=== PATIENT | female | born 1965 ===

== ENCOUNTER 2017-12-25 04:14 | Inpatient (IN) | payer MEDICARE, OTHER ==
--- NOTE | 2017-12-25 05:03 | ED PDOC ---
HPI: CCC, URI, Sore Throat Time Seen by Provider: 12/25/17 04:45 Chief Complaint (Nursing): ENT Problem Chief Complaint (Provider): Sore Throat History Per: Patient, Family History/Exam Limitations: no limitations Have you had recent travel within the past 21 days to any of the following countries: [place], [place], [place] or [place]?: No Onset/Duration Of Symptoms: Days (5), Persistent, Worse Since (yesterday) Location Of Pain: Other (Pharynx) Associated Symptoms: denies: Fever Past Medical History Reviewed: Historical Data, Nursing Documentation, Vital Signs Vital Signs: Last Vital Signs Temp 98.6 F 12/29/17 11:48 Pulse 67 12/29/17 11:48 Resp 18 12/29/17 11:48 BP 135/80 12/29/17 11:48 Pulse Ox 95 12/29/17 11:48 - Medical History PMH: Asthma, Depression, Diabetes, HTN, Schizophrenia - Surgical History Surgical History: Cholecystectomy - Family History Family History: States: Unknown Family Hx - Home Medications Home Medications: Ambulatory Orders Medication Instructions Recorded Atorvastatin [Lipitor] 10 mg PO HS 12/25/17 Benztropine [Cogentin] 1 mg PO Q12 12/25/17 Chlorthalidone [Hygroton] 25 mg PO DAILY 12/25/17 Escitalopram Oxalate [Lexapro] 5 mg PO DAILY 12/25/17 Fluconazole [Diflucan] 100 mg PO DAILY 12/25/17 Glimepiride [amaRYL] 4 mg PO BID 12/25/17 Insulin Aspart Prot/Insuln Asp 42 unit SC ACBD 12/25/17 [Novolog Mix 70-30 Vial] Insulin Glargine, Recombina 40 unit SC HS 12/25/17 [Lantus] Lisinopril [Zestril] 5 mg PO DAILY 12/25/17 Metoprolol Tartrate [Lopressor] 25 mg PO Q12 12/25/17 Mycophenolate Sodium [Myfortic] 360 mg PO Q12 12/25/17 Sodium Bicarbonate Tab 3 tab PO Q8 12/25/17 Tacrolimus [Prograf Cap] 3 mg PO Q12 12/25/17 risperiDONE [RisperDAL Tab] 2 mg PO Q12 12/25/17 Amoxicillin/Clavulanate [Augmentin 1 tab PO DAILY #5 tab 04/20/18 500 MG-125 MG] - Allergies Allergies/Adverse Reactions: Allergies Allergy/AdvReac Type Severity Reaction Status Date / Time iodine Allergy URTICARIA Verified 12/25/17 04:30 Review of Systems Constitutional: Negative for: Fever ENT: Positive for: Throat Pain Physical Exam - Reviewed Nursing Documentation Reviewed: Yes Vital Signs Reviewed: Yes - Physical Exam Appears: Positive for: Well, No Acute Distress Head Exam: Positive for: ATRAUMATIC, NORMAL INSPECTION, NORMOCEPHALIC Skin: Positive for: Normal Color ENT: Positive for: Pharynx Is (tonsils touch at apex; airway is open but small in caliber; no exudate or erythema), Tonsillar Swelling. Negative for: Pharyngeal Erythema, Tonsillar Exudate Neck: Positive for: Limited ROM. Negative for: Painless ROM, Supple Cardiovascular/Chest: Positive for: Regular Rate, Rhythm Respiratory: Positive for: Normal Breath Sounds. Negative for: Accessory Muscle Use, Crackles, Rales, Rhonchi, Stridor, Wheezing, Respiratory Distress - Laboratory Results Result Diagrams: 12/28/17 05:30 12/29/17 09:11 - ECG O2 Sat by Pulse Oximetry: 96 Medical Decision Making Medical Decision Making: Pt with sore throat; pharynx is indicating reduced caliber r/o [employer] >> pharyngitis Course CBC CMP 3g Unasyn Disposition - Clinical Impression Clinical Impression: Tonsillitis, Renal insufficiency, Anemia Counseled Patient/Family Regarding: Studies Performed, Diagnosis, Need For Followup, Rx Given - Disposition Disposition: Routine/Home Disposition Time: 06:07 Condition: FAIR
[2017-12-25] MEDS ORDERED: AMPICILLIN IVPB STA (05:20)
[2017-12-25] MEDS ORDERED: SULBACTAM IVPB STA (05:20)
[2017-12-25 05:31] LABS: SQUAMOUS EPITHIAL 13 /hpf (0-5); URINE BACTERIA OCC (<OCC); URINE BILIRUBIN NEGATIVE (NEGATIVE); URINE BLOOD SMALL (NEGATIVE); URINE CLARITY CLOUDY (Clear); URINE COLOR YELLOW (YELLOW); URINE GLUCOSE (UA) 50 mg/dL (Normal); URINE LEUKOCYTE ESTERASE NEG Leu/uL (Negative); URINE PROTEIN >=500 mg/dL (NEGATIVE); URINE UROBILINOGEN 0.2-1.0 mg/dL (0.2-1.0)
[2017-12-25 05:34] LABS: BASO % 0.2 % (0.0-2.0); EOS % 0.3 % (0.0-4.0); HEMOGLOBIN 8.1 g/dL (12.0-16.0); LYMPH # 0.5 K/uL (1.0-4.3); LYMPH % 3.3 % (20.0-40.0); MEAN CELL VOLUME 78.4 fl (81.0-99.0); MEAN CORPUSCULAR HEMOGLOBIN 25.8 pg (27.0-31.0); MEAN CORPUSCULAR HGB CONC 32.9 g/dL (33.0-37.0); MEAN PLATELET VOLUME 6.9 fl (7.2-11.7); MONO # 0.9 K/uL (0.0-0.8); MONO % 6.1 % (0.0-10.0); NEUT # 13.4 K/uL (1.8-7.0); NEUT % 90.1 % (50.0-75.0); PLATELET COUNT 253 K/uL (130-400); RBC 3.13 Mil/uL (3.80-5.20); RED CELL DISTRIBUTION WIDTH 13.8 % (11.5-14.5); WHITE BLOOD COUNT 14.9 K/uL (4.8-10.8)
[2017-12-25 05:39] LABS: ALB/GLOB RATIO 0.9 (1.0-2.1); ALBUMIN 3.1 g/dL (3.5-5.0); CALCIUM 8.1 mg/dL (8.4-10.2)
[2017-12-25] MEDS ORDERED: Dextrose 50% SYRINGE Inj (50 ml) IVP ONE (06:09)
[2017-12-25] MEDS ORDERED: Dextrose 50% SYRINGE Inj (50 ml) ONE (06:13)
--- NOTE | 2017-12-25 07:07 | ED PDOC ---
- Laboratory Results Result Diagrams: 18 05:16 18 05:16 - ECG O2 Sat by Pulse Oximetry: 96 (RA) Pulse Ox Interpretation: Normal Medical Decision Making Medical Decision Making: Patient signed out to me by Dr. Best @ 07:00, pending CT and re-evaluation. 07:52 Patient was heading to CT, but felt a little nauseous as per RN. 07:53 - Zofran ODT 4 mg PO STAT Time: 08:56 CT Neck without Contrast FINDINGS: There is no CT evidence of abscess, mass or definite significant reactive soft tissue change in the fatty planes of the supra high await or infrahyoid neck. Shotty lymph nodes are seen in the suprahyoid neck bilaterally at the jugular digastric regions but predominantly. There are no definite emphysematous changes throughout the neck soft tissues. Unenhanced density throughout the salivary glands is unremarkable bilaterally as well as the thyroid gland. Prominent right tonsillar changes are appreciated suggestive tonsillitis. Direct inspection is advised as an underlying lesion is not excluded here. Lack images contrast limits the evaluation. The hypopharynx, larynx and trachea appear unremarkable including the vocal cords, both true and false. Vascular anatomy is limited evaluation due lack of intravenous contrast. Small polyp or cyst is seen at the right maxillary sinus alveolar recess and limited imaging through the thoracic inlet is unremarkable. Minimal views through the bilateral pulmonary apices appear clear. IMPRESSION: Findings most likely secondary to right tonsillitis without definitive abscess appreciated in this unenhanced examination. Direct inspection of prominent right tonsillar pillar is advised. Underlying lesion not completely excluded here. Clinical follow-up is recommended following therapy. Shotty suprahyoid neck lymph nodes noted bilaterally. Scribe Attestation: Documented by Mo Gray, acting as a scribe for Álvaro Palafox MD Provider Scribe Attestation: All medical record entries made by the Scribe were at my direction and personally dictated by me. I have reviewed the chart and agree that the record accurately reflects my personal performance of the history, physical exam, medical decision making, and the department course for this patient. I have also personally directed, reviewed, and agree with the discharge instructions and disposition. Disposition - Clinical Impression Clinical Impression: Tonsillitis, Renal insufficiency, Anemia - POA Present On Arrival: None - Disposition Referrals: Sravan Ace MD [Primary Care Provider] - Disposition: Admitted as In-Patient Disposition Time: 11:03 Condition: FAIR Prescriptions: Amoxicillin/Clavulanate [Augmentin 875 MG-125 MG] 1 tab PO BID #20 tab Instructions: Sore Throat in Adults, Sore Throat, Adult (DC) Forms: [employer] (Polish)
[2017-12-25 07:21] LABS: LYMPHOCYTE 2 % (20-50); MONOCYTE 2 % (0-10); NEUTROPHIL 96 % (42-75); PLATELET ESTIMATE NORMAL (NORMAL); TOTAL CELLS COUNTED 100
[2017-12-25 07:22] LABS: ANISOCYTOSIS SLIGHT; HYPOCHROMIC SLIGHT; OVALOCYTES SLIGHT
--- NOTE | 2017-12-25 08:57 | CT ---
PROCEDURE: CT NECK WITHOUT CONTRAST HISTORY: r/o abscess COMPARISON: None available. TECHNIQUE: Helical CT of the neck is performed from the skullbase to the thoracic inlet without intravenous contrast as requested. Contrast Dose: None Radiation dose:Total exam DLP = 440.12 mGy-cm. This CT exam was performed using one or more of the following dose reduction techniques: Automated exposure control, adjustment of the mA and/or kV according to patient size, and/or use of iterative reconstruction technique. FINDINGS: There is no CT evidence of abscess, mass or definite significant reactive soft tissue change in the fatty planes of the supra high await or infrahyoid neck. Shotty lymph nodes are seen in the suprahyoid neck bilaterally at the jugular digastric regions but predominantly. There are no definite emphysematous changes throughout the neck soft tissues. Unenhanced density throughout the salivary glands is unremarkable bilaterally as well as the thyroid gland. Prominent right tonsillar changes are appreciated suggestive tonsillitis. Direct inspection is advised as an underlying lesion is not excluded here. Lack images contrast limits the evaluation. The hypopharynx, larynx and trachea appear unremarkable including the vocal cords, both true and false. Vascular anatomy is limited evaluation due lack of intravenous contrast. Small polyp or cyst is seen at the right maxillary sinus alveolar recess and limited imaging through the thoracic inlet is unremarkable. Minimal views through the bilateral pulmonary apices appear clear. IMPRESSION: Findings most likely secondary to right tonsillitis without definitive abscess appreciated in this unenhanced examination. Direct inspection of prominent right tonsillar pillar is advised. Underlying lesion not completely excluded here. Clinical follow-up is recommended following therapy. Shotty suprahyoid neck lymph nodes noted bilaterally.
[2017-12-25] MEDS ORDERED: Insulin Lispro Mix 75/25 100 units/ml (HumaLog) 10ml SC ONE (09:27)
--- NOTE | 2017-12-25 11:37 | CARD ---
APPROVED REPORT EKG Measurement Heart [id number] <Conclusion> Normal sinus rhythm Normal ECG
[2017-12-25 13:44] VITALS: BMI 34.5
--- NOTE | 2017-12-25 14:27 | CP.PCM.HP ---
History of Present Illness - History of Present Illness History of Present Illness: 51 y/o F, Multiple chronic medical conditions including Renal transplant in 209 , Pt came to ER [facility] to be evaluated for Sore throat, pain upon swallowing, onset 5 days [employer] with no relief of pain. Pt c/o of gradually increased throat pain, constant, severe intensity 9:10, associating to tonsilar swelling, also as per sister, Pt with difficulty breathing and wheezing in AM DO. Worsening symptoms: Difficulty eating. [facility] RE labs: WBC 14.9 Hgb 8.1 Sodium 129 BUN 40 Creatinine 3.9 BS 189. 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 Pt denied: Fever, chills, n/v/d, abdominal pain, urinary symptoms, CP, palpitations, dizziness, syncope, sick contact, recent travel out of [facility]. Soft Tissue CT showed: No evidence of abscess, mass or definitive reactive soft tissue in the fatty planes of the supra high await or infrahyoid neck. Finding most likely 2nd to R Tonsillitis w/o definitive abscess appreciated in this unenhanced examination. Present on Admission - Present on Admission Any Indicators Present on Admission: Yes History of Uncontrolled Diabetes: Yes Review of Systems - Constitutional Constitutional: Other (negative) - EENT Eyes: Requires Corrective Lenses, Other Ears: Other (negative) Nose/Mouth/Throat: Sore Throat, Throat Swelling - Cardiovascular Cardiovascular: Other (negative) - Respiratory Respiratory: Other (negative) - Gastrointestinal Gastrointestinal: Other (negative) - Genitourinary Genitourinary: Other (negative) - Musculoskeletal Musculoskeletal: Other (negative) - Integumentary Integumentary: Other (negative) - Neurological Neurological: Other (negative) - Psychiatric Psychiatric: Other (negative) - Endocrine Endocrine: Other (negative) - Hematologic/Lymphatic Hematologic: Other (negative) Past Patient History - Past Medical History & Family History Past Medical History?: Yes Pertinent Family History: Unknown - Past Social History Smoking Status: Never Smoked Alcohol: None Drugs: Denies Home Situation {Lives}: With Family - CARDIAC Hx Cardiac Disorders: Yes Hx Hypertension: Yes - PULMONARY Hx Respiratory Disorders: Yes Hx Asthma: Yes - NEUROLOGICAL Hx Neurological Disorder: No - HEENT Hx HEENT Problems: No - RENAL Hx Chronic Kidney Disease: Yes Hx Dialysis: Yes Hx Renal Failure: Yes Other/Comment: hx of kidney disease and dialysis but received transplant and is no longer on dialysis - ENDOCRINE/METABOLIC Hx Endocrine Disorders: Yes Hx Diabetes Mellitus Type 2: Yes - HEMATOLOGICAL/ONCOLOGICAL Hx Blood Disorders: Yes Hx Anemia: Yes - INTEGUMENTARY Hx Dermatological Problems: No - MUSCULOSKELETAL/RHEUMATOLOGICAL Hx Musculoskeletal Disorders: No Hx Falls: No - GASTROINTESTINAL Hx Gastrointestinal Disorders: No Hx Gall Bladder Disease: Yes (gallbladder stones) - GENITOURINARY/GYNECOLOGICAL Hx Genitourinary Disorders: Yes Other/Comment: kidney transplnt - PSYCHIATRIC Hx Psychophysiologic Disorder: Yes Hx Depression: Yes Hx Schizophrenia: Yes Hx Substance Use: No - SURGICAL HISTORY Hx Surgeries: Yes Hx Kidney Transplant: Yes - ANESTHESIA Hx Anesthesia: Yes Hx Anesthesia Reactions: No Hx Malignant Hyperthermia: No Has any member of the family had a problem w/ anesthesia?: No Meds Allergies/Adverse Reactions: Allergies Allergy/AdvReac Type Severity Reaction Status Date / Time iodine Allergy URTICARIA Verified 12/25/17 04:30 Physical Exam - Constitutional Appears: No Acute Distress - Head Exam Head Exam: NORMAL INSPECTION - Eye Exam Eye Exam: PERRL - ENT Exam Additional comments: difficult to evaluate due to tenderness , R Tonsilar swelling - Neck Exam Neck exam: Positive for: Normal Inspection - Respiratory Exam Respiratory Exam: NORMAL BREATHING PATTERN - Cardiovascular Exam Cardiovascular Exam: REGULAR RHYTHM - GI/Abdominal Exam GI & Abdominal Exam: Normal Bowel Sounds, Soft - Extremities Exam Additional comments: L arm previous non functioning AV fistula - Back Exam Back exam: NORMAL INSPECTION - Neurological Exam Neurological exam: Alert, Oriented x3 Additional comments: A O x3 , noo motor sensory deficit. - Psychiatric Exam Psychiatric exam: Anxious, Depressed - Skin Skin Exam: Normal Color, Warm Results - Vital Signs Recent Vital Signs: Last Vital Signs Temp 98.2 F 12/25/17 12:59 Pulse 74 12/25/17 12:59 Resp 18 12/25/17 12:59 BP 164/93 H 12/25/17 12:59 Pulse Ox 97 12/25/17 12:59 reviewed Michael - Labs Result Diagrams: 12/25/17 05:16 12/25/17 05:16 Labs: Laboratory Results - last 24 hr 12/25/17 12/25/17 12/25/17 05:16 05:16 05:16 WBC 14.9 H D RBC 3.13 L Hgb 8.1 L Hct 24.5 L MCV 78.4 L MCH 25.8 L MCHC 32.9 L RDW 13.8 Plt Count 253 MPV 6.9 L Neut % (Auto) 90.1 H Lymph % (Auto) 3.3 L [place] % (Auto) 6.1 Eos % (Auto) 0.3 Baso % (Auto) 0.2 Neut # (Auto) 13.4 H Lymph # (Auto) 0.5 L [place] # (Auto) 0.9 H Eos # (Auto) 0.0 Baso # (Auto) 0.0 Neutrophils % (Manual) 96 H Lymphocytes % (Manual) 2 L Monocytes % (Manual) 2 Platelet Estimate Normal Hypochromasia (manual) Slight Anisocytosis (manual) Slight Ovalocytes Slight Sodium 129 L Potassium 4.1 Chloride 98 Carbon Dioxide 14 L Anion Gap 21 H BUN 40 H Creatinine 3.9 H Est GFR ( Amer) 15 Est GFR (Non-Af Amer) 12 POC Glucose (mg/dL) Random Glucose 44 L Calcium 8.1 L Total Bilirubin 0.2 AST 28 ALT 31 Alkaline Phosphatase 97 Troponin I Total Protein 6.6 Albumin 3.1 L Globulin 3.5 Albumin/Globulin Ratio 0.9 L Urine Color Yellow Urine Clarity Cloudy Urine pH 6.0 Ur Specific [place] 1.012 Urine Protein >=500 Urine Glucose (UA) 50 Urine Ketones Negative Urine Blood Small Urine Nitrate Negative Urine Bilirubin Negative Urine Urobilinogen 0.2-1.0 Ur Leukocyte Esterase Neg Urine RBC (Auto) 3 Urine Microscopic WBC 5 Ur Squamous Epith Cells 13 H Urine Bacteria Occ H Influenza Typ A,B (EIA) Grp A Beta Strep Ag 12/25/17 12/25/17 12/25/17 06:29 06:29 06:58 WBC RBC Hgb Hct MCV MCH MCHC RDW Plt Count MPV Neut % (Auto) Lymph % (Auto) [place] % (Auto) Eos % (Auto) Baso % (Auto) Neut # (Auto) Lymph # (Auto) [place] # (Auto) Eos # (Auto) Baso # (Auto) Neutrophils % (Manual) Lymphocytes % (Manual) Monocytes % (Manual) Platelet Estimate Hypochromasia (manual) Anisocytosis (manual) Ovalocytes Sodium Potassium Chloride Carbon Dioxide Anion Gap BUN Creatinine Est GFR ( Amer) Est GFR (Non-Af Amer) POC Glucose (mg/dL) Random Glucose Calcium Total Bilirubin AST ALT Alkaline Phosphatase Troponin I < 0.0120 Total Protein Albumin Globulin Albumin/Globulin Ratio Urine Color Urine Clarity Urine pH Ur Specific [place] Urine Protein Urine Glucose (UA) Urine Ketones Urine Blood Urine Nitrate Urine Bilirubin Urine Urobilinogen Ur Leukocyte Esterase Urine RBC (Auto) Urine Microscopic WBC Ur Squamous Epith Cells Urine Bacteria Influenza Typ A,B (EIA) Negative for flu a/b Grp A Beta Strep Ag Negative 12/25/17 11:31 WBC RBC Hgb Hct MCV MCH MCHC RDW Plt Count MPV Neut % (Auto) Lymph % (Auto) [place] % (Auto) Eos % (Auto) Baso % (Auto) Neut # (Auto) Lymph # (Auto) [place] # (Auto) Eos # (Auto) Baso # (Auto) Neutrophils % (Manual) Lymphocytes % (Manual) Monocytes % (Manual) Platelet Estimate Hypochromasia (manual) Anisocytosis (manual) Ovalocytes Sodium Potassium Chloride Carbon Dioxide Anion Gap BUN Creatinine Est GFR ( Amer) Est GFR (Non-Af Amer) POC Glucose (mg/dL) 189 H Random Glucose Calcium Total Bilirubin AST ALT Alkaline Phosphatase Troponin I Total Protein Albumin Globulin Albumin/Globulin Ratio Urine Color Urine Clarity Urine pH Ur Specific [place] Urine Protein Urine Glucose (UA) Urine Ketones Urine Blood Urine Nitrate Urine Bilirubin Urine Urobilinogen Ur Leukocyte Esterase Urine RBC (Auto) Urine Microscopic WBC Ur Squamous Epith Cells Urine Bacteria Influenza Typ A,B (EIA) Grp A Beta Strep Ag reviewed J.P. - EKG Data EKG comments: reviewed J.P. - Impressions Impression: Soft Tissue Neck CT. Assessment & Plan (1) Tonsillitis Status: Acute Priority: High (2) Status post kidney transplant Status: Acute (3) JUVENCIO (acute kidney injury) Status: Acute (4) CKD (chronic kidney disease) Status: Acute (5) Hyperglycemia Status: Acute Priority: High (6) Diabetes mellitus Status: Chronic Priority: High (7) Anemia Status: Acute Priority: High (8) HTN (hypertension) Status: Chronic Priority: Medium (9) Depression Status: Acute Priority: Medium - Assessment and Plan (Free Text) Plan: F/U Throat C-S, Ampicillin, Insulin, Metoprolol, Zestril, Lipitor and rest of Tx. , IVF , Renal consult , ENT consult - Date & Time Date: 12/25/17 Time: 12:40
--- NOTE | 2017-12-25 14:54 | CP.PCM.PCO ---
Assessment & Plan - Assessment and Plan (Free Text) Assessment: Patient seen and examined, with sister at bedside. VS stable. Patient with renal insufficiency s/p renal transplant (~5 years ago as per sister) , spoke to patient's renal transplant center[facility]. Pt baseline creatinine 3.2 in November 2017 Patient has had a kidney biopsy on November 2017 , records will be faxed to unit. Cont treatment for tonsilitis, pharyngitis with iv abx. Monitor CBC, cmp, urine studies. Discussed with Dr Ace.
[2017-12-25] MEDS: GlipiZIDE 10 mg SR Tab PO SCH (16:50)
[2017-12-25] MEDS: Insulin Lispro Mix 75/25 100 units/ml (HumaLog) 10ml SC SCH (16:52)
[2017-12-26] MEDS: Insulin Detemir 100 Units/ml Inj SC SCH ×2 (00:15→22:53)
[2017-12-26 05:41] LABS: IRON 26 ug/dL (37-170)
[2017-12-26 05:50] LABS: % IRON SATURATION 12 % (20-55); TOTAL IRON BINDING CAPACITY 222 ug/dL (250-450)
[2017-12-26 05:53] LABS: HEMOGLOBIN 7.2 g/dL (12.0-16.0); MEAN CELL VOLUME 78.2 fl (81.0-99.0); MEAN CORPUSCULAR HEMOGLOBIN 25.7 pg (27.0-31.0); MEAN CORPUSCULAR HGB CONC 32.8 g/dL (33.0-37.0); RBC 2.8 Mil/uL (3.80-5.20); RED CELL DISTRIBUTION WIDTH 14.1 % (11.5-14.5); WHITE BLOOD COUNT 11.5 K/uL (4.8-10.8)
[2017-12-26 05:57] LABS: ALB/GLOB RATIO 0.8 (1.0-2.1); ALBUMIN 2.7 g/dL (3.5-5.0); CALCIUM 7.9 mg/dL (8.4-10.2)
[2017-12-26] MEDS ORDERED: Dextrose 50% SYRINGE Inj (50 ml) IVP ONE (06:28)
[2017-12-26] MEDS: GlipiZIDE 10 mg SR Tab PO SCH ×2 (09:37→20:31)
[2017-12-26] MEDS ORDERED: Insulin Lispro Mix 75/25 100 units/ml (HumaLog) 10ml SC ONE (09:49)
[2017-12-26] MEDS: Sodium Chloride 0.45% 1,000 ML IV SCH ×2 (11:11→21:44)
--- NOTE | 2017-12-26 11:11 | CP.PCM.CON ---
History of Present Illness - History of Present Illness History of Present Illness: This patient is 51 years of age female I was called to see for consultation for abnormal kidney function. This patient had kidney transplant about 6 years ago. There was done in [place]. And she was admitted from the emergency room because of difficulty swallowing and severe tonsillitis and noted BUN/creatinine and rising. My understanding he had a baseline serum creatinine in the range of 3.5 about 1 months ago. Medications reviewed Past medical history in addition to kidney transplant she is diabetic with history of depression hypertension issue and was on hemodialysis before she has kidney transplant Review of Systems - Constitutional Constitutional: absent: Chills, Headache - EENT Eyes: absent: Discharge, Exophthalmos Nose/Mouth/Throat: Dry Mouth, Dysphagia, Throat Swelling. absent: Epistaxis, Nose Pain - Cardiovascular Cardiovascular: absent: Chest Pain, Dyspnea, Leg Edema, Orthopnea, Pedal Edema - Respiratory Respiratory: absent: Cough, Hemoptysis - Gastrointestinal Gastrointestinal: absent: Abdominal Pain, Coffee Ground Emesis, Nausea - Genitourinary Genitourinary: Nocturia - Musculoskeletal Musculoskeletal: absent: Arthralgias, Back Pain, Numbness - Integumentary Integumentary: Dry Skin - Neurological Neurological: absent: Confusion, Dizziness, Numbness, Focal Weakness - Psychiatric Psychiatric: absent: Anxiety - Hematologic/Lymphatic Hematologic: absent: Easy Bleeding Past Patient History - Past Medical History & Family History Past Medical History?: Yes - Past Social History Smoking Status: Never Smoked Alcohol: None Drugs: Denies Home Situation {Lives}: With Family - CARDIAC Hx Cardiac Disorders: Yes Hx Hypertension: Yes - PULMONARY Hx Respiratory Disorders: Yes Hx Asthma: Yes - NEUROLOGICAL Hx Neurological Disorder: No - HEENT Hx HEENT Problems: No - RENAL Hx Chronic Kidney Disease: Yes Hx Dialysis: Yes Hx Renal Failure: Yes Other/Comment: hx of kidney disease and dialysis but received transplant and is no longer on dialysis - ENDOCRINE/METABOLIC Hx Endocrine Disorders: Yes Hx Diabetes Mellitus Type 2: Yes - HEMATOLOGICAL/ONCOLOGICAL Hx Blood Disorders: Yes Hx Anemia: Yes - INTEGUMENTARY Hx Dermatological Problems: No - MUSCULOSKELETAL/RHEUMATOLOGICAL Hx Musculoskeletal Disorders: No Hx Falls: No - GASTROINTESTINAL Hx Gastrointestinal Disorders: No Hx Gall Bladder Disease: Yes (gallbladder stones) - GENITOURINARY/GYNECOLOGICAL Hx Genitourinary Disorders: Yes Other/Comment: kidney transplnt - PSYCHIATRIC Hx Psychophysiologic Disorder: Yes Hx Depression: Yes Hx Schizophrenia: Yes Hx Substance Use: No - SURGICAL HISTORY Hx Surgeries: Yes Hx Kidney Transplant: Yes - ANESTHESIA Hx Anesthesia: Yes Hx Anesthesia Reactions: No Hx Malignant Hyperthermia: No Has any member of the family had a problem w/ anesthesia?: No Meds Allergies/Adverse Reactions: Allergies Allergy/AdvReac Type Severity Reaction Status Date / Time iodine Allergy URTICARIA Verified 12/25/17 04:30 - Medications Medications: Current Medications Atorvastatin Calcium (Lipitor) 10 mg PO HS [facility] Last Admin: 12/26/17 00:09 Dose: 10 mg Benztropine Mesylate (Cogentin) 1 mg PO Q12 [facility] Last Admin: 12/26/17 09:30 Dose: 1 mg Escitalopram Oxalate (Lexapro) 5 mg PO DAILY [facility] Last Admin: 12/26/17 09:30 Dose: 5 mg Glipizide (Glucotrol Xl) 10 mg PO BID [facility] Last Admin: 12/26/17 09:37 Dose: 10 mg Home Med (Mycophenolate Sodium [Myfortic]) 360 mg PO Q12 [facility] Last Admin: 12/26/17 09:31 Dose: 360 mg Sodium Chloride (Sodium Chloride 0.45%) 1,000 mls @ 60 mls/hr IV .[id number] [facility] Stop: 12/27/17 10:40 Insulin Detemir (Levemir) 40 units SC [facility] Last Admin: 12/26/17 00:15 Dose: 40 unit Insulin Lispro Protam/Lispro Human (Humalog Mix 75/25) 20 units SC ONCE ONE Stop: 12/26/17 09:50 Metoprolol Tartrate (Lopressor) 25 mg PO Q12 [facility] Last Admin: 12/26/17 09:31 Dose: 25 mg Risperidone (Risperdal Tab) 2 mg PO Q12 [facility] Last Admin: 12/26/17 09:34 Dose: 2 mg Sodium Bicarbonate (Sodium Bicarbonate Tab) 1,950 mg PO Q8 [facility] Last Admin: 12/26/17 09:35 Dose: 1,950 mg Tacrolimus (Prograf Cap) 3 mg PO Q12 [facility] Last Admin: 12/26/17 09:33 Dose: Not Given Physical Exam - Constitutional Appears: No Acute Distress - ENT Exam ENT Exam: Mucous Membranes Moist - Neck Exam Neck exam: Negative for: Lymphadenopathy - Respiratory Exam Respiratory Exam: NORMAL BREATHING PATTERN. absent: Chest Wall Tenderness, Stridor - Cardiovascular Exam Cardiovascular Exam: REGULAR RHYTHM. absent: Gallop, JVD, Rubs - GI/Abdominal Exam GI & Abdominal Exam: Normal Bowel Sounds. absent: Distended, Guarding - Extremities Exam Extremities exam: Negative for: calf tenderness - Back Exam Back exam: absent: CVA tenderness (L), CVA tenderness (R) - Neurological Exam Neurological exam: Alert - Psychiatric Exam Psychiatric exam: Normal Affect Results - Vital Signs Recent Vital Signs: Last Vital Signs Temp 97.5 F L 12/26/17 08:33 Pulse 84 12/26/17 09:35 Resp 18 12/26/17 08:33 BP 183/93 H 12/26/17 09:35 Pulse Ox 97 12/26/17 08:33 - Labs Result Diagrams: 12/26/17 04:25 12/26/17 04:25 Labs: Laboratory Results - last 24 hr 12/25/17 12/25/17 12/25/17 11:31 16:52 19:00 WBC RBC Hgb Hct MCV MCH MCHC RDW Plt Count Retic Count Sodium Potassium Chloride Carbon Dioxide Anion Gap BUN Creatinine Est GFR ( Amer) Est GFR (Non-Af Amer) POC Glucose (mg/dL) 189 H 330 H Random Glucose Calcium Iron TIBC % Saturation Ferritin Total Bilirubin AST ALT Alkaline Phosphatase Total Protein Albumin Globulin Albumin/Globulin Ratio Ur Random Creatinine 61.4 Blood Type Antibody Screen BBK History Checked 12/25/17 12/26/17 12/26/17 21:00 04:25 04:25 WBC 11.5 H RBC 2.80 L Hgb 7.2 L Hct 21.9 L MCV 78.2 L MCH 25.7 L MCHC 32.8 L RDW 14.1 Plt Count 247 Retic Count Sodium 130 L Potassium 4.5 Chloride 100 Carbon Dioxide 13 L Anion Gap 22 H BUN 60 H Creatinine 4.8 H Est GFR ( Amer) 12 Est GFR (Non-Af Amer) 10 POC Glucose (mg/dL) 139 H Random Glucose 64 L Calcium 7.9 L Iron TIBC % Saturation Ferritin 109.0 Total Bilirubin 0.2 AST 30 ALT 40 Alkaline Phosphatase 79 Total Protein 6.3 Albumin 2.7 L Globulin 3.5 Albumin/Globulin Ratio 0.8 L Ur Random Creatinine Blood Type Antibody Screen BBK History Checked 12/26/17 12/26/17 12/26/17 04:25 04:25 05:48 WBC RBC Hgb Hct MCV MCH MCHC RDW Plt Count Retic Count 1.8 H Sodium Potassium Chloride Carbon Dioxide Anion Gap BUN Creatinine Est GFR ( Amer) Est GFR (Non-Af Amer) POC Glucose (mg/dL) 41 L Random Glucose Calcium Iron 26 L TIBC 222 L % Saturation 12 L Ferritin Total Bilirubin AST ALT Alkaline Phosphatase Total Protein Albumin Globulin Albumin/Globulin Ratio Ur Random Creatinine Blood Type Antibody Screen BBK History Checked 12/26/17 12/26/17 07:13 07:49 WBC RBC Hgb Hct MCV MCH MCHC RDW Plt Count Retic Count Sodium Potassium Chloride Carbon Dioxide Anion Gap BUN Creatinine Est GFR ( Amer) Est GFR (Non-Af Amer) POC Glucose (mg/dL) 159 H Random Glucose Calcium Iron TIBC % Saturation Ferritin Total Bilirubin AST ALT Alkaline Phosphatase Total Protein Albumin Globulin Albumin/Globulin Ratio Ur Random Creatinine Blood Type O POSITIVE Antibody Screen Negative BBK History Checked Patient has bt Assessment & Plan (1) JUVENCIO (acute kidney injury) Assessment and Plan: Patient most likely has acute kidney injury superimposed on 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 Baseline serum creatinine I am told about 3.5 or so. Probably related to infection after for dehydration. My recommendation Stat tacrolimus level patient was not given tacrolimus yet. Number of tick is and does her antibiotics according to the kidney function probably less than 3 g every 12 hours. Discontinue lisinopril for now. IV fluid half normal saline alternate was normal saline at 60 mL per hour. Follow-up blood work tomorrow morning Status: Acute (2) Anemia Status: Acute Priority: High (3) CKD (chronic kidney disease) Status: Acute (4) Status post kidney transplant Status: Acute (5) Tonsillitis Status: Acute Priority: High (6) Diabetes mellitus Status: Chronic Priority: High (7) HTN (hypertension) Status: Chronic Priority: Medium
[2017-12-26] MEDS: Insulin Lispro Mix 75/25 100 units/ml (HumaLog) 10ml SC SCH (14:38)
--- NOTE | 2017-12-26 15:27 | PQF GENQUE ---
Dr. Ace, Please clarify the stage of the chronic kidney disease: Stage 1 Stage 2 (mild) Stage 3 (moderate) Stage 4 (severe) Stage 5 Other (please specify) Clinically unable to determine Unknown BUN:40->60 Creatinine:3.9->4.8 Est GFR( Amer/Non - Af Amer):15/12->12/10 H and P: diagnoses include: CKD Renal csm consultant: diagnoses. include :CKD This form is a permanent part of the medical record Clarification of your documentation is requested to better reflect the severity of illness and intensity of treatment of your patient. Indicators present [] Specify: [] [] Specify: [] [] Specify: [] [] Specify: [] Location in the medical record that reflects the above clinical findings: [] Treatment Provided: [] PHYSICIAN'S RESPONSE Based on your medical judgment of the clinical indicators outlined above please clarify the following: [] Practitioner response [] If unable to determine, please check the box, sign and date. Present On Admission (POA) Indicator: [] Present at the time of admission [] Not present at the time of admission [] Clinically Undetermined In responding to this query, please exercise your independent professional judgment. The fact that a question is asked does not imply that any particular answer is desired or expected. Thank you for your clarification on this documentation. If you have any questions please call. * Thank you, Carol Garcia RN ext. #[phone] MTDD
--- NOTE | 2017-12-26 16:44 | CP.PCM.PN ---
Subjective - Date & Time of Evaluation Date of Evaluation: 12/26/17 Time of Evaluation: 11:00 - Subjective Subjective: F/U Tonsillitis. Sore Throat Objective - Vital Signs/Intake and Output Vital Signs (last 24 hours): Temp Pulse Resp BP Pulse Ox 97.9 F 65 20 155/78 H 99 12/26/17 15:39 12/26/17 15:39 12/26/17 15:39 12/26/17 15:39 12/26/17 15:39 - Medications Medications: Current Medications Atorvastatin Calcium (Lipitor) 10 mg PO HS [facility] Last Admin: 12/26/17 00:09 Dose: 10 mg Benztropine Mesylate (Cogentin) 1 mg PO Q12 [facility] Last Admin: 12/26/17 09:30 Dose: 1 mg Escitalopram Oxalate (Lexapro) 5 mg PO DAILY [facility] Last Admin: 12/26/17 09:30 Dose: 5 mg Glipizide (Glucotrol Xl) 10 mg PO BID [facility] Last Admin: 12/26/17 09:37 Dose: 10 mg Home Med (Mycophenolate Sodium [Myfortic]) 360 mg PO Q12 [facility] Last Admin: 12/26/17 09:31 Dose: 360 mg Sodium Chloride (Sodium Chloride 0.45%) 1,000 mls @ 60 mls/hr IV .[id number] [facility] Stop: 12/27/17 10:40 Last Admin: 12/26/17 11:11 Dose: 60 mls/hr Ampicillin Sodium/Sulbactam (Sodium 3 gm/ Sodium Chloride) 100 mls @ 100 mls/ hr IVPB Q12 [facility] PRN Reason: Protocol Insulin Detemir (Levemir) 40 units SC [facility] Last Admin: 12/26/17 00:15 Dose: 40 unit Metoprolol Tartrate (Lopressor) 25 mg PO Q12 [facility] Last Admin: 12/26/17 09:31 Dose: 25 mg Risperidone (Risperdal Tab) 2 mg PO Q12 [facility] Last Admin: 12/26/17 09:34 Dose: 2 mg Sodium Bicarbonate (Sodium Bicarbonate Tab) 1,950 mg PO Q8 [facility] Last Admin: 12/26/17 09:35 Dose: 1,950 mg Tacrolimus (Prograf Cap) 3 mg PO Q12 [facility] Last Admin: 12/26/17 09:33 Dose: Not Given - Labs Labs: 12/26/17 04:25 12/26/17 04:25 - Constitutional Appears: No Acute Distress - Head Exam Head Exam: NORMAL INSPECTION - Eye Exam Eye Exam: PERRL - ENT Exam Additional comments: R Tonsilar swelling , tenderness - Neck Exam Neck Exam: Normal Inspection - Respiratory Exam Respiratory Exam: NORMAL BREATHING PATTERN - Cardiovascular Exam Cardiovascular Exam: REGULAR RHYTHM - GI/Abdominal Exam GI & Abdominal Exam: Soft, Normal Bowel Sounds - Extremities Exam Additional comments: L arm previous non functioning AV fistula. - Back Exam Back Exam: NORMAL INSPECTION - Neurological Exam Neurological Exam: Alert, Oriented x3. absent: Motor Sensory Deficit - Psychiatric Exam Psychiatric exam: Anxious, Depressed - Skin Skin Exam: Normal Color, Warm Assessment and Plan (1) Tonsillitis Status: Acute (2) Status post kidney transplant Status: Acute (3) JUVENCIO (acute kidney injury) Status: Acute (4) CKD (chronic kidney disease) Status: Acute (5) Hyperglycemia Status: Acute (6) Diabetes mellitus Status: Chronic (7) Anemia Status: Acute (8) HTN (hypertension) Status: Chronic (9) Depression Status: Acute - Assessment and Plan (Free Text) Plan: continue IVF, Unasyn , Bicarb , anti rejection med Prograft , BS control , Renal consult appreciated , f/u ENT consult
--- NOTE | 2017-12-26 18:18 | MRI ---
PROCEDURE: NECK MRI WITHOUT CONTRAST HISTORY: r/o abscess r tonsilitis , focus on neck COMPARISON: Neck CT without contrast 12/25/2017. TECHNIQUE: An MR examination of the neck was performed using multiplanar multisequential technique without intravenous gadolinium as requested. FINDINGS: Prominence of the right tonsillar pillar is appreciated with mild edema but no fluid collection to suggest a definite abscess at this time. Heterogeneous signal suggests phlegmon instead. The inferior nasopharyngeal airway remains patent though narrowed the somewhat less than 1 cm in shifted slightly off center toward the left. No significant left tonsillar findings. No gross lymphadenopathy identified in the suprahyoid or infrahyoid neck. The anterior oral cavity is not completely included in this examination with the mid oral cavity unremarkable including the tongue base. 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 The lingual glands are not included in this exam. The hypopharynx and larynx appear unremarkable. Limited signal changes seen in the right thyroid gland which are nonspecific. The visualized upper trachea is patent. Vascular anatomy is limited in evaluation. The thoracic inlet is unremarkable. Mucosal inflammatory changes are identified at the alveolar recesses of the bilateral maxillary sinuses. IMPRESSION: Pattern most compatible with right tonsillitis without definite abscess formation.
--- NOTE | 2017-12-26 18:48 | US ---
PROCEDURE: Ultrasound of the Kidneys HISTORY: sp renal transplant acute renal insufficiency COMPARISON: None available. TECHNIQUE: Sonogram of the kidneys. FINDINGS: RIGHT KIDNEY: Not visualized LEFT KIDNEY: Not visualized OTHER FINDINGS: The transplanted kidney in the right lower quadrant satisfactorily visualized. This measures 5.6 x 10.3 cm. Flow documented to there renal transplant. No evidence of mass, calculus disease, hydronephrosis. IMPRESSION: Unremarkable renal transplant. Color Doppler arterial flow is documented.
--- NOTE | 2017-12-26 20:29 | OP ---
PROCEDURE DATE: 12/26/2017 PREOPERATIVE DIAGNOSIS: Peritonsillar abscess, right. POSTOPERATIVE DIAGNOSIS: Peritonsillar abscess, right. PROCEDURE: Incision and drainage of peritonsillar abscess, right. DESCRIPTION OF PROCEDURE: The patient was brought to the room and placed in seated position. The right peritonsillar area was injected with lidocaine with epinephrine. An #11 blade was used to make an incision in the right peritonsillar area and clamped and dissection was done. Pus was noted to be coming out. Loculations were broken with a clamp. Bleeding was controlled with time. The patient tolerated the procedure well. Bello Weaver MD
[2017-12-27] MEDS: Sodium Chloride 0.45% 1,000 ML IV SCH (05:16)
[2017-12-27 06:04] LABS: ALB/GLOB RATIO 0.8 (1.0-2.1); ALBUMIN 2.5 g/dL (3.5-5.0); CALCIUM 7.6 mg/dL (8.4-10.2)
[2017-12-27 06:14] LABS: HEMOGLOBIN 8.2 g/dL (12.0-16.0); MEAN CORPUSCULAR HEMOGLOBIN 26.4 pg (27.0-31.0); MEAN CORPUSCULAR HGB CONC 32.2 g/dL (33.0-37.0); RBC 3.11 Mil/uL (3.80-5.20); RED CELL DISTRIBUTION WIDTH 15.1 % (11.5-14.5); WHITE BLOOD COUNT 12.8 K/uL (4.8-10.8)
[2017-12-27] MEDS ORDERED: Dextrose 50% SYRINGE Inj (50 ml) IV PRN (07:36)
[2017-12-27] MEDS ORDERED: Glucagon Recombinant 1 mg Inj IM PRN (07:36)
--- NOTE | 2017-12-27 11:56 | CP.PCM.PN ---
Subjective - Date & Time of Evaluation Date of Evaluation: 12/27/17 Time of Evaluation: 11:51 - Subjective Subjective: Patient sitting down in bed appears to be comfortable and not in any distress. No nausea no vomiting Patient stated that she is eating better Swallowing better. Objective - Vital Signs/Intake and Output Vital Signs (last 24 hours): Temp Pulse Resp BP Pulse Ox 98.1 F 80 18 169/90 H 98 12/27/17 07:47 12/27/17 07:47 12/27/17 07:47 12/27/17 07:47 12/27/17 07:47 - Medications Medications: Current Medications Atorvastatin Calcium (Lipitor) 10 mg PO HS [facility] Last Admin: 12/26/17 21:35 Dose: 10 mg Benztropine Mesylate (Cogentin) 1 mg PO Q12 [facility] Last Admin: 12/27/17 10:33 Dose: 1 mg Dextrose (Dextrose 50% Inj) 0 ml IV STAT PRN; Protocol PRN Reason: Hypoglycemia Protocol Dextrose (Glutose 15) 0 gm PO ONCE PRN; Protocol PRN Reason: Hypoglycemia Protocol Escitalopram Oxalate (Lexapro) 5 mg PO DAILY [facility] Last Admin: 12/27/17 10:33 Dose: 5 mg Glipizide (Glucotrol Xl) 10 mg PO BID [facility] Last Admin: 12/26/17 20:31 Dose: Not Given Glucagon (Glucagen Diagnostic Kit) 0 mg IM STAT PRN; Protocol PRN Reason: Hypoglycemia Protocol Home Med (Mycophenolate Sodium [Myfortic]) 360 mg PO Q12 [facility] Last Admin: 12/27/17 10:34 Dose: 360 mg Ampicillin Sodium/Sulbactam (Sodium 1.5 gm/ Sodium Chloride) 100 mls @ 100 mls/ hr IVPB Q12 [facility] PRN Reason: Protocol Insulin Detemir (Levemir) 40 units SC HS [facility] Last Admin: 12/26/17 22:53 Dose: 40 unit Metoprolol Tartrate (Lopressor) 25 mg PO Q12 [facility] Last Admin: 12/27/17 10:33 Dose: 25 mg Morphine Sulfate (Morphine) 1 mg IVP Q4 PRN PRN Reason: Pain, severe (8-10) Last Admin: 12/26/17 20:18 Dose: 1 mg Risperidone (Risperdal Tab) 2 mg PO Q12 [facility] Last Admin: 12/27/17 10:32 Dose: Not Given Sodium Bicarbonate (Sodium Bicarbonate Tab) 1,950 mg PO Q8 [facility] Last Admin: 12/27/17 10:36 Dose: 1,950 mg Tacrolimus (Prograf Cap) 3 mg PO Q12 [facility] Last Admin: 12/27/17 10:35 Dose: 3 mg - Labs Labs: 12/27/17 04:20 12/27/17 04:20 - Constitutional Appears: No Acute Distress - ENT Exam ENT Exam: Mucous Membranes Moist - Neck Exam Neck Exam: absent: Lymphadenopathy - Respiratory Exam Respiratory Exam: Chest Wall Tenderness - Cardiovascular Exam Cardiovascular Exam: REGULAR RHYTHM, RRR. absent: Gallop, JVD, Rubs - GI/Abdominal Exam GI & Abdominal Exam: Soft, Normal Bowel Sounds - Extremities Exam Extremities Exam: absent: Calf Tenderness - Back Exam Back Exam: absent: CVA tenderness (L), CVA tenderness (R) - Neurological Exam Neurological Exam: Alert - Psychiatric Exam Psychiatric exam: Normal Affect - Skin Skin Exam: absent: Cyanosis Assessment and Plan (1) JUVENCIO (acute kidney injury) Assessment & Plan: Serum creatinine has gone up to 5.2 worsening acute kidney injury most likely related to sepsis with infection in the throat and abscess. Clinically though doing much better White count coming down and responding to antibiotics Hyponatremia improving serum sodium came up to 133 Serum tacrolimus level pending Continue monitoring closely We are attempting to call transplant center. Adjust antibiotics as per renal dose. Discussed with the nurse practitioner, Status: Acute (2) Anemia Status: Acute (3) CKD (chronic kidney disease) Status: Acute (4) Status post kidney transplant Status: Acute (5) Tonsillitis Status: Acute (6) Diabetes mellitus Status: Chronic (7) HTN (hypertension) Status: Chronic
--- NOTE | 2017-12-27 11:59 | CP.PCM.PN ---
Subjective - Date & Time of Evaluation Date of Evaluation: 12/27/17 Time of Evaluation: 11:57 - Subjective Subjective: Dialysis note Hemodialysis started. Patient is receiving blood transfusion. Second unit of blood transfusion running. vital sign stable I discussed the dialysis order with the dialysis nurse at the bedside Objective - Vital Signs/Intake and Output Vital Signs (last 24 hours): Temp Pulse Resp BP Pulse Ox 98.1 F 80 18 169/90 H 98 12/27/17 07:47 12/27/17 07:47 12/27/17 07:47 12/27/17 07:47 12/27/17 07:47 - Medications Medications: Current Medications Atorvastatin Calcium (Lipitor) 10 mg PO HS [facility] Last Admin: 12/26/17 21:35 Dose: 10 mg Benztropine Mesylate (Cogentin) 1 mg PO Q12 [facility] Last Admin: 12/27/17 10:33 Dose: 1 mg Dextrose (Dextrose 50% Inj) 0 ml IV STAT PRN; Protocol PRN Reason: Hypoglycemia Protocol Dextrose (Glutose 15) 0 gm PO ONCE PRN; Protocol PRN Reason: Hypoglycemia Protocol Escitalopram Oxalate (Lexapro) 5 mg PO DAILY [facility] Last Admin: 12/27/17 10:33 Dose: 5 mg Glipizide (Glucotrol Xl) 10 mg PO BID [facility] Last Admin: 12/26/17 20:31 Dose: Not Given Glucagon (Glucagen Diagnostic Kit) 0 mg IM STAT PRN; Protocol PRN Reason: Hypoglycemia Protocol Home Med (Mycophenolate Sodium [Myfortic]) 360 mg PO Q12 [facility] Last Admin: 12/27/17 10:34 Dose: 360 mg Ampicillin Sodium/Sulbactam (Sodium 1.5 gm/ Sodium Chloride) 100 mls @ 100 mls/ hr IVPB Q12 [facility] PRN Reason: Protocol Insulin Detemir (Levemir) 40 units SC [facility] Last Admin: 12/26/17 22:53 Dose: 40 unit Metoprolol Tartrate (Lopressor) 25 mg PO Q12 [facility] Last Admin: 12/27/17 10:33 Dose: 25 mg Morphine Sulfate (Morphine) 1 mg IVP Q4 PRN PRN Reason: Pain, severe (8-10) Last Admin: 12/26/17 20:18 Dose: 1 mg Risperidone (Risperdal Tab) 2 mg PO Q12 [facility] Last Admin: 12/27/17 10:32 Dose: Not Given Sodium Bicarbonate (Sodium Bicarbonate Tab) 1,950 mg PO Q8 [facility] Last Admin: 12/27/17 10:36 Dose: 1,950 mg Tacrolimus (Prograf Cap) 3 mg PO Q12 [facility] Last Admin: 12/27/17 10:35 Dose: 3 mg - Labs Labs: 12/27/17 04:20 12/27/17 04:20 - Constitutional Appears: In Acute Distress - ENT Exam ENT Exam: Mucous Membranes Moist - Respiratory Exam Respiratory Exam: Rhonchi - Cardiovascular Exam Cardiovascular Exam: absent: JVD, Rubs - Extremities Exam Extremities Exam: absent: Calf Tenderness - Back Exam Back Exam: absent: CVA tenderness (L), CVA tenderness (R) - Neurological Exam Neurological Exam: Alert Assessment and Plan (1) JUVENCIO (acute kidney injury) Status: Acute (2) Anemia Status: Acute (3) CKD (chronic kidney disease) Assessment & Plan: End stage renal disease with severe anemia hemoglobin 5.3 patient receiving dialysis now Second unit of blood transfusion started. Dialysis order Sodium bath 138 Sodium bath 2 mEq Bicarbonate bath 34 Ultrafiltration 2000 mL as tolerated Again the patient is stable and she is going to receive fresh frozen plasma to follow. Patient admitted with active GI bleeding. No heparin Status: Acute (4) Status post kidney transplant Status: Acute (5) Tonsillitis Status: Acute (6) Diabetes mellitus Status: Chronic (7) HTN (hypertension) Status: Chronic
--- NOTE | 2017-12-27 14:02 | CP.PCM.PN ---
Subjective - Date & Time of Evaluation Date of Evaluation: 12/27/17 Time of Evaluation: 11:30 - Subjective Subjective: F/U S/P A&D for R Peritonsilar abscess. Pt awake, no c/o of pain in the R tonsil area now. She had I&D R tonsil yesterday. Objective - Vital Signs/Intake and Output Vital Signs (last 24 hours): Temp Pulse Resp BP Pulse Ox 97.4 F L 60 18 138/76 96 12/27/17 11:59 12/27/17 11:59 12/27/17 11:59 12/27/17 11:59 12/27/17 11:59 - Medications Medications: Current Medications Atorvastatin Calcium (Lipitor) 10 mg PO HS [facility] Last Admin: 12/26/17 21:35 Dose: 10 mg Benztropine Mesylate (Cogentin) 1 mg PO Q12 [facility] Last Admin: 12/27/17 10:33 Dose: 1 mg Dextrose (Dextrose 50% Inj) 0 ml IV STAT PRN; Protocol PRN Reason: Hypoglycemia Protocol Dextrose (Glutose 15) 0 gm PO ONCE PRN; Protocol PRN Reason: Hypoglycemia Protocol Escitalopram Oxalate (Lexapro) 5 mg PO DAILY [facility] Last Admin: 12/27/17 10:33 Dose: 5 mg Glipizide (Glucotrol Xl) 10 mg PO BID [facility] Last Admin: 12/26/17 20:31 Dose: Not Given Glucagon (Glucagen Diagnostic Kit) 0 mg IM STAT PRN; Protocol PRN Reason: Hypoglycemia Protocol Home Med (Mycophenolate Sodium [Myfortic]) 360 mg PO Q12 [facility] Last Admin: 12/27/17 10:34 Dose: 360 mg Ampicillin Sodium/Sulbactam (Sodium 1.5 gm/ Sodium Chloride) 100 mls @ 100 mls/ hr IVPB Q12 [facility] PRN Reason: Protocol Insulin Detemir (Levemir) 40 units SC HS [facility] Last Admin: 12/26/17 22:53 Dose: 40 unit Metoprolol Tartrate (Lopressor) 25 mg PO Q12 [facility] Last Admin: 12/27/17 10:33 Dose: 25 mg Morphine Sulfate (Morphine) 1 mg IVP Q4 PRN PRN Reason: Pain, severe (8-10) Last Admin: 12/26/17 20:18 Dose: 1 mg Risperidone (Risperdal Tab) 2 mg PO Q12 [facility] Last Admin: 12/27/17 10:32 Dose: Not Given Sodium Bicarbonate (Sodium Bicarbonate Tab) 1,950 mg PO Q8 [facility] Last Admin: 12/27/17 10:36 Dose: 1,950 mg Tacrolimus (Prograf Cap) 3 mg PO Q12 [facility] Last Admin: 12/27/17 10:35 Dose: 3 mg - Labs Labs: 12/27/17 04:20 12/27/17 04:20 - Constitutional Appears: No Acute Distress - Head Exam Head Exam: NORMAL INSPECTION - Eye Exam Eye Exam: PERRL - ENT Exam Additional comments: Exam differed at pt's request 2nd to throat discomfort - Neck Exam Neck Exam: Normal Inspection - Respiratory Exam Respiratory Exam: NORMAL BREATHING PATTERN - Cardiovascular Exam Cardiovascular Exam: REGULAR RHYTHM - GI/Abdominal Exam GI & Abdominal Exam: Soft, Normal Bowel Sounds - Extremities Exam Additional comments: L arm previous non functioning AV fistula - Back Exam Back Exam: NORMAL INSPECTION - Neurological Exam Neurological Exam: Alert, Oriented x3. absent: Motor Sensory Deficit - Psychiatric Exam Psychiatric exam: Anxious, Depressed - Skin Skin Exam: Normal Color, Warm Assessment and Plan (1) Tonsillitis Status: Acute (2) Status post kidney transplant Status: Acute (3) JUVENCIO (acute kidney injury) Status: Acute (4) CKD (chronic kidney disease) Status: Acute (5) Hyperglycemia Status: Acute (6) Diabetes mellitus Status: Chronic (7) Anemia Status: Acute (8) HTN (hypertension) Status: Chronic (9) Depression Assessment & Plan: on 12/26/17 Status: Acute (10) Hx of peritonsillar abscess drainage Status: Acute - Assessment and Plan (Free Text) Plan: After 24 hrs on liquids diet, after Pt can start fine shop diet. Continue current Tx.
[2017-12-28 06:04] LABS: HEMOGLOBIN 9.2 g/dL (12.0-16.0); MEAN CORPUSCULAR HEMOGLOBIN 26.7 pg (27.0-31.0); MEAN CORPUSCULAR HGB CONC 33.4 g/dL (33.0-37.0); RBC 3.46 Mil/uL (3.80-5.20); RED CELL DISTRIBUTION WIDTH 14.8 % (11.5-14.5); WHITE BLOOD COUNT 7.8 K/uL (4.8-10.8)
[2017-12-28 06:35] LABS: CALCIUM 8.2 mg/dL (8.4-10.2)
--- NOTE | 2017-12-28 09:45 | PQF GENQUE ---
Dr. Ace, 2 queries as follows: 1.Validation Scientist documented the following information with no mention of this diagnosis in your documentation. Please indicate in your next progress note and /or discharge summary your agreement with work and family life consultant or provide clarification that this diagnosis is not a current condition. Diagnosis: Sepsis Documented by Renal Location: progress note of 12/27/2017 2. If in agreement was the dx. of Sepsis: POA? etiology if known? Please clarify if this was an active condition(s) that resolved prior to discharge or this condition(s) was ruled out. Temp: 98.9->99.1->99.1; 12/26: Temp: 97.5->98.1->97.4 Pulse: 93->78->74 WBC: 14.9->11.5-.12.8 left shift throat culture: No Beta Strep Group A isolated H and P: HPI: denied fever chills H and P: Assessment :(1) Tonsillitis Status: Acute Priority: High (2) Status post kidney transplant Status: Acute (3) JUVENCIO (acute kidney injury) Status: Acute (4) CKD (chronic kidney disease) Status: Acute (5) Hyperglycemia Status: Acute Priority: High (6) Diabetes mellitus Status: Chronic Priority: High (7) Anemia Status: Acute Priority: High (8) HTN (hypertension) Status: Chronic Priority: Medium (9) Depression Status: Acute Priority: Medium 12/27; 2 Renal notes:1. Serum creatinine has gone up to 5.2 worsening acute kidney injury most likely related to sepsis with infection in the throat and abscess. White count coming down and responding to antibiotics 2. End stage renal disease with severe anemia hemoglobin 5.3 patient receiving dialysis now Second unit of This form is a permanent part of the medical record Clarification of your documentation is requested to better reflect the severity of illness and intensity of treatment of your patient. Indicators present [] Specify: [] [] Specify: [] [] Specify: [] [] Specify: [] Location in the medical record that reflects the above clinical findings: [] Treatment Provided: [] PHYSICIAN'S RESPONSE Based on your medical judgment of the clinical indicators outlined above please clarify the following: [] Practitioner response [] If unable to determine, please check the box, sign and date. Present On Admission (POA) Indicator: [] Present at the time of admission [] Not present at the time of admission [] Clinically Undetermined In responding to this query, please exercise your independent professional judgment. The fact that a question is asked does not imply that any particular answer is desired or expected. Thank you for your clarification on this documentation. If you have any questions please call. * Thank you, Carol Garcia RN ext. #[phone] MTDD
--- NOTE | 2017-12-28 11:02 | CP.PCM.PN ---
Subjective - Date & Time of Evaluation Date of Evaluation: 12/28/17 Time of Evaluation: 11:00 - Subjective Subjective: Patient feeling much better she is eating much better No nausea or vomiting No abdominal pain Objective - Vital Signs/Intake and Output Vital Signs (last 24 hours): Temp Pulse Resp BP Pulse Ox 98.2 F 65 18 172/98 H 99 12/28/17 07:42 12/28/17 08:08 12/28/17 07:42 12/28/17 08:08 12/28/17 07:42 - Medications Medications: Current Medications Atorvastatin Calcium (Lipitor) 10 mg PO HS [facility] Last Admin: 12/27/17 21:00 Dose: 10 mg Benztropine Mesylate (Cogentin) 1 mg PO Q12 [facility] Last Admin: 12/28/17 08:09 Dose: 1 mg Dextrose (Dextrose 50% Inj) 0 ml IV STAT PRN; Protocol PRN Reason: Hypoglycemia Protocol Dextrose (Glutose 15) 0 gm PO ONCE PRN; Protocol PRN Reason: Hypoglycemia Protocol Escitalopram Oxalate (Lexapro) 5 mg PO DAILY [facility] Last Admin: 12/28/17 08:09 Dose: 5 mg Glipizide (Glucotrol Xl) 10 mg PO BID [facility] Last Admin: 12/26/17 20:31 Dose: Not Given Glucagon (Glucagen Diagnostic Kit) 0 mg IM STAT PRN; Protocol PRN Reason: Hypoglycemia Protocol Home Med (Mycophenolate Sodium [Myfortic]) 360 mg PO Q12 [facility] Last Admin: 12/28/17 08:08 Dose: 360 mg Ampicillin Sodium/Sulbactam (Sodium 1.5 gm/ Sodium Chloride) 100 mls @ 100 mls/ hr IVPB Q12 [facility] PRN Reason: Protocol Last Admin: 12/28/17 08:10 Dose: 100 mls/hr Insulin Detemir (Levemir) 40 units SC [facility] Last Admin: 12/26/17 22:53 Dose: 40 unit Metoprolol Tartrate (Lopressor) 25 mg PO Q12 [facility] Last Admin: 12/28/17 08:08 Dose: 25 mg Morphine Sulfate (Morphine) 1 mg IVP Q4 PRN PRN Reason: Pain, severe (8-10) Last Admin: 12/26/17 20:18 Dose: 1 mg Risperidone (Risperdal Tab) 2 mg PO Q12 [facility] Last Admin: 12/28/17 08:07 Dose: 2 mg Sodium Bicarbonate (Sodium Bicarbonate Tab) 1,950 mg PO Q8 [facility] Last Admin: 12/28/17 08:07 Dose: 1,950 mg Tacrolimus (Prograf Cap) 3 mg PO Q12 [facility] Last Admin: 12/28/17 08:07 Dose: 3 mg - Labs Labs: 12/28/17 05:30 12/28/17 05:30 - Constitutional Appears: No Acute Distress - Eye Exam Eye Exam: Conjunctival injection - ENT Exam ENT Exam: Mucous Membranes Moist - Neck Exam Neck Exam: absent: Lymphadenopathy - Respiratory Exam Respiratory Exam: NORMAL BREATHING PATTERN. absent: Chest Wall Tenderness, Rhonchi - Cardiovascular Exam Cardiovascular Exam: REGULAR RHYTHM. absent: Gallop, Rubs - GI/Abdominal Exam GI & Abdominal Exam: Soft - Extremities Exam Extremities Exam: absent: Calf Tenderness - Back Exam Back Exam: absent: CVA tenderness (L), CVA tenderness (R) - Neurological Exam Neurological Exam: Alert - Psychiatric Exam Psychiatric exam: Normal Affect - Skin Skin Exam: absent: Cyanosis Assessment and Plan (1) JUVENCIO (acute kidney injury) Assessment & Plan: Acute kidney injury superimposed on chronic kidney disease on transplanted kidney 6 years ago with baseline serum creatinine in the range of 3.5. Serum creatinine today 5.1 has came down slightly from yesterday. Clinically patient doing much better appear to be responding to antibiotics. White count coming down to normal. Serum tacrolimus level 5.2 My recommendation Continue on antibiotics and medication as per renal dose. Continue IV fluid normal saline at 40 mL/h for the next 24 hours. Continue monitoring Status: Acute (2) Anemia Status: Acute (3) CKD (chronic kidney disease) Status: Acute (4) Status post kidney transplant Status: Acute (5) Tonsillitis Status: Acute (6) Diabetes mellitus Status: Chronic (7) HTN (hypertension) Status: Chronic
[2017-12-28] MEDS ORDERED: Sodium Chloride 0.9% 500 ML IV SCH (11:15)
[2017-12-28] MEDS ORDERED: Sodium Chloride 0.9% 1,000 ML IV SCH (11:45)
--- NOTE | 2017-12-28 13:28 | CP.PCM.PN ---
Subjective - Date & Time of Evaluation Date of Evaluation: 12/28/17 Time of Evaluation: 11:10 - Subjective Subjective: F/U S/P A&D R Peritonsilar abscess Pt c/o of mild sore throat, no other c/o. Objective - Vital Signs/Intake and Output Vital Signs (last 24 hours): Temp Pulse Resp BP Pulse Ox 98.4 F 59 L 18 158/78 H 96 12/28/17 11:55 12/28/17 11:55 12/28/17 11:55 12/28/17 11:55 12/28/17 11:55 - Medications Medications: Current Medications Atorvastatin Calcium (Lipitor) 10 mg PO HS [facility] Last Admin: 12/27/17 21:00 Dose: 10 mg Benztropine Mesylate (Cogentin) 1 mg PO Q12 [facility] Last Admin: 12/28/17 08:09 Dose: 1 mg Dextrose (Dextrose 50% Inj) 0 ml IV STAT PRN; Protocol PRN Reason: Hypoglycemia Protocol Dextrose (Glutose 15) 0 gm PO ONCE PRN; Protocol PRN Reason: Hypoglycemia Protocol Escitalopram Oxalate (Lexapro) 5 mg PO DAILY [facility] Last Admin: 12/28/17 08:09 Dose: 5 mg Glipizide (Glucotrol Xl) 10 mg PO BID [facility] Last Admin: 12/26/17 20:31 Dose: Not Given Glucagon (Glucagen Diagnostic Kit) 0 mg IM STAT PRN; Protocol PRN Reason: Hypoglycemia Protocol Home Med (Mycophenolate Sodium [Myfortic]) 360 mg PO Q12 [facility] Last Admin: 12/28/17 08:08 Dose: 360 mg Ampicillin Sodium/Sulbactam (Sodium 1.5 gm/ Sodium Chloride) 100 mls @ 100 mls/ hr IVPB Q12 [facility] PRN Reason: Protocol Last Admin: 12/28/17 08:10 Dose: 100 mls/hr Sodium Chloride (Sodium Chloride 0.9%) 1,000 mls @ 40 mls/hr IV .Q24H [facility] Stop: 12/29/17 11:32 Last Admin: 12/28/17 11:42 Dose: 40 mls/hr Insulin Detemir (Levemir) [address] [facility] Last Admin: 12/26/17 22:53 Dose: 40 unit Metoprolol Tartrate (Lopressor) 25 mg PO Q12 [facility] Last Admin: 12/28/17 08:08 Dose: 25 mg Morphine Sulfate (Morphine) 1 mg IVP Q4 PRN PRN Reason: Pain, severe (8-10) Last Admin: 12/26/17 20:18 Dose: 1 mg Risperidone (Risperdal Tab) 2 mg PO Q12 [facility] Last Admin: 12/28/17 08:07 Dose: 2 mg Sodium Bicarbonate (Sodium Bicarbonate Tab) 1,950 mg PO Q8 [facility] Last Admin: 12/28/17 08:07 Dose: 1,950 mg Tacrolimus (Prograf Cap) 3 mg PO Q12 [facility] Last Admin: 12/28/17 08:07 Dose: 3 mg - Labs Labs: 12/28/17 05:30 12/28/17 05:30 - Constitutional Appears: No Acute Distress - Head Exam Head Exam: NORMAL INSPECTION - Eye Exam Eye Exam: PERRL - ENT Exam ENT Exam: Mucous Membranes Moist - Neck Exam Neck Exam: Normal Inspection - Respiratory Exam Respiratory Exam: NORMAL BREATHING PATTERN - Cardiovascular Exam Cardiovascular Exam: REGULAR RHYTHM - GI/Abdominal Exam GI & Abdominal Exam: Soft, Normal Bowel Sounds - Extremities Exam Additional comments: L arm previous non functioning AV fistula - Back Exam Back Exam: NORMAL INSPECTION - Neurological Exam Neurological Exam: Alert, Oriented x3. absent: Motor Sensory Deficit - Psychiatric Exam Psychiatric exam: Anxious, Depressed - Skin Skin Exam: Normal Color, Warm Assessment and Plan (1) Tonsillitis Status: Acute (2) Status post kidney transplant Status: Acute (3) JUVENCIO (acute kidney injury) Status: Acute (4) CKD (chronic kidney disease) Status: Acute (5) Hyperglycemia Status: Acute (6) Diabetes mellitus Status: Chronic (7) Anemia Status: Acute (8) HTN (hypertension) Status: Chronic (9) Depression Status: Acute (10) Hx of peritonsillar abscess drainage Status: Acute - Assessment and Plan (Free Text) Plan: Continue IV abx, cleared by ENT. Pt improved and stable to be discharged, f/u in my office in a week.
[2017-12-29 00:49] VITALS: RESP 18
[2017-12-29 09:31] LABS: CALCIUM 8.6 mg/dL (8.4-10.2)
--- NOTE | 2017-12-29 10:06 | CP.PCM.PN ---
Subjective - Date & Time of Evaluation Date of Evaluation: 12/29/17 Time of Evaluation: 10:04 - Subjective Subjective: Patient is doing much better no chest pain no shortness of breath eating good. Swallowing okay Objective - Vital Signs/Intake and Output Vital Signs (last 24 hours): Temp Pulse Resp BP Pulse Ox 97.8 F 65 18 178/83 H 100 12/29/17 07:46 12/29/17 09:17 12/29/17 07:46 12/29/17 09:17 12/29/17 07:46 Intake and Output: 12/29/17 12/29/17 06:59 18:59 Intake Total 480 Balance 480 - Medications Medications: Current Medications Atorvastatin Calcium (Lipitor) 10 mg PO [facility] Last Admin: 12/28/17 21:19 Dose: 10 mg Benztropine Mesylate (Cogentin) 1 mg PO Q12 [facility] Last Admin: 12/29/17 09:18 Dose: 1 mg Dextrose (Dextrose 50% Inj) 0 ml IV STAT PRN; Protocol PRN Reason: Hypoglycemia Protocol Dextrose (Glutose 15) 0 gm PO ONCE PRN; Protocol PRN Reason: Hypoglycemia Protocol Escitalopram Oxalate (Lexapro) 5 mg PO DAILY [facility] Last Admin: 12/29/17 09:18 Dose: 5 mg Glipizide (Glucotrol Xl) 10 mg PO BID [facility] Last Admin: 12/26/17 20:31 Dose: Not Given Glucagon (Glucagen Diagnostic Kit) 0 mg IM STAT PRN; Protocol PRN Reason: Hypoglycemia Protocol Home Med (Mycophenolate Sodium [Myfortic]) 360 mg PO Q12 [facility] Last Admin: 12/29/17 09:16 Dose: 360 mg Ampicillin Sodium/Sulbactam (Sodium 1.5 gm/ Sodium Chloride) 100 mls @ 100 mls/ hr IVPB Q12 [facility] PRN Reason: Protocol Last Admin: 12/29/17 09:15 Dose: 100 mls/hr Sodium Chloride (Sodium Chloride 0.9%) 1,000 mls @ 40 mls/hr IV .Q24H [facility] Stop: 12/29/17 11:32 Last Admin: 12/28/17 11:42 Dose: 40 mls/hr Insulin Detemir (Levemir) 40 units SC [facility] Last Admin: 12/26/17 22:53 Dose: 40 unit Metoprolol Tartrate (Lopressor) 25 mg PO Q12 [facility] Last Admin: 12/29/17 09:17 Dose: 25 mg Morphine Sulfate (Morphine) 1 mg IVP Q4 PRN PRN Reason: Pain, severe (8-10) Last Admin: 12/29/17 02:15 Dose: 1 mg Risperidone (Risperdal Tab) 2 mg PO Q12 [facility] Last Admin: 12/29/17 09:17 Dose: 2 mg Sodium Bicarbonate (Sodium Bicarbonate Tab) 1,950 mg PO Q8 [facility] Last Admin: 12/29/17 09:16 Dose: 1,950 mg Tacrolimus (Prograf Cap) 3 mg PO Q12 [facility] Last Admin: 12/29/17 09:17 Dose: 3 mg - Labs Labs: 12/28/17 05:30 12/29/17 09:11 - Constitutional Appears: No Acute Distress - ENT Exam ENT Exam: Mucous Membranes Moist - Neck Exam Neck Exam: absent: Lymphadenopathy - Respiratory Exam Respiratory Exam: NORMAL BREATHING PATTERN. absent: Chest Wall Tenderness, Rales - Cardiovascular Exam Cardiovascular Exam: REGULAR RHYTHM. absent: Gallop, Rubs - GI/Abdominal Exam GI & Abdominal Exam: Soft, Normal Bowel Sounds - Extremities Exam Extremities Exam: absent: Calf Tenderness - Back Exam Back Exam: absent: CVA tenderness (L), CVA tenderness (R) - Neurological Exam Neurological Exam: Alert - Psychiatric Exam Psychiatric exam: Normal Affect - Skin Skin Exam: absent: Cyanosis Assessment and Plan (1) JUVENCIO (acute kidney injury) Assessment & Plan: Acute kidney injury superimposed on chronic kidney disease on transplanted kidney 6 years ago with baseline serum creatinine in the range of 3.5. Serum creatinine today pending Clinically patient doing much better appear to be responding to antibiotics. White count coming down to normal. Serum tacrolimus level 5.2 My recommendation Continue on antibiotics and medication as per renal dose. Patient may be going home perhaps on oral antibiotics if serum creatinine improving somewhat. Continue monitoring Status: Acute (2) Anemia Status: Acute (3) CKD (chronic kidney disease) Status: Acute (4) Status post kidney transplant Status: Acute (5) Tonsillitis Status: Acute (6) Diabetes mellitus Status: Chronic (7) HTN (hypertension) Status: Chronic
[2017-12-29 11:49] VITALS: BP 135/80; PULSE 67; TEMP 98.6
[2018-01-01 18:43] VITALS: O2SAT 96
== END 2017-12-29 14:16 | disposition home or self-care (01) | DRG 153 ==
LOC: H.ER 04:14 → H.ERHOLD 11:02 → H.TEL 12:37
PROVIDERS: ADMIT Internal Medicine Pulmonary Disease; ATTEND Internal Medicine Pulmonary Disease
PROC: 0C9P3ZZ Drainage of Tonsils, Percutaneous Approach (ICD-10-PCS; principal; 2017-12-26)
PROC: 30233N1 Transfusion of Nonautologous Red Blood Cells into Peripheral Vein, Percutaneous Approach (ICD-10-PCS; 2017-12-26)
PROC: 5A1D70Z Performance of Urinary Filtration, Intermittent, Less than 6 Hours Per Day (ICD-10-PCS; 2017-12-27)
DX: J36 Peritonsillar abscess (principal); N17.9 Acute kidney failure, unspecified; I12.0 Hypertensive chronic kidney disease with stage 5 chronic kidney disease or end stage renal disease; E87.1 Hypo-osmolality and hyponatremia; Z94.0 Kidney transplant status; N18.5 Chronic kidney disease, stage 5; E11.22 Type 2 diabetes mellitus with diabetic chronic kidney disease; E11.65 Type 2 diabetes mellitus with hyperglycemia; E86.0 Dehydration; D63.1 Anemia in chronic kidney disease; J45.909 Unspecified asthma, uncomplicated; F32.9 Major depressive disorder, single episode, unspecified; Z91.041 Radiographic dye allergy status

== ENCOUNTER 2018-01-19 08:58 | Inpatient (IN) | payer MEDICARE, OTHER ==
[2018-01-19 08:58] VITALS: BMI 34.5
[2018-01-19] MEDS ORDERED: Dextrose 50% SYRINGE Inj (50 ml) ONE (09:06)
[2018-01-19] MEDS ORDERED: Dextrose 50% SYRINGE Inj (50 ml) IVP ONE (09:16)
--- NOTE | 2018-01-19 09:57 | CT ---
PROCEDURE: CT HEAD WITHOUT CONTRAST. HISTORY: ams COMPARISON: None available. TECHNIQUE: Axial computed tomography images were obtained through the head/brain without intravenous contrast. Radiation dose: Total exam DLP = 857.24 mGy-cm. This CT exam was performed using one or more of the following dose reduction techniques: Automated exposure control, adjustment of the mA and/or kV according to patient size, and/or use of iterative reconstruction technique. FINDINGS: HEMORRHAGE: No intracranial hemorrhage. BRAIN: Normal moody-white matter differentiation and density are appreciated throughout the cerebrum and cerebellum with the brainstem appearing unremarkable as well. There is no mass effect. There is no suspicious extra-axial fluid collection and the midline brain anatomy appears diffusely unremarkable. VENTRICLES: Unremarkable. No hydrocephalus. CALVARIUM: Unremarkable. PARANASAL SINUSES: Mucosal inflammatory changes affect the bilateral ethmoid sinuses relatively diffusely. MASTOID AIR CELLS: Unremarkable as visualized. No inflammatory changes. OTHER FINDINGS: None. IMPRESSION: No acute intracranial findings with normal appearing brain parenchyma suggested above and below the tentorium including the brainstem. Incidental multifocal ethmoid sinus disease.
[2018-01-19 10:05] LABS: BASO % 0.2 % (0.0-2.0); EOS % 0.4 % (0.0-4.0); HEMOGLOBIN 8.3 g/dL (12.0-16.0); LYMPH # 0.5 K/uL (1.0-4.3); LYMPH % 5.7 % (20.0-40.0); MEAN CELL VOLUME 79.2 fl (81.0-99.0); MEAN CORPUSCULAR HEMOGLOBIN 26.1 pg (27.0-31.0); MEAN PLATELET VOLUME 7.2 fl (7.2-11.7); MONO # 0.4 K/uL (0.0-0.8); NEUT # 7.3 K/uL (1.8-7.0); NEUT % 88.7 % (50.0-75.0); PLATELET COUNT 222 K/uL (130-400); RBC 3.19 Mil/uL (3.80-5.20); RED CELL DISTRIBUTION WIDTH 14.5 % (11.5-14.5); WHITE BLOOD COUNT 8.2 K/uL (4.8-10.8)
[2018-01-19 10:11] LABS: PROTHROMBIN TIME 11.8 Seconds (9.8-13.1)
[2018-01-19 10:12] LABS: INR 1.1 (0.9-1.2); PARTIAL THROMBOPLASTIN TIME 32.9 Seconds (25.6-37.1)
[2018-01-19 10:14] LABS: BLOOD UREA NITROGEN 56 mg/dl (7-17); CALCIUM 7.8 mg/dL (8.4-10.2); GFR AFRICAN-AMERICAN 12; GFR NON-AFRICAN AMERICAN 10
[2018-01-19 10:30] LABS: BARBITURATES, UR NEGATIVE (NEGATIVE); BENZODIAZEPINES, UR NEGATIVE (NEGATIVE); OPIATES, UR NEGATIVE (NEGATIVE); PHENCYCLIDINE, UR NEGATIVE (NEGATIVE)
[2018-01-19 11:21] LABS: BANDS 1 % (0-2); BASOPHIL 1 % (0-2); EOSINOPHIL 1 % (0-7); LYMPHOCYTE 9 % (20-50); MONOCYTE 4 % (0-10); NEUTROPHIL 84 % (42-75); PLATELET ESTIMATE NORMAL (NORMAL); TOTAL CELLS COUNTED 100
[2018-01-19 11:22] LABS: ANISOCYTOSIS SLIGHT; HYPOCHROMIC SLIGHT; LARGE PLATELETS PRESENT; OVALOCYTES SLIGHT
--- NOTE | 2018-01-19 14:35 | ED PDOC ---
Hyperglycemia/Hypoglycemia Time Seen by Provider: 01/19/18 09:14 Chief Complaint (Nursing): Weakness/Neurological Deficit Chief Complaint (Provider): Weakness/Neurological Deficit History Per: Patient, EMS, Family History/Exam Limitations: no limitations Onset/Duration Of Symptoms: Hrs Current Symptoms Are (Timing): Better Current Diabetic Medications: Insulin : The patient does not have any of the infectious symptoms listed except for those marked. Treatment Prior To Provider Evaluation: D50W Given Additional Complaint(s): Jillian Zaldivar is a 52 year old female with a past medical history of diabetes and hypertension, who was brought to the ER by EMS for evaluation of slurred speech and associated confusion, onset this morning around 8 am s/p waking up. According to the family, patient was unable to get out of bed and presented with slurred speech, so 911 was called. Upon arrival, EMS checked her blood sugar, which was around 60. Patient was given sugar PO which resulted in minor improvement of symptoms. S/p arriving to ED, blood glucose level was measured again and it was 30. D50 was administered in the ED. After the medication intake , family states that patient has returned to baseline. Patient was able to provide history and has no complaints at this time. She states that earlier she was sweaty and felt dizzy and weak. Patient also reports mild diarrhea and 1 episode of vomiting a couple days ago. She also states that she ate dinner last night at 8 pm but did not eat any breakfast. Of note, Patient takes insulin for her diabetes. She denies any chest pain, fevers, or headaches. PMD: Dr. Ace NIHSS Stroke Scale - Date/Time Evaluation Performed Date Performed: 01/19/18 Time Performed: 09:20 When Was NIHSS Performed: Baseline - How Severe is the Stroke Level of Consciousness: 0=Alert LOC to Questions: 0=Both comments correct LOC to commands: 0=Obeys both correctly Best Gaze: 0=Normal Visual: 0=No visual loss Facial: 0=Normal Motor Arm - Left: 0=No drift Motor Arm - Right: 0=No drift Motor Leg - Left: 0=No drift Motor Leg - Right: 0=No drift Limb Ataxia: 0=Absent Sensory: 0=Normal Best Language: 0=No aphasia Dysarthia: 0=Normal articulation Extinction & Inattention (Neglect): 0=Normal, no object Score: 0 Severity Of Stroke: 0 = No Stroke rTPA Inclusion/Exclusion - Refusal of Treatment Patient Refused Treatment: No - Inclusion Criteria for Altepase Patient is 18 years or Older: Yes The Clinical Diagnosis of Ischemic Stroke That is Causing a Potentially Disabling Neurological Deficit: No Time of Onset is Well Established to be Less Than 270 Minute Before Treatment Would Begin: No Risk/Benefit Discussed With Patient/Family Member Present: No Past Medical History Reviewed: Historical Data, Nursing Documentation, Vital Signs Vital Signs: Last Vital Signs Temp 98.2 F 01/19/18 14:23 Pulse 71 01/19/18 14:23 Resp 12 01/19/18 14:23 BP 186/77 H 01/19/18 14:23 Pulse Ox 99 01/19/18 14:23 - Medical History PMH: Anemia, Asthma, Depression, Diabetes, Gall Bladder Disease (gallbladder stones), HTN, Chronic Kidney Disease, Schizophrenia - Surgical History Surgical History: Cholecystectomy - Family History Family History: States: Unknown Family Hx - Social History Current smoker - smoking cessation education provided: No Alcohol: None Drugs: Denies - Home Medications Home Medications: Ambulatory Orders Medication Instructions Recorded Atorvastatin [Lipitor] 10 mg PO HS 12/25/17 Benztropine [Cogentin] 1 mg PO Q12 12/25/17 Chlorthalidone [Hygroton] 25 mg PO DAILY 12/25/17 Escitalopram Oxalate [Lexapro] 5 mg PO DAILY 12/25/17 Fluconazole [Diflucan] 100 mg PO DAILY 12/25/17 Glimepiride [amaRYL] 4 mg PO BID 12/25/17 Insulin Aspart Prot/Insuln Asp 42 unit SC ACBD 12/25/17 [Novolog Mix 70-30 Vial] Insulin Glargine, Recombina 40 unit SC HS 12/25/17 [Lantus] Lisinopril [Zestril] 5 mg PO DAILY 12/25/17 Metoprolol Tartrate [Lopressor] 25 mg PO Q12 12/25/17 Mycophenolate Sodium [Myfortic] 360 mg PO Q12 12/25/17 Sodium Bicarbonate Tab 3 tab PO Q8 12/25/17 Tacrolimus [Prograf Cap] 3 mg PO Q12 12/25/17 risperiDONE [RisperDAL Tab] 2 mg PO Q12 12/25/17 - Allergies Allergies/Adverse Reactions: Allergies Allergy/AdvReac Type Severity Reaction Status Date / Time iodine Allergy URTICARIA Verified 12/25/17 04:30 Review of Systems ROS Statement: Except As Marked, All Systems Reviewed And Found Negative Constitutional: Positive for: Sweats, Weakness. Negative for: Fever Cardiovascular: Negative for: Chest Pain Gastrointestinal: Positive for: Vomiting, Diarrhea Neurological: Positive for: Confusion, Dizziness, Other (slurred speech). Negative for: Headache Physical Exam - Reviewed Nursing Documentation Reviewed: Yes Vital Signs Reviewed: Yes - Physical Exam Appears: Positive for: Well, Non-toxic, No Acute Distress Head Exam: Positive for: ATRAUMATIC, NORMAL INSPECTION, NORMOCEPHALIC Skin: Positive for: Normal Color, Warm, DRY Eye Exam: Positive for: EOMI, Normal appearance, PERRL ENT: Positive for: Normal ENT Inspection Neck: Positive for: Normal, Painless ROM, Supple Cardiovascular/Chest: Positive for: Regular Rate, Rhythm. Negative for: Murmur Respiratory: Positive for: Normal Breath Sounds. Negative for: Respiratory Distress Gastrointestinal/Abdominal: Positive for: Normal Exam, Soft. Negative for: Tenderness Back: Positive for: Normal Inspection. Negative for: L CVA Tenderness, R CVA Tenderness, Vertebral Tenderness Extremity: Positive for: Normal ROM. Negative for: Deformity, Swelling Neurologic/Psych: Positive for: Alert, Oriented (x3), Other (NIH stroke scale: 0 ). Negative for: Motor/Sensory Deficits - Laboratory Results Result Diagrams: 01/20/18 04:49 01/20/18 04:49 - ECG O2 Sat by Pulse Oximetry: 99 (RA) Pulse Ox Interpretation: Normal Medical Decision Making Medical Decision Making: Time: 9:16 Impression: Hypoglycemia, Slurred Speech Differentials: Hypoglycemic Syndrome, less likely CVA Plan: --CT Head --EKG --Alcohol Serum --BMP --Drug Screen --Troponin --ED Urine Dipstick --CBC --COAG --Glucose, POC --Dexterose [address] Head: FINDINGS: HEMORRHAGE: No intracranial hemorrhage. BRAIN: Normal moody-white matter differentiation and density are appreciated throughout the cerebrum and cerebellum with the brainstem appearing unremarkable as well. There is no mass effect. There is no suspicious extra-axial fluid collection and the midline brain anatomy appears diffusely unremarkable. VENTRICLES: Unremarkable. No hydrocephalus. CALVARIUM: Unremarkable. PARANASAL SINUSES: Mucosal inflammatory changes affect the bilateral ethmoid sinuses relatively diffusely. MASTOID AIR CELLS: Unremarkable as visualized. No inflammatory changes. OTHER FINDINGS: None. IMPRESSION: No acute intracranial findings with normal appearing brain parenchyma suggested above and below the tentorium including the brainstem. Incidental multifocal ethmoid sinus disease. 10:[address] Morgan who agrees that this is not a neurological event and not a stroke incident. 1100 Patient is improved but require further observation due to hish risk of hypoglycemia. Consult with Dr. Ace. Admit patient under Dr. Ace for observation for hypoglycemia. Scribe Attestation: Documented by Sharmaine Isaacs, acting as a scribe for Rickey Watt MD. Provider Scribe Attestation: All medical record entries made by the Scribe were at my direction and personally dictated by me. I have reviewed the chart and agree that the record accurately reflects my personal performance of the history, physical exam, medical decision making, and the department course for this patient. I have also personally directed, reviewed, and agree with the discharge instructions and disposition. Disposition - Clinical Impression Clinical Impression: CKD (chronic kidney disease), Hypoglycemia - Patient ED Disposition Is Patient to be Admitted: Yes Discussed With : Sravan Ace Doctor Will See Patient In The: Hospital - Disposition Disposition Time: 11:00 Condition: FAIR - Pt Status Changed To: Hospital Disposition Of: Observation - POA Present On Arrival: Poor Glycemic Control
--- NOTE | 2018-01-19 17:14 | CP.PCM.HP ---
History of Present Illness - History of Present Illness History of Present Illness: CC: Neuro deficit. 52 y/o F, Hx of IDDM, brought to ER [facility], [place], via EMS to be evaluated for decreased BS on DOA with no improvement. 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 On DOA Pt wake up unresponsive , associated to weakness L sided and slurred speech, in ER Pt had BS 60 and the 2nd time was in the 30. D50 was given inn the ER and after medication, Pt returned to her baseline. Worsening symptoms: Elevated BP 174/105 HR drooped to 54. Recent episodes of dizziness, sweaty, nausea and dyspepsia that subsided. Aggravated factor: Unable to cooperate with Hx at the arrival to ED. Pt denied: Fever, chills, v/d, abdominal pain, urinary symptoms, syncope, CP, palpitations, SOB, cough, sick contact, recent travel out of [place]. Head CT: No acute intracranial findings. EKG: Sinus bradycardia. Present on Admission - Present on Admission Any Indicators Present on Admission: No Review of Systems - Constitutional Constitutional: Weakness - EENT Eyes: Other (negative) Ears: Other (negative) Nose/Mouth/Throat: Other (negative) - Cardiovascular Cardiovascular: Slow Heart Rate - Respiratory Respiratory: Other (negative) - Gastrointestinal Gastrointestinal: Dyspepsia, Nausea - Genitourinary Genitourinary: Other (negative) - Musculoskeletal Musculoskeletal: Other (negative) - Integumentary Integumentary: Other (negative) - Neurological Neurological: Abnormal Speech, Confusion, Dizziness, Weakness - Psychiatric Psychiatric: Other (negative) - Endocrine Endocrine: Other (negative) - Hematologic/Lymphatic Hematologic: Other (negative) Past Patient History - Infectious Disease Hx of Infectious Diseases: None - Past Medical History & Family History Past Medical History?: Yes Pertinent Family History: Unknown - Past Social History Smoking Status: Never Smoked Alcohol: None Drugs: Denies Home Situation {Lives}: With Family - CARDIAC Hx Cardiac Disorders: Yes Hx Hypertension: Yes - PULMONARY Hx Respiratory Disorders: Yes Hx Asthma: Yes - NEUROLOGICAL Hx Neurological Disorder: No - HEENT Hx HEENT Problems: No - RENAL Hx Chronic Kidney Disease: Yes Other/Comment: Renal transplant - ENDOCRINE/METABOLIC Hx Endocrine Disorders: Yes Hx Diabetes Mellitus Type 2: Yes - HEMATOLOGICAL/ONCOLOGICAL Hx Blood Disorders: Yes Hx Anemia: Yes - INTEGUMENTARY Hx Dermatological Problems: No - MUSCULOSKELETAL/RHEUMATOLOGICAL Hx Musculoskeletal Disorders: No - GASTROINTESTINAL Hx Gastrointestinal Disorders: Yes Hx Gall Bladder Disease: Yes (gallbladder stones) - GENITOURINARY/GYNECOLOGICAL Hx Genitourinary Disorders: Yes - PSYCHIATRIC Hx Psychophysiologic Disorder: Yes Hx Anxiety: Yes Hx Depression: Yes Hx Schizophrenia: Yes - SURGICAL HISTORY Hx Cholecystectomy: Yes Hx Kidney Transplant: Yes - ANESTHESIA Hx Anesthesia: Yes Hx Anesthesia Reactions: No Hx Malignant Hyperthermia: No Meds Allergies/Adverse Reactions: Allergies Allergy/AdvReac Type Severity Reaction Status Date / Time iodine Allergy URTICARIA Verified 12/25/17 04:30 Physical Exam - Constitutional Appears: No Acute Distress - Head Exam Head Exam: NORMAL INSPECTION - Eye Exam Eye Exam: PERRL - ENT Exam ENT Exam: Normal Exam - Neck Exam Neck exam: Positive for: Normal Inspection - Respiratory Exam Respiratory Exam: NORMAL BREATHING PATTERN - Cardiovascular Exam Cardiovascular Exam: REGULAR RHYTHM - GI/Abdominal Exam GI & Abdominal Exam: Normal Bowel Sounds, Soft - Extremities Exam Extremities exam: Positive for: normal inspection - Back Exam Back exam: NORMAL INSPECTION - Neurological Exam Neurological exam: Altered, CN II-XII Intact, Oriented x3 Additional comments: no focal motorSensory deficit - Psychiatric Exam Psychiatric exam: Anxious, Depressed - Skin Skin Exam: Normal Color, Warm Results - Vital Signs Recent Vital Signs: Last Vital Signs Temp 97.6 F 01/19/18 16:21 Pulse 64 01/19/18 16:21 Resp 18 01/19/18 16:21 BP 172/68 H 01/19/18 16:21 Pulse Ox 97 01/19/18 16:21 reviewed Michael - Labs Result Diagrams: 01/23/18 04:50 01/23/18 04:50 Labs: Laboratory Results - last 24 hr 01/19/18 01/19/18 01/19/18 09:05 09:34 09:34 WBC 8.2 RBC 3.19 L Hgb 8.3 L Hct 25.2 L MCV 79.2 L MCH 26.1 L MCHC 33.0 RDW 14.5 Plt Count 222 MPV 7.2 Neut % (Auto) 88.7 H Lymph % (Auto) 5.7 L [place] % (Auto) 5.0 Eos % (Auto) 0.4 Baso % (Auto) 0.2 Neut # (Auto) 7.3 H Lymph # (Auto) 0.5 L [place] # (Auto) 0.4 Eos # (Auto) 0.0 Baso # (Auto) 0.0 Neutrophils % (Manual) 84 H Band Neutrophils % 1 Lymphocytes % (Manual) 9 L Monocytes % (Manual) 4 Eosinophils % (Manual) 1 Basophils % (Manual) 1 Platelet Estimate Normal Large Platelets Present Hypochromasia (manual) Slight Anisocytosis (manual) Slight Ovalocytes Slight PT INR APTT Sodium 131 L Potassium 3.8 Chloride 101 Carbon Dioxide 15 L Anion Gap 19 BUN 56 H Creatinine 4.6 H Est GFR ( Amer) 12 Est GFR (Non-Af Amer) 10 POC Glucose (mg/dL) 39 L Random Glucose 177 H Calcium 7.8 L Troponin I < 0.0120 Urine Opiates Screen Urine Methadone Screen Ur Barbiturates Screen Ur Phencyclidine Scrn Ur Amphetamines Screen U Benzodiazepines Scrn U Oth Cocaine Metabols U Cannabinoids Screen Alcohol, Quantitative < 10 01/19/18 01/19/18 01/19/18 09:34 09:34 12:47 WBC RBC Hgb Hct MCV MCH MCHC RDW Plt Count MPV Neut % (Auto) Lymph % (Auto) [place] % (Auto) Eos % (Auto) Baso % (Auto) Neut # (Auto) Lymph # (Auto) [place] # (Auto) Eos # (Auto) Baso # (Auto) Neutrophils % (Manual) Band Neutrophils % Lymphocytes % (Manual) Monocytes % (Manual) Eosinophils % (Manual) Basophils % (Manual) Platelet Estimate Large Platelets Hypochromasia (manual) Anisocytosis (manual) Ovalocytes PT 11.8 INR 1.1 APTT 32.9 Sodium Potassium Chloride Carbon Dioxide Anion Gap BUN Creatinine Est GFR ( Amer) Est GFR (Non-Af Amer) POC Glucose (mg/dL) 242 H Random Glucose Calcium Troponin I Urine Opiates Screen Negative Urine Methadone Screen Negative Ur Barbiturates Screen Negative Ur Phencyclidine Scrn Negative Ur Amphetamines Screen Negative U Benzodiazepines Scrn Negative U Oth Cocaine Metabols Negative U Cannabinoids Screen Negative Alcohol, Quantitative 01/19/18 15:47 WBC RBC Hgb Hct MCV MCH MCHC RDW Plt Count MPV Neut % (Auto) Lymph % (Auto) [place] % (Auto) Eos % (Auto) Baso % (Auto) Neut # (Auto) Lymph # (Auto) [place] # (Auto) Eos # (Auto) Baso # (Auto) Neutrophils % (Manual) Band Neutrophils % Lymphocytes % (Manual) Monocytes % (Manual) Eosinophils % (Manual) Basophils % (Manual) Platelet Estimate Large Platelets Hypochromasia (manual) Anisocytosis (manual) Ovalocytes PT INR APTT Sodium Potassium Chloride Carbon Dioxide Anion Gap BUN Creatinine Est GFR ( Amer) Est GFR (Non-Af Amer) POC Glucose (mg/dL) 207 H Random Glucose Calcium Troponin I Urine Opiates Screen Urine Methadone Screen Ur Barbiturates Screen Ur Phencyclidine Scrn Ur Amphetamines Screen U Benzodiazepines Scrn U Oth Cocaine Metabols U Cannabinoids Screen Alcohol, Quantitative reviewed J.P. - EKG Data EKG comments: reviewed J.P. - Imaging and Cardiology CT scan - head Status: Report reviewed by me (Michael) Assessment & Plan (1) Hypoglycemia Status: Acute Priority: High (2) Diabetes mellitus Status: Chronic Priority: High (3) HTN (hypertension) Status: Chronic Priority: High (4) Anemia Status: Acute Priority: High (5) JUVENCIO (acute kidney injury) Status: Chronic Priority: High (6) CKD (chronic kidney disease) Status: Chronic Priority: High (7) Status post kidney transplant Status: Acute (8) Depression Status: Chronic Priority: Medium - Assessment and Plan (Free Text) Plan: Monitor BS, DC previous Inuslin regimen with 70/30 BID and Lantus , Patient is not eating well as previously , Patient 's mother is trying to follow strict Renal Diet and patient does not like it , at times having very light meals, Patient is scheduled test week for Renal Bx , BUN Creatinine increasing , also appt with Central Office Inspector regarding current Diabetic and Renal diet , continue Humalog sliding scale , Lopressor, Zestril, Lipitor and rest of Tx, Endocrinology consult. - Date & Time Date: 01/19/18 Time: 13:30
--- NOTE | 2018-01-19 17:53 | CARD ---
APPROVED REPORT EKG Measurement Heart [id number] <Conclusion> Sinus bradycardia Otherwise normal ECG
--- NOTE | 2018-01-20 03:07 | CON ---
DATE: ENDOCRINOLOGY CONSULTATION NOTE LOCATION: Room number 418. HISTORY OF PRESENT ILLNESS: This is a 52-year-old female with known history of type 2 insulin-requiring diabetes presenting here with sudden onset of confusion and slurred speech and supervening hypoglycemic episodes and is being referred now for diabetic evaluation and management. She was initially seen by the paramedics at home with the glucose level of about 60 with a repeat value of 30 mg/dL in the Emergency Room and was given D50 bolus injections with reversal of her mental confusion and slurred speech, and marked diaphoresis thereof. She admits to recent bouts of nausea, dyspepsia and suboptimal meal portions with omission of her breakfast that morning with continued insulin use at that time. PAST MEDICAL HISTORY: As mentioned above, history of type 2 insulin-requiring diabetes on a combination of a premixed insulin regimen using NovoLog mixed 70/30 given as 42 units b.i.d. with Lantus given as 40 units at bedtime and Amaryl at 4 mg b.i.d. as given. History of hypertensive, cardiovascular disease and dyslipidemia, history of diabetic retinopathy, polyneuropathy and nephropathy, with chronic kidney disease and progressively worsening renal insufficiency and marked azotemia as noted. History of coronary artery disease with underlying peripheral arterial disease and vasculopathy. History of generalized anxiety and depression, on psychotropic medications currently on Risperdal and Cogentin, and Lexapro medications as noted. History of chronic schizo-affective disorder with also longstanding schizophrenia as noted. She had a prior cholecystectomy for underlying cholelithiasis. History of chronic anemia related to underlying chronic kidney disease. FAMILY HISTORY: Positive for hypertension and diabetes. SOCIAL HISTORY: The patient has supportive family. No known substance use. REVIEW OF SYSTEMS: As mentioned above. Admits to sudden onset of dizziness and lightheadedness on the morning of admission with progressively worsening confusion, disorientation and supervening profuse sweating with slurred speech and generalized body weakness as noted. Also admits to recent bouts of episodic headaches and visual blurring. Moreover, also admits to occasional precordial chest pain, but no palpitations or PND's or any pleuritic pain at this time. Her oral intake has been variable with nausea and dyspepsia and even anorexia with suboptimal meal portions and recently has had erratic meal patterns with continued use of the insulin injections as noted. PHYSICAL EXAMINATION: GENERAL: This is an average built female in no apparent distress. VITAL SIGNS: With a blood pressure initially of 170/90, pulse of 100 beats per minute and regular, temperature of 98, and respirations of 20. Height is 5 feet 4 inches and weight is 199 pounds. HEENT: Head normocephalic. Anicteric with pink conjunctivae. Funduscopy is not possible at this time. Ears, nose and throat otherwise normal. NECK: Supple. Thyroid gland is normal in size. No carotid bruits or any cervical adenopathy. CARDIOPULMONARY: Some adynamic precordium. S1 is rapid and regular. Lungs are clear to auscultation. GASTROINTESTINAL: Abdomen is flat and soft with positive bowel sounds. Extremities: No peripheral edema. Pulses are +2 bilaterally. LABORATORY DATA: Her chemistry showed a BUN of 56, sodium of 131, potassium of 3.8, chloride of 101, CO2 of 15, glucose of 177 and creatinine of 4.6. Her initial glucose in the Emergency Room was 39 mg/dL. Calcium is 7.8 and it is fallen less than 0.01. Hemoglobin is 8.3 and hematocrit of 25.2. ASSESSMENT This is a 52-year-old female with uncontrolled and decompensated type 2 insulin-requiring diabetes presenting here with symptomatic hypoglycemia and associated neuroglycopenic and hyperadrenergic manifestations related to marked hypoglycemia most likely related to multifactorial etiology as noted. She now has progressive renal insufficiency with chronic kidney disease and has been using the same high dose insulin regimen as given with progressively worsening anorexia, nausea and dyspepsia and episodic vomiting episodes with the same dosage of the insulin of the upper mentioned insulin regimen as given with expected and supervening symptomatic hypoglycemic episodes as noted today prior to admission. Moreover with progressive azotemia and advanced renal failure, there is also reduced clearance of her oral hypoglycemic therapy and also markedly reduced insulin requirements thereof. No apparent insulin dose adjustments have been undertaken with the above-mentioned deterioration of her renal function as noted. She has diabetic microvascular complications of retinopathy, polyneuropathy and nephropathy with end-stage renal disease as noted. Moreover she has also macrovascular complications of coronary artery disease and peripheral arterial disease and vasculopathy. PLAN OF MANAGEMENT: We will modify the coverage scale to obviate hypoglycemia and detailed orders have been given. We will observe her glycemic fluctuations overnight and determine the need to restart her back on a much lower dose of her basal and premixed insulin regimen as indicated. For now, we will hold off the resumption of any kind of long acting insulin to obviate further hypoglycemia. We will also discontinue her oral hypoglycemic therapy which is also at this point in time has clearance with a much lower GFR as noted with advanced nephropathy. We will obtain a hemoglobin A1c to confirm her prior glycosemia control and baseline thyroid function studies will be ordered. We will follow and advise accordingly. Chastity Mcgrath MD
[2018-01-20 05:28] LABS: BASO % 0.5 % (0.0-2.0); EOS # 0.1 K/uL (0.0-0.7); HEMOGLOBIN 8.8 g/dL (12.0-16.0); LYMPH # 1.2 K/uL (1.0-4.3); LYMPH % 17.6 % (20.0-40.0); MEAN CELL VOLUME 78.8 fl (81.0-99.0); MEAN CORPUSCULAR HEMOGLOBIN 26.7 pg (27.0-31.0); MEAN CORPUSCULAR HGB CONC 33.9 g/dL (33.0-37.0); MEAN PLATELET VOLUME 7.4 fl (7.2-11.7); MONO # 0.6 K/uL (0.0-0.8); MONO % 9.1 % (0.0-10.0); NEUT # 4.8 K/uL (1.8-7.0); NEUT % 70.8 % (50.0-75.0); RBC 3.28 Mil/uL (3.80-5.20); RED CELL DISTRIBUTION WIDTH 14.5 % (11.5-14.5); WHITE BLOOD COUNT 6.8 K/uL (4.8-10.8)
[2018-01-20 06:34] LABS: ALB/GLOB RATIO 0.8 (1.0-2.1); ALBUMIN 2.7 g/dL (3.5-5.0); CALCIUM 8.3 mg/dL (8.4-10.2)
[2018-01-20] MEDS: Insulin Lispro (humaLOG) 100 Units/ml Inj SC SCH ×3 (08:38→17:24)
--- NOTE | 2018-01-20 12:19 | PN ---
DATE: 01/20/2018 ENDO FOLLOWUP NOTE LOCATION: Room 418. SUBJECTIVE: This is a 52-year-old female with progressive renal insufficiency and advanced azotemia, now with supervening symptomatic hypoglycemic episodes with the same high dose insulin regimen as given on the outpatient and is being followed now for metabolic management. She has been taken off all the premixed insulin given at a high dose twice daily and even the basal insulin with Lantus also given at bedtime as noted. She received D50 bolus injections with improved mental status and also metabolic profile as noted overnight. Her glucose values today have ranged from 146 mg/dL to 164 mg/dL. Her latest chemistry today showed BUN of 59, sodium of 135, potassium of 4.6, chloride of 105, CO2 of 17, glucose of 158, and creatinine of 5.1. Her triglyceride levels are 352 with the cholesterol of 147, HDL of 26, and LDL of 59. Her TSH level is 2.74. ASSESSMENT: This is a 52-year-old female with uncontrolled and decompensated type 2 insulin-requiring diabetes presenting here with marked hypoglycemia and associated neuroglycopenic and hyperadrenergic manifestations related to the same and most likely caused by the very high dose insulin regimen given on the outpatient with supervening marked renal insufficiency and progressive azotemia with clearly reduced insulin requirements this time. 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 She also has diabetic macrovascular complications of coronary artery disease and peripheral arterial disease and vasculopathy. PLAN OF MANAGEMENT: I discussed with the patient lengthily at bedside the imperative need to hold off the resumption of her high dose premixed insulin regimen and also the basal insulin given at bedtime has to be undertaken and we will observe her glycemic fluctuations accordingly. If hyperglycemic levels supervene then we will start her back on a much much lower dose of basal and bolus insulin regimen and/or oral hypoglycemic therapy as indicated. We will consult nephrology especially with the progressive renal insufficiency as noted. We will obtain serial chemistries and supplement accordingly as needed. We will follow. Chastity Mcgrath MD [facility] # [id number]
--- NOTE | 2018-01-20 14:46 | CP.PCM.PN ---
Subjective - Date & Time of Evaluation Date of Evaluation: 01/20/18 Time of Evaluation: 15:20 - Subjective Subjective: F/U Hypoglycemia. No AD , N/C ,ambulating Objective - Vital Signs/Intake and Output Vital Signs (last 24 hours): Temp Pulse Resp BP Pulse Ox 98.1 F 66 20 156/88 H 97 01/20/18 12:25 01/20/18 12:25 01/20/18 12:25 01/20/18 12:25 01/20/18 12:25 - Medications Medications: Current Medications Atorvastatin Calcium (Lipitor) 10 mg PO HS [facility] Last Admin: 01/19/18 21:52 Dose: 10 mg Benztropine Mesylate (Cogentin) 1 mg PO Q12 [facility] Last Admin: 01/20/18 08:38 Dose: 1 mg Chlorthalidone (Hygroton) 25 mg PO DAILY [facility] Last Admin: 01/20/18 08:38 Dose: 25 mg Clonidine HCl (Catapres) 0.1 mg PO DAILY [facility] Escitalopram Oxalate (Lexapro) 5 mg PO DAILY [facility] Last Admin: 01/20/18 08:37 Dose: 5 mg Home Med (Mycophenolate Sodium [Myfortic]) 360 mg PO Q12 [facility] Last Admin: 01/20/18 08:36 Dose: 360 mg Insulin Human Lispro (Humalog) 0 units SC [facility] Last Admin: 01/20/18 11:30 Dose: Not Given Lisinopril (Zestril) 5 mg PO DAILY [facility] Last Admin: 01/20/18 08:37 Dose: 5 mg Metoprolol Tartrate (Lopressor) 25 mg PO Q12 [facility] Last Admin: 01/20/18 08:37 Dose: 25 mg Risperidone (Risperdal Tab) 2 mg PO Q12 [facility] Last Admin: 01/20/18 08:37 Dose: 2 mg Sodium Bicarbonate (Sodium Bicarbonate Tab) 1,950 mg PO Q8 [facility] Last Admin: 01/20/18 08:36 Dose: 1,950 mg Tacrolimus (Prograf Cap) 3 mg PO Q12 [facility] Last Admin: 01/20/18 08:36 Dose: 3 mg - Labs Labs: 01/20/18 04:49 01/20/18 04:49 PT 11.8 Seconds (9.8-13.1) 01/19/18 09:34 INR 1.1 (0.9-1.2) 01/19/18 09:34 APTT 32.9 Seconds (25.6-37.1) 01/19/18 09:34 - Constitutional Appears: No Acute Distress - Head Exam Head Exam: NORMOCEPHALIC - Eye Exam Eye Exam: PERRL - ENT Exam ENT Exam: Normal Exam - Neck Exam Neck Exam: Normal Inspection - Respiratory Exam Respiratory Exam: Clear to Ausculation Bilateral - Cardiovascular Exam Cardiovascular Exam: REGULAR RHYTHM - GI/Abdominal Exam GI & Abdominal Exam: Soft, Normal Bowel Sounds - Extremities Exam Extremities Exam: Normal Inspection - Back Exam Back Exam: NORMAL INSPECTION - Neurological Exam Neurological Exam: Alert, Oriented x3 Additional comments: no focal/motor sensory deficit - Psychiatric Exam Psychiatric exam: Normal Affect - Skin Skin Exam: Warm Assessment and Plan (1) Hypoglycemia Status: Acute (2) Diabetes mellitus Status: Chronic (3) Anemia Status: Acute (4) HTN (hypertension) Status: Chronic (5) JUVENCIO (acute kidney injury) Status: Chronic (6) CKD (chronic kidney disease) Status: Chronic (7) Depression Status: Chronic - Assessment and Plan (Free Text) Plan: BP elevated in the morning , had Clonidine 0.1 with good response , will add Clonidine 0.1 mg daily , monitor BS sliding scale , Encodrine consult appreciated.
[2018-01-21] MEDS: Insulin Lispro (humaLOG) 100 Units/ml Inj SC SCH ×5 (01:27→21:42)
--- NOTE | 2018-01-21 13:23 | PN ---
DATE: 01/21/2018 ENDO FOLLOWUP NOTE LOCATION: Room 418. SUBJECTIVE: This is a 52-year-old female with recent symptomatic bouts of hypoglycemia and associated neuroglycopenic and hyperadrenergic manifestations referred by D50 bolus injections on admission. At this time, her glycemic fluctuations are much improved without any extra insulin coverage as noted and given. Her glucose levels today have ranged from 131-140 and 193 mg/dL. Her hemoglobin A1c is 6.6%, which is really near optimal as noted. Her latest chemistry showed BUN of 59, sodium of 135, potassium of , chloride of 105, CO2 of 17, glucose 158, and creatinine of 5.1. ASSESSMENT: This is a 52-year-old female with uncontrolled and decompensated type 2 diabetes presenting here with symptomatic hypoglycemia and associated neuroglycopenic and hyperadrenergic manifestations related to over insulinization from high dose administration of insulin regimen on the outpatient with progressive renal insufficiency and reduced insulin requirement thereof. She also has diabetic microvascular complications of retinopathy, polyneuropathy, and nephropathy with advanced azotemia and progressive renal insufficiency, most likely related to graft rejection with a prior history of renal transplantation as noted. She also has diabetic complications of coronary artery disease and peripheral arterial disease and vasculopathy. PLAN OF MANAGEMENT: We will continue the very low-dose oral hypoglycemic therapy as given with Prandin started at 2 mg p.o. 3 times a day with meals today as ordered. We will continue the fingerstick glucose testing with no extra insulin coverage scale as ordered. We will obtain serial chemistries and supplement accordingly as needed. We will follow and advise accordingly. Chastity Mcgrath MD
--- NOTE | 2018-01-21 16:32 | CP.PCM.PN ---
Subjective - Date & Time of Evaluation Date of Evaluation: 01/21/18 Time of Evaluation: 14:20 - Subjective Subjective: F/U Hypoglycemia. No AD , N/C Objective - Vital Signs/Intake and Output Vital Signs (last 24 hours): Temp Pulse Resp BP Pulse Ox 97.9 F 55 L 18 125/83 99 01/21/18 13:02 01/21/18 13:02 01/21/18 13:02 01/21/18 13:02 01/21/18 13:02 - Medications Medications: Current Medications Atorvastatin Calcium (Lipitor) 10 mg PO HS [facility] Last Admin: 01/20/18 21:16 Dose: 10 mg Benztropine Mesylate (Cogentin) 1 mg PO Q12 [facility] Last Admin: 01/21/18 09:08 Dose: 1 mg Chlorthalidone (Hygroton) 25 mg PO DAILY [facility] Last Admin: 01/21/18 09:08 Dose: 25 mg Clonidine HCl (Catapres) 0.1 mg PO DAILY [facility] Last Admin: 01/21/18 09:13 Dose: 0.1 mg Escitalopram Oxalate (Lexapro) 5 mg PO DAILY [facility] Last Admin: 01/21/18 09:09 Dose: 5 mg Home Med (Mycophenolate Sodium [Myfortic]) 360 mg PO Q12 [facility] Last Admin: 01/21/18 09:06 Dose: 360 mg Insulin Human Lispro (Humalog) 0 units SC ACHS [facility] Last Admin: 01/21/18 14:12 Dose: Not Given Lisinopril (Zestril) 5 mg PO DAILY [facility] Last Admin: 01/21/18 09:10 Dose: 5 mg Metoprolol Tartrate (Lopressor) 25 mg PO Q12 [facility] Last Admin: 01/21/18 09:10 Dose: 25 mg Repaglinide (Prandin) 2 mg PO TIDWM [facility] Last Admin: 01/21/18 14:12 Dose: Not Given Risperidone (Risperdal Tab) 2 mg PO Q12 [facility] Last Admin: 01/21/18 09:07 Dose: 2 mg Sodium Bicarbonate (Sodium Bicarbonate Tab) 1,950 mg PO Q8 [facility] Last Admin: 01/21/18 09:07 Dose: 1,950 mg Tacrolimus (Prograf Cap) 3 mg PO Q12 [facility] Last Admin: 01/21/18 09:07 Dose: 3 mg - Labs Labs: 05/12/18 04:49 01/20/18 04:49 PT 11.8 Seconds (9.8-13.1) 01/19/18 09:34 INR 1.1 (0.9-1.2) 01/19/18 09:34 APTT 32.9 Seconds (25.6-37.1) 01/19/18 09:34 - Constitutional Appears: No Acute Distress - Head Exam Head Exam: NORMAL INSPECTION - Eye Exam Eye Exam: PERRL - ENT Exam ENT Exam: Normal Exam - Neck Exam Neck Exam: Normal Inspection - Respiratory Exam Respiratory Exam: NORMAL BREATHING PATTERN - Cardiovascular Exam Cardiovascular Exam: REGULAR RHYTHM - GI/Abdominal Exam GI & Abdominal Exam: Soft, Normal Bowel Sounds - Extremities Exam Extremities Exam: Normal Inspection - Neurological Exam Neurological Exam: Alert, CN II-XII Intact, Oriented x3. absent: Motor Sensory Deficit - Psychiatric Exam Psychiatric exam: Normal Affect - Skin Skin Exam: Warm Assessment and Plan (1) Hypoglycemia Status: Acute (2) Diabetes mellitus Status: Chronic (3) Anemia Status: Acute (4) HTN (hypertension) Status: Chronic (5) JUVENCIO (acute kidney injury) Status: Chronic (6) CKD (chronic kidney disease) Status: Chronic (7) Depression Status: Chronic - Assessment and Plan (Free Text) Plan: BP elevated , Creat up, Bs better controlled ,adjust BP meds, f/u BUN/Creat
[2018-01-22 06:40] LABS: BASO % 0.5 % (0.0-2.0); EOS # 0.1 K/uL (0.0-0.7); EOS % 1.6 % (0.0-4.0); HEMOGLOBIN 8.2 g/dL (12.0-16.0); LYMPH # 1.3 K/uL (1.0-4.3); LYMPH % 16.3 % (20.0-40.0); MEAN CELL VOLUME 78.2 fl (81.0-99.0); MEAN CORPUSCULAR HEMOGLOBIN 26.3 pg (27.0-31.0); MEAN CORPUSCULAR HGB CONC 33.7 g/dL (33.0-37.0); MEAN PLATELET VOLUME 7.4 fl (7.2-11.7); MONO # 0.7 K/uL (0.0-0.8); MONO % 8.5 % (0.0-10.0); NEUT % 73.1 % (50.0-75.0); RBC 3.13 Mil/uL (3.80-5.20); RED CELL DISTRIBUTION WIDTH 14.4 % (11.5-14.5); WHITE BLOOD COUNT 8.1 K/uL (4.8-10.8)
[2018-01-22 06:59] LABS: ALB/GLOB RATIO 0.9 (1.0-2.1); ALBUMIN 2.7 g/dL (3.5-5.0); CALCIUM 8.5 mg/dL (8.4-10.2)
[2018-01-22] MEDS: Insulin Lispro (humaLOG) 100 Units/ml Inj SC SCH ×4 (07:04→21:30)
[2018-01-22] MEDS ORDERED: Sod Polystyrene Sulf 15 gm/60 ml Susp PO ONE (07:10)
--- NOTE | 2018-01-22 10:06 | CP.PCM.CON ---
History of Present Illness - History of Present Illness History of Present Illness: Consult for ARF HPI: 52 yo F w/ pmh of ESRD s/p kidney transplant ~ 6 years ago. She presented to ER a couple days ago w/ altered mental status and hypoglycemia. She was also found to have acute on chronic kidney injury and hyperkalemia. She was receiving lisinopril and chlorthalidone for bp. 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 She currently denies any n/v. She denies any fever or chills. She denies any dysuria. She denies any recent changes in her medications. She states that she sees a Dr. Maciel? at [facility]. ROS: a full detailed ROS is negative except as in my HPI. pmh: kidney transplant hypertension hyperlipidemia dm schizoaffective famhx: + HTN sochx: denies active smoking etoh or ivdu all: iodine meds as below pe: vs as below gen: nad sclera anicteric op: clear neck supple no thyromegaly appreciated cv : +S1+s2 no ru lungs: cta b/l abd: soft ext: no edema neuro: follows commands no deficit psych: flat skin no rash labs and imaging reviewed imp: ARF/ CKD III/IV/ Hx of Kidney transplant/ Hypertensive kidney disease/ Hypoglycemia / Anemia /hyponatremia/ acidosis plan: JUVENCIO - etiology not clear yet. Was on lisinopril which was just discontinued today. Will check renal txp ultrasound, ua, urine culture. Will check prograf level to make sure not elevated as well - which is ordered. Re: hyperkalemia would tx w/ kayexlate for today continue sodium bicarb will start norvasc for hypertension sugars per endocrine if fena low will give 0.9% ns. I called the kidney txp clinic at [facility] and am waiting return call back. She had some sort of procedure there in November of 2017 - not sure if ? biopsy. Attempted to call sister no answer at phone. THank you for this interesting consult Past Patient History - Infectious Disease Hx of Infectious Diseases: None - Past Medical History & Family History Past Medical History?: Yes - Past Social History Alcohol: None Drugs: Denies - CARDIAC Hx Hypertension: Yes - PULMONARY Hx Asthma: Yes - NEUROLOGICAL Hx Neurological Disorder: No - HEENT Hx HEENT Problems: No - RENAL Hx Chronic Kidney Disease: Yes - ENDOCRINE/METABOLIC Hx Endocrine Disorders: Yes Hx Diabetes Mellitus Type 2: Yes - HEMATOLOGICAL/ONCOLOGICAL Hx Anemia: Yes - INTEGUMENTARY Hx Dermatological Problems: No - MUSCULOSKELETAL/RHEUMATOLOGICAL Hx Musculoskeletal Disorders: No - GASTROINTESTINAL Hx Gall Bladder Disease: Yes (gallbladder stones) - GENITOURINARY/GYNECOLOGICAL Hx Genitourinary Disorders: Yes - PSYCHIATRIC Hx Depression: Yes Hx Schizophrenia: Yes - SURGICAL HISTORY Hx Cholecystectomy: Yes - ANESTHESIA Hx Anesthesia: Yes Hx Anesthesia Reactions: No Hx Malignant Hyperthermia: No Meds Allergies/Adverse Reactions: Allergies Allergy/AdvReac Type Severity Reaction Status Date / Time iodine Allergy URTICARIA Verified 12/25/17 04:30 - Medications Medications: Current Medications Atorvastatin Calcium (Lipitor) 10 mg PO HS [facility] Last Admin: 01/21/18 21:33 Dose: 10 mg Benztropine Mesylate (Cogentin) 1 mg PO Q12 [facility] Last Admin: 01/22/18 08:46 Dose: 1 mg Chlorthalidone (Hygroton) 25 mg PO DAILY [facility] Last Admin: 01/21/18 09:08 Dose: 25 mg Clonidine HCl (Catapres) 0.2 mg PO BID [facility] Escitalopram Oxalate (Lexapro) 5 mg PO DAILY [facility] Last Admin: 01/22/18 08:47 Dose: 5 mg Home Med (Mycophenolate Sodium [Myfortic]) 360 mg PO Q12 [facility] Last Admin: 01/22/18 08:43 Dose: 360 mg Insulin Human Lispro (Humalog) 0 units SC ACHS [facility] Last Admin: 01/22/18 07:04 Dose: Not Given Lisinopril (Zestril) 5 mg PO DAILY [facility] Last Admin: 01/21/18 09:10 Dose: 5 mg Metoprolol Tartrate (Lopressor) 25 mg PO Q12 [facility] Last Admin: 01/22/18 08:44 Dose: Not Given Repaglinide (Prandin) 2 mg PO TIDWM [facility] Last Admin: 01/22/18 08:44 Dose: 2 mg Risperidone (Risperdal Tab) 2 mg PO Q12 [facility] Last Admin: 01/22/18 08:44 Dose: 2 mg Sodium Bicarbonate (Sodium Bicarbonate Tab) 1,950 mg PO Q8 [facility] Last Admin: 01/22/18 08:45 Dose: 1,950 mg Tacrolimus (Prograf Cap) 3 mg PO Q12 [facility] Last Admin: 01/22/18 08:45 Dose: 3 mg Results - Vital Signs Recent Vital Signs: Last Vital Signs Temp 97.6 F 01/22/18 08:27 Pulse 57 L 01/22/18 08:54 Resp 20 01/22/18 08:27 BP 183/92 H 01/22/18 08:54 Pulse Ox 97 01/22/18 08:27 - Labs Result Diagrams: 01/22/18 06:24 01/22/18 06:24 Labs: Laboratory Results - last 24 hr 01/21/18 01/21/18 01/21/18 11:14 17:13 21:20 WBC RBC Hgb Hct MCV MCH MCHC RDW Plt Count MPV Neut % (Auto) Lymph % (Auto) Davidson % (Auto) Eos % (Auto) Baso % (Auto) Neut # (Auto) Lymph # (Auto) Davidson # (Auto) Eos # (Auto) Baso # (Auto) Sodium Potassium Chloride Carbon Dioxide Anion Gap BUN Creatinine Est GFR ( Amer) Est GFR (Non-Af Amer) POC Glucose (mg/dL) 192 H 136 H 197 H Random Glucose Calcium Total Bilirubin AST ALT Alkaline Phosphatase Total Protein Albumin Globulin Albumin/Globulin Ratio 01/22/18 01/22/18 01/22/18 05:36 06:24 06:24 WBC 8.1 RBC 3.13 L Hgb 8.2 L Hct 24.5 L MCV 78.2 L MCH 26.3 L MCHC 33.7 RDW 14.4 Plt Count 242 MPV 7.4 Neut % (Auto) 73.1 Lymph % (Auto) 16.3 L Davidson % (Auto) 8.5 Eos % (Auto) 1.6 Baso % (Auto) 0.5 Neut # (Auto) 6.0 Lymph # (Auto) 1.3 Davidson # (Auto) 0.7 Eos # (Auto) 0.1 Baso # (Auto) 0.0 Sodium 131 L Potassium 6.1 H Chloride 100 Carbon Dioxide 18 L Anion Gap 19 BUN 70 H Creatinine 5.3 H Est GFR ( Amer) 10 Est GFR (Non-Af Amer) 9 POC Glucose (mg/dL) 140 H Random Glucose 140 H Calcium 8.5 Total Bilirubin 0.2 AST 19 ALT 27 Alkaline Phosphatase 94 Total Protein 5.7 L Albumin 2.7 L Globulin 3.0 Albumin/Globulin Ratio 0.9 L
[2018-01-22 11:35] LABS: IRON 46 ug/dL (37-170)
[2018-01-22 11:45] LABS: % IRON SATURATION 17 % (20-55); TOTAL IRON BINDING CAPACITY 267 ug/dL (250-450)
--- NOTE | 2018-01-22 14:15 | CP.PCM.PN ---
Subjective - Date & Time of Evaluation Date of Evaluation: 01/22/18 Time of Evaluation: 09:10 - Subjective Subjective: F/U hypoglycemia. No A/D, no c/o, BP still elevated. Objective - Vital Signs/Intake and Output Vital Signs (last 24 hours): Temp Pulse Resp BP Pulse Ox 97.7 F 57 L 20 187/85 H 98 01/22/18 12:34 01/22/18 13:11 01/22/18 12:34 01/22/18 13:11 01/22/18 12:34 - Medications Medications: Current Medications Amlodipine Besylate (Norvasc) 5 mg PO DAILY [facility] Last Admin: 01/22/18 13:11 Dose: 5 mg Atorvastatin Calcium (Lipitor) 10 mg PO HS [facility] Last Admin: 01/21/18 21:33 Dose: 10 mg Benztropine Mesylate (Cogentin) 1 mg PO Q12 [facility] Last Admin: 01/22/18 08:46 Dose: 1 mg Chlorthalidone (Hygroton) 25 mg PO DAILY [facility] Last Admin: 01/21/18 09:08 Dose: 25 mg Clonidine HCl (Catapres) 0.2 mg PO BID [facility] Escitalopram Oxalate (Lexapro) 5 mg PO DAILY [facility] Last Admin: 01/22/18 08:47 Dose: 5 mg Home Med (Mycophenolate Sodium [Myfortic]) 360 mg PO Q12 [facility] Last Admin: 01/22/18 08:43 Dose: 360 mg Hydralazine HCl (Apresoline) 50 mg PO Q12 [facility] Last Admin: 01/22/18 13:05 Dose: 50 mg Insulin Human Lispro (Humalog) 0 units SC ACHS [facility] Last Admin: 01/22/18 13:06 Dose: Not Given Lisinopril (Zestril) 5 mg PO DAILY [facility] Last Admin: 01/21/18 09:10 Dose: 5 mg Metoprolol Tartrate (Lopressor) 25 mg PO Q12 [facility] Last Admin: 01/22/18 08:44 Dose: Not Given Repaglinide (Prandin) 2 mg PO TIDWM [facility] Last Admin: 01/22/18 13:09 Dose: 2 mg Risperidone (Risperdal Tab) 2 mg PO Q12 [facility] Last Admin: 01/22/18 08:44 Dose: 2 mg Sodium Bicarbonate (Sodium Bicarbonate Tab) 1,950 mg PO Q8 [facility] Last Admin: 01/22/18 08:45 Dose: 1,950 mg Tacrolimus (Prograf Cap) 3 mg PO Q12 [facility] Last Admin: 01/22/18 08:45 Dose: 3 mg - Labs Labs: 01/22/18 06:24 01/22/18 06:24 PT 11.8 Seconds (9.8-13.1) 01/19/18 09:34 INR 1.1 (0.9-1.2) 01/19/18 09:34 APTT 32.9 Seconds (25.6-37.1) 01/19/18 09:34 - Constitutional Appears: No Acute Distress - Head Exam Head Exam: NORMAL INSPECTION - Eye Exam Eye Exam: PERRL - ENT Exam ENT Exam: Normal Exam - Neck Exam Neck Exam: Normal Inspection - Respiratory Exam Respiratory Exam: NORMAL BREATHING PATTERN - Cardiovascular Exam Cardiovascular Exam: REGULAR RHYTHM - GI/Abdominal Exam GI & Abdominal Exam: Soft, Normal Bowel Sounds - Extremities Exam Extremities Exam: Normal Inspection - Back Exam Back Exam: NORMAL INSPECTION - Neurological Exam Neurological Exam: Alert, CN II-XII Intact, Oriented x3. absent: Motor Sensory Deficit - Psychiatric Exam Psychiatric exam: Normal Affect, Normal Mood - Skin Skin Exam: Warm Assessment and Plan (1) Hypoglycemia Status: Acute (2) Diabetes mellitus Status: Chronic (3) Accelerated hypertension Status: Acute (4) JUVENCIO (acute kidney injury) Status: Chronic (5) Anemia Status: Acute (6) CKD (chronic kidney disease) Status: Chronic (7) Depression Status: Chronic - Assessment and Plan (Free Text) Plan: Clonidine, Apresoline and rest of Tx.
[2018-01-22 15:53] LABS: SQUAMOUS EPITHIAL 2 /hpf (0-5); URINE BILIRUBIN NEGATIVE (NEGATIVE); URINE BLOOD NEGATIVE (NEGATIVE); URINE CLARITY CLEAR (Clear); URINE COLOR STRAW (YELLOW); URINE GLUCOSE (UA) 150 mg/dL (Normal); URINE LEUKOCYTE ESTERASE NEG Leu/uL (Negative); URINE PROTEIN >=500 mg/dL (NEGATIVE); URINE UROBILINOGEN 0.2-1.0 mg/dL (0.2-1.0)
[2018-01-22 16:07] LABS: CREATININE, RANDOM URINE 40.7 mg/dL
--- NOTE | 2018-01-22 16:50 | US ---
PROCEDURE: Ultrasound of the Kidneys HISTORY: arf COMPARISON: None available. TECHNIQUE: Sonogram of the kidneys. FINDINGS: Transplant Kidney Measures: 11.2 x 7.3 x 4.8 cm. No hydronephrosis identified or perinephric fluid collection. No solid parenchymal mass is appreciated. 1.1 x 1.3 cm simple cysts identified at the upper pole with a 1.5 x 1.1 cm simple cyst at the midpole and as 0.8 x 0.7 cm simple cyst at the lower pole. Cortico medullary differentiation appears adequate. No urolithiasis is identified. RIGHT KIDNEY: Measures: 6.3 x 3.4 x 2.9 cm. The right kidney is atrophic with echogenic renal parenchyma indicative of intrinsic medical renal disease. No stone, solid mass lesion or hydronephrosis visualized. LEFT KIDNEY: Measures: 8.2 x 4.1 x 2.8 cm The right kidney appears lower limits normal size, likely somewhat atrophic with echogenic renal parenchyma indicative of intrinsic medical renal disease. No stone, solid mass lesion or hydronephrosis visualized. OTHER FINDINGS: None. IMPRESSION: 1. The transplant kidney is identified at the right hemipelvis with 3 small simple cyst in the parenchyma but no additional pertinent findings. No transplant obstructive uropathy appreciable. 2. Echogenic renal parenchyma is appreciate in the [place] bilateral kidneys without obstructive uropathy. Right renal atrophy appears moderate and borderline at the left.
--- NOTE | 2018-01-22 21:22 | PN ---
ENDOCRINOLOGY FOLLOWUP NOTE DATE: 01/22/2018 LOCATION: In room 418. SUBJECTIVE: This is a 52-year-old female with recent uncontrolled type 2 insulin-requiring diabetes presenting here with symptomatic hypoglycemia and associated neuroglycopenic and hyperadrenergic manifestations reversed by D50 bolus injections as given. At this time, her glycemic profile has improved remarkably with no insulin requirements as noted. Her glucose levels today are fluctuating from 140 to 192 and 218 mg/dL. Her latest chemistry showed a BUN of 70, sodium 131, potassium 6.1, chloride 100, CO2 is 18, and glucose is 140 with a creatinine of 5.3. She was seen by nephrology with the possibility of postrenal transplant rejection and undergoing full metabolic workup at this time. In the meantime, we will continue the Prandin given as 2 mg p.o. t.i.d. with meals as ordered. We will also add Humalog given as 4 units subcutaneously t.i.d. before meals to start tomorrow morning as ordered. We will add Lantus given as 10 units subcutaneously at bedtime daily to start tonight as ordered. We will titrate incremental as indicated to optimize metabolic control. We will modify her coverage scale to obviate hypoglycemia and detailed orders have been given for NovoLog insulin coverage as ordered. We will follow and advise accordingly. Chastity Mcgrath MD
[2018-01-22] MEDS ORDERED: Insulin Detemir 100 Units/ml Inj SC SCH (22:00)
[2018-01-23 05:13] VITALS: RESP 18
[2018-01-23 05:51] LABS: HEMOGLOBIN 8.2 g/dL (12.0-16.0); MEAN CELL VOLUME 78.4 fl (81.0-99.0); MEAN CORPUSCULAR HEMOGLOBIN 26.4 pg (27.0-31.0); MEAN CORPUSCULAR HGB CONC 33.7 g/dL (33.0-37.0); RBC 3.09 Mil/uL (3.80-5.20); RED CELL DISTRIBUTION WIDTH 14.6 % (11.5-14.5); WHITE BLOOD COUNT 7.5 K/uL (4.8-10.8)
[2018-01-23 06:17] LABS: ALB/GLOB RATIO 0.9 (1.0-2.1); ALBUMIN 2.8 g/dL (3.5-5.0); CALCIUM 8.1 mg/dL (8.4-10.2)
[2018-01-23] MEDS: Insulin Lispro (humaLOG) 100 Units/ml Inj SC SCH ×6 (07:07→16:31)
--- NOTE | 2018-01-23 13:16 | CP.PCM.PN ---
Objective - Vital Signs/Intake and Output Vital Signs (last 24 hours): Temp Pulse Resp BP Pulse Ox 97.3 F L 55 L 18 181/80 H 96 01/23/18 11:58 01/23/18 13:05 01/23/18 11:58 01/23/18 13:05 01/23/18 11:58 - Medications Medications: Current Medications Amlodipine Besylate (Norvasc) 5 mg PO DAILY [facility] Last Admin: 01/23/18 12:37 Dose: 5 mg Atorvastatin Calcium (Lipitor) 10 mg PO HS [facility] Last Admin: 01/22/18 21:17 Dose: 10 mg Benztropine Mesylate (Cogentin) 1 mg PO Q12 [facility] Last Admin: 01/23/18 08:30 Dose: 1 mg Chlorthalidone (Hygroton) 25 mg PO DAILY [facility] Last Admin: 01/21/18 09:08 Dose: 25 mg Clonidine HCl (Catapres) 0.2 mg PO TID [facility] Last Admin: 01/23/18 13:05 Dose: 0.2 mg Escitalopram Oxalate (Lexapro) 5 mg PO DAILY [facility] Last Admin: 01/23/18 08:30 Dose: 5 mg Home Med (Mycophenolate Sodium [Myfortic]) 360 mg PO Q12 [facility] Last Admin: 01/23/18 08:29 Dose: 360 mg Hydralazine HCl (Apresoline) 50 mg PO Q12 [facility] Last Admin: 01/23/18 08:30 Dose: 50 mg Insulin Detemir (Levemir) 10 units SC HS [facility] Last Admin: 01/22/18 21:31 Dose: 10 u Insulin Human Lispro (Humalog) 0 units SC ACHS [facility] Last Admin: 01/23/18 12:35 Dose: Not Given Insulin Human Lispro (Humalog) 4 units SC AC [facility] Last Admin: 01/23/18 12:36 Dose: 4 units Metoprolol Tartrate (Lopressor) 25 mg PO Q12 [facility] Last Admin: 01/23/18 08:29 Dose: Not Given Repaglinide (Prandin) 2 mg PO TIDWM [facility] Last Admin: 01/23/18 12:38 Dose: 2 mg Risperidone (Risperdal Tab) 2 mg PO Q12 [facility] Last Admin: 01/23/18 08:28 Dose: 2 mg Sodium Bicarbonate (Sodium Bicarbonate Tab) 1,950 mg PO Q8 [facility] Last Admin: 01/23/18 08:28 Dose: 1,950 mg Tacrolimus (Prograf Cap) 2 mg PO Q12 [facility] Last Admin: 01/23/18 08:28 Dose: 2 mg - Labs Labs: 01/23/18 04:50 01/23/18 04:50 PT 11.8 Seconds (9.8-13.1) 01/19/18 09:34 INR 1.1 (0.9-1.2) 01/19/18 09:34 APTT 32.9 Seconds (25.6-37.1) 01/19/18 09:34 Assessment and Plan (1) Hypoglycemia Status: Acute (2) Diabetes mellitus Status: Chronic (3) Anemia Status: Acute (4) HTN (hypertension) Status: Chronic (5) JUVENCIO (acute kidney injury) Status: Chronic (6) CKD (chronic kidney disease) Status: Chronic (7) Depression Status: Chronic
--- NOTE | 2018-01-23 14:04 | CP.PCM.PN ---
Subjective - Date & Time of Evaluation Date of Evaluation: 01/23/18 Time of Evaluation: 14:04 - Subjective Subjective: renal follow up note no events overnight bs improved pe: vs as below gen: nad sclera anicteric op: clear neck supple no thyromegaly appreciated cv : +S1+s2 no ru lungs: cta b/l abd: soft ext: no edema neuro: follows commands no deficit psych: flat skin no rash imp: ARF/ CKD III/IV/ Hx of Kidney transplant/ Hypertensive kidney disease/ Hypoglycemia / Anemia /hyponatremia/ acidosis plan: JUVENCIO - etiology not clear yet. continue to hold lisinopril on dc usg reviewed unremarkable no obstructive etiology hyperkalemi improved continue sodium bicarb continue bp needs sugars per endocrine Objective - Vital Signs/Intake and Output Vital Signs (last 24 hours): Temp Pulse Resp BP Pulse Ox 97.3 F L 55 L 18 181/80 H 96 01/23/18 11:58 01/23/18 13:05 01/23/18 11:58 01/23/18 13:05 01/23/18 11:58 - Medications Medications: Current Medications Amlodipine Besylate (Norvasc) 5 mg PO DAILY [facility] Last Admin: 01/23/18 12:37 Dose: 5 mg Atorvastatin Calcium (Lipitor) 10 mg PO HS [facility] Last Admin: 01/22/18 21:17 Dose: 10 mg Benztropine Mesylate (Cogentin) 1 mg PO Q12 [facility] Last Admin: 01/23/18 08:30 Dose: 1 mg Chlorthalidone (Hygroton) 25 mg PO DAILY [facility] Last Admin: 01/21/18 09:08 Dose: 25 mg Clonidine HCl (Catapres) 0.2 mg PO TID [facility] Last Admin: 01/23/18 13:05 Dose: 0.2 mg Escitalopram Oxalate (Lexapro) 5 mg PO DAILY [facility] Last Admin: 01/23/18 08:30 Dose: 5 mg Home Med (Mycophenolate Sodium [Myfortic]) 360 mg PO Q12 [facility] Last Admin: 01/23/18 08:29 Dose: 360 mg Hydralazine HCl (Apresoline) 50 mg PO Q12 [facility] Last Admin: 01/23/18 08:30 Dose: 50 mg Insulin Detemir (Levemir) 10 units SC [facility] Last Admin: 01/22/18 21:31 Dose: 10 u Insulin Human Lispro (Humalog) 0 units SC ACHS [facility] Last Admin: 01/23/18 12:35 Dose: Not Given Insulin Human Lispro (Humalog) 4 units SC AC [facility] Last Admin: 01/23/18 12:36 Dose: 4 units Metoprolol Tartrate (Lopressor) 25 mg PO Q12 [facility] Last Admin: 01/23/18 08:29 Dose: Not Given Repaglinide (Prandin) 2 mg PO TIDWM [facility] Last Admin: 01/23/18 12:38 Dose: 2 mg Risperidone (Risperdal Tab) 2 mg PO Q12 [facility] Last Admin: 01/23/18 08:28 Dose: 2 mg Sodium Bicarbonate (Sodium Bicarbonate Tab) 1,950 mg PO Q8 [facility] Last Admin: 01/23/18 08:28 Dose: 1,950 mg Tacrolimus (Prograf Cap) 2 mg PO Q12 [facility] Last Admin: 01/23/18 08:28 Dose: 2 mg - Labs Labs: 01/23/18 04:50 01/23/18 04:50 PT 11.8 Seconds (9.8-13.1) 01/19/18 09:34 INR 1.1 (0.9-1.2) 01/19/18 09:34 APTT 32.9 Seconds (25.6-37.1) 01/19/18 09:34
[2018-01-23 14:49] VITALS: O2SAT 98
[2018-01-23 15:20] VITALS: PULSE 63; TEMP 98.1
[2018-01-23 17:49] VITALS: BP 106/65
--- NOTE | 2018-01-23 19:25 | CP.PCM.DIS ---
Provider - Provider Date of Admission: 01/21/18 12:23 Attending physician: Sravan Ace MD Diagnosis - Discharge Diagnosis (1) Hypoglycemia Status: Acute Priority: High (2) Diabetes mellitus Status: Chronic Priority: High (3) Anemia Status: Acute Priority: High (4) HTN (hypertension) Status: Chronic Priority: High (5) JUVENCIO (acute kidney injury) Status: Chronic Priority: High (6) CKD (chronic kidney disease) Status: Chronic Priority: High (7) Depression Status: Chronic Priority: Medium Hospital Course - Lab Results Lab Results: Micro Results 01/22/18 15:20 Urine Urine Culture - Final No Growth (<1,000 CFU/ML) Most Recent Lab Values WBC 7.5 K/uL (4.8-10.8) 01/23/18 04:50 RBC 3.09 Mil/uL (3.80-5.20) L 01/23/18 04:50 Hgb 8.2 g/dL (12.0-16.0) L 01/23/18 04:50 Hct 24.2 % (34.0-47.0) L 01/23/18 04:50 MCV 78.4 fl (81.0-99.0) L 01/23/18 04:50 MCH 26.4 pg (27.0-31.0) L 01/23/18 04:50 MCHC 33.7 g/dL (33.0-37.0) 01/23/18 04:50 RDW 14.6 % (11.5-14.5) H 01/23/18 04:50 Plt Count 253 K/uL (130-400) 01/23/18 04:50 MPV 7.4 fl (7.2-11.7) 01/22/18 06:24 Neut % (Auto) 73.1 % (50.0-75.0) 01/22/18 06:24 Lymph % (Auto) 16.3 % (20.0-40.0) L 01/22/18 06:24 [place] % (Auto) 8.5 % (0.0-10.0) 01/22/18 06:24 Eos % (Auto) 1.6 % (0.0-4.0) 01/22/18 06:24 Baso % (Auto) 0.5 % (0.0-2.0) 01/22/18 06:24 Neut # (Auto) 6.0 K/uL (1.8-7.0) 01/22/18 06:24 Lymph # (Auto) 1.3 K/uL (1.0-4.3) 01/22/18 06:24 [place] # (Auto) 0.7 K/uL (0.0-0.8) 01/22/18 06:24 Eos # (Auto) 0.1 K/uL (0.0-0.7) 01/22/18 06:24 Baso # (Auto) 0.0 K/uL (0.0-0.2) 01/22/18 06:24 Neutrophils % (Manual) 84 % (42-75) H 01/19/18 09:34 Band Neutrophils % 1 % (0-2) 01/19/18 09:34 Lymphocytes % (Manual) 9 % (20-50) L 01/19/18 09:34 Monocytes % (Manual) 4 % (0-10) 01/19/18 09:34 Eosinophils % (Manual) 1 % (0-7) 01/19/18 09:34 Basophils % (Manual) 1 % (0-2) 01/19/18 09:34 Platelet Estimate Normal (NORMAL) 01/19/18 09:34 Large Platelets Present 01/19/18 09:34 Hypochromasia (manual) Slight 01/19/18 09:34 Anisocytosis (manual) Slight 01/19/18 09:34 Ovalocytes Slight 01/19/18 09:34 PT 11.8 Seconds (9.8-13.1) 01/19/18 09:34 INR 1.1 (0.9-1.2) 01/19/18 09:34 APTT 32.9 Seconds (25.6-37.1) 01/19/18 09:34 Sodium 133 mmol/l (132-148) 01/23/18 04:50 Potassium 3.9 MMOL/L (3.6-5.0) 01/23/18 04:50 Chloride 98 mmol/L (98-107) 01/23/18 04:50 Carbon Dioxide 20 mmol/L (22-30) L 01/23/18 04:50 Anion Gap 19 (10-20) 01/23/18 04:50 BUN 72 mg/dl (7-17) H 01/23/18 04:50 Creatinine 5.3 mg/dl (0.7-1.2) H 01/23/18 04:50 Est GFR ( Amer) 10 01/23/18 04:50 Est GFR (Non-Af Amer) 9 01/23/18 04:50 POC Glucose (mg/dL) 160 mg/dL (65-110) H 01/23/18 15:56 Random Glucose 127 mg/dL (65-105) H 01/23/18 04:50 Hemoglobin A1c 6.6 % (4.2-6.5) H 01/20/18 04:49 Calcium 8.1 mg/dL (8.4-10.2) L 01/23/18 04:50 Iron 46 ug/dL (37-170) 01/22/18 11:05 TIBC 267 ug/dL (250-450) 01/22/18 11:05 % Saturation 17 % (20-55) L 01/22/18 11:05 Ferritin 114.0 ng/Ml (11.1-264.0) 01/22/18 10:55 Total Bilirubin 0.1 mg/dl (0.2-1.3) L 01/23/18 04:50 AST 16 U/L (14-36) 01/23/18 04:50 ALT 21 U/L (9-52) 01/23/18 04:50 Alkaline Phosphatase 104 U/L (38-126) 01/23/18 04:50 Troponin I < 0.0120 ng/mL (0.00-0.120) 01/19/18 09:34 Total Protein 5.9 G/DL (6.3-8.2) L 01/23/18 04:50 Albumin 2.8 g/dL (3.5-5.0) L 01/23/18 04:50 Globulin 3.1 gm/dL (2.2-3.9) 01/23/18 04:50 Albumin/Globulin Ratio 0.9 (1.0-2.1) L 01/23/18 04:50 Triglycerides 352 mg/DL (0-149) H 01/20/18 04:49 Cholesterol 147 mg/dL (0-199) 01/20/18 04:49 LDL Cholesterol Direct 59 mg/dL (0-129) 01/20/18 04:49 HDL Cholesterol 26 MG/DL (30-70) L 01/20/18 04:49 TSH 3rd Generation 2.74 mIU/ML (0.46-4.68) 01/20/18 04:49 PTH Intact Whole Molec 439 pg/mL (14-64) H 01/20/18 04:49 Urine Color Straw (YELLOW) 01/22/18 15:20 Urine Clarity Clear (Clear) 01/22/18 15:20 Urine pH 7.0 (5.0-8.0) 01/22/18 15:20 Ur Specific [place] 1.008 (1.003-1.030) 01/22/18 15:20 Urine Protein >=500 mg/dL (NEGATIVE) 01/22/18 15:20 Urine Glucose (UA) 150 mg/dL (Normal) 01/22/18 15:20 Urine Ketones Negative mg/dL (NEGATIVE) 01/22/18 15:20 Urine Blood Negative (NEGATIVE) 01/22/18 15:20 Urine Nitrate Negative (NEGATIVE) 01/22/18 15:20 Urine Bilirubin Negative (NEGATIVE) 01/22/18 15:20 Urine Urobilinogen 0.2-1.0 mg/dL (0.2-1.0) 01/22/18 15:20 Ur Leukocyte Esterase Neg [place]/uL (Negative) 01/22/18 15:20 Urine Microscopic WBC 1 /hpf (0-5) 01/22/18 15:20 Ur Squamous Epith Cells 2 /hpf (0-5) 01/22/18 15:20 Ur Random Creatinine 40.7 mg/dL 01/22/18 12:13 Ur Random Sodium 51 mmol/L 01/22/18 12:13 Urine Opiates Screen Negative (NEGATIVE) 01/19/18 09:34 Urine Methadone Screen Negative (NEGATIVE) 01/19/18 09:34 Ur Barbiturates Screen Negative (NEGATIVE) 01/19/18 09:34 Ur Phencyclidine Scrn Negative (NEGATIVE) 01/19/18 09:34 Ur Amphetamines Screen Negative (NEGATIVE) 01/19/18 09:34 U Benzodiazepines Scrn Negative (NEGATIVE) 01/19/18 09:34 U Oth Cocaine Metabols Negative (NEGATIVE) 01/19/18 09:34 Tacrolimus (LC/MS/MS) 7.5 mcg/L (5.0-20.0) 01/22/18 08:12 U Cannabinoids Screen Negative (NEGATIVE) 01/19/18 09:34 Alcohol, Quantitative < 10 mg/dl (0-10) 01/19/18 09:34 Discharge Exam - Head Exam Head Exam: NORMAL INSPECTION Discharge Plan - Discharge Medications Prescriptions: hydrALAZINE [Apresoline] 50 mg PO Q12 #60 tab cloNIDine [Catapres] 0.2 mg PO TID #90 tab amLODIPine [Norvasc] 5 mg PO DAILY #30 tab Repaglinide [Prandin] 2 mg PO TIDWM #60 tab - Follow Up Plan Condition: FAIR Disposition: HOME/ ROUTINE Instructions: High Blood Pressure (DC), Low Blood Sugar in People With Diabetes , Chronic Kidney Disease (DC) Additional Instructions: follow up appt with pmd in 1 week Referrals: Chastity Mcgrath MD [Medical Doctor] - Dawood Hyatt MD [Staff Provider] - Sravan Ace MD [Staff Provider] -
--- NOTE | 2018-01-24 08:34 | PN ---
ENDOCRINOLOGY FOLLOWUP NOTE DATE: 01/23/2018 LOCATION: In room 418. SUBJECTIVE: This is a 52-year-old female with recent uncontrolled type 2 insulin-requiring diabetes presenting here with symptomatic hypoglycemia and progressive renal insufficiency from possible renal transplant graft rejection and is being followed closely for metabolic management. Her oral intake has improved as noted and the latest glucose levels today have ranged from 162 to 218 mg/dL. Her latest chemistry showed a BUN of 72, sodium 133, potassium 3.9, chloride 98, CO2 of 20, glucose 127, and creatinine 5.3. So, at this time, we will modify once again her current basal and bolus insulin regimen and increase the Levemir to 10 units subcutaneously at bedtime daily as given. We will continue the Humalog given as 4 units subcutaneously t.i.d. before meals as ordered. We will titrate incrementally as indicated to optimize metabolic control. We will also continue her Humalog given at a very low-dose coverage scale for glucose levels only above 300 as ordered. She is undergoing renal workup and is being followed closely by nephrology at this time. We will follow. ASSESSMENT AND PLAN: This is a 52-year-old female with recent symptomatic hypoglycemia and associated neuroglycopenic and hyperadrenergic manifestations related to the aforementioned. She also has diabetic microvascular complications of retinopathy, polyneuropathy, and nephropathy with prior renal transplant and possible rejection of the graft as noted. She also has diabetic macrovascular complications of coronary artery disease and peripheral arterial disease and vasculopathy. For the plan of management just to refer to what I just mentioned earlier. Chastity Mcgrath MD
== END 2018-01-23 18:25 | disposition home or self-care (01) | DRG 638 ==
LOC: H.ER 08:58 → H.ERHOLD 12:23 → H.TEL 14:36 → OBSVTOIN 01-21 12:23
PROVIDERS: ADMIT Internal Medicine Pulmonary Disease; ATTEND Internal Medicine Pulmonary Disease
DX: E11.649 Type 2 diabetes mellitus with hypoglycemia without coma (principal); T86.11 Kidney transplant rejection; E87.1 Hypo-osmolality and hyponatremia; E87.2 Acidosis; N17.9 Acute kidney failure, unspecified; I13.10 Hypertensive heart and chronic kidney disease without heart failure, with stage 1 through stage 4 chronic kidney disease, or unspecified chronic kidney disease; N18.4 Chronic kidney disease, stage 4 (severe); E87.5 Hyperkalemia; E11.65 Type 2 diabetes mellitus with hyperglycemia; E11.21 Type 2 diabetes mellitus with diabetic nephropathy; E11.22 Type 2 diabetes mellitus with diabetic chronic kidney disease; E11.42 Type 2 diabetes mellitus with diabetic polyneuropathy; E11.51 Type 2 diabetes mellitus with diabetic peripheral angiopathy without gangrene; E11.319 Type 2 diabetes mellitus with unspecified diabetic retinopathy without macular edema; D63.1 Anemia in chronic kidney disease; I25.10 Atherosclerotic heart disease of native coronary artery without angina pectoris; E78.5 Hyperlipidemia, unspecified; F25.8 Other schizoaffective disorders; F32.9 Major depressive disorder, single episode, unspecified; F41.1 Generalized anxiety disorder; J45.909 Unspecified asthma, uncomplicated; Y83.0 Surgical operation with transplant of whole organ as the cause of abnormal reaction of the patient, or of later complication, without mention of misadventure at the time of the procedure; Z79.4 Long term (current) use of insulin; Z79.84 Long term (current) use of oral hypoglycemic drugs; Z91.041 Radiographic dye allergy status

== ENCOUNTER 2018-04-06 15:12 | Inpatient (IN) | payer MEDICARE, OTHER ==
[2018-04-06 15:12] VITALS: BMI 34.5
--- NOTE | 2018-04-06 15:34 | ED PDOC ---
HPI: General Adult Time Seen by Provider: 04/06/18 15:33 Chief Complaint (Nursing): Dizziness/Lightheaded Chief Complaint (Provider): near syncope History Per: Patient Additional Complaint(s): 52-year-old female with end-stage renal disease presents to emergency department after having syncopal episode at home. Patient got dizzy and fell forward but did not strike her head against the ground. Patient's fall was witnessed by mother who called ambulance for patient to come here. Patient's sister at bedside states the patient has been having upper respiratory symptoms for the past few days including cough and congestion. No known fever as per family. On arrival patient feels weak but denies any chest pain, shortness of breath or dyspnea on exertion. Patient last had dialysis yesterday. PMD: Dr. Ace Past Medical History Reviewed: Historical Data, Nursing Documentation, Vital Signs Vital Signs: Last Vital Signs Temp 97.4 F L 04/06/18 15:13 Pulse 93 H 04/06/18 19:01 Resp 14 04/06/18 19:01 BP 137/72 04/06/18 15:13 Pulse Ox 99 04/06/18 15:59 - Medical History PMH: Anemia, Anxiety, Asthma, Depression, Diabetes, HTN, Chronic Kidney Disease , Schizophrenia - Surgical History Surgical History: Cholecystectomy Other surgeries: right arm fistula, kidney transplant, Port-A-Cath insertion - Family History Family History: States: No Known Family Hx - Living Arrangements Living Arrangements: With Family - Social History Current smoker - smoking cessation education provided: No Ex-Smoker (has not smoked in the last 12 months): No Alcohol: None Drugs: Denies - Home Medications Home Medications: Ambulatory Orders Medication Instructions Recorded Atorvastatin [Lipitor] 10 mg PO HS 12/25/17 Benztropine [Cogentin] 1 mg PO Q12 12/25/17 Escitalopram Oxalate [Lexapro] 5 mg PO DAILY 12/25/17 Glimepiride [amaRYL] 4 mg PO BID 12/25/17 Insulin Aspart Prot/Insuln Asp 10 unit SC ACBD 12/25/17 [Novolog Mix 70-30 Vial] Insulin Glargine, Recombina 18 unit SC HS 12/25/17 [Lantus] Sodium Bicarbonate Tab 3 tab PO Q8 12/25/17 risperiDONE [RisperDAL Tab] 2 mg PO Q12 12/25/17 Azithromycin [Zithromax] 500 mg PO DAILY 04/06/18 Carvedilol [Coreg] 12.5 mg PO Q12 04/06/18 Chlorthalidone [Hygroton] 50 mg PO DAILY 04/06/18 Promethazine DM [Phenergan DM 10 ml PO Q4 PRN 04/06/18 Syrup] Tiotropium [place] [Spiriva 2 puff IH DAILY 04/06/18 Respimat] amLODIPine [Norvasc] 10 mg PO DAILY 04/06/18 - Allergies Allergies/Adverse Reactions: Allergies Allergy/AdvReac Type Severity Reaction Status Date / Time iodine Allergy URTICARIA Verified 12/25/17 04:30 Review of Systems ROS Statement: Except As Marked, All Systems Reviewed And Found Negative Constitutional: Positive for: Weakness. Negative for: Fever, Chills Cardiovascular: Negative for: Chest Pain, Palpitations Respiratory: Positive for: Cough Gastrointestinal: Positive for: Nausea. Negative for: Vomiting, Abdominal Pain Physical Exam - Reviewed Nursing Documentation Reviewed: Yes Vital Signs Reviewed: Yes - Physical Exam Appears: Positive for: Well, Non-toxic, No Acute Distress Skin: Positive for: Pallor Eye Exam: Positive for: Normal appearance Cardiovascular/Chest: Positive for: Regular Rate, Rhythm Respiratory: Positive for: Wheezing (Bilateral inspiratory next 3 wheezing). Negative for: Respiratory Distress Gastrointestinal/Abdominal: Positive for: Other (Obese nontender abdomen) Extremity: Positive for: Normal ROM Neurologic/Psych: Positive for: Alert, Oriented - Laboratory Results Result Diagrams: 04/06/18 16:15 04/06/18 16:15 Urine dip results: Positive for: Protein. Negative for: Leukocyte Esterase, Blood, Nitrate, Ketones, Glucose, Bilirubin - ECG Interpretation Of ECG: Normal sinus rhythm 63 beats per minute, no acute changes, reviewed by PA and ED attending. O2 Sat by Pulse Oximetry: 99 Pulse Ox Interpretation: Normal - Other Rad CT head X-Ray: Read By Radiologist X-Ray Interpretation: no acute finding CXR X-Ray: Interpreted by Me, Viewed By Me X-Ray Interpretation: no acute finding Medical Decision Making Medical Decision Makin52 year old female with syncopal episode. Plan: EKG CXR CBC CMP Troponin IV insertion CT head UA and culture Hemoglobin noted to be 7.2. Patient has history of anemia and has had transfusion in the past. Patient consented for transfusion of 2 units of packed red blood cells. PMD is Dr. Ace. Case was discussed in detail with Dr. Ace was states to admit patient to telemetry. Patient agrees with admission. Patient's sister at bedside states that her associate professor of geology when she is in this hospital is Dr. Malone. Case was d/w Dr. Sotelo, Dr. Malone's partner who was made aware that patient is being admitted and is due for dialysis tomorrow. Disposition - Clinical Impression Clinical Impression: Syncope, Anemia, ESRD (end stage renal disease) - Patient ED Disposition Is Patient to be Admitted: Yes - Disposition Disposition Time: 20:00 Condition: FAIR Results - Lab Results Lab Results: 04/06/18 04/06/18 04/06/18 16:15 16:15 15:38 WBC 8.3 RBC 2.63 L Hgb 7.2 L Hct 21.6 L MCV 82.4 D MCH 27.3 MCHC 33.1 RDW 16.6 H Plt Count 216 MPV 6.7 L Neut % (Auto) 82.4 H Lymph % (Auto) 11.6 L [place] % (Auto) 4.7 Eos % (Auto) 1.1 Baso % (Auto) 0.2 Neut # (Auto) 6.8 Lymph # (Auto) 1.0 [place] # (Auto) 0.4 Eos # (Auto) 0.1 Baso # (Auto) 0.0 Sodium 129 L Potassium 3.4 L Chloride 90 L Carbon Dioxide 31 H Anion Gap 11 BUN 27 H Creatinine 3.7 H Est GFR ( Amer) 16 Est GFR (Non-Af Amer) 13 POC Glucose (mg/dL) 89 Random Glucose 83 Calcium 8.3 L Total Bilirubin 0.3 AST 34 ALT 21 Alkaline Phosphatase 90 Troponin I < 0.0120 Total Protein 6.2 L Albumin 2.9 L Globulin 3.3 Albumin/Globulin Ratio 0.9 L
[2018-04-06 16:20] LABS: BASO % 0.2 % (0.0-2.0); EOS # 0.1 K/uL (0.0-0.7); EOS % 1.1 % (0.0-4.0); HEMOGLOBIN 7.2 g/dL (12.0-16.0); LYMPH % 11.6 % (20.0-40.0); MEAN CELL VOLUME 82.4 fl (81.0-99.0); MEAN CORPUSCULAR HEMOGLOBIN 27.3 pg (27.0-31.0); MEAN CORPUSCULAR HGB CONC 33.1 g/dL (33.0-37.0); MEAN PLATELET VOLUME 6.7 fl (7.2-11.7); MONO # 0.4 K/uL (0.0-0.8); MONO % 4.7 % (0.0-10.0); NEUT # 6.8 K/uL (1.8-7.0); NEUT % 82.4 % (50.0-75.0); RBC 2.63 Mil/uL (3.80-5.20); RED CELL DISTRIBUTION WIDTH 16.6 % (11.5-14.5); WHITE BLOOD COUNT 8.3 K/uL (4.8-10.8)
[2018-04-06 16:42] LABS: ALB/GLOB RATIO 0.9 (1.0-2.1); ALBUMIN 2.9 g/dL (3.5-5.0); ALT/SGPT 21 U/L (9-52); AST/SGOT 34 U/L (14-36); BLOOD UREA NITROGEN 27 mg/dl (7-17); CALCIUM 8.3 mg/dL (8.4-10.2); GFR AFRICAN-AMERICAN 16; GFR NON-AFRICAN AMERICAN 13
--- NOTE | 2018-04-06 16:52 | RAD ---
Date of service: 04/06/2018 HISTORY: Cough. COMPARISON: 02/03/2011 FINDINGS: LUNGS: No active pulmonary disease. PLEURA: No significant pleural effusion identified, no pneumothorax apparent. CARDIOVASCULAR: No radiographic findings to suggest acute or significant cardiovascular disease. Venous access catheter in satisfactory position. No significant interval change compared to the prior examination(s). OSSEOUS STRUCTURES: No significant abnormalities. VISUALIZED UPPER ABDOMEN: Normal. OTHER FINDINGS: None. IMPRESSION: No active disease. No significant interval change compared to the prior examination(s).
--- NOTE | 2018-04-06 16:54 | CT ---
Date of service: 04/06/2018 PROCEDURE: CT HEAD WITHOUT CONTRAST. HISTORY: syncope COMPARISON: 01/19/2018. TECHNIQUE: Axial computed tomography images were obtained through the head/brain without intravenous contrast. Coronal and sagittal reconstructed images. Radiation dose: Total exam DLP = 806.91 mGy-cm. This CT exam was performed using one or more of the following dose reduction techniques: Automated exposure control, adjustment of the mA and/or kV according to patient size, and/or use of iterative reconstruction technique. FINDINGS: HEMORRHAGE: No intracranial hemorrhage. BRAIN: No mass effect or edema. No atrophy or chronic microvascular ischemic changes. VENTRICLES: Unremarkable. No hydrocephalus. CALVARIUM: Unremarkable. PARANASAL SINUSES: Mild chronic sinusitis unchanged compared to prior studies. MASTOID AIR CELLS: Unremarkable as visualized. No inflammatory changes. OTHER FINDINGS: None. IMPRESSION: No acute intracranial abnormalities. No significant findings to account for the clinical presentation. No significant interval change compared to the prior examination(s).
[2018-04-06 19:08] LABS: SQUAMOUS EPITHIAL 4 /hpf (0-5); URINE BILIRUBIN NEGATIVE (NEGATIVE); URINE BLOOD NEGATIVE (NEGATIVE); URINE CLARITY SLIGHTY-CLOUDY (Clear); URINE COLOR YELLOW (YELLOW); URINE GLUCOSE (UA) 50 mg/dL (Normal); URINE HYALINE CAST 0-2 /hpf (0-2); URINE LEUKOCYTE ESTERASE NEG Leu/uL (Negative); URINE PROTEIN >=500 mg/dL (NEGATIVE); URINE UROBILINOGEN 0.2-1.0 mg/dL (0.2-1.0)
[2018-04-07] MEDS: Promethazine DM 12.5 mg-30 mg/10 ml Syrup PO PRN (01:42)
[2018-04-07 08:22] LABS: BASO # 0.1 K/uL (0.0-0.2); EOS # 0.2 K/uL (0.0-0.7); EOS % 2.3 % (0.0-4.0); HEMOGLOBIN 9.3 g/dL (12.0-16.0); LYMPH # 1.8 K/uL (1.0-4.3); LYMPH % 20.5 % (20.0-40.0); MEAN CELL VOLUME 83.5 fl (81.0-99.0); MEAN CORPUSCULAR HEMOGLOBIN 27.7 pg (27.0-31.0); MEAN CORPUSCULAR HGB CONC 33.1 g/dL (33.0-37.0); MEAN PLATELET VOLUME 6.4 fl (7.2-11.7); MONO # 0.9 K/uL (0.0-0.8); MONO % 9.6 % (0.0-10.0); NEUT % 66.6 % (50.0-75.0); RBC 3.36 Mil/uL (3.80-5.20); RED CELL DISTRIBUTION WIDTH 16.4 % (11.5-14.5)
[2018-04-07 08:45] LABS: IRON 169 ug/dL (37-170)
[2018-04-07 08:55] LABS: ALB/GLOB RATIO 0.8 (1.0-2.1); ALBUMIN 2.8 g/dL (3.5-5.0); CALCIUM 8.2 mg/dL (8.4-10.2)
[2018-04-07 08:58] LABS: % IRON SATURATION 77 % (20-55); TOTAL IRON BINDING CAPACITY 221 ug/dL (250-450)
[2018-04-07] MEDS ORDERED: EPOETIN ALFA 10,000 UNIT/ML ML IV SCH (09:00)
[2018-04-07] MEDS ORDERED: Pneumococcal 23-Valent Vaccine IM ONE (09:20)
[2018-04-07] MEDS: Multivitamin Vitamin B Complex (Nephro-Vite) Tab PO SCH (11:51)
[2018-04-07 17:00] LABS: HEMOGLOBIN 8.6 g/dL (12.0-16.0); MEAN CELL VOLUME 83.1 fl (81.0-99.0); MEAN CORPUSCULAR HEMOGLOBIN 27.4 pg (27.0-31.0); RBC 3.13 Mil/uL (3.80-5.20); RED CELL DISTRIBUTION WIDTH 16.6 % (11.5-14.5); WHITE BLOOD COUNT 7.4 K/uL (4.8-10.8)
--- NOTE | 2018-04-07 17:48 | CP.PCM.HP ---
History of Present Illness - History of Present Illness History of Present Illness: CC: Syncope. 52 y/o F, with several chronic medical conditions including ESRD on HD TTS, kidney transplant, Asthma, Schizophrenia, brought to [facility] on 04/06/18 via EMS to be evaluated for sudden episode of fall while at home witnessed by her mother, associate to dizziness, weaknesses on DOA, as per mother she did not stoked her head against the grown, but after did not feels well. Patient was started recently in dialysis, patient had kidney transplant for aprox past 10yrs with recent failure Worsening symptom: Found with Hgb in 7.2, also c/o of chest congestion, occasional cough, Patient denies hematemesism, melena, rectal bleeding Aggravated factor: Movements/exercise. No c/o of LOC, fever, chills, n/v/d, abdominal pain, CP, palpitations, sick contact, recent travel out of [facility]. Present on Admission - Present on Admission Any Indicators Present on Admission: No Review of Systems - Constitutional Constitutional: Weakness - EENT Eyes: Other (negative) Ears: Other (negative) Nose/Mouth/Throat: Other (negative) - Cardiovascular Cardiovascular: Other (negative) - Respiratory Respiratory: Cough, Chest Congestion - Gastrointestinal Gastrointestinal: Other (negative) - Genitourinary Genitourinary: Other (negative) - Musculoskeletal Musculoskeletal: Other (negative) - Integumentary Integumentary: Other (negative) - Neurological Neurological: Dizziness, Weakness - Psychiatric Psychiatric: Anxiety - Endocrine Endocrine: Other (negative) - Hematologic/Lymphatic Hematologic: Other (anemia) Past Patient History - Infectious Disease Hx of Infectious Diseases: None - Past Medical History & Family History Past Medical History?: Yes Pertinent Family History: Unknown - Past Social History Smoking Status: Never Smoked Alcohol: None Drugs: Denies Home Situation {Lives}: With Family - CARDIAC Hx Cardiac Disorders: Yes Hx Hypertension: Yes - PULMONARY Hx Respiratory Disorders: Yes Hx Asthma: Yes - NEUROLOGICAL Hx Neurological Disorder: No - HEENT Hx HEENT Problems: No - RENAL Hx Chronic Kidney Disease: Yes Hx Dialysis: Yes Type of Dialysis Access: Perma Cath, recent R arm functioning AV fistula Hx Renal Failure: Yes Other/Comment: Hx of recent Kidney transplant failure - ENDOCRINE/METABOLIC Hx Endocrine Disorders: Yes Hx Diabetes Mellitus Type 2: Yes - HEMATOLOGICAL/ONCOLOGICAL Hx Blood Disorders: Yes Hx AIDS: No Hx Anemia: Yes Hx Human Immunodeficiency Virus (HIV): No Other/Comment: Kidney transplant 2009 - INTEGUMENTARY Hx Dermatological Problems: No - MUSCULOSKELETAL/RHEUMATOLOGICAL Hx Falls: No - GASTROINTESTINAL Hx Gastrointestinal Disorders: Yes Hx Gall Bladder Disease: Yes (gallbladder stones) - PSYCHIATRIC Hx Psychophysiologic Disorder: Yes Hx Depression: Yes Hx Schizophrenia: Yes Hx Substance Use: No - SURGICAL HISTORY Hx Surgeries: Yes Hx Cholecystectomy: Yes Other/Comment: kidney transplant, old non functioning AV fistula L Arm, Perma Cath, new recent AV fistula R arm - ANESTHESIA Hx Anesthesia: Yes Hx Anesthesia Reactions: No Hx Malignant Hyperthermia: No Meds Allergies/Adverse Reactions: Allergies Allergy/AdvReac Type Severity Reaction Status Date / Time iodine Allergy URTICARIA Verified 12/25/17 04:30 Physical Exam - Constitutional Appears: No Acute Distress, Chronically Ill - Head Exam Head Exam: NORMAL INSPECTION - Eye Exam Additional comments: Right Periorbital edema - ENT Exam ENT Exam: Normal Exam - Neck Exam Neck exam: Positive for: Normal Inspection - Respiratory Exam Respiratory Exam: Decreased Breath Sounds (at bases) Additional comments: Perma Cath - Cardiovascular Exam Cardiovascular Exam: REGULAR RHYTHM - GI/Abdominal Exam GI & Abdominal Exam: Normal Bowel Sounds, Soft - Extremities Exam Additional comments: R arm AV fistula with bruit and thrill, non functioning old AV fistula L forearm - Back Exam Back exam: NORMAL INSPECTION - Neurological Exam Neurological exam: Alert, Oriented x3 Additional comments: No motor/sensory deficit. - Psychiatric Exam Psychiatric exam: Anxious - Skin Skin Exam: Warm Results - Vital Signs Recent Vital Signs: Last Vital Signs Temp 98.5 F 04/07/18 16:34 Pulse 76 04/07/18 17:00 Resp 16 04/07/18 17:00 BP 164/76 H 04/07/18 17:00 Pulse Ox 100 04/07/18 17:00 reviewed Michael - Labs Result Diagrams: 04/10/18 04:30 04/11/18 05:35 Labs: Laboratory Results - last 24 hr 04/06/18 04/06/18 04/07/18 18:50 18:52 07:20 WBC RBC Hgb Hct MCV MCH MCHC RDW Plt Count MPV Neut % (Auto) Lymph % (Auto) [place] % (Auto) Eos % (Auto) Baso % (Auto) Neut # (Auto) Lymph # (Auto) [place] # (Auto) Eos # (Auto) Baso # (Auto) Retic Count Sodium Potassium Chloride Carbon Dioxide Anion Gap BUN Creatinine Est GFR ( Amer) Est GFR (Non-Af Amer) POC Glucose (mg/dL) 57 L Random Glucose Calcium Iron TIBC % Saturation Ferritin Total Bilirubin AST ALT Alkaline Phosphatase Total Protein Albumin Globulin Albumin/Globulin Ratio Vitamin B12 Urine Color Yellow Urine Clarity Slighty-cloudy Urine pH 9.0 Ur Specific [place] 1.011 Urine Protein >=500 Urine Glucose (UA) 50 Urine Ketones Negative Urine Blood Negative Urine Nitrate Negative Urine Bilirubin Negative Urine Urobilinogen 0.2-1.0 Ur Leukocyte Esterase Neg Urine RBC (Auto) 2 Urine Microscopic WBC 5 Ur Squamous Epith Cells 4 Hyaline Casts 0-2 Blood Type O POSITIVE Antibody Screen Negative Crossmatch See Detail BBK History Checked Patient has bt 04/07/18 04/07/18 04/07/18 07:58 08:10 08:10 WBC 9.0 RBC 3.36 L Hgb 9.3 L D Hct 28.0 L MCV 83.5 MCH 27.7 MCHC 33.1 RDW 16.4 H Plt Count 243 MPV 6.4 L Neut % (Auto) 66.6 Lymph % (Auto) 20.5 [place] % (Auto) 9.6 Eos % (Auto) 2.3 Baso % (Auto) 1.0 Neut # (Auto) 6.0 Lymph # (Auto) 1.8 [place] # (Auto) 0.9 H Eos # (Auto) 0.2 Baso # (Auto) 0.1 Retic Count 2.3 H D Sodium 132 Potassium 3.5 L Chloride 93 L Carbon Dioxide 29 Anion Gap 14 BUN 34 H Creatinine 4.8 H Est GFR ( Amer) 12 Est GFR (Non-Af Amer) 10 POC Glucose (mg/dL) 91 Random Glucose 89 Calcium 8.2 L Iron TIBC % Saturation Ferritin 332.0 H Total Bilirubin 0.7 AST 25 ALT 23 Alkaline Phosphatase 89 Total Protein 6.1 L Albumin 2.8 L Globulin 3.3 Albumin/Globulin Ratio 0.8 L Vitamin B12 676 Urine Color Urine Clarity Urine pH Ur Specific [place] Urine Protein Urine Glucose (UA) Urine Ketones Urine Blood Urine Nitrate Urine Bilirubin Urine Urobilinogen Ur Leukocyte Esterase Urine RBC (Auto) Urine Microscopic WBC Ur Squamous Epith Cells Hyaline Casts Blood Type Antibody Screen Crossmatch BBK History Checked 04/07/18 04/07/18 04/07/18 08:10 11:54 16:30 WBC RBC Hgb Hct MCV MCH MCHC RDW Plt Count MPV Neut % (Auto) Lymph % (Auto) [place] % (Auto) Eos % (Auto) Baso % (Auto) Neut # (Auto) Lymph # (Auto) [place] # (Auto) Eos # (Auto) Baso # (Auto) Retic Count Sodium Potassium Chloride Carbon Dioxide Anion Gap BUN Creatinine Est GFR ( Amer) Est GFR (Non-Af Amer) POC Glucose (mg/dL) 79 137 H Random Glucose Calcium Iron 169 TIBC 221 L % Saturation 77 H Ferritin Total Bilirubin AST ALT Alkaline Phosphatase Total Protein Albumin Globulin Albumin/Globulin Ratio Vitamin B12 Urine Color Urine Clarity Urine pH Ur Specific [place] Urine Protein Urine Glucose (UA) Urine Ketones Urine Blood Urine Nitrate Urine Bilirubin Urine Urobilinogen Ur Leukocyte Esterase Urine RBC (Auto) Urine Microscopic WBC Ur Squamous Epith Cells Hyaline Casts Blood Type Antibody Screen Crossmatch BBK History Checked 04/07/18 16:58 WBC 7.4 RBC 3.13 L Hgb 8.6 L Hct 26.0 L MCV 83.1 MCH 27.4 MCHC 33.0 RDW 16.6 H Plt Count 238 MPV Neut % (Auto) Lymph % (Auto) [place] % (Auto) Eos % (Auto) Baso % (Auto) Neut # (Auto) Lymph # (Auto) [place] # (Auto) Eos # (Auto) Baso # (Auto) Retic Count Sodium Potassium Chloride Carbon Dioxide Anion Gap BUN Creatinine Est GFR ( Amer) Est GFR (Non-Af Amer) POC Glucose (mg/dL) Random Glucose Calcium Iron TIBC % Saturation Ferritin Total Bilirubin AST ALT Alkaline Phosphatase Total Protein Albumin Globulin Albumin/Globulin Ratio Vitamin B12 Urine Color Urine Clarity Urine pH Ur Specific [place] Urine Protein Urine Glucose (UA) Urine Ketones Urine Blood Urine Nitrate Urine Bilirubin Urine Urobilinogen Ur Leukocyte Esterase Urine RBC (Auto) Urine Microscopic WBC Ur Squamous Epith Cells Hyaline Casts Blood Type Antibody Screen Crossmatch BBK History Checked reviewed J.P. - Imaging and Cardiology Chest x-ray Status: Report reviewed by me CT scan - head Status: Report reviewed by me (J.P.) Assessment & Plan (1) Syncope Status: Acute Priority: High (2) Anemia Status: Acute Priority: High (3) ESRD (end stage renal disease) Status: Chronic Priority: High (4) Diabetes mellitus Status: Chronic Priority: Medium (5) HTN (hypertension) Status: Chronic Priority: Medium (6) Asthma Status: Chronic Priority: Medium (7) Schizophrenia Status: Chronic - Assessment and Plan (Free Text) Plan: transfuse PRBC, anemia work up, Continue O2 NC, Procrit, dialysis, Cozaar, Norvasc, Humulin, Risperdal, and rest of Tx. Nephrology and GI consult. - Date & Time Date: 04/07/18 Time: 15:50
--- NOTE | 2018-04-07 21:37 | CP.PCM.CON ---
History of Present Illness - History of Present Illness History of Present Illness: Nephrology Consultation Note covering for Dr Malone: Assessment: Stable syncope Diabetic chronic Kidney Disease (E11.22) Hypertensive Chronic Kidney Disease (I12.0) End stage renal disease (N18.6) dependence on hemodialysis (Z99.2) (TTS) via PC Anemia (D64.9), Hyperphosphatemia (E83.39), Secondary Hyperparathyroidism (E21.1 ), HTN (I12.0) Plan: Will plan for HD today as ordered. Continue with Nephrovite 1 tab/day. PRBC as needed for anemia. on ANNY with dialysis as last Hb 9.3 Continue with phos binders, check phos level BP control with meds as ordered. Patient not on RAAS vinh hence added losartan Glycemic control, Dialysis consistent diet Further work up/management as per primary team Dose meds/antibiotics (if needed) for ESRD status. Avoid fleets enema/magnesium based laxatives. Thanks for allowing me to participate in care of your patient. Will follow patient with you. Please call if any Qs Dr Jj De La Cruz Office: [phone] Chief Complaint; syncope reason for consult: ESRD HPI: Pt is a with hx of ESRD on hemodialysis (TTS) via Permacath , last dialysis thur, chronic anemia, hyperphosphatemia, secondary hyperparathyroidism , Diabetes Mellitus, hypertension presented with complaints of syncope Renal consult requested for ESRD management. pt not much very communciative. feels better at present. ROS: limited from pt Cardiovascular: No chest pain. Pulmonary: No shortness of breath Gastrointestinal: denies abdominal pain No nausea. No vomiting. Genitourinary: No pain while urinating. Denies blood in urine. All other negative except as mentioned in HPI Physical Examination: General Appearance: Comfortable, in no acute respiratory distress, co-operative . Vitals reviewed and noted as below Head; Atraumatic, normocephalic ENT: no ulcers no thrush. Tongue is midline. Oropharynx: no rash or ulcers. EYES: Pupils are equal, round and reactive to light accommodation. Eye muscles and extraocular movement intact. Sclera is anicteric. Neck; supple no lymphadenopathy, no thyromegaly or bruit Lungs: Normal respiratory rate/effort. Breath sounds bilateral equal and clear Heart: Normal rate. s1s2 normal. No rub or gallop. Extremities: no edema. No varicose veins Neurological: Patient is alert, awake and oriented to person, place and time. No focal deficit. Strength bilateral appropriate and equal Skin: Warm and dry. Normal turgor. No rash. Palpitation: Normal elasticity for age Abdomen: Abdomen is soft. Bowel sounds +. There is no abdominal tenderness, no guarding/rigidity or organomegaly Psych: limited insight and normal affect/mood MSK: no joint tenderness or swelling. Digits and nails normal, no deformity : kidney or bladder not palpable Access: PC Labs/imaging reviewed. Past medical history, past surgical history, family history, social history, allergy reviewed and noted as below Family Hx: no hx of CKD. Non contributory Past Patient History - Infectious Disease Hx of Infectious Diseases: None - Past Medical History & Family History Past Medical History?: Yes - Past Social History Smoking Status: Never Smoked Alcohol: None Drugs: Denies Home Situation {Lives}: With Family - CARDIAC Hx Cardiac Disorders: Yes Hx Hypertension: Yes - PULMONARY Hx Respiratory Disorders: Yes Hx Asthma: Yes - NEUROLOGICAL Hx Neurological Disorder: No - HEENT Hx HEENT Problems: No - RENAL Hx Chronic Kidney Disease: Yes Hx Dialysis: Yes Hx Renal Failure: Yes - ENDOCRINE/METABOLIC Hx Endocrine Disorders: Yes Hx Diabetes Mellitus Type 2: Yes - HEMATOLOGICAL/ONCOLOGICAL Hx Blood Disorders: Yes Hx AIDS: No Hx Anemia: Yes Hx Human Immunodeficiency Virus (HIV): No Other/Comment: Kidney transplant 2008 - INTEGUMENTARY Hx Dermatological Problems: No - MUSCULOSKELETAL/RHEUMATOLOGICAL Hx Falls: No - GASTROINTESTINAL Hx Gastrointestinal Disorders: Yes Hx Gall Bladder Disease: Yes (gallbladder stones) - GENITOURINARY/GYNECOLOGICAL Hx Genitourinary Disorders: Yes - PSYCHIATRIC Hx Psychophysiologic Disorder: Yes Hx Depression: Yes Hx Schizophrenia: Yes Hx Substance Use: No - SURGICAL HISTORY Hx Surgeries: Yes Hx Cholecystectomy: Yes - ANESTHESIA Hx Anesthesia: Yes Hx Anesthesia Reactions: No Hx Malignant Hyperthermia: No Meds Allergies/Adverse Reactions: Allergies Allergy/AdvReac Type Severity Reaction Status Date / Time iodine Allergy URTICARIA Verified 12/25/17 04:30 - Medications Medications: Current Medications Amlodipine Besylate (Norvasc) 10 mg PO DAILY [facility] Last Admin: 04/07/18 11:51 Dose: 10 mg Epoetin Maynor (Procrit) 10,000 unit IV TTS [facility] Insulin Human Regular (Humulin R) 10 units SC ACB [facility] Losartan Potassium (Cozaar) 50 mg PO QPM [facility] Last Admin: 04/07/18 17:16 Dose: Not Given Promethazine HCl/Dextromethorphan (Phenergan Dm Syrup) 10 ml PO Q4 PRN PRN Reason: Cough Last Admin: 04/07/18 01:42 Dose: 10 ml Risperidone (Risperdal Tab) 2 mg PO DAILY [facility] Last Admin: 04/07/18 11:51 Dose: 2 mg Vitamin B Complex/Vit C/Folic Acid (Nephro-Nelson) 1 tab PO DAILY [facility] Last Admin: 04/07/18 11:51 Dose: 1 tab Results - Vital Signs Recent Vital Signs: Last Vital Signs Temp 98.8 F 04/07/18 20:53 Pulse 84 04/07/18 20:53 Resp 20 04/07/18 20:53 BP 159/77 H 04/07/18 20:53 Pulse Ox 94 L 04/07/18 20:53 - Labs Result Diagrams: 04/07/18 16:58 04/07/18 08:10 Labs: Laboratory Results - last 24 hr 04/06/18 04/07/18 04/07/18 18:50 07:20 07:58 WBC RBC Hgb Hct MCV MCH MCHC RDW Plt Count MPV Neut % (Auto) Lymph % (Auto) [place] % (Auto) Eos % (Auto) Baso % (Auto) Neut # (Auto) Lymph # (Auto) [place] # (Auto) Eos # (Auto) Baso # (Auto) Retic Count Sodium Potassium Chloride Carbon Dioxide Anion Gap BUN Creatinine Est GFR ( Amer) Est GFR (Non-Af Amer) POC Glucose (mg/dL) 57 L 91 Random Glucose Calcium Iron TIBC % Saturation Ferritin Total Bilirubin AST ALT Alkaline Phosphatase Total Protein Albumin Globulin Albumin/Globulin Ratio Vitamin B12 Blood Type O POSITIVE Antibody Screen Negative Crossmatch See Detail BBK History Checked Patient has bt 04/07/18 04/07/18 04/07/18 08:10 08:10 08:10 WBC 9.0 RBC 3.36 L Hgb 9.3 L D Hct 28.0 L MCV 83.5 MCH 27.7 MCHC 33.1 RDW 16.4 H Plt Count 243 MPV 6.4 L Neut % (Auto) 66.6 Lymph % (Auto) 20.5 [place] % (Auto) 9.6 Eos % (Auto) 2.3 Baso % (Auto) 1.0 Neut # (Auto) 6.0 Lymph # (Auto) 1.8 [place] # (Auto) 0.9 H Eos # (Auto) 0.2 Baso # (Auto) 0.1 Retic Count 2.3 H D Sodium 132 Potassium 3.5 L Chloride 93 L Carbon Dioxide 29 Anion Gap 14 BUN 34 H Creatinine 4.8 H Est GFR ( Amer) 12 Est GFR (Non-Af Amer) 10 POC Glucose (mg/dL) Random Glucose 89 Calcium 8.2 L Iron 169 TIBC 221 L % Saturation 77 H Ferritin 332.0 H Total Bilirubin 0.7 AST 25 ALT 23 Alkaline Phosphatase 89 Total Protein 6.1 L Albumin 2.8 L Globulin 3.3 Albumin/Globulin Ratio 0.8 L Vitamin B12 676 Blood Type Antibody Screen Crossmatch BBK History Checked 04/07/18 04/07/18 04/07/18 11:54 16:30 16:58 WBC 7.4 RBC 3.13 L Hgb 8.6 L Hct 26.0 L MCV 83.1 MCH 27.4 MCHC 33.0 RDW 16.6 H Plt Count 238 MPV Neut % (Auto) Lymph % (Auto) [place] % (Auto) Eos % (Auto) Baso % (Auto) Neut # (Auto) Lymph # (Auto) [place] # (Auto) Eos # (Auto) Baso # (Auto) Retic Count Sodium Potassium Chloride Carbon Dioxide Anion Gap BUN Creatinine Est GFR ( Amer) Est GFR (Non-Af Amer) POC Glucose (mg/dL) 79 137 H Random Glucose Calcium Iron TIBC % Saturation Ferritin Total Bilirubin AST ALT Alkaline Phosphatase Total Protein Albumin Globulin Albumin/Globulin Ratio Vitamin B12 Blood Type Antibody Screen Crossmatch BBK History Checked
[2018-04-07] MEDS ORDERED: Insulin Detemir 100 Units/ml Inj SC SCH (22:00)
[2018-04-08 08:24] LABS: HEPATITIS B SURFACE AG Negative (NEGATIVE)
[2018-04-08 08:31] LABS: HEPATITIS A IGM NEGATIVE (NEGATIVE); HEPATITIS B CORE AB NEGATIVE (NEGATIVE)
[2018-04-08 08:41] LABS: HEPATITIS C ANTIBODY NEGATIVE (NEGATIVE)
[2018-04-08] MEDS: Multivitamin Vitamin B Complex (Nephro-Vite) Tab PO SCH (09:05)
[2018-04-08] MEDS: Insulin Regular 100 units/ml SC SCH (09:54)
--- NOTE | 2018-04-08 11:28 | CP.PCM.PN ---
Subjective - Date & Time of Evaluation Date of Evaluation: 04/08/18 Time of Evaluation: 11:27 - Subjective Subjective: Nephrology Consultation Note covering for Dr Malone: Assessment: Stable syncope Diabetic chronic Kidney Disease (E11.22) Hypertensive Chronic Kidney Disease (I12.0) End stage renal disease (N18.6) dependence on hemodialysis (Z99.2) (TTS) via PC Anemia (D64.9), Hyperphosphatemia (E83.39), Secondary Hyperparathyroidism (E21.1 ), HTN (I12.0) Plan: Will plan for HD tueday as ordered. Continue with Nephrovite 1 tab/day. PRBC as needed for anemia. on ANNY with dialysis as last Hb 8.6. Continue with phos binders, check phos level BP control with meds as ordered. Patient not on RAAS vinh hence added losartan: increased to 100. added hydralazine prn Glycemic control, Dialysis consistent diet Further work up/management as per primary team Dose meds/antibiotics (if needed) for ESRD status. Avoid fleets enema/magnesium based laxatives. Thanks for allowing me to participate in care of your patient. Will follow patient with you. Please call if any Qs Dr Jj De La Cruz Office: [phone] Chief Complaint; syncope reason for consult: ESRD HPI: Pt is a with hx of ESRD on hemodialysis (TTS) via Permacath , last dialysis thur, chronic anemia, hyperphosphatemia, secondary hyperparathyroidism , Diabetes Mellitus, hypertension presented with complaints of syncope Renal consult requested for ESRD management. pt not much very communicative. feels better at present. ROS: limited from pt Cardiovascular: No chest pain. Pulmonary: No shortness of breath Gastrointestinal: denies abdominal pain No nausea. No vomiting. Genitourinary: No pain while urinating. Denies blood in urine. All other negative except as mentioned in HPI Physical Examination: General Appearance: Comfortable, in no acute respiratory distress, co-operative . Vitals reviewed and noted as below Head; Atraumatic, normocephalic ENT: no ulcers no thrush. Tongue is midline. Oropharynx: no rash or ulcers. EYES: Pupils are equal, round and reactive to light accommodation. Eye muscles and extraocular movement intact. Sclera is anicteric. Neck; supple no lymphadenopathy, no thyromegaly or bruit Lungs: Normal respiratory rate/effort. Breath sounds bilateral equal and clear Heart: Normal rate. s1s2 normal. No rub or gallop. Extremities: no edema. No varicose veins Neurological: Patient is alert, awake and oriented to person, place and time. No focal deficit. Strength bilateral appropriate and equal Skin: Warm and dry. Normal turgor. No rash. Palpitation: Normal elasticity for age Abdomen: Abdomen is soft. Bowel sounds +. There is no abdominal tenderness, no guarding/rigidity or organomegaly Psych: limited insight and normal affect/mood MSK: no joint tenderness or swelling. Digits and nails normal, no deformity : kidney or bladder not palpable Access: PC. rt AVF maturing Labs/imaging reviewed. Past medical history, past surgical history, family history, social history, allergy reviewed and noted as below Family Hx: no hx of CKD. Non contributory Objective - Vital Signs/Intake and Output Vital Signs (last 24 hours): Temp Pulse Resp BP Pulse Ox 98.6 F 95 H 16 183/73 H 94 L 04/08/18 08:11 04/08/18 09:06 04/08/18 08:11 04/08/18 09:06 04/08/18 08:11 Intake and Output: 04/08/18 04/08/18 06:59 18:59 Intake Total 60 Output Total 1000 Balance -940 - Medications Medications: Current Medications Amlodipine Besylate (Norvasc) 10 mg PO DAILY [facility] Last Admin: 04/08/18 09:06 Dose: 10 mg Benztropine Mesylate (Cogentin) 1 mg PO Q12 [facility] Last Admin: 04/08/18 09:03 Dose: 1 mg Epoetin Maynor (Procrit) 10,000 unit IV TTS [facility] Hydralazine HCl (Apresoline) 25 mg PO Q4 PRN PRN Reason: Other Insulin Human Regular (Humulin R) 10 units SC ACB [facility] Last Admin: 04/08/18 09:54 Dose: 10 units Losartan Potassium (Cozaar) 100 mg PO QPM [facility] Promethazine HCl/Dextromethorphan (Phenergan Dm Syrup) 10 ml PO Q4 PRN PRN Reason: Cough Last Admin: 04/07/18 01:42 Dose: 10 ml Risperidone (Risperdal Tab) 2 mg PO DAILY [facility] Last Admin: 04/08/18 09:06 Dose: 2 mg Vitamin B Complex/Vit C/Folic Acid (Nephro-Nelson) 1 tab PO DAILY [facility] Last Admin: 04/08/18 09:05 Dose: 1 tab - Labs Labs: 04/07/18 16:58 04/07/18 08:10
--- NOTE | 2018-04-08 13:15 | CP.PCM.PN ---
Subjective - Date & Time of Evaluation Date of Evaluation: 04/08/18 Time of Evaluation: 12:10 - Subjective Subjective: F/U Syncope. alert,smiling , N/C Objective - Vital Signs/Intake and Output Vital Signs (last 24 hours): Temp Pulse Resp BP Pulse Ox 98.3 F 80 18 158/73 H 98 04/08/18 12:13 04/08/18 12:13 04/08/18 12:13 04/08/18 12:13 04/08/18 12:13 Intake and Output: 04/08/18 04/08/18 06:59 18:59 Intake Total 60 Output Total 1050 Balance -990 - Medications Medications: Current Medications Amlodipine Besylate (Norvasc) 10 mg PO DAILY [facility] Last Admin: 04/08/18 09:06 Dose: 10 mg Benztropine Mesylate (Cogentin) 1 mg PO Q12 [facility] Last Admin: 04/08/18 09:03 Dose: 1 mg Epoetin Maynor (Procrit) 10,000 unit IV TTS [facility] Hydralazine HCl (Apresoline) 25 mg PO Q4 PRN PRN Reason: Other Insulin Human Regular (Humulin R) 10 units SC ACB [facility] Last Admin: 04/08/18 09:54 Dose: 10 units Losartan Potassium (Cozaar) 100 mg PO QPM [facility] Promethazine HCl/Dextromethorphan (Phenergan Dm Syrup) 10 ml PO Q4 PRN PRN Reason: Cough Last Admin: 04/07/18 01:42 Dose: 10 ml Risperidone (Risperdal Tab) 2 mg PO DAILY [facility] Last Admin: 04/08/18 09:06 Dose: 2 mg Vitamin B Complex/Vit C/Folic Acid (Nephro-Nelson) 1 tab PO DAILY [facility] Last Admin: 04/08/18 09:05 Dose: 1 tab - Labs Labs: 04/07/18 16:58 04/07/18 08:10 - Constitutional Appears: No Acute Distress, Chronically Ill - Head Exam Head Exam: NORMAL INSPECTION - Eye Exam Additional comments: R periorbital edema - ENT Exam ENT Exam: Normal Exam - Neck Exam Neck Exam: Normal Inspection - Respiratory Exam Respiratory Exam: Decreased Breath Sounds (at bases) - Cardiovascular Exam Cardiovascular Exam: REGULAR RHYTHM Additional comments: Chest Perma Cath - GI/Abdominal Exam GI & Abdominal Exam: Soft, Normal Bowel Sounds - Extremities Exam Additional comments: old non functioning AV fistula L arm, functioning AV fistula R arm with bruit and thrill - Back Exam Back Exam: NORMAL INSPECTION - Neurological Exam Neurological Exam: Alert, Oriented x3. absent: Motor Sensory Deficit - Psychiatric Exam Psychiatric exam: Anxious - Skin Skin Exam: Normal Color, Warm Assessment and Plan (1) Syncope Status: Acute (2) Anemia Status: Acute (3) ESRD (end stage renal disease) Status: Chronic (4) Diabetes mellitus Status: Chronic (5) HTN (hypertension) Status: Chronic (6) Asthma Status: Chronic - Assessment and Plan (Free Text) Plan: s/p PRBC transfusion, had dialysis yesterday, continue dialysis, Epogen , Risperdal, Hydralazine , Norvasc and rest of treatment, Hgb 8.6, f/u GI consult
--- NOTE | 2018-04-09 06:41 | CON ---
DATE: 04/08/2018 REFERRING PHYSICIAN: HISTORY OF PRESENT ILLNESS: [facility] 52[facility] has a known history of renal failure who is referred for evaluation because of anemia and heme-positive stools. At the time of my evaluation today, the patient is lying comfortably in her bed in the ICU. She denies any nausea, vomiting, odynophagia, dysphagia. She has no abdominal pain or discomfort. She has not seen any bright blood per rectum or any melena per se. She did receive her dialysis yesterday. She says she has never had any type of GI workup. She does have a known history of anemia and her hemoglobin yesterday was 9.3, and it dropped to 8.6. There were no labs done today. ALLERGIES: SHE APPARENTLY IS ALLERGIC TO IODINE. MEDICATIONS: Here in the hospital, she is on hydralazine, Cogentin, losartan. She has been on insulin, vitamin B, Norvasc, p.r.n. promethazine, and she gets erythropoietin injections. She is also on Risperdal. PAST MEDICAL HISTORY: As mentioned, she has a history of renal disease. She had a failed renal transplant done five years ago, history of hypertension. SURGICAL HISTORY: She has AV graft, she had a renal transplant. FAMILY HISTORY: Noncontributory. SOCIAL HISTORY: Denies alcohol, tobacco, or drug use. PHYSICAL EXAMINATION: GENERAL: She is a well-developed, well-nourished woman; awake, alert, and oriented x3, in no acute distress. VITAL SIGNS: Her vital signs are presently stable. She is afebrile. ABDOMEN: Soft with good bowel sounds, nontender, nondistended. No hepatosplenomegaly is appreciated. LABORATORY DATA: As mentioned, the hemoglobin. Hepatitis A, B, C is negative. Her LFTs are unremarkable. IMPRESSION AND PLAN: A 52-year-old woman with heme-positive stools, anemia who has never had a GI workup. I have discussed with her the risks and benefits and the preparation that would be required for performing an upper and lower endoscopy. She is agreeable to both examinations, and therefore, we will try to get those scheduled over the next 24 to 48 hours to rule out any underlying pathology. I have explained her anemia thought that is most likely due to her kidney disease. It probably would be appropriate given the heme-positive stool to pursue the upper and the lower endoscopy. We will discuss this with to be done while she is here in the hospital, and we will follow along with you. Hayden Sanchez MD
[2018-04-09] MEDS: Insulin Regular 100 units/ml SC SCH ×2 (08:48→16:12)
--- NOTE | 2018-04-09 10:41 | CP.PCM.PN ---
Subjective - Date & Time of Evaluation Date of Evaluation: 04/09/18 Time of Evaluation: 10:39 - Subjective Subjective: Patient bed No nausea no vomiting Vital sign noted to be stable Objective - Vital Signs/Intake and Output Vital Signs (last 24 hours): Temp Pulse Resp BP Pulse Ox 97.9 F 78 21 164/86 H 98 04/09/18 07:44 04/09/18 08:51 04/09/18 07:44 04/09/18 08:51 04/09/18 07:44 Intake and Output: 04/09/18 04/09/18 06:59 18:59 Output Total 1200 Balance -1200 - Medications Medications: Current Medications Amlodipine Besylate (Norvasc) 10 mg PO DAILY [facility] Last Admin: 04/09/18 08:51 Dose: 10 mg Benztropine Mesylate (Cogentin) 1 mg PO Q12 [facility] Last Admin: 04/08/18 21:26 Dose: 1 mg Epoetin Maynor (Procrit) 10,000 unit IV TTS [facility] Hydralazine HCl (Apresoline) 25 mg PO Q4 PRN PRN Reason: Other Last Admin: 04/08/18 20:59 Dose: 25 mg Insulin Human Regular (Humulin R) 10 units SC ACB [facility] Last Admin: 04/09/18 08:48 Dose: Not Given Losartan Potassium (Cozaar) 100 mg PO QPM [facility] Last Admin: 04/08/18 18:11 Dose: 100 mg Promethazine HCl/Dextromethorphan (Phenergan Dm Syrup) 10 ml PO Q4 PRN PRN Reason: Cough Last Admin: 04/07/18 01:42 Dose: 10 ml Risperidone (Risperdal Tab) 2 mg PO DAILY [facility] Last Admin: 04/08/18 09:06 Dose: 2 mg Vitamin B Complex/Vit C/Folic Acid (Nephro-Nelson) 1 tab PO DAILY [facility] Last Admin: 04/08/18 09:05 Dose: 1 tab - Labs Labs: 04/07/18 16:58 04/07/18 08:10 - Constitutional Appears: No Acute Distress - Eye Exam Eye Exam: Conjunctival injection - ENT Exam ENT Exam: absent: Mucous Membranes Moist - Neck Exam Neck Exam: absent: Lymphadenopathy - Respiratory Exam Respiratory Exam: NORMAL BREATHING PATTERN. absent: Chest Wall Tenderness, Rales - Extremities Exam Extremities Exam: absent: Calf Tenderness - Back Exam Back Exam: absent: CVA tenderness (L), CVA tenderness (R) - Neurological Exam Neurological Exam: Alert - Psychiatric Exam Psychiatric exam: Normal Affect - Skin Skin Exam: absent: Cyanosis Assessment and Plan (1) ESRD (end stage renal disease) Assessment & Plan: syncope Diabetic chronic Kidney Disease (E11.22) Hypertensive Chronic Kidney Disease (I12.0) End stage renal disease (N18.6) dependence on hemodialysis (Z99.2) (TTS) via PC Anemia (D64.9), Hyperphosphatemia (E83.39), Secondary Hyperparathyroidism (E21.1 ), HTN (I12.0) Plan: Will plan for HD as ordered TTS. Continue with Nephrovite 1 tab/day. PRBC as needed for anemia. on ANNY with dialysis as last Hb 8.6. Continue with phos binders, check phos level BP control with meds as ordered. Patient not on RAAS vinh hence added losartan: increased to 100. added hydralazine prn Glycemic control, Dialysis consistent diet Further work up/management as per primary team Dose meds/antibiotics (if needed) for ESRD status. Avoid fleets enema/magnesium based laxatives. Status: Chronic (2) HTN (hypertension) Status: Chronic (3) Anemia Status: Acute
[2018-04-09] MEDS ORDERED: Sodium Chloride 0.9% 250 ML IV ONE (11:49)
[2018-04-09] MEDS ORDERED: Propofol 10 mg/ml Inj (20 ML) ONE (12:26)
[2018-04-09] MEDS: Multivitamin Vitamin B Complex (Nephro-Vite) Tab PO SCH (13:49)
[2018-04-09] MEDS: Promethazine DM 12.5 mg-30 mg/10 ml Syrup PO PRN (16:53)
--- NOTE | 2018-04-09 18:44 | CP.PCM.PN ---
Subjective - Date & Time of Evaluation Date of Evaluation: 04/09/18 Objective - Vital Signs/Intake and Output Vital Signs (last 24 hours): Temp Pulse Resp BP Pulse Ox 99.1 F 90 20 165/85 H 96 04/09/18 16:26 04/09/18 17:07 04/09/18 16:26 04/09/18 17:07 04/09/18 16:26 Intake and Output: 04/09/18 04/09/18 06:59 18:59 Intake Total 190 Output Total 1200 250 Balance -1200 -60 - Medications Medications: Current Medications Amlodipine Besylate (Norvasc) 10 mg PO DAILY [facility] Last Admin: 04/09/18 08:51 Dose: 10 mg Benztropine Mesylate (Cogentin) 1 mg PO Q12 [facility] Last Admin: 04/09/18 13:49 Dose: 1 mg Epoetin Maynor (Procrit) 10,000 unit IV TTS [facility] Hydralazine HCl (Apresoline) 25 mg PO Q4 PRN PRN Reason: Other Last Admin: 04/08/18 20:59 Dose: 25 mg Insulin Human Regular (Humulin R) 10 units SC ACB [facility] Last Admin: 04/09/18 16:12 Dose: 10 units Losartan Potassium (Cozaar) 100 mg PO QPM [facility] Last Admin: 04/09/18 17:07 Dose: 100 mg Promethazine HCl/Dextromethorphan (Phenergan Dm Syrup) 10 ml PO Q4 PRN PRN Reason: Cough Last Admin: 04/09/18 16:53 Dose: 10 ml Risperidone (Risperdal Tab) 2 mg PO DAILY [facility] Last Admin: 04/09/18 15:36 Dose: 2 mg Vitamin B Complex/Vit C/Folic Acid (Nephro-Nelson) 1 tab PO DAILY [facility] Last Admin: 04/09/18 13:49 Dose: 1 tab - Labs Labs: 04/07/18 16:58 04/07/18 08:10 Assessment and Plan (1) Syncope Status: Acute (2) Anemia Status: Acute (3) ESRD (end stage renal disease) Status: Chronic (4) Diabetes mellitus Status: Chronic (5) HTN (hypertension) Status: Chronic (6) Asthma Status: Chronic
[2018-04-10 06:01] LABS: BASO # 0.1 K/uL (0.0-0.2); BASO % 0.6 % (0.0-2.0); EOS # 0.2 K/uL (0.0-0.7); EOS % 2.4 % (0.0-4.0); HEMOGLOBIN 8.9 g/dL (12.0-16.0); LYMPH # 2.3 K/uL (1.0-4.3); LYMPH % 24.9 % (20.0-40.0); MEAN CELL VOLUME 85.6 fl (81.0-99.0); MEAN CORPUSCULAR HEMOGLOBIN 28.5 pg (27.0-31.0); MEAN CORPUSCULAR HGB CONC 33.3 g/dL (33.0-37.0); MEAN PLATELET VOLUME 6.4 fl (7.2-11.7); MONO # 0.8 K/uL (0.0-0.8); MONO % 8.6 % (0.0-10.0); NEUT # 5.7 K/uL (1.8-7.0); NEUT % 63.5 % (50.0-75.0); RBC 3.1 Mil/uL (3.80-5.20); RED CELL DISTRIBUTION WIDTH 16.6 % (11.5-14.5)
[2018-04-10 06:31] LABS: ALB/GLOB RATIO 0.8 (1.0-2.1); ALBUMIN 2.6 g/dL (3.5-5.0); CALCIUM 8.4 mg/dL (8.4-10.2)
[2018-04-10] MEDS: Insulin Regular 100 units/ml SC SCH (08:39)
[2018-04-10] MEDS: Multivitamin Vitamin B Complex (Nephro-Vite) Tab PO SCH (08:40)
--- NOTE | 2018-04-10 11:13 | CP.PCM.PN ---
Subjective - Date & Time of Evaluation Date of Evaluation: 04/10/18 Time of Evaluation: 11:10 - Subjective Subjective: dialysis note she was seen on hemodialysis. Patient in bed. Patient awake and conscious. [place] is tolerating hemodialysis well. Objective - Vital Signs/Intake and Output Vital Signs (last 24 hours): Temp Pulse Resp BP Pulse Ox 98.3 F 98 H 15 181/89 H 99 04/10/18 08:00 04/10/18 08:00 04/10/18 08:00 04/10/18 08:00 04/10/18 08:00 - Medications Medications: Current Medications Amlodipine Besylate (Norvasc) 10 mg PO DAILY [facility] Last Admin: 04/09/18 08:51 Dose: 10 mg Benztropine Mesylate (Cogentin) 1 mg PO Q12 [facility] Last Admin: 04/10/18 08:39 Dose: 1 mg Epoetin Maynor (Procrit) 10,000 unit IV TTS [facility] Last Admin: 04/10/18 08:44 Dose: 10,000 unit Hydralazine HCl (Apresoline) 25 mg PO Q4 PRN PRN Reason: Other Last Admin: 04/08/18 20:59 Dose: 25 mg Insulin Human Regular (Humulin R) 10 units SC ACB [facility] Last Admin: 04/10/18 08:39 Dose: 10 units Losartan Potassium (Cozaar) 100 mg PO QPM [facility] Last Admin: 04/09/18 17:07 Dose: 100 mg Promethazine HCl/Dextromethorphan (Phenergan Dm Syrup) 10 ml PO Q4 PRN PRN Reason: Cough Last Admin: 04/09/18 16:53 Dose: 10 ml Risperidone (Risperdal Tab) 2 mg PO DAILY [facility] Last Admin: 04/10/18 08:40 Dose: 2 mg Vitamin B Complex/Vit C/Folic Acid (Nephro-Nelson) 1 tab PO DAILY [facility] Last Admin: 04/10/18 08:40 Dose: 1 tab - Labs Labs: 04/10/18 04:30 04/10/18 04:30 - Constitutional Appears: No Acute Distress - ENT Exam ENT Exam: Mucous Membranes Moist - Neck Exam Neck Exam: absent: Lymphadenopathy - Respiratory Exam Respiratory Exam: NORMAL BREATHING PATTERN. absent: Chest Wall Tenderness - Cardiovascular Exam Cardiovascular Exam: absent: Gallop, JVD, Rubs - GI/Abdominal Exam GI & Abdominal Exam: Soft, Normal Bowel Sounds - Extremities Exam Extremities Exam: absent: Calf Tenderness - Back Exam Back Exam: absent: CVA tenderness (L), CVA tenderness (R) - Neurological Exam Neurological Exam: Alert - Psychiatric Exam Psychiatric exam: Normal Affect - Skin Skin Exam: absent: Cyanosis Assessment and Plan (1) ESRD (end stage renal disease) Assessment & Plan: end stage renal disease [place] receiving hemodialysis now. I discussed the dialysis order with the nurse at the bedside. Sodium bath 138 Bicarbonate bath 34 Potassium bath 2 mEq Status post endoscopy. Anemia. On EPO Hyperphosphatemia receiving binder Secondary hyperparathyroidism PTH pending Status: Chronic (2) HTN (hypertension) Status: Chronic (3) Anemia Status: Acute
--- NOTE | 2018-04-10 15:24 | CP.PCM.PN ---
Subjective - Date & Time of Evaluation Date of Evaluation: 04/10/18 Time of Evaluation: 12:20 - Subjective Subjective: F/U Syncope./ ESRD smiling, no AD, N/C Objective - Vital Signs/Intake and Output Vital Signs (last 24 hours): Temp Pulse Resp BP Pulse Ox 98.5 F 109 H 20 175/94 H 95 04/10/18 12:00 04/10/18 13:12 04/10/18 12:00 04/10/18 13:12 04/10/18 12:00 - Medications Medications: Current Medications Amlodipine Besylate (Norvasc) 10 mg PO DAILY [facility] Last Admin: 04/10/18 13:12 Dose: 10 mg Benztropine Mesylate (Cogentin) 1 mg PO Q12 [facility] Last Admin: 04/10/18 08:39 Dose: 1 mg Epoetin Maynor (Procrit) 10,000 unit IV TTS [facility] Last Admin: 04/10/18 08:44 Dose: 10,000 unit Hydralazine HCl (Apresoline) 25 mg PO Q4 PRN PRN Reason: Other Last Admin: 04/08/18 20:59 Dose: 25 mg Insulin Human Regular (Humulin R) 10 units SC ACB [facility] Last Admin: 04/10/18 08:39 Dose: 10 units Losartan Potassium (Cozaar) 100 mg PO QPM [facility] Last Admin: 04/09/18 17:07 Dose: 100 mg Promethazine HCl/Dextromethorphan (Phenergan Dm Syrup) 10 ml PO Q4 PRN PRN Reason: Cough Last Admin: 04/09/18 16:53 Dose: 10 ml Risperidone (Risperdal Tab) 2 mg PO DAILY [facility] Last Admin: 04/10/18 08:40 Dose: 2 mg Vitamin B Complex/Vit C/Folic Acid (Nephro-Nelson) 1 tab PO DAILY [facility] Last Admin: 04/10/18 08:40 Dose: 1 tab - Labs Labs: 04/10/18 04:30 04/10/18 04:30 - Constitutional Appears: No Acute Distress, Chronically Ill - Head Exam Head Exam: NORMAL INSPECTION - Eye Exam Eye Exam: PERRL - ENT Exam ENT Exam: Normal Exam - Neck Exam Neck Exam: Normal Inspection - Respiratory Exam Respiratory Exam: Clear to Ausculation Bilateral - Cardiovascular Exam Cardiovascular Exam: REGULAR RHYTHM Additional comments: Perma Cath - GI/Abdominal Exam GI & Abdominal Exam: Soft, Normal Bowel Sounds - Extremities Exam Additional comments: recent AV fistula R arm with bruit and thrill, surgical incision healing well , edema RUE, old non functioning AV fistula L arm - Back Exam Back Exam: NORMAL INSPECTION - Neurological Exam Neurological Exam: Alert, Oriented x3. absent: Motor Sensory Deficit - Psychiatric Exam Psychiatric exam: Anxious - Skin Skin Exam: Normal Color, Warm Assessment and Plan (1) Syncope Status: Acute (2) Anemia Status: Acute (3) ESRD (end stage renal disease) Status: Chronic (4) Diabetes mellitus Status: Chronic (5) HTN (hypertension) Status: Chronic (6) Asthma Status: Chronic - Assessment and Plan (Free Text) Plan: Had EGD yesterday , Hgb 8.9 today , transfer to Med Surg, continue current meds , HD, BS and BP control
[2018-04-10] MEDS ORDERED: Pantoprazole 40 mg EC Tab PO STA (22:06)
[2018-04-10] MEDS ORDERED: DiphenhydrAMINE 50 mg/ml Inj IVP STA (22:18)
[2018-04-10] MEDS ORDERED: DiphenhydrAMINE 50 mg/ml Inj ONE (22:35)
[2018-04-11] MEDS: Promethazine DM 12.5 mg-30 mg/10 ml Syrup PO PRN (06:46)
[2018-04-11 06:59] LABS: CALCIUM 8.7 mg/dL (8.4-10.2)
[2018-04-11 07:48] VITALS: O2SAT 97
[2018-04-11] MEDS: Insulin Regular 100 units/ml SC SCH (08:20)
[2018-04-11] MEDS: Multivitamin Vitamin B Complex (Nephro-Vite) Tab PO SCH (09:04)
--- NOTE | 2018-04-11 14:02 | PQF ---
PROVIDER RESPONSE TEXT: Severe Anemia is cause of Syncope REVIEWER QUERY TEXT: Symptom Underlying Cause Please document the underlying diagnosis causing the Syncope: if known after the work up is complete d OR: unable to be further specified. H and P: with several chronic medical conditions including ESRD on HD TTS, kidney transplant, Asthma, Schizophrenia, brought to ER [facility] on 04/06/18 via EMS to be evaluated for sudden episode of fall while at home witnessed by her mother, associated to dizziness, weaknesses on DOA, as per mother she did not strikeher head against the grown, but after did not feel well. Worsening symptom: Found with Hgb in 7.2, also c/o of chest congestion, occasional cough. Assessment Plan : (1) Syncope Status: Acute Priority: High (2) Anemia Status: Acute Priority: High (3) ESRD (end stage renal disease) Status: Chronic Priority: High (4) Diabetes mellitus Status: Chronic Priority: Medium (5) HTN (hypertension) Status: Chronic Priority: Medium (6) Asthma Status: Chronic Priority: Medium -Plan: transfuse PRBC, anemia work up, Continue O2 NC, Procrit, dialysis, Cozaar, Norvasc, Humulin, Risperdal, and rest of Tx. Nephrology and GI consult. The patient's Clinical Indicators include: xxxx Query created by: Carol Garcia on 04/09/2018 11:49 AM Electronically signed by: Sravan Ace MD 04/11/2018 1:59 PM
--- NOTE | 2018-04-11 14:19 | CP.PCM.PN ---
Subjective - Date & Time of Evaluation Date of Evaluation: 04/11/18 Time of Evaluation: 14:17 - Subjective Subjective: patient awake and conscious she is feeling good Objective - Vital Signs/Intake and Output Vital Signs (last 24 hours): Temp Pulse Resp BP Pulse Ox 97.8 F 71 19 160/71 H 97 04/11/18 07:48 04/11/18 09:04 04/11/18 07:48 04/11/18 09:04 04/11/18 07:48 - Medications Medications: Current Medications Amlodipine Besylate (Norvasc) 10 mg PO DAILY [facility] Last Admin: 04/11/18 09:04 Dose: 10 mg Benztropine Mesylate (Cogentin) 1 mg PO Q12 [facility] Last Admin: 04/11/18 09:01 Dose: 1 mg Epoetin Maynor (Procrit) 10,000 unit IV TTS [facility] Last Admin: 04/10/18 08:44 Dose: 10,000 unit Hydralazine HCl (Apresoline) 25 mg PO Q4 PRN PRN Reason: Other Last Admin: 04/08/18 20:59 Dose: 25 mg Insulin Human Regular (Humulin R) 10 units SC ACB [facility] Last Admin: 04/11/18 08:20 Dose: 10 units Losartan Potassium (Cozaar) 100 mg PO QPM [facility] Last Admin: 04/10/18 17:44 Dose: 100 mg Promethazine HCl/Dextromethorphan (Phenergan Dm Syrup) 10 ml PO Q4 PRN PRN Reason: Cough Last Admin: 04/11/18 06:46 Dose: 10 ml Risperidone (Risperdal Tab) 2 mg PO DAILY [facility] Last Admin: 04/11/18 09:05 Dose: 2 mg Vitamin B Complex/Vit C/Folic Acid (Nephro-Nelson) 1 tab PO DAILY [facility] Last Admin: 04/11/18 09:04 Dose: 1 tab - Labs Labs: 04/10/18 04:30 04/11/18 05:35 - Constitutional Appears: No Acute Distress - Eye Exam Eye Exam: Conjunctival injection - ENT Exam ENT Exam: Mucous Membranes Moist - Neck Exam Neck Exam: absent: Lymphadenopathy - Respiratory Exam Respiratory Exam: NORMAL BREATHING PATTERN - Cardiovascular Exam Cardiovascular Exam: absent: Gallop, JVD, Rubs - GI/Abdominal Exam GI & Abdominal Exam: Soft, Normal Bowel Sounds - Extremities Exam Extremities Exam: Calf Tenderness - Back Exam Back Exam: CVA tenderness (L), CVA tenderness (R) - Neurological Exam Neurological Exam: Alert - Psychiatric Exam Psychiatric exam: Normal Affect - Skin Skin Exam: absent: Cyanosis Assessment and Plan (1) ESRD (end stage renal disease) Assessment & Plan: end stage renal disease patient receiving dialysis TTS Hyponatremia serum sodium in the range of 130 probably dilutional patient to stop drinking fluid she is scheduled for hemodialysis tomorrow as outpatient Status post gastritis with a blood transfusion Patient stable and doing well Status: Chronic (2) HTN (hypertension) Status: Chronic (3) Anemia Status: Acute
--- NOTE | 2018-04-11 15:14 | CP.PCM.DIS ---
Provider - Provider Date of Admission: 04/06/18 17:36 Attending physician: Sravan Pina MD Diagnosis - Discharge Diagnosis (1) Syncope Status: Acute Priority: High (2) Anemia Status: Acute Priority: High (3) ESRD (end stage renal disease) Status: Chronic Priority: High (4) Diabetes mellitus Status: Chronic Priority: Medium (5) HTN (hypertension) Status: Chronic Priority: Medium (6) Asthma Status: Chronic Priority: Medium Hospital Course - Lab Results Lab Results: Micro Results 04/06/18 18:52 Urine,Random Urine Culture - Final 50-100,000 CFU/ML. MULTIPLE SPECIES. SUGGEST REPEAT SPECIMEN. 04/07/18 15:40 Naris MRSA Culture (Admit) - Final MRSA NOT DETECTED Most Recent Lab Values WBC 9.0 K/uL (4.8-10.8) 04/10/18 04:30 RBC 3.10 Mil/uL (3.80-5.20) L 04/10/18 04:30 Hgb 8.9 g/dL (12.0-16.0) L 04/10/18 04:30 Hct 26.6 % (34.0-47.0) L 04/10/18 04:30 MCV 85.6 fl (81.0-99.0) D 04/10/18 04:30 MCH 28.5 pg (27.0-31.0) 04/10/18 04:30 MCHC 33.3 g/dL (33.0-37.0) 04/10/18 04:30 RDW 16.6 % (11.5-14.5) H 04/10/18 04:30 Plt Count 261 K/uL (130-400) 04/10/18 04:30 MPV 6.4 fl (7.2-11.7) L 04/10/18 04:30 Neut % (Auto) 63.5 % (50.0-75.0) 04/10/18 04:30 Lymph % (Auto) 24.9 % (20.0-40.0) 04/10/18 04:30 Jerome % (Auto) 8.6 % (0.0-10.0) 04/10/18 04:30 Eos % (Auto) 2.4 % (0.0-4.0) 04/10/18 04:30 Baso % (Auto) 0.6 % (0.0-2.0) 04/10/18 04:30 Neut # (Auto) 5.7 K/uL (1.8-7.0) 04/10/18 04:30 Lymph # (Auto) 2.3 K/uL (1.0-4.3) 04/10/18 04:30 Jerome # (Auto) 0.8 K/uL (0.0-0.8) 04/10/18 04:30 Eos # (Auto) 0.2 K/uL (0.0-0.7) 04/10/18 04:30 Baso # (Auto) 0.1 K/uL (0.0-0.2) 04/10/18 04:30 Retic Count 2.3 % (0.5-1.5) H D 04/07/18 08:10 Sodium 131 mmol/l (132-148) L 04/11/18 05:35 Potassium 4.7 MMOL/L (3.6-5.0) 04/11/18 05:35 Chloride 97 mmol/L (98-107) L 04/11/18 05:35 Carbon Dioxide 24 mmol/L (22-30) 04/11/18 05:35 Anion Gap 15 (10-20) 04/11/18 05:35 BUN 30 mg/dl (7-17) H 04/11/18 05:35 Creatinine 5.4 mg/dl (0.7-1.2) H 04/11/18 05:35 Est GFR ( Amer) 10 04/11/18 05:35 Est GFR (Non-Af Amer) 8 04/11/18 05:35 POC Glucose (mg/dL) 199 mg/dL (65-110) H 04/11/18 10:49 Random Glucose 201 mg/dL (65-105) H 04/11/18 05:35 Calcium 8.7 mg/dL (8.4-10.2) 04/11/18 05:35 Iron 169 ug/dL (37-170) 04/07/18 08:10 TIBC 221 ug/dL (250-450) L 04/07/18 08:10 % Saturation 77 % (20-55) H 04/07/18 08:10 Ferritin 332.0 ng/Ml (11.1-264.0) H 04/07/18 08:10 Total Bilirubin 0.3 mg/dl (0.2-1.3) 04/10/18 04:30 AST 31 U/L (14-36) 04/10/18 04:30 ALT 18 U/L (9-52) 04/10/18 04:30 Alkaline Phosphatase 95 U/L (38-126) 04/10/18 04:30 Troponin I < 0.0120 ng/mL (0.00-0.120) 04/06/18 16:15 Total Protein 6.0 G/DL (6.3-8.2) L 04/10/18 04:30 Albumin 2.6 g/dL (3.5-5.0) L 04/10/18 04:30 Globulin 3.3 gm/dL (2.2-3.9) 04/10/18 04:30 Albumin/Globulin Ratio 0.8 (1.0-2.1) L 04/10/18 04:30 Vitamin B12 676 pg/mL (239-931) 04/07/18 08:10 Urine Color Yellow (YELLOW) 04/06/18 18:52 Urine Clarity Slighty-cloudy (Clear) 04/06/18 18:52 Urine pH 9.0 (5.0-8.0) 04/06/18 18:52 Ur Specific [place] 1.011 (1.003-1.030) 04/06/18 18:52 Urine Protein >=500 mg/dL (NEGATIVE) 04/06/18 18:52 Urine Glucose (UA) 50 mg/dL (Normal) 04/06/18 18:52 Urine Ketones Negative mg/dL (NEGATIVE) 04/06/18 18:52 Urine Blood Negative (NEGATIVE) 04/06/18 18:52 Urine Nitrate Negative (NEGATIVE) 04/06/18 18:52 Urine Bilirubin Negative (NEGATIVE) 04/06/18 18:52 Urine Urobilinogen 0.2-1.0 mg/dL (0.2-1.0) 04/06/18 18:52 Ur Leukocyte Esterase Neg Zoë/uL (Negative) 04/06/18 18:52 Urine RBC (Auto) 2 /hpf (0-3) 04/06/18 18:52 Urine Microscopic WBC 5 /hpf (0-5) 04/06/18 18:52 Ur Squamous Epith Cells 4 /hpf (0-5) 04/06/18 18:52 Hyaline Casts 0-2 /hpf (0-2) 04/06/18 18:52 Urine HCG, Qual Negative (NEGATIVE) 04/09/18 09:50 Hepatitis A IgM Ab Negative (NEGATIVE) 04/07/18 16:58 Hep Bs Antigen Negative (NEGATIVE) 04/07/18 16:58 Hep Bs Antibody Positive (NEGATIVE) 04/10/18 09:55 Hep B Core IgM Ab Negative (NEGATIVE) 04/07/18 16:58 Hepatitis C Antibody Negative (NEGATIVE) 04/07/18 16:58 Blood Type O POSITIVE 04/06/18 18:50 Antibody Screen Negative 04/06/18 18:50 Crossmatch See Detail 04/06/18 18:50 BBK History Checked Patient has bt 04/06/18 18:50 Discharge Exam - Head Exam Head Exam: NORMAL INSPECTION Discharge Plan - Follow Up Plan Condition: FAIR Disposition: HOME/ ROUTINE Instructions: Hemodialysis (DC), Gastritis (DC), Ulcer and Gastritis Diet Additional Instructions: hacer leonardo con dr pina y dr guzmán dentro de 1 semana Referrals: Garo Malone MD [Staff Provider] - Juan J Londono MD, PhD [Staff Provider] - Sravan Pina MD [Family Provider] -
[2018-04-11 16:12] VITALS: BP 158/82; PULSE 86; RESP 18; TEMP 98.4
[2018-04-11] MEDS ORDERED: Hydrocortisone- 100 MG in Sodium Chloride 0.9% 100 ML IV ONE (22:30)
--- NOTE | 2018-04-12 16:34 | CP.PCM.PN ---
Subjective - Date & Time of Evaluation Date of Evaluation: 04/10/18 Time of Evaluation: 18:30 - Subjective Subjective: no overnight events Objective - Vital Signs/Intake and Output Vital Signs (last 24 hours): Temp Pulse Resp BP Pulse Ox 98.4 F 86 18 158/82 H 97 04/11/18 16:11 04/11/18 17:11 04/11/18 16:11 04/11/18 17:11 04/11/18 16:11 - Labs Labs: 04/10/18 04:30 04/11/18 05:35 - Head Exam Head Exam: NORMOCEPHALIC - Eye Exam Pupil Exam: NORMAL ACCOMODATION - Respiratory Exam Respiratory Exam: Clear to Ausculation Bilateral, NORMAL BREATHING PATTERN Assessment and Plan - Assessment and Plan (Free Text) Assessment: 52 yo female with anemia no bleeding outpatient f/u for bx results
== END 2018-04-11 18:45 | disposition home or self-care (01) | DRG 811 ==
LOC: H.ER 15:12 → H.ERHOLD 17:36 → H.ICU/CCU 04-07 08:25 → H.MEDSURG1 04-10 23:40
PROVIDERS: ADMIT Internal Medicine Pulmonary Disease; ATTEND Internal Medicine Pulmonary Disease
PROC: 30233N1 Transfusion of Nonautologous Red Blood Cells into Peripheral Vein, Percutaneous Approach (ICD-10-PCS; 2018-04-06)
PROC: 30233N1 Transfusion of Nonautologous Red Blood Cells into Peripheral Vein, Percutaneous Approach (ICD-10-PCS; 2018-04-07)
PROC: 5A1D70Z Performance of Urinary Filtration, Intermittent, Less than 6 Hours Per Day (ICD-10-PCS; 2018-04-07)
PROC: 3E0234Z Introduction of Serum, Toxoid and Vaccine into Muscle, Percutaneous Approach (ICD-10-PCS; 2018-04-07)
PROC: 0DB68ZX Excision of Stomach, Via Natural or Artificial Opening Endoscopic, Diagnostic (ICD-10-PCS; 2018-04-09)
PROC: 0DB48ZX Excision of Esophagogastric Junction, Via Natural or Artificial Opening Endoscopic, Diagnostic (ICD-10-PCS; principal; 2018-04-09 14:30)
PROC: 5A1D70Z Performance of Urinary Filtration, Intermittent, Less than 6 Hours Per Day (ICD-10-PCS; 2018-04-10)
DX: D64.89 Other specified anemias (principal); N18.6 End stage renal disease; I12.0 Hypertensive chronic kidney disease with stage 5 chronic kidney disease or end stage renal disease; N25.81 Secondary hyperparathyroidism of renal origin; Z94.0 Kidney transplant status; E87.1 Hypo-osmolality and hyponatremia; K20.8 Other esophagitis; K29.70 Gastritis, unspecified, without bleeding; D63.1 Anemia in chronic kidney disease; E11.22 Type 2 diabetes mellitus with diabetic chronic kidney disease; E83.39 Other disorders of phosphorus metabolism; J45.909 Unspecified asthma, uncomplicated; F20.9 Schizophrenia, unspecified; Z99.2 Dependence on renal dialysis; Z23 Encounter for immunization; Z91.041 Radiographic dye allergy status; Z79.84 Long term (current) use of oral hypoglycemic drugs; Z79.899 Other long term (current) drug therapy; Z90.49 Acquired absence of other specified parts of digestive tract

== ENCOUNTER 2018-05-14 16:30 | Inpatient (IN) | payer MEDICARE, OTHER ==
[2018-05-14 16:31] VITALS: BMI 34.5
[2018-05-14 17:44] LABS: BASO % 0.4 % (0.0-2.0); EOS # 0.5 K/uL (0.0-0.7); EOS % 4.8 % (0.0-4.0); HEMOGLOBIN 7.4 g/dL (12.0-16.0); LYMPH # 2.2 K/uL (1.0-4.3); LYMPH % 22.3 % (20.0-40.0); MEAN CELL VOLUME 84.1 fl (81.0-99.0); MEAN CORPUSCULAR HEMOGLOBIN 28.7 pg (27.0-31.0); MEAN CORPUSCULAR HGB CONC 34.1 g/dL (33.0-37.0); MEAN PLATELET VOLUME 6.6 fl (7.2-11.7); MONO # 0.9 K/uL (0.0-0.8); MONO % 9.2 % (0.0-10.0); NEUT # 6.2 K/uL (1.8-7.0); NEUT % 63.3 % (50.0-75.0); NRBC % 0.1 % (0.0-0.0); RBC 2.58 Mil/uL (3.80-5.20); RED CELL DISTRIBUTION WIDTH 15.5 % (11.5-14.5); WHITE BLOOD COUNT 9.7 K/uL (4.8-10.8)
--- NOTE | 2018-05-14 17:48 | ED PDOC ---
HPI: Chest Pain Time Seen by Provider: 05/14/18 16:56 Chief Complaint (Nursing): Chest Pain Chief Complaint (Provider): chest pain History Per: Patient History/Exam Limitations: no limitations Onset/Duration Of Symptoms: Days (1), Persistent Quality: Pressure, "Pain" Associated Symptoms: Dyspnea, Other (headache). denies: Nausea, Syncope Past Medical History Reviewed: Historical Data, Nursing Documentation, Vital Signs Vital Signs: Last Vital Signs Temp 97.8 F 05/15/18 19:58 Pulse 92 H 05/15/18 19:58 Resp 20 05/15/18 19:58 BP 165/73 H 05/15/18 19:58 Pulse Ox 97 05/15/18 19:58 - Medical History PMH: Anemia, Anxiety, Asthma, Depression, Diabetes, Gall Bladder Disease ( gallbladder stones), HTN, Chronic Kidney Disease, Schizophrenia Denies: HIV - Surgical History Surgical History: Cholecystectomy - Family History Family History: States: Unknown Family Hx - Social History Current smoker - smoking cessation education provided: No - Home Medications Home Medications: Ambulatory Orders Medication Instructions Recorded Atorvastatin [Lipitor] 10 mg PO HS 12/25/17 Benztropine [Cogentin] 1 mg PO Q12 12/25/17 Escitalopram Oxalate [Lexapro] 5 mg PO DAILY 12/25/17 Glimepiride [amaRYL] 4 mg PO BID 12/25/17 Insulin Aspart Prot/Insuln Asp 10 unit SC BID 12/25/17 [Novolog Mix 70-30 Vial] Insulin Glargine, Recombina 10 unit SC HS 12/25/17 [Lantus] Sodium Bicarbonate Tab 3 tab PO Q8 12/25/17 risperiDONE [RisperDAL Tab] 2 mg PO Q12 12/25/17 Carvedilol [Coreg] 12.5 mg PO Q12 04/06/18 Chlorthalidone [Hygroton] 50 mg PO DAILY 04/06/18 Tiotropium Herreid [Spiriva 2 puff IH DAILY 04/06/18 Respimat] amLODIPine [Norvasc] 10 mg PO DAILY 04/06/18 Epoetin Maynor [Procrit] 10,000 unit IV TTS ml 04/11/18 Lisinopril [Zestril] 5 mg PO DAILY 05/14/18 - Allergies Allergies/Adverse Reactions: Allergies Allergy/AdvReac Type Severity Reaction Status Date / Time iodine Allergy URTICARIA Verified 12/25/17 04:30 Review of Systems ROS Statement: Except As Marked, All Systems Reviewed And Found Negative Constitutional: Positive for: Weakness, Malaise Cardiovascular: Positive for: Chest Pain, Light Headedness Respiratory: Positive for: Shortness of Breath. Negative for: SOB with Exertion Gastrointestinal: Negative for: Nausea, Vomiting, Abdominal Pain Neurological: Positive for: Headache, Dizziness. Negative for: Weakness, Numbness Physical Exam - Reviewed Nursing Documentation Reviewed: Yes Vital Signs Reviewed: Yes - Physical Exam Appears: Positive for: Non-toxic, In Acute Distress Head Exam: Positive for: ATRAUMATIC, NORMOCEPHALIC Skin: Positive for: Warm, Dry, Pallor Eye Exam: Positive for: EOMI, PERRL ENT: Negative for: Pharyngeal Erythema, Tonsillar Exudate Neck: Positive for: Painless ROM, Supple Cardiovascular/Chest: Positive for: Regular Rate, Rhythm. Negative for: Murmur Respiratory: Positive for: Normal Breath Sounds. Negative for: Wheezing Gastrointestinal/Abdominal: Positive for: Soft. Negative for: Tenderness, Mass , Distended, Guarding Back: Positive for: Normal Inspection. Negative for: Decreased ROM Extremity: Positive for: Normal ROM. Negative for: Deformity Lymphatic: Negative for: Adenopathy Neurologic/Psych: Positive for: Alert, neurosurgery spine physician II-XII (intact), Oriented. Negative for: Motor/Sensory Deficits - Laboratory Results Result Diagrams: 05/14/18 17:40 05/14/18 17:40 Interpretation Of Abn Labs: Labs demonstrate anemia and elevated BUN/Cr. Mild hyperkalemia. 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 Advised stat dialysis for elevation in BNP and BUN/Cr and need for transfusion. Orders placed as per discussion. Disposition - Clinical Impression Clinical Impression: Anemia, ESRD (end stage renal disease) - Disposition Disposition Time: 18:00 Condition: FAIR
[2018-05-14 17:55] LABS: INR 1.1; PROTHROMBIN TIME 12.2 Seconds (9.8-13.1)
[2018-05-14 17:58] LABS: PARTIAL THROMBOPLASTIN TIME 31.4 Seconds (25.6-37.1)
[2018-05-14 18:00] LABS: ALB/GLOB RATIO 0.9 (1.0-2.1); ALBUMIN 3.1 g/dL (3.5-5.0); ALT/SGPT 25 U/L (9-52); AST/SGOT 32 U/L (14-36); BLOOD UREA NITROGEN 43 mg/dl (7-17); CALCIUM 8.4 mg/dL (8.4-10.2); GFR NON-AFRICAN AMERICAN 7
[2018-05-14 18:12] LABS: B-TYPE NATRIURETIC PEPTIDE 9460 pg/ml (0-900)
[2018-05-15] MEDS: Insulin Regular 100 units/ml SC SCH ×4 (06:40→22:00)
[2018-05-15] MEDS ORDERED: INSULN ASP SC SCH (07:30)
[2018-05-15] MEDS ORDERED: INSULIN ASPART PROT SC SCH (07:30)
[2018-05-15] MEDS: GlipiZIDE 10 mg SR Tab PO SCH ×2 (08:43→18:16)
[2018-05-15] MEDS: Insulin Lispro Mix 75/25 100 units/ml (HumaLog) 10ml SC SCH ×2 (08:46→18:16)
--- NOTE | 2018-05-15 09:00 | CARD ---
APPROVED REPORT Date of service: 05/14/2018 <Conclusion> Normal sinus rhythm Normal ECG
--- NOTE | 2018-05-15 09:56 | CT ---
Date of service: 05/14/2018 PROCEDURE: CT HEAD WITHOUT CONTRAST. HISTORY: DIZZINESS HEADACHE COMPARISON: . Comparison made with prior CT scan brain 04/06/2018. TECHNIQUE: Axial computed tomography images were obtained through the head/brain without intravenous contrast. Radiation dose: Total exam DLP = 1126.77 mGy-cm. This CT exam was performed using one or more of the following dose reduction techniques: Automated exposure control, adjustment of the mA and/or kV according to patient size, and/or use of iterative reconstruction technique. FINDINGS: HEMORRHAGE: No intracranial hemorrhage. No acute parenchymal, subarachnoid or extra-axial hemorrhage. BRAIN: Suspect minimal chronic periventricular white matter ischemic changes. Mild volume loss. VENTRICLES: No obstructive hydrocephalus. CALVARIUM: Unremarkable. PARANASAL SINUSES: Unremarkable as visualized. No significant inflammatory changes. MASTOID AIR CELLS: Unremarkable as visualized. No inflammatory changes. OTHER FINDINGS: None. IMPRESSION: No acute intracranial hemorrhage. Suspect minimal chronic periventricular white matter ischemic changes. Mild volume loss.
--- NOTE | 2018-05-15 13:17 | RAD ---
HISTORY: chest pain COMPARISON: Chest x-ray performed 04/06/18 TECHNIQUE: Chest, one view. FINDINGS: Examination limited by habitus. Right sided dialysis catheter. LUNGS: Mild pulmonary venous congestion. No focal consolidation. Please note that chest x-ray has limited sensitivity for the detection of pulmonary masses. PLEURA: No significant pleural effusion identified. No definite pneumothorax . CARDIOVASCULAR: Heart size appears top normal. OSSEOUS STRUCTURES: Degenerative changes of the spine. VISUALIZED UPPER ABDOMEN: Unremarkable. OTHER FINDINGS: None. IMPRESSION: Right-sided dialysis catheter. Mild pulmonary venous congestion.
--- NOTE | 2018-05-15 15:06 | CP.PCM.CON ---
History of Present Illness - History of Present Illness History of Present Illness: REASONS FOR CONSULT : ESRD ON HD T T S ANEMIA REQIURING TRANSFUSION ALL EMR REVIEWED .. LABS REVIEWED .. CASE D/W ER ATTENDING AT [facility] PT WAS ADMITTED FOR C/P PT IS WELL KNOWN TO ME WITH MMP .. HAD RENAL TRANSPLANT FOR MANY YEARS AND WAS OFF HD PT IS BACK ON HD RECENTLY .. HAS CATH ON R NECK AND R UPPER ARM AVF MATURING 52 Y O H F WITH ESRD ON HD TTS .. HTN .. PSYZOPHRENIA .. ANEMIA OF CKD Past Patient History - Infectious Disease Hx of Infectious Diseases: None - Past Medical History & Family History Past Medical History?: Yes - Past Social History Smoking Status: Never Smoked - CARDIAC Hx Hypertension: Yes - PULMONARY Hx Asthma: Yes - NEUROLOGICAL Hx Neurological Disorder: No - HEENT Hx HEENT Problems: No - RENAL Hx Chronic Kidney Disease: Yes Hx Dialysis: Yes (TTS) Date of Last Dialysis Treatment: 05/12/18 Hx Renal Failure: Yes - ENDOCRINE/METABOLIC Hx Endocrine Disorders: Yes Hx Diabetes Mellitus Type 2: Yes - HEMATOLOGICAL/ONCOLOGICAL Hx AIDS: No Hx Anemia: Yes Hx Human Immunodeficiency Virus (HIV): No - INTEGUMENTARY Hx Dermatological Problems: No - MUSCULOSKELETAL/RHEUMATOLOGICAL Hx Falls: No - GASTROINTESTINAL Hx Gall Bladder Disease: Yes (gallbladder stones) - GENITOURINARY/GYNECOLOGICAL Hx Genitourinary Disorders: Yes - PSYCHIATRIC Hx Anxiety: Yes Hx Depression: Yes Hx Schizophrenia: Yes Hx Substance Use: No - SURGICAL HISTORY Hx Cholecystectomy: Yes - ANESTHESIA Hx Anesthesia: Yes Hx Anesthesia Reactions: No Hx Malignant Hyperthermia: No Meds Allergies/Adverse Reactions: Allergies Allergy/AdvReac Type Severity Reaction Status Date / Time iodine Allergy URTICARIA Verified 12/25/17 04:30 - Medications Medications: Current Medications Amlodipine Besylate (Norvasc) 10 mg PO DAILY [facility] Last Admin: 05/15/18 08:45 Dose: 10 mg Atorvastatin Calcium (Lipitor) 10 mg PO HS [facility] Benztropine Mesylate (Cogentin) 1 mg PO Q12 [facility] Last Admin: 05/15/18 08:42 Dose: 1 mg Carvedilol (Coreg) 12.5 mg PO Q12 [facility] Last Admin: 05/15/18 08:42 Dose: 12.5 mg Chlorthalidone (Hygroton) 50 mg PO DAILY [facility] Escitalopram Oxalate (Lexapro) 5 mg PO DAILY [facility] Last Admin: 05/15/18 08:43 Dose: 5 mg Glipizide (Glucotrol Xl) 10 mg PO BIDWM [facility] Last Admin: 05/15/18 08:43 Dose: 10 mg Insulin Detemir (Levemir) 10 units SC HS [facility] Insulin Human Regular (Humulin R) 0 units SC ACHS [facility] PRN Reason: Protocol Last Admin: 05/15/18 06:40 Dose: Not Given Insulin Lispro Protam/Lispro Human (Humalog Mix 75/25) 10 units SC BID [facility] Last Admin: 05/15/18 08:46 Dose: 10 units Lisinopril (Zestril) 5 mg PO DAILY [facility] Last Admin: 05/15/18 08:45 Dose: 5 mg Risperidone (Risperdal Tab) 2 mg PO Q12 [facility] Last Admin: 05/15/18 08:43 Dose: 2 mg Sodium Bicarbonate (Sodium Bicarbonate Tab) 1,950 mg PO Q8 [facility] Last Admin: 05/15/18 08:45 Dose: 1,950 mg Tiotropium [place] (Spiriva) 18 mcg IH DAILY [facility] Results - Vital Signs Recent Vital Signs: Last Vital Signs Temp 97.4 F L 05/15/18 12:55 Pulse 74 05/15/18 12:55 Resp 20 05/15/18 12:55 BP 132/70 05/15/18 12:55 Pulse Ox 95 05/15/18 12:55 - Labs Result Diagrams: 05/14/18 17:40 05/14/18 17:40 Labs: Laboratory Results - last 24 hr 05/14/18 05/14/18 05/14/18 17:40 17:40 17:40 WBC 9.7 RBC 2.58 L Hgb 7.4 L Hct 21.7 L MCV 84.1 MCH 28.7 MCHC 34.1 RDW 15.5 H Plt Count 178 MPV 6.6 L Neut % (Auto) 63.3 Lymph % (Auto) 22.3 [place] % (Auto) 9.2 Eos % (Auto) 4.8 H Baso % (Auto) 0.4 Neut # (Auto) 6.2 Lymph # (Auto) 2.2 [place] # (Auto) 0.9 H Eos # (Auto) 0.5 Baso # (Auto) 0.0 PT 12.2 INR 1.1 APTT 31.4 Sodium 126 L Potassium 5.2 H Chloride 90 L Carbon Dioxide 26 Anion Gap 15 BUN 43 H Creatinine 6.7 H Est GFR ( Amer) 8 Est GFR (Non-Af Amer) 7 POC Glucose (mg/dL) Random Glucose 89 Calcium 8.4 Phosphorus 5.8 H Magnesium 1.6 Total Bilirubin 0.4 AST 32 ALT 25 Alkaline Phosphatase 97 Troponin I < 0.0120 NT-Pro-B Natriuret Pep 9460 H Total Protein 6.5 Albumin 3.1 L Globulin 3.4 Albumin/Globulin Ratio 0.9 L Blood Type Antibody Screen Crossmatch BBK History Checked 05/14/18 05/14/18 05/15/18 18:40 19:26 01:06 WBC RBC Hgb Hct MCV MCH MCHC RDW Plt Count MPV Neut % (Auto) Lymph % (Auto) [place] % (Auto) Eos % (Auto) Baso % (Auto) Neut # (Auto) Lymph # (Auto) [place] # (Auto) Eos # (Auto) Baso # (Auto) PT INR APTT Sodium Potassium Chloride Carbon Dioxide Anion Gap BUN Creatinine Est GFR ( Amer) Est GFR (Non-Af Amer) POC Glucose (mg/dL) 111 H Random Glucose Calcium Phosphorus Magnesium Total Bilirubin AST ALT Alkaline Phosphatase Troponin I < 0.0120 NT-Pro-B Natriuret Pep Total Protein Albumin Globulin Albumin/Globulin Ratio Blood Type O POSITIVE Antibody Screen Negative Crossmatch See Detail BBK History Checked Patient has bt 05/15/18 05/15/18 05/15/18 05:28 10:28 11:20 WBC RBC Hgb Hct MCV MCH MCHC RDW Plt Count MPV Neut % (Auto) Lymph % (Auto) [place] % (Auto) Eos % (Auto) Baso % (Auto) Neut # (Auto) Lymph # (Auto) [place] # (Auto) Eos # (Auto) Baso # (Auto) PT INR APTT Sodium Potassium Chloride Carbon Dioxide Anion Gap BUN Creatinine Est GFR ( Amer) Est GFR (Non-Af Amer) POC Glucose (mg/dL) 119 H 139 H Random Glucose Calcium Phosphorus Magnesium Total Bilirubin AST ALT Alkaline Phosphatase Troponin I < 0.0120 NT-Pro-B Natriuret Pep Total Protein Albumin Globulin Albumin/Globulin Ratio Blood Type Antibody Screen Crossmatch BBK History Checked Assessment & Plan - Assessment and Plan (Free Text) Assessment: ESRD .. ON HD .. SEEN ON HD .. CONSENT OBTAINED ANEMIA .. RECIEVING 1 U PRBC ON HD HTN PSYCH PROBLEMS P : HD RIGHT NOW TRANSFUSE 1 U PRBC ON HD RENAL DIET C/O CURRENT MEDS WILL F/U - Date & Time Date: 05/15/18 Time: 15:06
[2018-05-15] MEDS ORDERED: Ergocalciferol 50,000 Intl Units Cap PO SCH (15:15)
--- NOTE | 2018-05-15 15:52 | CP.PCM.HP ---
History of Present Illness - History of Present Illness History of Present Illness: CC: CP. 52 y/o F, multiple chronic medical conditions including ESRD on HD TTS, Kidney transplant, Asthma, Schizophrenia, came in to ER [facility], [place] to be evaluated for Chest pain, midsternal, described as dull, pressure type, moderate intensity 6:10 associated to headache, weakness, dizziness, non radiated, that began in Am DOA, Pt using Zestril, Coreg, Norvasc at home with no relief. Worsening symptoms: Found with anemia requiring transfusion (Hgb 7.4), Sodium 126. Aggravated factor: Movements. Pt denied: Fever, chills, n/v/d, abdominal pain, urinary symptoms, sick contact , recent travel out of [facility]. EKG: Normal sinus rhythm. Head CT: No acute intracranial hemorrhage. CXR shows: Mild pulmonary venous congestion. Present on Admission - Present on Admission Any Indicators Present on Admission: No Review of Systems - Constitutional Constitutional: Headache, Weakness - EENT Eyes: Other (negative) Ears: Other (negative) Nose/Mouth/Throat: Other (negative) - Cardiovascular Cardiovascular: Chest Pain, Lightheadedness. absent: Radiating Pain - Respiratory Respiratory: Other (negative) - Gastrointestinal Gastrointestinal: Other (negative) - Genitourinary Genitourinary: Other (negative) - Musculoskeletal Musculoskeletal: Other (negative) - Integumentary Integumentary: Other (negative) - Neurological Neurological: Dizziness, Headaches, Weakness - Psychiatric Psychiatric: Anxiety, Depression - Endocrine Endocrine: Other (negative) - Hematologic/Lymphatic Hematologic: Other (anemia) Past Patient History - Infectious Disease Hx of Infectious Diseases: None - Past Medical History & Family History Past Medical History?: Yes Pertinent Family History: Unknown - Past Social History Smoking Status: Never Smoked Alcohol: None Drugs: Denies Home Situation {Lives}: With Family - CARDIAC Hx Cardiac Disorders: Yes Hx Hypertension: Yes - PULMONARY Hx Respiratory Disorders: Yes Hx Asthma: Yes - NEUROLOGICAL Hx Neurological Disorder: No - HEENT Hx HEENT Problems: No - RENAL Hx Chronic Kidney Disease: Yes Hx Dialysis: Yes (TTS) Date of Last Dialysis Treatment: 05/12/18 Hx Renal Failure: Yes - ENDOCRINE/METABOLIC Hx Endocrine Disorders: Yes Hx Diabetes Mellitus Type 2: Yes - HEMATOLOGICAL/ONCOLOGICAL Hx AIDS: No Hx Anemia: Yes Hx Human Immunodeficiency Virus (HIV): No - INTEGUMENTARY Hx Dermatological Problems: No - MUSCULOSKELETAL/RHEUMATOLOGICAL Hx Falls: No - GASTROINTESTINAL Hx Gastrointestinal Disorders: Yes Hx Gall Bladder Disease: Yes (gallbladder stones) - GENITOURINARY/GYNECOLOGICAL Hx Genitourinary Disorders: No - PSYCHIATRIC Hx Psychophysiologic Disorder: Yes Hx Anxiety: Yes Hx Depression: Yes Hx Schizophrenia: Yes Hx Substance Use: No - SURGICAL HISTORY Hx Surgeries: Yes Hx Cholecystectomy: Yes Other/Comment: Kidney trasplant 2009. Old non funtioningAV fistula L arm, Perma cath, new AV fistula R arm. - ANESTHESIA Hx Anesthesia: Yes Hx Anesthesia Reactions: No Hx Malignant Hyperthermia: No Meds Allergies/Adverse Reactions: Allergies Allergy/AdvReac Type Severity Reaction Status Date / Time iodine Allergy URTICARIA Verified 12/25/17 04:30 Physical Exam - Constitutional Appears: No Acute Distress, Chronically Ill - Head Exam Head Exam: NORMAL INSPECTION - Eye Exam Eye Exam: PERRL - ENT Exam ENT Exam: Normal Oropharynx - Neck Exam Neck exam: Positive for: Normal Inspection - Respiratory Exam Respiratory Exam: Decreased Breath Sounds (mild) Additional comments: R chest Perma-Cath - Cardiovascular Exam Cardiovascular Exam: REGULAR RHYTHM - GI/Abdominal Exam GI & Abdominal Exam: Normal Bowel Sounds, Soft - Extremities Exam Additional comments: R arm AV fistula with bruit and thrill, non funtioning old AV fistula L arm - Back Exam Back exam: NORMAL INSPECTION - Neurological Exam Neurological exam: Alert, Oriented x3 Additional comments: No motor/sensory deficit. - Psychiatric Exam Psychiatric exam: Anxious, Depressed - Skin Skin Exam: Warm Results - Vital Signs Recent Vital Signs: Last Vital Signs Temp 97.9 F 05/15/18 15:27 Pulse 68 05/15/18 15:27 Resp 20 05/15/18 15:27 BP 130/75 05/15/18 15:27 Pulse Ox 96 05/15/18 15:27 reviewed Michael - Labs Result Diagrams: 05/14/18 17:40 05/14/18 17:40 Labs: Laboratory Results - last 24 hr 05/14/18 05/14/18 05/14/18 17:40 17:40 17:40 WBC 9.7 RBC 2.58 L Hgb 7.4 L Hct 21.7 L MCV 84.1 MCH 28.7 MCHC 34.1 RDW 15.5 H Plt Count 178 MPV 6.6 L Neut % (Auto) 63.3 Lymph % (Auto) 22.3 [place] % (Auto) 9.2 Eos % (Auto) 4.8 H Baso % (Auto) 0.4 Neut # (Auto) 6.2 Lymph # (Auto) 2.2 [place] # (Auto) 0.9 H Eos # (Auto) 0.5 Baso # (Auto) 0.0 PT 12.2 INR 1.1 APTT 31.4 Sodium 126 L Potassium 5.2 H Chloride 90 L Carbon Dioxide 26 Anion Gap 15 BUN 43 H Creatinine 6.7 H Est GFR ( Amer) 8 Est GFR (Non-Af Amer) 7 POC Glucose (mg/dL) Random Glucose 89 Calcium 8.4 Phosphorus 5.8 H Magnesium 1.6 Total Bilirubin 0.4 AST 32 ALT 25 Alkaline Phosphatase 97 Troponin I < 0.0120 NT-Pro-B Natriuret Pep 9460 H Total Protein 6.5 Albumin 3.1 L Globulin 3.4 Albumin/Globulin Ratio 0.9 L Blood Type Antibody Screen Crossmatch BBK History Checked 05/14/18 05/14/18 05/15/18 18:40 19:26 01:06 WBC RBC Hgb Hct MCV MCH MCHC RDW Plt Count MPV Neut % (Auto) Lymph % (Auto) [place] % (Auto) Eos % (Auto) Baso % (Auto) Neut # (Auto) Lymph # (Auto) [place] # (Auto) Eos # (Auto) Baso # (Auto) PT INR APTT Sodium Potassium Chloride Carbon Dioxide Anion Gap BUN Creatinine Est GFR ( Amer) Est GFR (Non-Af Amer) POC Glucose (mg/dL) 111 H Random Glucose Calcium Phosphorus Magnesium Total Bilirubin AST ALT Alkaline Phosphatase Troponin I < 0.0120 NT-Pro-B Natriuret Pep Total Protein Albumin Globulin Albumin/Globulin Ratio Blood Type O POSITIVE Antibody Screen Negative Crossmatch See Detail BBK History Checked Patient has bt 05/15/18 05/15/18 05/15/18 05:28 10:28 11:20 WBC RBC Hgb Hct MCV MCH MCHC RDW Plt Count MPV Neut % (Auto) Lymph % (Auto) [place] % (Auto) Eos % (Auto) Baso % (Auto) Neut # (Auto) Lymph # (Auto) [place] # (Auto) Eos # (Auto) Baso # (Auto) PT INR APTT Sodium Potassium Chloride Carbon Dioxide Anion Gap BUN Creatinine Est GFR ( Amer) Est GFR (Non-Af Amer) POC Glucose (mg/dL) 119 H 139 H Random Glucose Calcium Phosphorus Magnesium Total Bilirubin AST ALT Alkaline Phosphatase Troponin I < 0.0120 NT-Pro-B Natriuret Pep Total Protein Albumin Globulin Albumin/Globulin Ratio Blood Type Antibody Screen Crossmatch BBK History Checked reviewed J.P. - EKG Data EKG comments: reviewed J.P. - Imaging and Cardiology Chest x-ray Status: Report reviewed by me (JValeryP.) Assessment & Plan (1) Chest pain Status: Acute Priority: High (2) Anemia in CKD (chronic kidney disease) Status: Acute Priority: High (3) ESRD (end stage renal disease) Status: Chronic Priority: High (4) HTN (hypertension) Status: Chronic Priority: High (5) Asthma Status: Chronic Priority: Medium (6) Anxiety and depression Status: Chronic Priority: Medium - Assessment and Plan (Free Text) Plan: Transfuse 1 U PRBC with dialysis, f/u CBC post transfusion, Anemia work up continue Congentin, Humalog Mix, Levemir, Coreg, Zestril, Norvasc, Renvela and rest of Tx, Nephrology consult appreciated. - Date & Time Date: 05/15/18 Time: 11:30
[2018-05-15 16:24] LABS: HEPATITIS B SURFACE AG Negative (NEGATIVE)
[2018-05-15 16:29] LABS: HEPATITIS B CORE AB NEGATIVE (NEGATIVE)
[2018-05-15] MEDS: Tiotropium 18 mcg Cap For Inhalation IH SCH (18:20)
[2018-05-15] MEDS ORDERED: Insulin Detemir 100 Units/ml Inj SC SCH (22:00)
[2018-05-16 05:23] LABS: HEMOGLOBIN 8.5 g/dL (12.0-16.0); MEAN CORPUSCULAR HGB CONC 34.5 g/dL (33.0-37.0); RBC 2.94 Mil/uL (3.80-5.20); RED CELL DISTRIBUTION WIDTH 15.4 % (11.5-14.5); WHITE BLOOD COUNT 7.1 K/uL (4.8-10.8)
[2018-05-16 05:38] LABS: CALCIUM 7.9 mg/dL (8.4-10.2)
[2018-05-16] MEDS: GlipiZIDE 10 mg SR Tab PO SCH (08:49)
[2018-05-16] MEDS: Insulin Regular 100 units/ml SC SCH ×2 (08:49→12:34)
[2018-05-16] MEDS: Insulin Lispro Mix 75/25 100 units/ml (HumaLog) 10ml SC SCH (08:55)
[2018-05-16] MEDS ORDERED: Multivitamin Vitamin B Complex (Nephro-Vite) Tab PO SCH (09:00)
[2018-05-16] MEDS: Tiotropium 18 mcg Cap For Inhalation IH SCH (09:46)
[2018-05-16] MEDS ORDERED: Famotidine 20mg/50ml Premix IVPB STA (10:53)
[2018-05-16 11:52] LABS: IRON 41 ug/dL (37-170)
[2018-05-16 12:16] LABS: % IRON SATURATION 16 % (20-55); TOTAL IRON BINDING CAPACITY 252 ug/dL (250-450)
[2018-05-16 12:37] VITALS: O2SAT 95
[2018-05-16 13:05] LABS: FOLATE 9.6 ng/mL
--- NOTE | 2018-05-16 15:05 | CP.PCM.PN ---
Subjective - Date & Time of Evaluation Date of Evaluation: 05/16/18 Time of Evaluation: 11:00 - Subjective Subjective: F/U Chest pain. Objective - Vital Signs/Intake and Output Vital Signs (last 24 hours): Temp Pulse Resp BP Pulse Ox 97.6 F 75 18 145/75 95 05/16/18 12:36 05/16/18 12:36 05/16/18 12:36 05/16/18 12:36 05/16/18 12:36 - Medications Medications: Current Medications Acetaminophen (Tylenol 325mg Tab) 650 mg PO Q6 PRN PRN Reason: Headache Last Admin: 05/16/18 09:46 Dose: 650 mg Amlodipine Besylate (Norvasc) 10 mg PO DAILY [facility] Last Admin: 05/16/18 08:51 Dose: 10 mg Atorvastatin Calcium (Lipitor) 10 mg PO [facility] Benztropine Mesylate (Cogentin) 1 mg PO Q12 [facility] Last Admin: 05/16/18 08:49 Dose: 1 mg Carvedilol (Coreg) 12.5 mg PO Q12 [facility] Last Admin: 05/16/18 08:50 Dose: 12.5 mg Ergocalciferol (Drisdol 50,000 Intl Units Cap) 1 cap PO Q7D [facility] Last Admin: 05/15/18 18:16 Dose: 1 cap Escitalopram Oxalate (Lexapro) 5 mg PO DAILY [facility] Last Admin: 05/16/18 08:49 Dose: 5 mg Glipizide (Glucotrol Xl) 10 mg PO BIDWM [facility] Last Admin: 05/16/18 08:49 Dose: 10 mg Insulin Detemir (Levemir) 10 units SC [facility] Last Admin: 05/15/18 21:10 Dose: 10 units Insulin Human Regular (Humulin R) 0 units SC [facility] PRN Reason: Protocol Last Admin: 05/16/18 12:34 Dose: Not Given Insulin Lispro Protam/Lispro Human (Humalog Mix 75/25) 10 units SC BID [facility] Last Admin: 05/16/18 08:55 Dose: 10 units Lisinopril (Zestril) 5 mg PO DAILY [facility] Last Admin: 05/16/18 08:51 Dose: 5 mg Risperidone (Risperdal Tab) 2 mg PO Q12 [facility] Last Admin: 09/05/18 08:50 Dose: 2 mg Sevelamer Carbonate (Renvela) 800 mg PO TID [facility] Last Admin: 05/16/18 14:33 Dose: 800 mg Tiotropium [place] (Spiriva) 18 mcg IH DAILY [facility] Last Admin: 05/16/18 09:46 Dose: 18 mcg Vitamin B Complex/Vit C/Folic Acid (Nephro-Nelson) 1 tab PO DAILY [facility] Last Admin: 05/16/18 08:50 Dose: 1 tab - Labs Labs: 05/16/18 04:45 05/16/18 04:45 PT 12.2 Seconds (9.8-13.1) 05/14/18 17:40 INR 1.1 05/14/18 17:40 APTT 31.4 Seconds (25.6-37.1) 05/14/18 17:40 - Constitutional Appears: No Acute Distress, Chronically Ill - Head Exam Head Exam: NORMAL INSPECTION - Eye Exam Eye Exam: PERRL - ENT Exam ENT Exam: Normal Oropharynx - Neck Exam Neck Exam: Normal Inspection - Respiratory Exam Respiratory Exam: Decreased Breath Sounds (at bases) Additional comments: R chest Perma Cath - Cardiovascular Exam Cardiovascular Exam: REGULAR RHYTHM - GI/Abdominal Exam GI & Abdominal Exam: Soft, Normal Bowel Sounds - Extremities Exam Additional comments: R arm AV fistula with bruit and thrill, non functioning old AV fistula L arm. - Back Exam Back Exam: NORMAL INSPECTION - Neurological Exam Neurological Exam: Alert, Oriented x3. absent: Motor Sensory Deficit - Psychiatric Exam Psychiatric exam: Anxious, Depressed - Skin Skin Exam: Warm Assessment and Plan (1) Chest pain Status: Acute (2) Anemia in CKD (chronic kidney disease) Status: Acute (3) ESRD (end stage renal disease) Status: Chronic (4) HTN (hypertension) Status: Chronic (5) Asthma Status: Chronic (6) Anxiety and depression Status: Chronic
[2018-05-16 15:42] VITALS: BP 136/73; PULSE 70; RESP 20; TEMP 97.8
--- NOTE | 2018-05-17 16:51 | CP.PCM.DIS ---
Provider - Provider Date of Admission: 05/14/18 18:13 Attending physician: Sravan Ace MD Consults: Nephrology-Dr. Malone Time Spent in preparation of Discharge (in minutes): 35 Diagnosis - Discharge Diagnosis (1) Chest pain Status: Acute Priority: High (2) Anemia in CKD (chronic kidney disease) Status: Acute Priority: High (3) ESRD (end stage renal disease) Status: Chronic Priority: High (4) HTN (hypertension) Status: Chronic Priority: High (5) Asthma Status: Chronic Priority: Medium (6) Anxiety and depression Status: Chronic Priority: Medium Hospital Course - Lab Results Lab Results: Most Recent Lab Values WBC 7.1 K/uL (4.8-10.8) 05/16/18 04:45 RBC 2.94 Mil/uL (3.80-5.20) L 05/16/18 04:45 Hgb 8.5 g/dL (12.0-16.0) L 05/16/18 04:45 Hct 24.7 % (34.0-47.0) L 05/16/18 04:45 MCV 84.0 fl (81.0-99.0) 05/16/18 04:45 MCH 29.0 pg (27.0-31.0) 05/16/18 04:45 MCHC 34.5 g/dL (33.0-37.0) 05/16/18 04:45 RDW 15.4 % (11.5-14.5) H 05/16/18 04:45 Plt Count 164 K/uL (130-400) 05/16/18 04:45 MPV 6.6 fl (7.2-11.7) L 05/14/18 17:40 Neut % (Auto) 63.3 % (50.0-75.0) 05/14/18 17:40 Lymph % (Auto) 22.3 % (20.0-40.0) 05/14/18 17:40 [place] % (Auto) 9.2 % (0.0-10.0) 05/14/18 17:40 Eos % (Auto) 4.8 % (0.0-4.0) H 05/14/18 17:40 Baso % (Auto) 0.4 % (0.0-2.0) 05/14/18 17:40 Neut # (Auto) 6.2 K/uL (1.8-7.0) 05/14/18 17:40 Lymph # (Auto) 2.2 K/uL (1.0-4.3) 05/14/18 17:40 [place] # (Auto) 0.9 K/uL (0.0-0.8) H 05/14/18 17:40 Eos # (Auto) 0.5 K/uL (0.0-0.7) 05/14/18 17:40 Baso # (Auto) 0.0 K/uL (0.0-0.2) 05/14/18 17:40 Retic Count 2.2 % (0.5-1.5) H 05/16/18 09:21 PT 12.2 Seconds (9.8-13.1) 05/14/18 17:40 INR 1.1 05/14/18 17:40 APTT 31.4 Seconds (25.6-37.1) 05/14/18 17:40 Sodium 131 mmol/l (132-148) L 05/16/18 04:45 Potassium 4.4 MMOL/L (3.6-5.0) 05/16/18 04:45 Chloride 97 mmol/L (98-107) L 05/16/18 04:45 Carbon Dioxide 28 mmol/L (22-30) 05/16/18 04:45 Anion Gap 10 (10-20) 05/16/18 04:45 BUN 26 mg/dl (7-17) H 05/16/18 04:45 Creatinine 5.1 mg/dl (0.7-1.2) H 05/16/18 04:45 Est GFR ( Amer) 11 05/16/18 04:45 Est GFR (Non-Af Amer) 9 05/16/18 04:45 POC Glucose (mg/dL) 77 mg/dL (65-110) 05/16/18 11:46 Random Glucose 98 mg/dL (65-105) 05/16/18 04:45 Calcium 7.9 mg/dL (8.4-10.2) L 05/16/18 04:45 Phosphorus 5.8 mg/dl (2.5-4.5) H 05/14/18 17:40 Magnesium 1.6 MG/DL (1.6-2.3) 05/14/18 17:40 Iron 41 ug/dL (37-170) 05/16/18 09:21 TIBC 252 ug/dL (250-450) 05/16/18 09:21 % Saturation 16 % (20-55) L 05/16/18 09:21 Ferritin 694.0 ng/Ml (11.1-264.0) H 05/16/18 09:21 Total Bilirubin 0.4 mg/dl (0.2-1.3) 05/14/18 17:40 AST 32 U/L (14-36) 05/14/18 17:40 ALT 25 U/L (9-52) 05/14/18 17:40 Alkaline Phosphatase 97 U/L (38-126) 05/14/18 17:40 Troponin I < 0.0120 ng/mL (0.00-0.120) 05/15/18 10:28 NT-Pro-B Natriuret Pep 9460 pg/ml (0-900) H 05/14/18 17:40 Total Protein 6.5 G/DL (6.3-8.2) 05/14/18 17:40 Albumin 3.1 g/dL (3.5-5.0) L 05/14/18 17:40 Globulin 3.4 gm/dL (2.2-3.9) 05/14/18 17:40 Albumin/Globulin Ratio 0.9 (1.0-2.1) L 05/14/18 17:40 Vitamin B12 614 pg/mL (239-931) 05/16/18 09:21 Folate 9.6 ng/mL 05/16/18 09:21 Stool Occult Blood Negative (NEGATIVE) 05/15/18 08:14 Hep Bs Antigen Negative (NEGATIVE) 05/15/18 13:51 Hep Bs Antibody Positive (NEGATIVE) 05/15/18 15:41 Hep B Core IgM Ab Negative (NEGATIVE) 05/15/18 13:51 Blood Type O POSITIVE 05/14/18 18:40 Antibody Screen Negative 05/14/18 18:40 Crossmatch See Detail 05/14/18 18:40 BBK History Checked Patient has bt 05/14/18 18:40 - Date & Time of H&P Date of H&P: 05/15/18 Discharge Exam - Head Exam Head Exam: NORMAL INSPECTION Discharge Plan - Discharge Medications Prescriptions: Vitamin B Complex/Vit C/Folic [Nephro-Nelson] 1 tab PO DAILY #30 tab Sevelamer Carbonate [Renvela] 800 mg PO TID #90 tab - Follow Up Plan Condition: FAIR Disposition: HOME/ ROUTINE Instructions: Anemia of Chronic Disease (DC) Additional Instructions: follow up with in 1 week continue [id number] follow up with in 1 week Referrals: Sravan Ace MD [Family Provider] -
--- NOTE | 2018-05-18 13:59 | PQF ---
PROVIDER RESPONSE TEXT: Provider was unable to determine a response for this query. REVIEWER QUERY TEXT: Asthma Specificity and Type Asthma is documented in the Medical Record. Please specify the type and severity of asthma and indic ate if this is associated with exacerbation or status asthmaticus. Such as: -- Mild intermittent -- Mild persistent -- Moderate persistent -- Severe persistent -- Exercise induced bronchospasm -- Cough variant asthma -- Other, please specify The patient's Clinical Indicators include: Admitted with chest pain and SOB. Noted to be anemic. Documentation of a history of Asthma status: Chronic. Medication: Spiriva Query created by: Collette Hays on 05/16/2018 9:37 AM Electronically signed by: Sravan Ace MD 05/18/2018 1:56 PM
--- NOTE | 2018-05-18 13:59 | PQF ---
PROVIDER RESPONSE TEXT: Chest pain non cardiac in origin REVIEWER QUERY TEXT: Symptom Underlying Cause Please clarify the etiology of the Chest Pain if known. Please document the underlying diagnosis causing the patient?s documented symptom(s) or whether those are insignificant or unable to be further specified. The patient's Clinical Indicators include: Query created by: Collette Hays on 05/16/2018 9:32 AM Electronically signed by: Sravan Ace MD 05/18/2018 1:56 PM
--- NOTE | 2018-05-18 13:59 | PQF ---
PROVIDER RESPONSE TEXT: Hyponatremia REVIEWER QUERY TEXT: Clarification of Clinical Diagnostic Findings Na level 126. Would you please clarify if there is an associated diagnosis or not to go along with th e Na level. Please clarify documentation or clinical relevance for the clinical / diagnostic findings or whether those are insignificant or unable to be further specified. The patient's Clinical Indicators include: Query created by: Collette Hays on 05/16/2018 9:34 AM Electronically signed by: Sravan Ace MD 05/18/2018 1:56 PM
== END 2018-05-16 16:00 | disposition home or self-care (01) | DRG 682 ==
LOC: H.ER 16:30 → H.ERHOLD 18:13 → H.TEL 22:22
PROVIDERS: ADMIT Internal Medicine Pulmonary Disease; ATTEND Internal Medicine Pulmonary Disease
PROC: 5A1D70Z Performance of Urinary Filtration, Intermittent, Less than 6 Hours Per Day (ICD-10-PCS; principal; 2018-05-15)
PROC: 30233N1 Transfusion of Nonautologous Red Blood Cells into Peripheral Vein, Percutaneous Approach (ICD-10-PCS; 2018-05-15)
DX: I12.0 Hypertensive chronic kidney disease with stage 5 chronic kidney disease or end stage renal disease (principal); N18.6 End stage renal disease; E87.1 Hypo-osmolality and hyponatremia; Z94.0 Kidney transplant status; D63.1 Anemia in chronic kidney disease; R07.89 Other chest pain; E11.22 Type 2 diabetes mellitus with diabetic chronic kidney disease; J45.909 Unspecified asthma, uncomplicated; F32.9 Major depressive disorder, single episode, unspecified; F20.9 Schizophrenia, unspecified; F41.9 Anxiety disorder, unspecified; Z99.2 Dependence on renal dialysis; Z90.49 Acquired absence of other specified parts of digestive tract; Z79.84 Long term (current) use of oral hypoglycemic drugs; Z79.899 Other long term (current) drug therapy; Z91.041 Radiographic dye allergy status

== ENCOUNTER 2018-06-10 21:28 | Inpatient (IN) | payer MEDICARE, OTHER ==
[2018-06-10] MEDS ORDERED: Promethazine DM 12.5 mg-30 mg/10 ml Syrup PO STA (22:30)
--- NOTE | 2018-06-10 22:57 | ED PDOC ---
HPI: SOB/CHF/COPD Time Seen by Provider: 06/10/18 22:04 Chief Complaint (Nursing): Shortness Of Breath Chief Complaint (Provider): Shortness Of Breath History Per: Patient History/Exam Limitations: no limitations Onset/Duration Of Symptoms: Days Current Symptoms Are (Timing): Still Present Associated Symptoms: Ankle/Leg Swelling Additional History Per: Family (Sister) Additional Complaint(s): 52 y/o female with prior history of end stage renal disease (on dialysis T--S for 3.5 hrs), diabetes, and schizophrenia, brought in by sister for progressively worsening SOB over the last week. Sister states legs have become increasingly more swollen, associated with worsened SOB, increased lethargy, and increased difficulty breathing. Patient states she has a dry cough and congestion as well. Otherwise she denies fevers, chest pain, recent illness, or recent missed dialysis. Reports compliance with all medications. PMD: Sravan Ace Nephbc: Dr. Phillip Malone Past Medical History Reviewed: Historical Data, Nursing Documentation, Vital Signs Vital Signs: Last Vital Signs Temp 99.5 F 06/10/18 21:49 Pulse 94 H 06/10/18 21:49 Resp 14 06/10/18 21:49 BP 193/73 H 06/10/18 21:49 Pulse Ox 98 06/10/18 21:49 - Medical History PMH: Anemia, Anxiety, Asthma, Depression, Diabetes, Gall Bladder Disease (gallbladder stones), HTN, End Stage Renal Disease (on dialysis T--S), Schizophrenia Denies: HIV - Surgical History Surgical History: Cholecystectomy - Family History Family History: States: Unknown Family Hx - Home Medications Home Medications: Ambulatory Orders Medication Instructions Recorded RX: Atorvastatin [Lipitor] 10 mg PO DAILY 12/25/17 RX: Benztropine [Cogentin] 1 mg PO Q12 12/25/17 RX: Escitalopram Oxalate [Lexapro] 5 mg PO DAILY 12/25/17 RX: Glimepiride [amaRYL] 4 mg PO BID 12/25/17 RX: Insulin Aspart Prot/Insuln Asp 10 unit SC BID 12/25/17 [Novolog Mix 70-30 Vial] RX: Insulin Glargine, Recombina 10 unit SC HS 12/25/17 [Lantus] RX: Sodium Bicarbonate Tab 3 tab PO TID 12/25/17 RX: risperiDONE [RisperDAL Tab] 2 mg PO Q12 12/25/17 RX: Carvedilol [Coreg] 12.5 mg PO Q12 04/06/18 RX: amLODIPine [Norvasc] 10 mg PO DAILY 04/06/18 RX: Sevelamer Carbonate [Renvela] 800 mg PO TID #90 tab 05/16/18 RX: Vitamin B Complex/Vit C/Folic 1 tab PO DAILY #30 tab 05/16/18 [Nephro-Nelson] Sucroferric Oxyhydroxide [Velphoro] 1 tab PO [facility] 06/11/18 - Allergies Allergies/Adverse Reactions: Allergies Allergy/AdvReac Type Severity Reaction Status Date / Time iodine Allergy URTICARIA Verified 06/11/18 04:32 Review of Systems ROS Statement: Except As Marked, All Systems Reviewed And Found Negative Constitutional: Negative for: Fever, Chills ENT: Positive for: Nose Congestion Cardiovascular: Negative for: Chest Pain Respiratory: Positive for: Cough, Shortness of Breath. Negative for: Sputum Gastrointestinal: Negative for: Vomiting, Diarrhea Musculoskeletal: Positive for: Other (Worsened leg swelling) Neurological: Positive for: Other (Lethargy). Negative for: Headache Physical Exam - Reviewed Nursing Documentation Reviewed: Yes Vital Signs Reviewed: Yes - Physical Exam Appears: Positive for: Non-toxic (but patient appears chronically ill and pale) Head Exam: Positive for: ATRAUMATIC, NORMOCEPHALIC Skin: Positive for: Dry, Pallor Eye Exam: Positive for: Normal appearance, EOMI, PERRL Neck: Positive for: Normal, Painless ROM Cardiovascular/Chest: Positive for: Regular Rate, Rhythm. Negative for: Murmur Respiratory: Positive for: Crackles (to mid-lung bilaterally). Negative for: Rhonchi, Wheezing Gastrointestinal/Abdominal: Positive for: Soft. Negative for: Tenderness, Distended Extremity: Positive for: Normal ROM, Swelling (3+ pitting edema to legs bilaterally). Negative for: Calf Tenderness Neurologic/Psych: Positive for: Alert, Oriented - Laboratory Results Result Diagrams: 06/10/18 23:09 06/10/18 23:09 - ECG O2 Sat by Pulse Oximetry: 98 (RA) Pulse Ox Interpretation: Normal - Critical Care Total Time (In Min): 60 Documented Critical Care: Time excludes all time spent performint seperately billable procedures Medical Decision Making Medical Decision Making: A/P: 52 y/o female with prior history of end stage renal disease (on dialysis T-Th-S for 3.5 hrs), diabetes, and schizophrenia, presenting with worsening SOB Patient is uncomfortable appearing, however no respiratory distress at this time concern for fluid overload given exam findings and history. Initial Plan: * EKG * VBG * CMP * Pro-BNP * Troponin I * CBC * PTT/PT * Chest x-ray * Urinalysis * Flu swab * Promethazine DM 10ml PO * Reassess and dispo 0000 Patient very anxious, screaming at staff. Ativan PO ordered. 0100 Patient calm, vitals normal 0200 Patient took oxygen off despite repeated attempts to keep mask on her, patient then desaturated. BIPAP ordered, nitro drip, lasix. Will place in ICU. Scribe Attestation: Documented by Lidya Baird, acting as a scribe for Dr. Jorge Luis Shelby MD. Provider Scribe Attestation: All medical record entries made by the Scribe were at my direction and personally dictated by me. I have reviewed the chart and agree that the record accurately reflects my personal performance of the history, physical exam, medical decision making, and the department course for this patient. I have also personally directed, reviewed, and agree with the discharge instructions and disposition. Disposition - Clinical Impression Clinical Impression: Acute pulmonary edema, ESRD (end stage renal disease) - Patient ED Disposition Is Patient to be Admitted: Yes - Disposition Disposition Time: 02:00 Condition: SERIOUS
[2018-06-10 23:13] LABS: BASO % 0.5 % (0.0-2.0); EOS # 0.4 K/uL (0.0-0.7); EOS % 3.9 % (0.0-4.0); HEMOGLOBIN 8.1 g/dL (12.0-16.0); LYMPH # 1.4 K/uL (1.0-4.3); LYMPH % 15.7 % (20.0-40.0); MEAN CELL VOLUME 88.5 fl (81.0-99.0); MEAN CORPUSCULAR HEMOGLOBIN 29.9 pg (27.0-31.0); MEAN CORPUSCULAR HGB CONC 33.8 g/dL (33.0-37.0); MEAN PLATELET VOLUME 6.4 fl (7.2-11.7); MONO # 0.7 K/uL (0.0-0.8); MONO % 7.9 % (0.0-10.0); NEUT # 6.6 K/uL (1.8-7.0); NRBC % 0.1 % (0.0-0.0); RBC 2.7 Mil/uL (3.80-5.20); RED CELL DISTRIBUTION WIDTH 16.7 % (11.5-14.5); WHITE BLOOD COUNT 9.2 K/uL (4.8-10.8)
[2018-06-10 23:17] LABS: INR 1.2
[2018-06-10 23:19] LABS: PARTIAL THROMBOPLASTIN TIME 46.4 Seconds (25.6-37.1)
[2018-06-10 23:34] LABS: TROPONIN I 0.015 ng/mL (0.00-0.120)
[2018-06-10 23:59] LABS: SQUAMOUS EPITHIAL 2 /hpf (0-5); URINE BILIRUBIN NEGATIVE (NEGATIVE); URINE BLOOD NEGATIVE (NEGATIVE); URINE CLARITY SLIGHTY-CLOUDY (Clear); URINE COLOR YELLOW (YELLOW); URINE GLUCOSE (UA) 150 mg/dL (Normal); URINE LEUKOCYTE ESTERASE NEG Leu/uL (Negative); URINE PROTEIN >=500 mg/dL (NEGATIVE); URINE UROBILINOGEN 0.2-1.0 mg/dL (0.2-1.0)
[2018-06-11 00:11] LABS: ALB/GLOB RATIO 0.9 (1.0-2.1); ALBUMIN 3.2 g/dL (3.5-5.0); CALCIUM 8.7 mg/dL (8.4-10.2)
[2018-06-11] MEDS ORDERED: Nitroglycerin 50mg in D5W 50 MG/250 ML BOTTLE IV ONE ×3 (02:13→02:25)
[2018-06-11 02:38] LABS: ABG ALLEN TEST YES; ARTERIAL BLOOD GAS HCO3 26.5 mmol/L (21-28); ARTERIAL BLOOD GAS O2 SAT 100.7 % (95-98); ARTERIAL BLOOD GAS PCO2 47 mm/Hg (35-45); ARTERIAL BLOOD GAS PH 7.38 (7.35-7.45); ARTERIAL BLOOD GAS PO2 171 mm/Hg (80-100); ARTERIAL BLOOD GAS TCO2 29.2 mmol/L (22-28)
[2018-06-11] MEDS ORDERED: Glucagon Recombinant 1 mg Inj IM PRN (03:14)
[2018-06-11] MEDS ORDERED: Dextrose 50% SYRINGE Inj (50 ml) IV PRN (03:14)
--- NOTE | 2018-06-11 03:22 | CP.PCM.HP ---
History of Present Illness - History of Present Illness History of Present Illness: PMD: Dr Ace Neurologist: Dr petty Chief complaint: Shortness of Breath The patient was seen and examined in the ED HPI: The hx was obtained from the ED physician and after review of the medical records as the patient is in severe respiratory distress. This is a 52 years old female with hx of asthma, Anemia, DM II, Renal Transplant and End Stage Renal Disease on Hemodialysis Monday, and Monday. She comes with worsening SOB over the past week with lethargy and swelling of the lower extremities. No fever, chest pains, vomits nor missing of Hemodialysis. PMH: Anemia, Asthma; Anxiety and Depression; DM II; Cholelithiasis; , HTN, ESRD (on dialysis ), Schizophrenia; PSH: Renal transplant 6years ago; AVF at right upper arm; Dialysis catheter at Right Subclavian; Cholecystectomy SH: Never Smoked; No Alcohol use; No illegal drug use; Live with family FH: States: Unknown Family Hx allergies: Iodine Medication: Reviewed Present on Admission - Present on Admission Any Indicators Present on Admission: Yes History of DVT/PE: No History of Uncontrolled Diabetes: Yes Urinary Catheter: No Decubitus Ulcer Present: No Review of Systems - Review of Systems Systems not reviewed;Unavailable: Respiratory Distress Review of Systems: Review of systems limited because of Severe Respiratory distress. Past Patient History - Infectious Disease Hx of Infectious Diseases: None - Past Medical History & Family History Past Medical History?: Yes - Past Social History Smoking Status: Never Smoked Chewing Tobacco Use: No Cigar Use: No Alcohol: None Drugs: Denies Home Situation {Lives}: With Family - CARDIAC Hx Hypertension: Yes - PULMONARY Hx Asthma: Yes - NEUROLOGICAL Hx Neurological Disorder: No - HEENT Hx HEENT Problems: No - RENAL Hx Dialysis: Yes (TTS) Date of Last Dialysis Treatment: 05/12/18 Hx Renal Failure: Yes - ENDOCRINE/METABOLIC Hx Endocrine Disorders: Yes Hx Diabetes Mellitus Type 2: Yes - HEMATOLOGICAL/ONCOLOGICAL Hx Anemia: Yes Hx Human Immunodeficiency Virus (HIV): No - INTEGUMENTARY Hx Dermatological Problems: No - MUSCULOSKELETAL/RHEUMATOLOGICAL Hx Falls: No - GASTROINTESTINAL Hx Gall Bladder Disease: Yes (gallbladder stones) - GENITOURINARY/GYNECOLOGICAL Hx Genitourinary Disorders: No - PSYCHIATRIC Hx Anxiety: Yes Hx Depression: Yes Hx Schizophrenia: Yes - SURGICAL HISTORY Hx Arteriovenous Shunt: Yes (Right upper arm) Hx Cholecystectomy: Yes Hx Kidney Transplant: Yes - ANESTHESIA Hx Anesthesia: Yes Hx Anesthesia Reactions: No Hx Malignant Hyperthermia: No Meds Allergies/Adverse Reactions: Allergies Allergy/AdvReac Type Severity Reaction Status Date / Time iodine Allergy URTICARIA Verified 06/10/18 21:51 Physical Exam - Constitutional Appears: In Acute Distress - Head Exam Head Exam: ATRAUMATIC, NORMAL INSPECTION, NORMOCEPHALIC - Eye Exam Eye Exam: EOMI, Normal appearance Pupil Exam: NORMAL ACCOMODATION, PERRL - ENT Exam ENT Exam: Mucous Membranes Moist, Normal External Ear Exam - Neck Exam Neck exam: Positive for: Full Rom, Normal Inspection. Negative for: Lymphad enopathy, Tenderness - Respiratory Exam Additional comments: Rales at both lung bird 1/2 up, Ronchi present but no wheezes. - Cardiovascular Exam Cardiovascular Exam: REGULAR RHYTHM, RRR, +S1, +S2 - GI/Abdominal Exam GI & Abdominal Exam: Normal Bowel Sounds, Soft. absent: Mass, Organomegaly, Tenderness - Rectal Exam Rectal Exam: Deferred - Extremities Exam Additional comments: 1+ edema at both lower extremities. - Back Exam Back exam: NORMAL INSPECTION. absent: CVA tenderness (L), CVA tenderness (R) - Neurological Exam Additional comments: Lethargic, no facial froop, moving the upper and lower extremities, DTR conserved. - Psychiatric Exam Psychiatric exam: Flat Affect - Skin Skin Exam: Cyanosis, Dry, Normal Color, Warm Results - Vital Signs Recent Vital Signs: Last Vital Signs Temp 99.5 F 06/10/18 21:49 Pulse 99 H 06/11/18 03:08 Resp 30 H 06/11/18 03:08 BP 186/100 H 06/11/18 03:08 Pulse Ox 99 06/11/18 03:08 - Labs Result Diagrams: 06/10/18 23:09 06/10/18 23:09 Labs: Laboratory Results - last 24 hr 06/10/18 06/10/18 06/10/18 23:09 23:09 23:09 WBC 9.2 RBC 2.70 L Hgb 8.1 L Hct 23.9 L MCV 88.5 D MCH 29.9 MCHC 33.8 RDW 16.7 H Plt Count 189 MPV 6.4 L Neut % (Auto) 72.0 Lymph % (Auto) 15.7 L [place] % (Auto) 7.9 Eos % (Auto) 3.9 Baso % (Auto) 0.5 Neut # (Auto) 6.6 Lymph # (Auto) 1.4 [place] # (Auto) 0.7 Eos # (Auto) 0.4 Baso # (Auto) 0.0 PT INR APTT pCO2 pO2 HCO3 ABG pH ABG Total CO2 ABG O2 Saturation ABG Base Excess Pravin Test ABG Potassium A-a O2 Difference Glucose Lactate Vent Mode Mechanical Rate FiO2 Inspiratory BiPAP Expiratory BiPAP Sodium 131 L Potassium 5.0 Chloride 93 L Carbon Dioxide 29 Anion Gap 14 BUN 41 H Creatinine 6.5 H Est GFR ( Amer) 8 Est GFR (Non-Af Amer) 7 Random Glucose 85 Calcium 8.7 Total Bilirubin 0.5 AST 47 H D ALT 30 Alkaline Phosphatase 81 Troponin I 0.0150 NT-Pro-B Natriuret Pep 34716 H Total Protein 6.9 Albumin 3.2 L Globulin 3.6 Albumin/Globulin Ratio 0.9 L Arterial Blood Potassium Urine Color Urine Clarity Urine pH Ur Specific [place] Urine Protein Urine Glucose (UA) Urine Ketones Urine Blood Urine Nitrate Urine Bilirubin Urine Urobilinogen Ur Leukocyte Esterase Urine RBC (Auto) Urine Microscopic WBC Ur Squamous Epith Cells Influenza Typ A,B (EIA) Negative for flu a/b 06/10/18 06/10/18 06/11/18 23:09 23:49 02:28 WBC RBC Hgb Hct MCV MCH MCHC RDW Plt Count MPV Neut % (Auto) Lymph % (Auto) [place] % (Auto) Eos % (Auto) Baso % (Auto) Neut # (Auto) Lymph # (Auto) [place] # (Auto) Eos # (Auto) Baso # (Auto) PT 13.0 INR 1.2 APTT 46.4 H pCO2 47 H pO2 171 H HCO3 26.5 ABG pH 7.38 ABG Total CO2 29.2 H ABG O2 Saturation 100.7 H ABG Base Excess 2.0 Pravin Test Yes ABG Potassium 4.7 A-a O2 Difference 483.0 Glucose 165 H Lactate 1.0 Vent Mode Bipap Mechanical Rate 18 FiO2 100.0 Inspiratory BiPAP 14 Expiratory BiPAP 7 Sodium 128.0 L Potassium Chloride 92.0 L Carbon Dioxide Anion Gap BUN Creatinine Est GFR ( Amer) Est GFR (Non-Af Amer) Random Glucose Calcium Total Bilirubin AST ALT Alkaline Phosphatase Troponin I NT-Pro-B Natriuret Pep Total Protein Albumin Globulin Albumin/Globulin Ratio Arterial Blood Potassium 4.7 Urine Color Yellow Urine Clarity Slighty-cloudy Urine pH 8.0 Ur Specific [place] 1.011 Urine Protein >=500 Urine Glucose (UA) 150 Urine Ketones Negative Urine Blood Negative Urine Nitrate Negative Urine Bilirubin Negative Urine Urobilinogen 0.2-1.0 Ur Leukocyte Esterase Neg Urine RBC (Auto) 11 H Urine Microscopic WBC 6 H Ur Squamous Epith Cells 2 Influenza Typ A,B (EIA) - Impressions Impression: NSR with sinus arrhythmia 97/min - Imaging and Cardiology Chest x-ray Status: Image reviewed by me Additional comment: Bilateral interstitial infiltrate with Pleural effusion at the right lung base. Assessment & Plan - Assessment and Plan (Free Text) Assessment: #. Pulmonary Edema #. ESRD on HD #. Chronic Anemia #. Elevated BNP #. HTN #. DM II #. Anxiety and Depression Plan: 52 years old female with hx of asthma, Anemia, DM II, End Stage Renal Disease on Hemodialysis Monday, and Monday. She comes with worsening SOB over the past week with lethargy and swelling of the lower extremities. No fever, chest pains, vomits nor missing of Hemodialysis. #. Pulmonary Edema - Lasix - Nitroglycerine IV Drip - Emergent Dialysis Consult [employer] Dr Petty #. ESRD on HD - Emergent Hemodialysis #. Chronic Anemia - Follow HB -Transfuse when the HB is less than 7g/dl #. Elevated BNP probably secondary to combined renal failure and the pulmonary Edema - Treat pulmonary Edema and renal failure #. HTN - Carvedilol/ Norvasc - follow blood pressures #. DM II - Lantus/ - Aspart sliding scale according Accucheck - Hold Glimepiride - #. Anxiety and Depression - lexapro - Risperdal #. DVT prophylaxis with SCD nd heparin #. Code Status: Full - Date & Time Date: 06/11/18 Time: 03:22
[2018-06-11] MEDS ORDERED: Insulin Lispro (humaLOG) 100 Units/ml Inj SC SCH (04:00)
[2018-06-11 04:33] VITALS: BMI 36.3
[2018-06-11] MEDS: Albuterol-Ipratrop 3 mg / 0.5 (3 ml) UD INH SCH ×6 (04:58→23:52)
[2018-06-11] MEDS ORDERED: SUCROFERRIC OXYHYDROXIDE PO SCH (07:30)
--- NOTE | 2018-06-11 09:06 | CARD ---
APPROVED REPORT Date of service: 06/10/2018 EKG Measurement Heart [id number] <Conclusion> Normal sinus rhythm with sinus arrhythmia Normal ECG
[2018-06-11] MEDS: Multivitamin Vitamin B Complex (Nephro-Vite) Tab PO SCH (10:40)
--- NOTE | 2018-06-11 11:43 | RAD ---
Date of service: 06/10/2018 PROCEDURE: CHEST RADIOGRAPH, 1 VIEW HISTORY: SOB COMPARISON: Frontal chest radiograph 05/14/2018. FINDINGS: LUNGS: Tunneled right central venous dialysis catheter unchanged in position. Pulmonary vascular congestion is identified on a moderate basis reflecting worsening of cardiovascular equilibrium. Underlying airspace disease not excluded the medial right base with the left base also affected medially. Trace right pleural effusion is not excluded with none identified the left. No pneumothorax bilaterally. Cardiac size appears stable. PLEURA: As above. CARDIOVASCULAR: As above. OSSEOUS STRUCTURES: No significant abnormalities. VISUALIZED UPPER ABDOMEN: Normal. OTHER FINDINGS: None. IMPRESSION: Moderate pulmonary vascular congestion now evident reflecting interval decompensation. Medial basilar atelectasis or infiltrate is seen greater the right than left side with trace right pleural effusion questioned.
[2018-06-11] MEDS: Insulin Lispro (humaLOG) 100 Units/ml Inj SC SCH ×3 (12:17→21:23)
--- NOTE | 2018-06-11 14:03 | CP.PCM.CON ---
History of Present Illness - History of Present Illness History of Present Illness: REASONS FOR CONSULT : ESRD ON HD T PULMONARY EDEMA .. FLIUD OVERLOAD ANEMIA OF CKD .. R/O OTHER ETIOLOGIES PT WAS SEEN AND EXAMINED .. LABS REVIEWED PT WAS SEEN RIGHT NOW ON HD Chief complaint: Shortness of Breath The patient was seen and examined in the ED HPI: The hx was obtained from the ED physician and after review of the medical records as the patient is in severe respiratory distress. This is a 52 years old female with hx of asthma, Anemia, DM II, Renal Transplant and End Stage Renal Disease on Hemodialysis Monday, and Monday. She comes with worsening SOB over the past week with lethargy and swelling of the lower extremities. No fever, chest pains, vomits nor missing of Hemodialysis. PMH: Anemia, Asthma; Anxiety and Depression; DM II; Cholelithiasis; , HTN, ESRD (on dialysis -), Schizophrenia; PSH: Renal transplant 6years ago; AVF at right upper arm; Dialysis catheter at Right Subclavian; Cholecystectomy SH: Never Smoked; No Alcohol use; No illegal drug use; Live with family FH: States: Unknown Family Hx allergies: Iodine Medication: Reviewed Present on Admission - Present on Admission Any Indicators Present on Admission: Yes History of DVT/PE: No History of Uncontrolled Diabetes: Yes Urinary Catheter: No Decubitus Ulcer Present: No Review of Systems - Review of Systems Systems not reviewed;Unavailable: Respiratory Distress Review of Systems: Review of systems limited because of Severe Respiratory distress. Past Patient History - Infectious Disease Hx of Infectious Diseases: None - Past Medical History & Family History Past Medical History?: Yes - Past Social History Smoking Status: Never Smoked Chewing Tobacco Use: No Cigar Use: No Alcohol: None Drugs: Denies Home Situation {Lives}: With Family - CARDIAC Hx Hypertension: Yes - PULMONARY Hx Asthma: Yes - NEUROLOGICAL Hx Neurological Disorder: No - HEENT Hx HEENT Problems: No - RENAL Hx Dialysis: Yes (TTS) Date of Last Dialysis Treatment: 05/12/18 Hx Renal Failure: Yes - ENDOCRINE/METABOLIC Hx Endocrine Disorders: Yes Hx Diabetes Mellitus Type 2: Yes - HEMATOLOGICAL/ONCOLOGICAL Hx Anemia: Yes Hx Human Immunodeficiency Virus (HIV): No - INTEGUMENTARY Hx Dermatological Problems: No - MUSCULOSKELETAL/RHEUMATOLOGICAL Hx Falls: No - GASTROINTESTINAL Hx Gall Bladder Disease: Yes (gallbladder stones) - GENITOURINARY/GYNECOLOGICAL Hx Genitourinary Disorders: No - PSYCHIATRIC Hx Anxiety: Yes Hx Depression: Yes Hx Schizophrenia: Yes - SURGICAL HISTORY Hx Arteriovenous Shunt: Yes (Right upper arm) Hx Cholecystectomy: Yes Hx Kidney Transplant: Yes Past Patient History - Infectious Disease Hx of Infectious Diseases: None - Past Medical History & Family History Past Medical History?: Yes - Past Social History Smoking Status: Unknown If Ever Smoked - CARDIAC Hx Hypertension: Yes - PULMONARY Hx Asthma: Yes - NEUROLOGICAL Hx Neurological Disorder: No - HEENT Hx HEENT Problems: No - RENAL Hx Dialysis: Yes (TTS) Date of Last Dialysis Treatment: 06/09/18 Hx Renal Failure: Yes - ENDOCRINE/METABOLIC Hx Endocrine Disorders: Yes Hx Diabetes Mellitus Type 2: Yes - HEMATOLOGICAL/ONCOLOGICAL Hx Anemia: Yes Hx Human Immunodeficiency Virus (HIV): No - INTEGUMENTARY Hx Dermatological Problems: No - MUSCULOSKELETAL/RHEUMATOLOGICAL Hx Musculoskeletal Disorders: No Hx Falls: (unknown) - GASTROINTESTINAL Hx Gall Bladder Disease: Yes (gallbladder stones) - GENITOURINARY/GYNECOLOGICAL Hx Genitourinary Disorders: No - PSYCHIATRIC Hx Anxiety: Yes Hx Depression: Yes Hx Schizophrenia: Yes - SURGICAL HISTORY Hx Cholecystectomy: Yes - ANESTHESIA Hx Anesthesia: Yes Hx Anesthesia Reactions: No Hx Malignant Hyperthermia: No Meds Allergies/Adverse Reactions: Allergies Allergy/AdvReac Type Severity Reaction Status Date / Time iodine Allergy URTICARIA Verified 06/11/18 04:32 - Medications Medications: Current Medications Albuterol/Ipratropium (Duoneb 3 Mg/0.5 Mg (3 Ml) Ud) 3 ml INH RQ4 ON [facility] Last Admin: 06/11/18 11:38 Dose: 3 ml Amlodipine Besylate (Norvasc) 10 mg PO DAILY ON [facility] Last Admin: 06/11/18 10:53 Dose: 10 mg Atorvastatin Calcium (Lipitor) 10 mg PO DAILY ON [facility] Last Admin: 06/11/18 10:55 Dose: 10 mg Benztropine Mesylate (Cogentin) 1 mg PO Q12 ON [facility] Last Admin: 06/11/18 10:40 Dose: 1 mg Budesonide (Pulmicort Respules) 0.25 mg INH RBID ON LICENSE OF [facility] Carvedilol (Coreg) 12.5 mg PO Q12 ON [facility] Last Admin: 06/11/18 10:48 Dose: 12.5 mg Dextrose (Dextrose 50% Inj) 0 ml IV STAT PRN; Protocol PRN Reason: Hypoglycemia Protocol Escitalopram Oxalate (Lexapro) 5 mg PO DAILY ON [facility] Last Admin: 06/11/18 10:47 Dose: 5 mg Glucagon (Glucagen Diagnostic Kit) 0 mg IM STAT PRN; Protocol PRN Reason: Hypoglycemia Protocol Heparin Sodium (Porcine) (Heparin) 5,000 units SC Q8 ON [facility]; Protocol Last Admin: 06/11/18 10:43 Dose: 5,000 units Home Med (Sucroferric Oxyhydroxide [Velphoro]) 1 tab PO [facility] ON LICENSE OF [facility] Nitroglycerin/Dextrose (Nitroglycerin 50 Mg/250 Ml D5w) 50 mg in 250 mls @ 1.5 mls/hr IV .Q24H ONE; Protocol Stop: 06/12/18 02:15 Last Titration: 06/11/18 05:30 Dose: 15 mcg/min, 4.5 mls/hr Insulin Detemir (Levemir) 10 units SC HS ON [facility] Insulin Human Lispro (Humalog) 0 units SC ACHS ON [facility]; Protocol Last Admin: 06/11/18 12:17 Dose: Not Given Risperidone (Risperdal Tab) 2 mg PO Q12 ON [facility] Last Admin: 06/11/18 10:47 Dose: 2 mg Sevelamer Carbonate (Renvela) 800 mg PO TID ON [facility] Last Admin: 06/11/18 10:46 Dose: 800 mg Sodium Bicarbonate (Sodium Bicarbonate Tab) 1,950 mg PO TID ON [facility] Last Admin: 06/11/18 10:45 Dose: 1,950 mg Vitamin B Complex/Vit C/Folic Acid (Nephro-Nelson) 1 tab PO DAILY ON [facility] Last Admin: 06/11/18 10:40 Dose: 1 tab Results - Vital Signs Recent Vital Signs: Last Vital Signs Temp 97.6 F 06/11/18 12:00 Pulse 92 H 06/11/18 12:00 Resp 24 06/11/18 12:00 BP 168/99 H 06/11/18 12:00 Pulse Ox 100 06/11/18 12:00 - Labs Result Diagrams: 06/10/18 23:09 06/10/18 23:09 Labs: Laboratory Results - last 24 hr 06/10/18 06/10/18 06/10/18 23:09 23:09 23:09 WBC 9.2 RBC 2.70 L Hgb 8.1 L Hct 23.9 L MCV 88.5 D MCH 29.9 MCHC 33.8 RDW 16.7 H Plt Count 189 MPV 6.4 L Neut % (Auto) 72.0 Lymph % (Auto) 15.7 L Towns % (Auto) 7.9 Eos % (Auto) 3.9 Baso % (Auto) 0.5 Neut # (Auto) 6.6 Lymph # (Auto) 1.4 Towns # (Auto) 0.7 Eos # (Auto) 0.4 Baso # (Auto) 0.0 PT INR APTT pCO2 pO2 HCO3 ABG pH ABG Total CO2 ABG O2 Saturation ABG Base Excess Pravin Test ABG Potassium A-a O2 Difference Glucose Lactate Vent Mode Mechanical Rate FiO2 Inspiratory BiPAP Expiratory BiPAP Sodium 131 L Potassium 5.0 Chloride 93 L Carbon Dioxide 29 Anion Gap 14 BUN 41 H Creatinine 6.5 H Est GFR ( Amer) 8 Est GFR (Non-Af Amer) 7 POC Glucose (mg/dL) Random Glucose 85 Calcium 8.7 Total Bilirubin 0.5 AST 47 H D ALT 30 Alkaline Phosphatase 81 Troponin I 0.0150 NT-Pro-B Natriuret Pep 07833 H Total Protein 6.9 Albumin 3.2 L Globulin 3.6 Albumin/Globulin Ratio 0.9 L Arterial Blood Potassium Urine Color Urine Clarity Urine pH Ur Specific [place] Urine Protein Urine Glucose (UA) Urine Ketones Urine Blood Urine Nitrate Urine Bilirubin Urine Urobilinogen Ur Leukocyte Esterase Urine RBC (Auto) Urine Microscopic WBC Ur Squamous Epith Cells Influenza Typ A,B (EIA) Negative for flu a/b 06/10/18 06/10/18 06/11/18 23:09 23:49 02:28 WBC RBC Hgb Hct MCV MCH MCHC RDW Plt Count MPV Neut % (Auto) Lymph % (Auto) Towns % (Auto) Eos % (Auto) Baso % (Auto) Neut # (Auto) Lymph # (Auto) [place]s # (Auto) Eos # (Auto) Baso # (Auto) PT 13.0 INR 1.2 APTT 46.4 H pCO2 47 H pO2 171 H HCO3 26.5 ABG pH 7.38 ABG Total CO2 29.2 H ABG O2 Saturation 100.7 H ABG Base Excess 2.0 Pravin Test Yes ABG Potassium 4.7 A-a O2 Difference 483.0 Glucose 165 H Lactate 1.0 Vent Mode Bipap Mechanical Rate 18 FiO2 100.0 Inspiratory BiPAP 14 Expiratory BiPAP 7 Sodium 128.0 L Potassium Chloride 92.0 L Carbon Dioxide Anion Gap BUN Creatinine Est GFR ( Amer) Est GFR (Non-Af Amer) POC Glucose (mg/dL) Random Glucose Calcium Total Bilirubin AST ALT Alkaline Phosphatase Troponin I NT-Pro-B Natriuret Pep Total Protein Albumin Globulin Albumin/Globulin Ratio Arterial Blood Potassium 4.7 Urine Color Yellow Urine Clarity Slighty-cloudy Urine pH 8.0 Ur Specific [place] 1.011 Urine Protein >=500 Urine Glucose (UA) 150 Urine Ketones Negative Urine Blood Negative Urine Nitrate Negative Urine Bilirubin Negative Urine Urobilinogen 0.2-1.0 Ur Leukocyte Esterase Neg Urine RBC (Auto) 11 H Urine Microscopic WBC 6 H Ur Squamous Epith Cells 2 Influenza Typ A,B (EIA) 06/11/18 03:27 WBC RBC Hgb Hct MCV MCH MCHC RDW Plt Count MPV Neut % (Auto) Lymph % (Auto) Towns % (Auto) Eos % (Auto) Baso % (Auto) Neut # (Auto) Lymph # (Auto) Towns # (Auto) Eos # (Auto) Baso # (Auto) PT INR APTT pCO2 pO2 HCO3 ABG pH ABG Total CO2 ABG O2 Saturation ABG Base Excess Pravin Test ABG Potassium A-a O2 Difference Glucose Lactate Vent Mode Mechanical Rate FiO2 Inspiratory BiPAP Expiratory BiPAP Sodium Potassium Chloride Carbon Dioxide Anion Gap BUN Creatinine Est GFR ( Amer) Est GFR (Non-Af Amer) POC Glucose (mg/dL) 133 H Random Glucose Calcium Total Bilirubin AST ALT Alkaline Phosphatase Troponin I NT-Pro-B Natriuret Pep Total Protein Albumin Globulin Albumin/Globulin Ratio Arterial Blood Potassium Urine Color Urine Clarity Urine pH Ur Specific [place] Urine Protein Urine Glucose (UA) Urine Ketones Urine Blood Urine Nitrate Urine Bilirubin Urine Urobilinogen Ur Leukocyte Esterase Urine RBC (Auto) Urine Microscopic WBC Ur Squamous Epith Cells Influenza Typ A,B (EIA) Assessment & Plan - Assessment and Plan (Free Text) Assessment: ESRD ON HD T T S .. GETTING HD NOW ANEMIA OF CKD .. START EPO .. CHECK ANEMIA W/U P. EDEMA .. GWTTING HD ACUNA NOW MMP P : HD ACUNA NOW .. UF 4 L CORONA PT WAS INSTRUCTED ABOUT SALT AND FLIUD RESTRICTION HD ORDERS WRITTEN CONSENT FOR HD OBTAINED WILL D/C HD CATH .. WE R USING THE AVF C/O CURRENT MEDS - Date & Time Date: 06/11/18 Time: 14:04
--- NOTE | 2018-06-11 16:52 | PN ---
DATE: 06/11/2018 CRITICAL CARE PROGRESS NOTE LOCATION: The patient is in ICU, bed 423. TIME SPENT: 35 minutes. The patient is seen and evaluated at the bedside. PAST MEDICAL, SURGICAL, FAMILY, AND SOCIAL HISTORY: Reviewed. Case was discussed in multidisciplinary ICU rounds this morning. HISTORY OF PRESENT ILLNESS: A 52-year-old female nonsmoker and non-EtOH user. No recreational drug abuse with past medical history significant for asthma, anemia secondary to end-stage renal disease, status post failed renal transplant six years ago, now on hemodialysis Monday, , and Monday. Last dialysis was last Monday admitted through emergency room today when she presented complaining of shortness of breath associated with high blood pressure. In ER, the patient was noted to have vital signs, temperature 97.7, respiratory rate 25, blood pressure 174/98 with main arterial pressure of 123, as she was noted to be in our respiratory distress placed on BiPAP rate 20, IPAP of 14, EPAP 7, FiO2 100% with oxygen saturation more than 94% admitted to ICU, waiting for emergent dialysis was treated. ER with furosemide 60 mg x1, 40 mg x1, Ativan 1 mg p.o. and nitroglycerin drip and Phenergan DM syrup. This morning, the patient remains alert, awake, but become flat and affect, [id number] shortness of breath. Denies chest pain or palpitation. No abdominal discomfort, denies some diarrhea as usual make some urine and no dysuria. PHYSICAL EXAMINATION: VITAL SIGNS: Temperature 97.7, heart rate 87, blood pressure 165/86, main arterial pressure 112, respiratory rate 20, and saturation 100%. Intake to be reported with 186 pounds. HEENT: Pupils are reactive. Conjunctiva pale. Sclera white. Neck is supple. Trachea is central. CHEST: Bilateral breath sounds. Bilateral audible wheezing. HEART: Rhythm regular. S1 and S2 normal intensity. No S3, S4 or gallop. No audible murmur. ABDOMEN: Bowel sounds are present, soft. Liver and spleen are not palpable. Bladder not distended. EXTREMITIES: Without edema. NEUROLOGIC: Nonfocal. CURRENT MEDICATIONS: Include vitamin B complex with vitamin C and folic acid and Nephro-Nelson one tablet daily, sodium bicarbonate 1950 mg 3 times daily, Renvela 800 mg 3 times daily, Risperdal 2 mg p.o. every 12, nitroglycerin drip 50 mg in 250 mL at 1.5 mL per hour, Accu-Chek with regular insulin coverage, Levemir at 10 units subcu at bedtime, heparin 5000 units subcu every 8 hours, Glucagon _1 mg IM. prn Start Lexapro 5 mg p.o. daily, Coreg 12.5 mg p.o. every 12, Cogentin 1 mg p.o. every 12, Lipitor 10 mg p.o. daily, Norvasc 10 mg p.o. daily. LABORATORY DATA: CBC: WBC 9.2, hemoglobin 8.1, hematocrit 23.9, MCV 8.5, platelet count 189. PT 13, INR 1.2, PTT 46.4. ABG; pH 7.38, pCO2 of 47, pO2 of 171. Oxygen saturation of 100.1 on FiO2 100% rate 18, IPAP 14, EPAP 7. SMA-7; sodium 131, potassium 5, chloride 93, CO2 of 29, blood urea nitrogen 41, creatinine 6.5, random glucose 85, calcium 8.7, total bilirubin 0.5, AST 47, ALT 30, alkaline phosphatase 81, total troponin 0.0150, pro-BNP 23,100, total protein is 6, and albumin 3.2. Repeat potassium 4.7. Urinalysis: Rbc 11, wbc 6. Serology influenza A and B negative. Microbiology not reported. Chest x-ray: Right subclavian Shiley catheter in place, perihilar congestion, bibasilar atelectasis, official reading pending. Electrocardiogram: Heart rate 97, MS 122, QT involved 352, QTc 447, normal sinus rhythm with sinus arrhythmia. IMPRESSION: 1. Neurologic: Alert and awake. History of anxiety/depression. Schizophrenia. Continue on Lexapro 5 mg p.o. daily, benztropine 1 mg p.o. every 12. 2. Cardiac: History of hypertension, on amlodipine 10 mg p.o. daily. Coreg 12.5 mg p.o. every 12. No history of coronary artery disease or congestive heart failure. 3. Pulmonary: Hypoxic respiratory failure, pulmonary edema, history of asthma, nonsmoker on DuoNeb 3 mL via nebulizer every 6 hours. 4. Renal. End-stage renal disease, status post failed renal transplant 6 years ago on hemodialysis three times a week. Emergent hemodialysis scheduled this morning. Awaiting order from mid level practitioner, Dr. Malone. 5. End-stage renal disease, continue sodium bicarbonate 650 mg three tablets three times daily, oxyhydroxide one tablet p.o. Renvela 10 mg three times daily, Nephro-Nelson one tablet daily. 6. Hematology: History of anemia secondary to chronic kidney disease, last transfusion a month ago. Current hemoglobin stable. No evidence of melena. 7. Endocrine: History of diabetes mellitus on insulin glargine, Lantus 10 units at bedtime. History of bipolar disorder/anxiety on Cogentin 1 mg every 12, Risperdal 2 mg p.o. every 12. Ananth Grace MD MTDD
[2018-06-11] MEDS: Budesonide 0.25 mg/2 ml Inhal Susp UD INH SCH (19:45)
[2018-06-11] MEDS: Insulin Detemir 100 Units/ml Inj SC SCH (21:24)
[2018-06-12] MEDS: Albuterol-Ipratrop 3 mg / 0.5 (3 ml) UD INH SCH ×6 (05:03→23:25)
[2018-06-12 05:54] LABS: BASO # 0.1 K/uL (0.0-0.2); BASO % 0.7 % (0.0-2.0); EOS # 0.3 K/uL (0.0-0.7); EOS % 4.5 % (0.0-4.0); HEMOGLOBIN 7.9 g/dL (12.0-16.0); LYMPH # 1.6 K/uL (1.0-4.3); LYMPH % 20.9 % (20.0-40.0); MEAN CELL VOLUME 89.6 fl (81.0-99.0); MEAN CORPUSCULAR HEMOGLOBIN 29.9 pg (27.0-31.0); MEAN CORPUSCULAR HGB CONC 33.4 g/dL (33.0-37.0); MONO # 0.8 K/uL (0.0-0.8); MONO % 10.6 % (0.0-10.0); NEUT # 4.8 K/uL (1.8-7.0); NEUT % 63.3 % (50.0-75.0); NRBC % 0.1 % (0.0-0.0); RBC 2.65 Mil/uL (3.80-5.20); RED CELL DISTRIBUTION WIDTH 16.6 % (11.5-14.5); WHITE BLOOD COUNT 7.6 K/uL (4.8-10.8)
[2018-06-12 06:53] LABS: ALB/GLOB RATIO 0.8 (1.0-2.1); CALCIUM 8.2 mg/dL (8.4-10.2)
[2018-06-12] MEDS: Insulin Lispro (humaLOG) 100 Units/ml Inj SC SCH ×4 (07:10→21:58)
[2018-06-12] MEDS: Budesonide 0.25 mg/2 ml Inhal Susp UD INH SCH ×2 (07:19→19:05)
[2018-06-12] MEDS: Multivitamin Vitamin B Complex (Nephro-Vite) Tab PO SCH (08:41)
--- NOTE | 2018-06-12 09:49 | CP.PCM.CON ---
History of Present Illness - History of Present Illness History of Present Illness: Consultation for evaluation of CHF HPI : 52-year-old female with past medical history significant for hypertension diabetes mellitus end-stage renal disease on hemodialysis Monday and Saturdays schizophrenia renal transplant about 6 years ago presented with complains of ongoing worsening shortness of breath for a week prior to presentation acutely decompensated at time of presentation was noted to be in acute flash pulmonary edema patient underwent hemodialysis with removal of 5 L of fluid and mild improvement in her symptoms does have mild bilateral lower extremity swelling with pulmonary rales on physical examination. PMH: Anemia, Asthma; Anxiety and Depression; DM II; Cholelithiasis; , HTN, ESRD (on dialysis ), Schizophrenia; PSH: Renal transplant 6years ago; AVF at right upper arm; Dialysis catheter at Right Subclavian; Cholecystectomy SH: Never Smoked; No Alcohol use; No illegal drug use; Live with family FH: States: Unknown Family Hx allergies: Iodine Medication: Reviewed Review of Systems - Review of Systems Systems not reviewed;Unavailable: Acuity of Condition - Constitutional Constitutional: As Per HPI - EENT Eyes: As Per HPI Ears: As Per HPI Nose/Mouth/Throat: As Per HPI - Breasts Breasts: As Per HPI - Cardiovascular Cardiovascular: As Per HPI - Respiratory Respiratory: As Per HPI - Gastrointestinal Gastrointestinal: As Per HPI - Genitourinary Genitourinary: As Per HPI - Reproductive: Female Reproductive:Female: As Per HPI - Menstruation Menstruation: As Per HPI - Musculoskeletal Musculoskeletal: As Per HPI - Integumentary Integumentary: As Per HPI - Neurological Neurological: As Per HPI - Psychiatric Psychiatric: As Per HPI - Endocrine Endocrine: As Per HPI - Hematologic/Lymphatic Hematologic: As Per HPI Past Patient History - Infectious Disease Hx of Infectious Diseases: None - Past Medical History & Family History Past Medical History?: Yes - Past Social History Smoking Status: Unknown If Ever Smoked - CARDIAC Hx Hypertension: Yes - PULMONARY Hx Asthma: Yes - NEUROLOGICAL Hx Neurological Disorder: No - HEENT Hx HEENT Problems: No - RENAL Hx Dialysis: Yes (TTS) Date of Last Dialysis Treatment: 06/09/18 Hx Renal Failure: Yes - ENDOCRINE/METABOLIC Hx Endocrine Disorders: Yes Hx Diabetes Mellitus Type 2: Yes - HEMATOLOGICAL/ONCOLOGICAL Hx Anemia: Yes Hx Human Immunodeficiency Virus (HIV): No - INTEGUMENTARY Hx Dermatological Problems: No - MUSCULOSKELETAL/RHEUMATOLOGICAL Hx Musculoskeletal Disorders: No Hx Falls: (unknown) - GASTROINTESTINAL Hx Gall Bladder Disease: Yes (gallbladder stones) - GENITOURINARY/GYNECOLOGICAL Hx Genitourinary Disorders: No - PSYCHIATRIC Hx Anxiety: Yes Hx Depression: Yes Hx Schizophrenia: Yes - SURGICAL HISTORY Hx Cholecystectomy: Yes - ANESTHESIA Hx Anesthesia: Yes Hx Anesthesia Reactions: No Hx Malignant Hyperthermia: No Meds Allergies/Adverse Reactions: Allergies Allergy/AdvReac Type Severity Reaction Status Date / Time iodine Allergy URTICARIA Verified 06/11/18 04:32 - Medications Medications: Current Medications Albuterol/Ipratropium (Duoneb 3 Mg/0.5 Mg (3 Ml) Ud) 3 ml INH RQ4 [facility] Last Admin: 06/12/18 07:19 Dose: 3 ml Amlodipine Besylate (Norvasc) 10 mg PO DAILY [facility] Last Admin: 06/12/18 08:40 Dose: 10 mg Atorvastatin Calcium (Lipitor) 10 mg PO DAILY [facility] Last Admin: 06/12/18 08:39 Dose: 10 mg Benztropine Mesylate (Cogentin) 1 mg PO Q12 [facility] Last Admin: 06/12/18 08:38 Dose: 1 mg Budesonide (Pulmicort Respules) 0.25 mg INH RBID [facility] Last Admin: 06/12/18 07:19 Dose: 0.25 mg Carvedilol (Coreg) 12.5 mg PO Q12 [facility] Last Admin: 06/12/18 08:39 Dose: 12.5 mg Dextrose (Dextrose 50% Inj) 0 ml IV STAT PRN; Protocol PRN Reason: Hypoglycemia Protocol Escitalopram Oxalate (Lexapro) 5 mg PO DAILY [facility] Last Admin: 06/12/18 08:40 Dose: 5 mg Glucagon (Glucagen Diagnostic Kit) 0 mg IM STAT PRN; Protocol PRN Reason: Hypoglycemia Protocol Heparin Sodium (Porcine) (Heparin) 5,000 units SC Q8 [facility]; Protocol Last Admin: 06/12/18 08:39 Dose: 5,000 units Home Med (Sucroferric Oxyhydroxide [Velphoro]) 1 tab PO [facility] Insulin Detemir (Levemir) 10 units SC HS [facility] Last Admin: 06/11/18 21:24 Dose: 10 units Insulin Human Lispro (Humalog) 0 units SC [facility]; Protocol Last Admin: 06/12/18 07:10 Dose: Not Given Risperidone (Risperdal Tab) 2 mg PO Q12 [facility] Last Admin: 06/11/18 21:11 Dose: 2 mg Sevelamer Carbonate (Renvela) 800 mg PO TID [facility] Last Admin: 06/12/18 08:41 Dose: 800 mg Sodium Bicarbonate (Sodium Bicarbonate Tab) 1,950 mg PO TID [facility] Last Admin: 06/12/18 08:42 Dose: 1,950 mg Vitamin B Complex/Vit C/Folic Acid (Nephro-Nelson) 1 tab PO DAILY [facility] Last Admin: 06/12/18 08:41 Dose: 1 tab Physical Exam - Constitutional Appears: Well - Head Exam Head Exam: ATRAUMATIC, NORMAL INSPECTION, NORMOCEPHALIC - Eye Exam Eye Exam: EOMI, Normal appearance, PERRL Pupil Exam: NORMAL ACCOMODATION, PERRL - ENT Exam ENT Exam: Mucous Membranes Moist, Normal Exam - Neck Exam Neck exam: Positive for: Normal Inspection - Respiratory Exam Respiratory Exam: Clear to Auscultation Bilateral, NORMAL BREATHING PATTERN - Cardiovascular Exam Cardiovascular Exam: REGULAR RHYTHM - GI/Abdominal Exam GI & Abdominal Exam: Normal Bowel Sounds, Soft. absent: Tenderness - Extremities Exam Extremities exam: Positive for: normal inspection - Back Exam Back exam: NORMAL INSPECTION - Neurological Exam Neurological exam: Alert, CN II-XII Intact, Normal Gait, Oriented x3, Reflexes Normal - Psychiatric Exam Psychiatric exam: Normal Affect, Normal Mood - Skin Skin Exam: Dry, Intact, Normal Color, Warm Results - Vital Signs Recent Vital Signs: Last Vital Signs Temp 98.1 F 06/12/18 04:00 Pulse 73 06/12/18 08:40 Resp 17 06/12/18 07:19 BP 141/81 06/12/18 08:40 Pulse Ox 100 06/12/18 07:00 - Labs Result Diagrams: 06/13/18 04:45 06/13/18 04:45 Labs: Laboratory Results - last 24 hr 06/11/18 06/11/18 06/11/18 06:43 10:16 12:14 WBC RBC Hgb Hct MCV MCH MCHC RDW Plt Count MPV Neut % (Auto) Lymph % (Auto) [place] % (Auto) Eos % (Auto) Baso % (Auto) Neut # (Auto) Lymph # (Auto) [place] # (Auto) Eos # (Auto) Baso # (Auto) Sodium Potassium Chloride Carbon Dioxide Anion Gap BUN Creatinine Est GFR ( Amer) Est GFR (Non-Af Amer) POC Glucose (mg/dL) 113 H 89 104 Random Glucose Calcium Total Bilirubin AST ALT Alkaline Phosphatase Total Protein Albumin Globulin Albumin/Globulin Ratio 06/11/18 06/11/18 06/12/18 16:22 21:12 04:20 WBC 7.6 RBC 2.65 L Hgb 7.9 L Hct 23.7 L MCV 89.6 MCH 29.9 MCHC 33.4 RDW 16.6 H Plt Count 186 MPV 7.0 L Neut % (Auto) 63.3 Lymph % (Auto) 20.9 [place] % (Auto) 10.6 H Eos % (Auto) 4.5 H Baso % (Auto) 0.7 Neut # (Auto) 4.8 Lymph # (Auto) 1.6 [place] # (Auto) 0.8 Eos # (Auto) 0.3 Baso # (Auto) 0.1 Sodium Potassium Chloride Carbon Dioxide Anion Gap BUN Creatinine Est GFR ( Amer) Est GFR (Non-Af Amer) POC Glucose (mg/dL) 79 175 H Random Glucose Calcium Total Bilirubin AST ALT Alkaline Phosphatase Total Protein Albumin Globulin Albumin/Globulin Ratio 06/12/18 04:20 WBC RBC Hgb Hct MCV MCH MCHC RDW Plt Count MPV Neut % (Auto) Lymph % (Auto) [place] % (Auto) Eos % (Auto) Baso % (Auto) Neut # (Auto) Lymph # (Auto) [place] # (Auto) Eos # (Auto) Baso # (Auto) Sodium 133 Potassium 5.3 H Chloride 95 L Carbon Dioxide 29 Anion Gap 14 BUN 36 H Creatinine 5.6 H Est GFR ( Amer) 10 Est GFR (Non-Af Amer) 8 POC Glucose (mg/dL) Random Glucose 82 Calcium 8.2 L Total Bilirubin 0.4 AST 34 ALT 23 Alkaline Phosphatase 72 Total Protein 6.5 Albumin 3.0 L Globulin 3.5 Albumin/Globulin Ratio 0.8 L Assessment & Plan (1) CHF (congestive heart failure) Assessment and Plan: bedside echo reviewed normal LVEF with mild to moderate LVH with mild to mod MR etiology unclear ? diastolic ChF vs underlyling CAD cont removal of fluid with HD activataed RAAS which will need modulation Status: Acute Priority: High (2) Acute pulmonary edema Assessment and Plan: fluid removal with HD stress testing once euvolemic Status: Acute Priority: High (3) ESRD (end stage renal disease) Status: Chronic Priority: High (4) CKD (chronic kidney disease) Status: Chronic Priority: High (5) Diabetes mellitus Status: Chronic Priority: Medium (6) HTN (hypertension) Status: Deleted Priority: High (7) Schizophrenia Status: Chronic
--- NOTE | 2018-06-12 12:24 | CP.CCUPN ---
CCU Subjective - Physician Review Subjective (Free Text): 06/12/18 14:09 The patient was Seen/interviewed and examined by me at the bedside during ICU round, Medical records reviewed and Management issues were discussed and formulated with the house staff. Events reviewed 52 Years old Female with PMHx of HTN, DM type 2, asthma, anemiaand End Stage Renal Disease on Hemodialysis Monday, and Monday S/P failed Renal Transplant Who presented to the Emergency department with worsening SOB over the past week, lethargy and swelling of the lower extremities. Admitted to the ICU for respiratory distress sec to acute pulmonary edema She received IV Lasix Underdwent urgent Hemodialysis with 5L fluid removal She is doing better today, Off Nitroglycerine IV Drip Remains of High flow nasal cannula at 60 L/M, Wean FIO2 to 40% Last HD was yesterday and now she is back on scheduled HD TIW ( switched to mon/mon/Mon) No fever/Chills, No chest pains or N/vomiting. Less SOB CCU Objective - Vital Signs / Intake & Output Vital Signs (Last 4 hours): Vital Signs Pulse Resp BP Pulse Ox 06/12/18 11:31 28 H 06/12/18 10:00 78 15 148/78 97 06/12/18 08:40 73 141/81 06/12/18 08:39 72 141/81 Intake and Output (Last 8hrs): Intake & Output 06/11/18 06/12/18 06/12/18 22:59 06:59 14:59 Intake Total 0 Output Total 400 Balance 0 -400 Weight 186 lb 14.4 oz Intake: IV 0 Output: Urine 400 Urine, Voided 400 - Physical Exam Physical Exam Limitations: Positive for: Clinical Condition Head: Positive for: Atraumatic, Normocephalic Pupils: Positive for: PERRL Extroacular Muscles: Positive for: EOMI. Negative for: Gaze Palsy Conjunctiva: Positive for: Normal. Negative for: Injected, Icteric Ears: Positive for: Normal Mouth: Positive for: Moist Mucous Membranes Pharnyx: Positive for: Normal. Negative for: ERYTHEMA Nose (Internal): Positive for: Normal Inspection Neck: Positive for: Normal Range of Motion, Trachea Midline, Other (Dialysis catheter at Right Subclavian). Negative for: Meningeal Signs, MIDLINE TENDERNESS, Paraspinal Tenderness, JVD, Lymphadenopathy, Bruit Respiratory/Chest: Positive for: Decreased Breath Sounds, Rales, Retracting. Negative for: Respiratory Distress, Accessory Muscle Use, Wheezes Cardiovascular: Positive for: Regular Rate and Rhythm, Normal S1, S2, Peripheal Pulses Present. Negative for: Murmurs, Irregular Rhythm, Tachycardic, Bradyc ardic Abdomen: Positive for: Normal Bowel Sounds. Negative for: Tenderness, Distention, Peritoneal Signs Upper Extremity: Positive for: Capillary Refill < 2s Lower Extremity: Positive for: Edema, NORMAL PULSES, Capillary Refill < 2 s. Negative for: CALF TENDERNESS Psychiatric: Positive for: Alert - Medications Active Medications: Active Medications Generic Name Dose Route Start Last Admin Trade Name Freq PRN Reason Stop Dose Admin Albuterol/Ipratropium 3 ml 06/11/18 04:00 06/12/18 11:31 Duoneb 3 Mg/0.5 Mg (3 Ml) Ud INH 3 ml RQ4 [facility] Administration Amlodipine Besylate 10 mg 06/11/18 09:00 06/12/18 08:40 Norvasc PO 10 mg DAILY [facility] Administration Atorvastatin Calcium 10 mg 06/11/18 09:00 06/12/18 08:39 Lipitor PO 10 mg DAILY [facility] Administration Benztropine Mesylate 1 mg 06/11/18 09:00 06/12/18 08:38 Cogentin PO 1 mg Q12 [facility] Administration Budesonide 0.25 mg 06/11/18 20:00 06/12/18 07:19 Pulmicort Respules INH 0.25 mg RBID [facility] Administration Carvedilol 12.5 mg 06/11/18 09:00 06/12/18 08:39 Coreg PO 12.5 mg Q12 [facility] Administration Dextrose 0 ml 06/11/18 03:14 Dextrose 50% Inj IV STAT PRN Hypoglycemia Protocol Protocol Escitalopram Oxalate 5 mg 06/11/18 09:00 06/12/18 08:40 Lexapro PO 5 mg DAILY [facility] Administration Glucagon 0 mg 06/11/18 03:14 Glucagen Diagnostic Kit IM STAT PRN Hypoglycemia Protocol Protocol Heparin Sodium (Porcine) 5,000 units 06/11/18 09:00 06/12/18 08:39 Heparin SC 5,000 units Q8 [facility] Administration Protocol Home Med 1 tab 06/11/18 07:30 Sucroferric Oxyhydroxide [Velphoro] PO [facility] Insulin Detemir 10 units 06/11/18 22:00 06/11/18 21:24 Levemir SC 10 units HS [facility] Administration Insulin Human Lispro 0 units 06/11/18 07:30 06/12/18 07:10 Humalog SC Not Given ACHS [facility] Protocol Risperidone 2 mg 06/11/18 09:00 06/11/18 21:11 Risperdal Tab PO 2 mg Q12 [facility] Administration Sevelamer Carbonate 800 mg 06/11/18 09:00 06/12/18 08:41 Renvela PO 800 mg TID [facility] Administration Sodium Bicarbonate 1,950 mg 06/11/18 09:00 06/12/18 08:42 Sodium Bicarbonate Tab PO 1,950 mg TID [facility] Administration Vitamin B Complex/Vit C/Folic Acid 1 tab 06/11/18 09:00 06/12/18 08:41 Nephro-Nelson PO 1 tab DAILY [facility] Administration - Patient Studies Lab Studies: Lab Studies 06/12/18 06/12/18 06/11/18 Range/Units 04:20 04:20 21:12 WBC 7.6 (4.8-10.8) K/uL RBC 2.65 L (3.80-5.20) Mil/uL Hgb 7.9 L (12.0-16.0) g/dL Hct 23.7 L (34.0-47.0) % MCV 89.6 (81.0-99.0) fl MCH 29.9 (27.0-31.0) pg MCHC 33.4 (33.0-37.0) g/dL RDW 16.6 H (11.5-14.5) % Plt Count 186 (130-400) K/uL MPV 7.0 L (7.2-11.7) fl Neut % (Auto) 63.3 (50.0-75.0) % Lymph % (Auto) 20.9 (20.0-40.0) % Chaves % (Auto) 10.6 H (0.0-10.0) % Eos % (Auto) 4.5 H (0.0-4.0) % Baso % (Auto) 0.7 (0.0-2.0) % Neut # (Auto) 4.8 (1.8-7.0) K/uL Lymph # (Auto) 1.6 (1.0-4.3) K/uL Chaves # (Auto) 0.8 (0.0-0.8) K/uL Eos # (Auto) 0.3 (0.0-0.7) K/uL Baso # (Auto) 0.1 (0.0-0.2) K/uL Sodium 133 (132-148) mmol/l Potassium 5.3 H (3.6-5.0) MMOL/L Chloride 95 L (98-107) mmol/L Carbon Dioxide 29 (22-30) mmol/L Anion Gap 14 (10-20) BUN 36 H (7-17) mg/dl Creatinine 5.6 H (0.7-1.2) mg/dl Est GFR ( Amer) 10 Est GFR (Non-Af Amer) 8 POC Glucose (mg/dL) 175 H (65-110) mg/dL Random Glucose 82 (65-105) mg/dL Calcium 8.2 L (8.4-10.2) mg/dL Total Bilirubin 0.4 (0.2-1.3) mg/dl AST 34 (14-36) U/L ALT 23 (9-52) U/L Alkaline Phosphatase 72 (38-126) U/L Total Protein 6.5 (6.3-8.2) G/DL Albumin 3.0 L (3.5-5.0) g/dL Globulin 3.5 (2.2-3.9) gm/dL Albumin/Globulin Ratio 0.8 L (1.0-2.1) 06/11/18 06/11/18 06/11/18 Range/Units 16:22 12:14 10:16 WBC (4.8-10.8) K/uL RBC (3.80-5.20) Mil/uL Hgb (12.0-16.0) g/dL Hct (34.0-47.0) % MCV (81.0-99.0) fl MCH (27.0-31.0) pg MCHC (33.0-37.0) g/dL RDW (11.5-14.5) % Plt Count (130-400) K/uL MPV (7.2-11.7) fl Neut % (Auto) (50.0-75.0) % Lymph % (Auto) (20.0-40.0) % Chaves % (Auto) (0.0-10.0) % Eos % (Auto) (0.0-4.0) % Baso % (Auto) (0.0-2.0) % Neut # (Auto) (1.8-7.0) K/uL Lymph # (Auto) (1.0-4.3) K/uL Chaves # (Auto) (0.0-0.8) K/uL Eos # (Auto) (0.0-0.7) K/uL Baso # (Auto) (0.0-0.2) K/uL Sodium (132-148) mmol/l Potassium (3.6-5.0) MMOL/L Chloride (98-107) mmol/L Carbon Dioxide (22-30) mmol/L Anion Gap (10-20) BUN (7-17) mg/dl Creatinine (0.7-1.2) mg/dl Est GFR ( Amer) Est GFR (Non-Af Amer) POC Glucose (mg/dL) 79 104 89 (65-110) mg/dL Random Glucose (65-105) mg/dL Calcium (8.4-10.2) mg/dL Total Bilirubin (0.2-1.3) mg/dl AST (14-36) U/L ALT (9-52) U/L Alkaline Phosphatase (38-126) U/L Total Protein (6.3-8.2) G/DL Albumin (3.5-5.0) g/dL Globulin (2.2-3.9) gm/dL Albumin/Globulin Ratio (1.0-2.1) 06/11/18 Range/Units 06:43 WBC (4.8-10.8) K/uL RBC (3.80-5.20) Mil/uL Hgb (12.0-16.0) g/dL Hct (34.0-47.0) % MCV (81.0-99.0) fl MCH (27.0-31.0) pg MCHC (33.0-37.0) g/dL RDW (11.5-14.5) % Plt Count (130-400) K/uL MPV (7.2-11.7) fl Neut % (Auto) (50.0-75.0) % Lymph % (Auto) (20.0-40.0) % Chaves % (Auto) (0.0-10.0) % Eos % (Auto) (0.0-4.0) % Baso % (Auto) (0.0-2.0) % Neut # (Auto) (1.8-7.0) K/uL Lymph # (Auto) (1.0-4.3) K/uL Chaves # (Auto) (0.0-0.8) K/uL Eos # (Auto) (0.0-0.7) K/uL Baso # (Auto) (0.0-0.2) K/uL Sodium (132-148) mmol/l Potassium (3.6-5.0) MMOL/L Chloride (98-107) mmol/L Carbon Dioxide (22-30) mmol/L Anion Gap (10-20) BUN (7-17) mg/dl Creatinine (0.7-1.2) mg/dl Est GFR ( Amer) Est GFR (Non-Af Amer) POC Glucose (mg/dL) 113 H (65-110) mg/dL Random Glucose (65-105) mg/dL Calcium (8.4-10.2) mg/dL Total Bilirubin (0.2-1.3) mg/dl AST (14-36) U/L ALT (9-52) U/L Alkaline Phosphatase (38-126) U/L Total Protein (6.3-8.2) G/DL Albumin (3.5-5.0) g/dL Globulin (2.2-3.9) gm/dL Albumin/Globulin Ratio (1.0-2.1) Laboratory Results - last 24 hr 06/11/18 06/11/18 06/11/18 06:43 10:16 12:14 WBC RBC Hgb Hct MCV MCH MCHC RDW Plt Count MPV Neut % (Auto) Lymph % (Auto) Chaves % (Auto) Eos % (Auto) Baso % (Auto) Neut # (Auto) Lymph # (Auto) Chaves # (Auto) Eos # (Auto) Baso # (Auto) Sodium Potassium Chloride Carbon Dioxide Anion Gap BUN Creatinine Est GFR ( Amer) Est GFR (Non-Af Amer) POC Glucose (mg/dL) 113 H 89 104 Random Glucose Calcium Total Bilirubin AST ALT Alkaline Phosphatase Total Protein Albumin Globulin Albumin/Globulin Ratio 06/11/18 06/11/18 06/12/18 16:22 21:12 04:20 WBC 7.6 RBC 2.65 L Hgb 7.9 L Hct 23.7 L MCV 89.6 MCH 29.9 MCHC 33.4 RDW 16.6 H Plt Count 186 MPV 7.0 L Neut % (Auto) 63.3 Lymph % (Auto) 20.9 Chaves % (Auto) 10.6 H Eos % (Auto) 4.5 H Baso % (Auto) 0.7 Neut # (Auto) 4.8 Lymph # (Auto) 1.6 Chaves # (Auto) 0.8 Eos # (Auto) 0.3 Baso # (Auto) 0.1 Sodium Potassium Chloride Carbon Dioxide Anion Gap BUN Creatinine Est GFR ( Amer) Est GFR (Non-Af Amer) POC Glucose (mg/dL) 79 175 H Random Glucose Calcium Total Bilirubin AST ALT Alkaline Phosphatase Total Protein Albumin Globulin Albumin/Globulin Ratio 06/12/18 04:20 WBC RBC Hgb Hct MCV MCH MCHC RDW Plt Count MPV Neut % (Auto) Lymph % (Auto) Chaves % (Auto) Eos % (Auto) Baso % (Auto) Neut # (Auto) Lymph # (Auto) Chaves # (Auto) Eos # (Auto) Baso # (Auto) Sodium 133 Potassium 5.3 H Chloride 95 L Carbon Dioxide 29 Anion Gap 14 BUN 36 H Creatinine 5.6 H Est GFR ( Amer) 10 Est GFR (Non-Af Amer) 8 POC Glucose (mg/dL) Random Glucose 82 Calcium 8.2 L Total Bilirubin 0.4 AST 34 ALT 23 Alkaline Phosphatase 72 Total Protein 6.5 Albumin 3.0 L Globulin 3.5 Albumin/Globulin Ratio 0.8 L Fingerstick Blood Sugar Results: 76 Review of Systems - Constitutional Constitutional: absent: Fever, Chills - Cardiovascular Cardiovascular: absent: Chest Pain, Chest Pain at Rest, Claudication - Respiratory Respiratory: Cough, Dyspnea, Dyspnea on Exertion. absent: Hemoptysis, Wheezing, Snoring, Stridor Critical Care Progress Note - Extremities/Vascular Does the Patient have a Central Venous Catheter?: Yes (Dialysis catheter at Right Subclavian) Does the Patient need a Central Venous Catheter?: Yes Does the Patient have a Gaspar Catheter?: No Does the Patient need a Gaspar Catheter?: No - Nutrition Nutrition: Nutrition Category Date Time Status Renal Diet [DIET] Diets 06/11/18 Breakfast Active Assessment/Plan (1) Acute pulmonary edema Current Visit: Yes Status: Acute Priority: High Comment: S/P Emergent Hemodialysis Continue to obtimize fluid status vis IV diuresis and HD Continue nabulizer treatements Wean off Oxygen therapy Off Nitroglycerine IV Drip (2) CHF (congestive heart failure) Current Visit: Yes Status: Acute Priority: High Comment: Continue Carvedilol/ Norvasc Continue Lipitor 10 mg PO DAILY (3) ESRD (end stage renal disease) Current Visit: Yes Status: Chronic Priority: High (4) Anemia Current Visit: Yes Status: Chronic Priority: Medium (5) Anxiety and depression Current Visit: Yes Status: Chronic Priority: Medium Comment: Continue lexapro, Cogentin and Risperdal
--- NOTE | 2018-06-12 15:43 | CARD ---
APPROVED REPORT Date of service: 06/12/2018 EXAM: Two-dimensional and M-mode echocardiogram with Doppler and color Doppler. Other Information Quality : GoodRhythm : NSR INDICATION Congestive Heart Failure 2D DIMENSIONS IVSd1.31 (0.7-1.1cm)LVDd5.23 (3.9-5.9cm) LVOT Diameter2.26 (1.8-2.4cm)PWd0.91 (0.7-1.1cm) IVSs1.57 (0.8-1.2cm)LVDs3.63 (2.5-4.0cm) FS (%) 30.7 %PWs1.48 (0.8-1.2cm) M-Mode DIMENSIONS Left Atrium (MM)4.44 (2.5-4.0cm)IVSd1.47 (0.7-1.1cm) Aortic Root3.03 (2.2-3.7cm)LVDd5.03 (4.0-5.6cm) Aortic Cusp Exc.1.97 (1.5-2.0cm)PWd1.53 (0.7-1.1cm) IVSs2.03 cmFS (%) 25 % LVDs3.76 (2.0-3.8cm)PWs1.82 cm Aortic Valve AoV Peak Lbeoiope892.8cm/sAoV VTI37.0cmAO Peak GR.13mmHg LVOT Peak Lrvylipq597.7cm/sLVOT VTI28.32cmAO Mean GR.7mmHg SAUNDRA (VMAX)1.37hi9ROG (VTI)1.70cm2 Mitral Valve MV E Tosvwjiv71.2cm/sMV DECEL [id number] A Vvkzjvjk76.0cm/s MV YSL01haN/A ratio1.6MVA (PHT)3.55cm2 TDI Lateral E' Peak V10.59cm/sMedial E' Peak V7.66cm/sE/Lateral E'8.7 E/Medial E'12.0 Pulmonary Valve PV Peak Riyxzkah044.9cm/s Tricuspid Valve TR Peak Gizvrxph995vm/sRAP IBCDFOES34lvGqIM Peak Gr.33mmHg [id number] LEFT VENTRICLE The left ventricle is normal size. There is normal left ventricular wall thickness. The left ventricular systolic function is normal. The estimated ejection fraction is 55-60%. LVEF is calculated at 57% Teichholz method. No regional wall motion abnormalities noted.. The left ventricular diastolic function is normal. No left ventricle thrombus noted on this study. There is no ventricular septal defect visualized. There is no left ventricular aneurysm. There is no mass noted in the left ventricle. RIGHT VENTRICLE The right ventricle is normal size. There is normal right ventricular wall thickness. The right ventricular systolic function is normal. ATRIA The left atrium is moderately dilated. The right atrium size is normal. The interatrial septum is intact with no evidence for an atrial septal defect. AORTIC VALVE The aortic valve is normal in structure. No aortic regurgitation is present. There is no aortic valvular stenosis. There is no aortic valvular vegetation. MITRAL VALVE The mitral valve is normal in structure. There is no evidence of mitral valve prolapse. There is no mitral valve stenosis. Mitral regurgitation is mild to moderate. TRICUSPID VALVE The tricuspid valve is normal in structure. There is moderate tricuspid regurgitation. RVSP is calculated at 40 mm Hg. There is no tricuspid valve prolapse or vegetation. There is no tricuspid valve stenosis. PULMONIC VALVE The pulmonary valve is normal in structure. There is no pulmonic valvular regurgitation. There is no pulmonic valvular stenosis. GREAT VESSELS The aortic root is normal in size. The ascending aorta is normal in size. The pulmonary artery is normal. The IVC is normal in size and collapses >50% with inspiration. PERICARDIAL EFFUSION There is no pericardial effusion. There is no pleural effusion. <Conclusion> The estimated ejection fraction is 55-60%. LVEF is calculated at 57% Teichholz method. The left ventricular diastolic function is normal. The left atrium is moderately dilated. Mitral regurgitation is mild to moderate. There is moderate tricuspid regurgitation. RVSP is calculated at 40 mm Hg.
--- NOTE | 2018-06-12 15:46 | CP.PCM.PN ---
Subjective - Date & Time of Evaluation Date of Evaluation: 06/12/18 Time of Evaluation: 11:00 - Subjective Subjective: F/U CHF/ Pulmonary edema. awake, no SOB, on high flow O2 Objective - Vital Signs/Intake and Output Vital Signs (last 24 hours): Temp Pulse Resp BP Pulse Ox 98.0 F 71 24 138/82 93 L 06/12/18 12:00 06/12/18 12:00 06/12/18 15:34 06/12/18 12:00 06/12/18 12:00 Intake and Output: 06/12/18 06/12/18 06:59 18:59 Output Total 400 Balance -400 - Medications Medications: Current Medications Albuterol/Ipratropium (Duoneb 3 Mg/0.5 Mg (3 Ml) Ud) 3 ml INH RQ4 [facility] [place] Last Admin: 06/12/18 15:33 Dose: 3 ml Amlodipine Besylate (Norvasc) 10 mg PO DAILY [facility] [place] Last Admin: 06/12/18 08:40 Dose: 10 mg Atorvastatin Calcium (Lipitor) 10 mg PO DAILY [facility] [place] Last Admin: 06/12/18 08:39 Dose: 10 mg Benztropine Mesylate (Cogentin) 1 mg PO Q12 [facility] [place] Last Admin: 06/12/18 08:38 Dose: 1 mg Budesonide (Pulmicort Respules) 0.25 mg INH RBID [facility] [place] Last Admin: 06/12/18 07:19 Dose: 0.25 mg Carvedilol (Coreg) 12.5 mg PO Q12 [facility] [place] Last Admin: 06/12/18 08:39 Dose: 12.5 mg Dextrose (Dextrose 50% Inj) 0 ml IV STAT PRN; Protocol PRN Reason: Hypoglycemia Protocol Escitalopram Oxalate (Lexapro) 5 mg PO DAILY [facility] [place] Last Admin: 06/12/18 08:40 Dose: 5 mg Glucagon (Glucagen Diagnostic Kit) 0 mg IM STAT PRN; Protocol PRN Reason: Hypoglycemia Protocol Heparin Sodium (Porcine) (Heparin) 5,000 units SC Q8 [facility] [place]; Protocol Last Admin: 06/12/18 08:39 Dose: 5,000 units Home Med (Sucroferric Oxyhydroxide [Velphoro]) 1 tab PO [facility]HS [facility] [place] Insulin Detemir (Levemir) 10 units SC HS [facility] [place] Last Admin: 06/11/18 21:24 Dose: 10 units Insulin Human Lispro (Humalog) 0 units SC ACHS [facility] [place]; Protocol Last Admin: 06/12/18 13:00 Dose: Not Given Risperidone (Risperdal Tab) 2 mg PO Q12 [facility] [place] Last Admin: 06/12/18 13:01 Dose: 2 mg Sevelamer Carbonate (Renvela) 800 mg PO TID [facility] [place] Last Admin: 06/12/18 13:01 Dose: 800 mg Sodium Bicarbonate (Sodium Bicarbonate Tab) 1,950 mg PO TID [facility] [place] Last Admin: 06/12/18 13:02 Dose: 1,950 mg Vitamin B Complex/Vit C/Folic Acid (Nephro-Nelson) 1 tab PO DAILY [facility] [place] Last Admin: 06/12/18 08:41 Dose: 1 tab - Labs Labs: 06/12/18 04:20 06/12/18 04:20 PT 13.0 Seconds (9.8-13.1) 06/10/18 23:09 INR 1.2 06/10/18 23:09 APTT 46.4 Seconds (25.6-37.1) H 06/10/18 23:09 - Constitutional Appears: No Acute Distress - Head Exam Head Exam: NORMAL INSPECTION - Eye Exam Eye Exam: PERRL - ENT Exam ENT Exam: Mucous Membranes Moist - Neck Exam Neck Exam: Normal Inspection - Respiratory Exam Respiratory Exam: Decreased Breath Sounds (at bases), Rales (crackles few at bases) Additional comments: Perma Cath R Chest - Cardiovascular Exam Cardiovascular Exam: REGULAR RHYTHM - GI/Abdominal Exam GI & Abdominal Exam: Soft, Normal Bowel Sounds - Extremities Exam Additional comments: trace edema legs, AV fistula R arm with Bruit and Thrill - Back Exam Back Exam: NORMAL INSPECTION - Neurological Exam Neurological Exam: Alert, Awake, Oriented x3 Additional comments: No focal motor sensory deficit. - Psychiatric Exam Psychiatric exam: Depressed - Skin Skin Exam: Dry, Warm Assessment and Plan (1) CHF (congestive heart failure) Status: Acute (2) Acute pulmonary edema Status: Acute (3) ESRD (end stage renal disease) Status: Chronic (4) Anemia in CKD (chronic kidney disease) Status: Acute (5) Asthma Status: Chronic (6) Diabetes mellitus Status: Chronic (7) Anxiety and depression Status: Chronic - Assessment and Plan (Free Text) Plan: had HD yesterday 5L out, Cardiac consult appreciated, continue HD, DuoNeb, Lipitor, Norvasc, Levemir and rest of treatment
[2018-06-12] MEDS: Insulin Detemir 100 Units/ml Inj SC SCH (21:59)
[2018-06-13] MEDS: Albuterol-Ipratrop 3 mg / 0.5 (3 ml) UD INH SCH ×6 (05:33→23:49)
[2018-06-13 05:41] LABS: BASO % 0.5 % (0.0-2.0); EOS # 0.4 K/uL (0.0-0.7); EOS % 5.1 % (0.0-4.0); HEMOGLOBIN 7.8 g/dL (12.0-16.0); LYMPH # 1.4 K/uL (1.0-4.3); LYMPH % 18.4 % (20.0-40.0); MEAN CORPUSCULAR HEMOGLOBIN 29.6 pg (27.0-31.0); MEAN CORPUSCULAR HGB CONC 33.3 g/dL (33.0-37.0); MEAN PLATELET VOLUME 7.1 fl (7.2-11.7); MONO # 0.7 K/uL (0.0-0.8); MONO % 9.8 % (0.0-10.0); NEUT % 66.2 % (50.0-75.0); RBC 2.62 Mil/uL (3.80-5.20); RED CELL DISTRIBUTION WIDTH 16.2 % (11.5-14.5); WHITE BLOOD COUNT 7.6 K/uL (4.8-10.8)
[2018-06-13 06:39] LABS: ALB/GLOB RATIO 0.8 (1.0-2.1); ALBUMIN 2.8 g/dL (3.5-5.0); CALCIUM 8.2 mg/dL (8.4-10.2)
[2018-06-13] MEDS: Insulin Lispro (humaLOG) 100 Units/ml Inj SC SCH ×4 (06:40→22:19)
[2018-06-13] MEDS: Budesonide 0.25 mg/2 ml Inhal Susp UD INH SCH ×2 (07:43→19:40)
--- NOTE | 2018-06-13 12:25 | CP.PCM.PN ---
Subjective - Date & Time of Evaluation Date of Evaluation: 06/13/18 Time of Evaluation: 11:00 - Subjective Subjective: F/U CHF, Pulmonary edema. no AD , no SOB, on NC 3Lm, Pt is having HD Objective - Vital Signs/Intake and Output Vital Signs (last 24 hours): Temp Pulse Resp BP Pulse Ox 98.5 F 73 27 H 141/76 100 06/13/18 08:00 06/13/18 10:00 06/13/18 10:00 06/13/18 10:00 06/13/18 10:00 Intake and Output: 06/13/18 06/13/18 06:59 18:59 Intake Total 120 Output Total 200 Balance -80 - Medications Medications: Current Medications Albuterol/Ipratropium (Duoneb 3 Mg/0.5 Mg (3 Ml) Ud) 3 ml INH RQ4 [facility] Last Admin: 06/13/18 11:20 Dose: 3 ml Amlodipine Besylate (Norvasc) 10 mg PO DAILY [facility] Last Admin: 06/12/18 08:40 Dose: 10 mg Atorvastatin Calcium (Lipitor) 10 mg PO DAILY [facility] Last Admin: 06/12/18 08:39 Dose: 10 mg Benztropine Mesylate (Cogentin) 1 mg PO Q12 [facility] Last Admin: 06/12/18 21:57 Dose: 1 mg Budesonide (Pulmicort Respules) 0.25 mg INH RBID [facility] Last Admin: 06/13/18 07:43 Dose: 0.25 mg Carvedilol (Coreg) 12.5 mg PO Q12 [facility] Last Admin: 06/12/18 21:57 Dose: 12.5 mg Dextrose (Dextrose 50% Inj) 0 ml IV STAT PRN; Protocol PRN Reason: Hypoglycemia Protocol Escitalopram Oxalate (Lexapro) 5 mg PO DAILY [facility] Last Admin: 06/12/18 08:40 Dose: 5 mg Glucagon (Glucagen Diagnostic Kit) 0 mg IM STAT PRN; Protocol PRN Reason: Hypoglycemia Protocol Heparin Sodium (Porcine) (Heparin) 5,000 units SC Q8 [facility]; Protocol Last Admin: 06/13/18 10:35 Dose: 5,000 units Home Med (Sucroferric Oxyhydroxide [Velphoro]) 1 tab PO WMHS [facility] Insulin Detemir (Levemir) 10 units SC HS [facility] Last Admin: 06/12/18 21:59 Dose: 10 units Insulin Human Lispro (Humalog) 0 units SC ACHS [facility]; Protocol Last Admin: 06/13/18 11:52 Dose: Not Given Risperidone (Risperdal Tab) 2 mg PO Q12 [facility] Last Admin: 06/12/18 21:57 Dose: 2 mg Sevelamer Carbonate (Renvela) 800 mg PO TID [facility] Last Admin: 06/13/18 09:06 Dose: 800 mg Sodium Bicarbonate (Sodium Bicarbonate Tab) 1,950 mg PO TID [facility] Last Admin: 06/13/18 09:06 Dose: 1,950 mg Vitamin B Complex/Vit C/Folic Acid (Nephro-Nelson) 1 tab PO DAILY [facility] Last Admin: 06/12/18 08:41 Dose: 1 tab - Labs Labs: 06/13/18 04:45 06/13/18 04:45 PT 13.0 Seconds (9.8-13.1) 06/10/18 23:09 INR 1.2 06/10/18 23:09 APTT 46.4 Seconds (25.6-37.1) H 06/10/18 23:09 - Constitutional Appears: No Acute Distress, Chronically Ill - Head Exam Head Exam: NORMAL INSPECTION - Eye Exam Eye Exam: PERRL - ENT Exam ENT Exam: Mucous Membranes Moist - Neck Exam Neck Exam: Normal Inspection - Respiratory Exam Respiratory Exam: Decreased Breath Sounds (at bases) Additional comments: Chest R SCL Perma Cath - Cardiovascular Exam Cardiovascular Exam: REGULAR RHYTHM - GI/Abdominal Exam GI & Abdominal Exam: Soft, Normal Bowel Sounds - Extremities Exam Additional comments: R arm AV fistula with Bruit and Thrill - Back Exam Back Exam: NORMAL INSPECTION - Neurological Exam Neurological Exam: Alert, Awake, Oriented x3 Additional comments: no focal motor/sensory deficit. - Psychiatric Exam Psychiatric exam: Depressed - Skin Skin Exam: Dry, Warm Assessment and Plan (1) CHF (congestive heart failure) Status: Acute (2) Acute pulmonary edema Status: Acute (3) ESRD (end stage renal disease) Status: Chronic (4) Anemia in CKD (chronic kidney disease) Status: Acute (5) Asthma Status: Chronic (6) Diabetes mellitus Status: Chronic (7) Anxiety and depression Status: Chronic - Assessment and Plan (Free Text) Plan: Had ECHO yesterday, to have Renal US and STT in am, continue rest of medications, transfer to Telemetry
--- NOTE | 2018-06-13 15:26 | CP.PCM.PN ---
Subjective - Date & Time of Evaluation Date of Evaluation: 06/13/18 Time of Evaluation: 15:24 - Subjective Subjective: sob improving post HD Objective - Vital Signs/Intake and Output Vital Signs (last 24 hours): Temp Pulse Resp BP Pulse Ox 98.5 F 65 24 161/77 H 100 06/13/18 12:00 06/13/18 14:00 06/13/18 14:00 06/13/18 14:00 06/13/18 14:00 Intake and Output: 06/13/18 06/13/18 06:59 18:59 Intake Total 120 Output Total 200 Balance -80 - Medications Medications: Current Medications Albuterol/Ipratropium (Duoneb 3 Mg/0.5 Mg (3 Ml) Ud) 3 ml INH RQ4 [facility] Last Admin: 06/13/18 15:05 Dose: 3 ml Amlodipine Besylate (Norvasc) 10 mg PO DAILY [facility] Last Admin: 06/12/18 08:40 Dose: 10 mg Atorvastatin Calcium (Lipitor) 10 mg PO DAILY [facility] Last Admin: 06/12/18 08:39 Dose: 10 mg Benztropine Mesylate (Cogentin) 1 mg PO Q12 [facility] Last Admin: 06/12/18 21:57 Dose: 1 mg Budesonide (Pulmicort Respules) 0.25 mg INH RBID [facility] Last Admin: 06/13/18 07:43 Dose: 0.25 mg Carvedilol (Coreg) 12.5 mg PO Q12 [facility] Last Admin: 06/12/18 21:57 Dose: 12.5 mg Dextrose (Dextrose 50% Inj) 0 ml IV STAT PRN; Protocol PRN Reason: Hypoglycemia Protocol Escitalopram Oxalate (Lexapro) 5 mg PO DAILY [facility] Last Admin: 06/12/18 08:40 Dose: 5 mg Glucagon (Glucagen Diagnostic Kit) 0 mg IM STAT PRN; Protocol PRN Reason: Hypoglycemia Protocol Heparin Sodium (Porcine) (Heparin) 5,000 units SC Q8 [facility]; Protocol Last Admin: 06/13/18 10:35 Dose: 5,000 units Home Med (Sucroferric Oxyhydroxide [Velphoro]) 1 tab PO [facility] Insulin Detemir (Levemir) 10 units SC HS [facility] Last Admin: 06/12/18 21:59 Dose: 10 units Insulin Human Lispro (Humalog) 0 units SC ACHS [facility]; Protocol Last Admin: 06/13/18 11:52 Dose: Not Given Risperidone (Risperdal Tab) 2 mg PO Q12 [facility] Last Admin: 06/12/18 21:57 Dose: 2 mg Sevelamer Carbonate (Renvela) 800 mg PO TID [facility] Last Admin: 06/13/18 15:01 Dose: Not Given Sodium Bicarbonate (Sodium Bicarbonate Tab) 1,950 mg PO TID [facility] Last Admin: 06/13/18 15:01 Dose: Not Given Vitamin B Complex/Vit C/Folic Acid (Nephro-Nelson) 1 tab PO DAILY [facility] Last Admin: 06/12/18 08:41 Dose: 1 tab - Labs Labs: 06/13/18 04:45 06/13/18 04:45 PT 13.0 Seconds (9.8-13.1) 06/10/18 23:09 INR 1.2 06/10/18 23:09 APTT 46.4 Seconds (25.6-37.1) H 06/10/18 23:09 - Constitutional Appears: Well - Head Exam Head Exam: ATRAUMATIC, NORMAL INSPECTION, NORMOCEPHALIC - Eye Exam Eye Exam: EOMI, Normal appearance, PERRL Pupil Exam: NORMAL ACCOMODATION, PERRL - ENT Exam ENT Exam: Mucous Membranes Moist, Normal Exam - Neck Exam Neck Exam: Full ROM, Normal Inspection. absent: Lymphadenopathy - Respiratory Exam Respiratory Exam: Clear to Ausculation Bilateral, NORMAL BREATHING PATTERN - Cardiovascular Exam Cardiovascular Exam: REGULAR RHYTHM, +S1, +S2. absent: Murmur - GI/Abdominal Exam GI & Abdominal Exam: Soft, Normal Bowel Sounds. absent: Tenderness - Extremities Exam Extremities Exam: Full ROM, Normal Capillary Refill, Normal Inspection. absent: Joint Swelling, Pedal Edema - Back Exam Back Exam: NORMAL INSPECTION - Neurological Exam Neurological Exam: Alert, Awake, CN II-XII Intact, Normal Gait, Oriented x3 - Psychiatric Exam Psychiatric exam: Normal Affect, Normal Mood - Skin Skin Exam: Dry, Intact, Normal Color, Warm Assessment and Plan (1) CHF (congestive heart failure) Assessment & Plan: add arb cont removal of HD stress test tomorrow Status: Acute (2) Acute pulmonary edema Status: Acute (3) ESRD (end stage renal disease) Status: Chronic (4) CKD (chronic kidney disease) Status: Chronic (5) Diabetes mellitus Status: Chronic (6) HTN (hypertension) Status: Deleted (7) Schizophrenia Status: Chronic
[2018-06-13] MEDS: Multivitamin Vitamin B Complex (Nephro-Vite) Tab PO SCH (16:06)
[2018-06-13] MEDS: Insulin Detemir 100 Units/ml Inj SC SCH (22:14)
--- NOTE | 2018-06-13 23:12 | CP.PCM.PN ---
Subjective - Date & Time of Evaluation Date of Evaluation: 06/13/18 Time of Evaluation: 15:00 - Subjective Subjective: SEEN ON RENAL F/U S/P HD .. TOLERATED WELL FEELS MUCH BETTER Objective - Vital Signs/Intake and Output Vital Signs (last 24 hours): Temp Pulse Resp BP Pulse Ox 97.5 F L 85 24 162/78 H 100 06/13/18 16:00 06/13/18 22:15 06/13/18 20:00 06/13/18 22:15 06/13/18 20:00 Intake and Output: 06/13/18 06/14/18 18:59 06:59 Intake Total 480 Output Total 3850 Balance -3370 - Medications Medications: Current Medications Albuterol/Ipratropium (Duoneb 3 Mg/0.5 Mg (3 Ml) Ud) 3 ml INH RQ4 [facility] Last Admin: 06/13/18 19:39 Dose: 3 ml Amlodipine Besylate (Norvasc) 10 mg PO DAILY [facility] Last Admin: 06/13/18 16:04 Dose: 10 mg Atorvastatin Calcium (Lipitor) 10 mg PO DAILY [facility] Last Admin: 06/13/18 16:03 Dose: 10 mg Benztropine Mesylate (Cogentin) 1 mg PO Q12 [facility] Last Admin: 06/13/18 22:19 Dose: 1 mg Budesonide (Pulmicort Respules) 0.25 mg INH RBID [facility] Last Admin: 06/13/18 19:40 Dose: 0.25 mg Carvedilol (Coreg) 12.5 mg PO Q12 [facility] Last Admin: 06/13/18 22:15 Dose: 12.5 mg Dextrose (Dextrose 50% Inj) 0 ml IV STAT PRN; Protocol PRN Reason: Hypoglycemia Protocol Ergocalciferol (Drisdol 50,000 Intl Units Cap) 1 cap PO Q7D [facility] Escitalopram Oxalate (Lexapro) 5 mg PO DAILY [facility] Last Admin: 06/13/18 16:03 Dose: 5 mg Glucagon (Glucagen Diagnostic Kit) 0 mg IM STAT PRN; Protocol PRN Reason: Hypoglycemia Protocol Heparin Sodium (Porcine) (Heparin) 5,000 units SC Q8 [facility]; Protocol Last Admin: 06/13/18 17:42 Dose: 5,000 units Home Med (Sucroferric Oxyhydroxide [Velphoro]) 1 tab PO [facility] Insulin Detemir (Levemir) 10 units SC HS [facility] Last Admin: 06/13/18 22:14 Dose: 10 units Insulin Human Lispro (Humalog) 0 units SC [facility]; Protocol Last Admin: 06/13/18 22:19 Dose: Not Given Losartan Potassium (Cozaar) 100 mg PO DAILY [facility] Last Admin: 06/13/18 17:46 Dose: 100 mg Pantoprazole Sodium (Protonix Ec Tab) 40 mg PO DAILY [facility] Risperidone (Risperdal Tab) 2 mg PO Q12 [facility] Last Admin: 06/13/18 16:03 Dose: 2 mg Sevelamer Carbonate (Renvela) 800 mg PO TID [facility] Last Admin: 06/13/18 17:46 Dose: 800 mg Vitamin B Complex/Vit C/Folic Acid (Nephro-Nelson) 1 tab PO DAILY [facility] Last Admin: 06/13/18 16:06 Dose: 1 tab - Labs Labs: 06/13/18 04:45 06/13/18 04:45 PT 13.0 Seconds (9.8-13.1) 06/10/18 23:09 INR 1.2 06/10/18 23:09 APTT 46.4 Seconds (25.6-37.1) H 06/10/18 23:09 Assessment and Plan - Assessment and Plan (Free Text) Assessment: ESRD ON HD M W F ANEMIA OF CKD .. ON EPO S/P PULMONARY EDEMA .. CHF .. F OVERLOAD .. BETTER DM HTN SCHIZOPHRENIA P : C/O PRESENT CARE C/O CURRENT MANAGEMENT
[2018-06-13] MEDS ORDERED: Ergocalciferol 50,000 Intl Units Cap PO SCH (23:15)
[2018-06-13] MEDS: Pantoprazole 40 mg EC Tab PO SCH (23:21)
[2018-06-14] MEDS: Albuterol-Ipratrop 3 mg / 0.5 (3 ml) UD INH SCH ×5 (04:49→19:21)
[2018-06-14] MEDS: Budesonide 0.25 mg/2 ml Inhal Susp UD INH SCH ×2 (07:37→19:21)
--- NOTE | 2018-06-14 07:56 | CARD ---
APPROVED REPORT Date of service: 06/13/2018 EKG Measurement Heart [id number] <Conclusion> Normal sinus rhythm Normal ECG
[2018-06-14] MEDS: Insulin Lispro (humaLOG) 100 Units/ml Inj SC SCH ×4 (08:50→22:00)
--- NOTE | 2018-06-14 10:23 | US ---
Date of service: 06/14/2018 PROCEDURE: Ultrasound of the Kidneys HISTORY: renal artery stenosis COMPARISON: None available. TECHNIQUE: Sonogram of the kidneys. FINDINGS: RIGHT KIDNEY: Measures: 7.1 cm. Atrophic. Increased cortical echogenicity. No stone, solid mass lesion or hydronephrosis visualized. LEFT KIDNEY: Measures: 7.5 cm. Diffusely increased cortical echogenicity. Atrophic. No stone, solid mass lesion or hydronephrosis visualized. 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 This measures 11.4 cm in length. Multiple simple cortical cysts, largest in the upper pole, 1.4 cm. No solid mass. No calculus or hydronephrosis. Peak velocities for transplant kidney: Proximal: 94.8 cm per second peak systolic velocity 9.2 end-diastolic velocity Mid: 83.2 peak systolic 13.3 end-diastolic Distal: 63.2 peak systolic 0.0 end-diastolic Aorta: 96.6 peak systolic Please note that evaluation was limited due to inability of patient to cooperate and suspend respiration. Measurements of proximal right renal artery are particularly limited. Renal/aortic ratio (RAR): 1.0 IMPRESSION: Limited normal transplant renal arterial Doppler evaluation. Several simple cortical cysts in the transplant kidney. Bilaterally atrophic lower [place] kidneys.
[2018-06-14 10:51] LABS: HEMOGLOBIN 7.9 g/dL (12.0-16.0); MEAN CELL VOLUME 87.4 fl (81.0-99.0); MEAN CORPUSCULAR HEMOGLOBIN 29.7 pg (27.0-31.0); RBC 2.67 Mil/uL (3.80-5.20); WHITE BLOOD COUNT 6.6 K/uL (4.8-10.8)
[2018-06-14 11:14] LABS: CALCIUM 8.3 mg/dL (8.4-10.2)
[2018-06-14 13:04] LABS: HEPATITIS B SURFACE AG Negative (NEGATIVE)
[2018-06-14 13:09] LABS: HEPATITIS B CORE AB NEGATIVE (NEGATIVE)
--- NOTE | 2018-06-14 13:23 | CP.PCM.PN ---
Subjective - Date & Time of Evaluation Date of Evaluation: 06/14/18 - Subjective Subjective: F/U CHF, Pulmonary edema. No c/o, on NC 2 L/M, had Renal U-S in Am. Objective - Vital Signs/Intake and Output Vital Signs (last 24 hours): Temp Pulse Resp BP Pulse Ox 98.5 F 69 20 147/76 100 06/14/18 12:20 06/14/18 12:20 06/14/18 12:20 06/14/18 05:00 06/14/18 12:20 - Medications Medications: Current Medications Albuterol/Ipratropium (Duoneb 3 Mg/0.5 Mg (3 Ml) Ud) 3 ml INH RQ4 [facility] Last Admin: 06/14/18 11:43 Dose: 3 ml Amlodipine Besylate (Norvasc) 10 mg PO DAILY [facility] Last Admin: 06/13/18 16:04 Dose: 10 mg Atorvastatin Calcium (Lipitor) 10 mg PO DAILY [facility] Last Admin: 06/13/18 16:03 Dose: 10 mg Benztropine Mesylate (Cogentin) 1 mg PO Q12 [facility] Last Admin: 06/14/18 08:50 Dose: Not Given Budesonide (Pulmicort Respules) 0.25 mg INH RBID [facility] Last Admin: 06/14/18 07:37 Dose: 0.25 mg Carvedilol (Coreg) 12.5 mg PO Q12 [facility] Last Admin: 06/14/18 08:50 Dose: Not Given Dextrose (Dextrose 50% Inj) 0 ml IV STAT PRN; Protocol PRN Reason: Hypoglycemia Protocol Ergocalciferol (Drisdol 50,000 Intl Units Cap) 1 cap PO Q7D [facility] Last Admin: 06/13/18 23:42 Dose: 1 cap Escitalopram Oxalate (Lexapro) 5 mg PO DAILY [facility] Last Admin: 06/13/18 16:03 Dose: 5 mg Glucagon (Glucagen Diagnostic Kit) 0 mg IM STAT PRN; Protocol PRN Reason: Hypoglycemia Protocol Heparin Sodium (Porcine) (Heparin) 5,000 units SC Q8 [facility]; Protocol Last Admin: 06/14/18 10:35 Dose: 5,000 units Home Med (Sucroferric Oxyhydroxide [Velphoro]) 1 tab PO [facility] Insulin Detemir (Levemir) 10 units SC HS [facility] Last Admin: 06/13/18 22:14 Dose: 10 units Insulin Human Lispro (Humalog) 0 units SC ACHS [facility]; Protocol Last Admin: 06/14/18 11:56 Dose: Not Given Losartan Potassium (Cozaar) 100 mg PO DAILY [facility] Last Admin: 06/14/18 08:50 Dose: Not Given Pantoprazole Sodium (Protonix Ec Tab) 40 mg PO DAILY [facility] Last Admin: 06/13/18 23:21 Dose: 40 mg Risperidone (Risperdal Tab) 2 mg PO Q12 [facility] Last Admin: 06/14/18 08:50 Dose: Not Given Sevelamer Carbonate (Renvela) 800 mg PO TID [facility] Last Admin: 06/14/18 12:15 Dose: Not Given Vitamin B Complex/Vit C/Folic Acid (Nephro-Nelson) 1 tab PO DAILY [facility] Last Admin: 06/13/18 16:06 Dose: 1 tab - Labs Labs: 06/14/18 10:42 06/14/18 10:42 PT 13.0 Seconds (9.8-13.1) 06/10/18 23:09 INR 1.2 06/10/18 23:09 APTT 46.4 Seconds (25.6-37.1) H 06/10/18 23:09 - Constitutional Appears: Well, No Acute Distress, Chronically Ill - Head Exam Head Exam: NORMAL INSPECTION - Eye Exam Eye Exam: PERRL - ENT Exam ENT Exam: Mucous Membranes Moist - Neck Exam Neck Exam: Normal Inspection - Respiratory Exam Respiratory Exam: Decreased Breath Sounds (at bases) Additional comments: Chest R SCL Perma Cath. - Cardiovascular Exam Cardiovascular Exam: REGULAR RHYTHM - GI/Abdominal Exam GI & Abdominal Exam: Soft, Normal Bowel Sounds - Extremities Exam Additional comments: R arm AV fistula with bruit and thrill. - Back Exam Back Exam: NORMAL INSPECTION - Neurological Exam Neurological Exam: Alert, Awake, Oriented x3 Additional comments: No focal motor/sensory deficit. - Psychiatric Exam Psychiatric exam: Depressed - Skin Skin Exam: Dry, Warm Assessment and Plan (1) CHF (congestive heart failure) Status: Acute (2) Acute pulmonary edema Status: Acute (3) ESRD (end stage renal disease) Status: Chronic (4) Anemia in CKD (chronic kidney disease) Status: Acute (5) Asthma Status: Chronic (6) Diabetes mellitus Status: Chronic (7) Anxiety and depression Status: Chronic - Assessment and Plan (Free Text) Plan: Pt was refusing Stress, I discussed with Pt about the procedure and after, Pt agree for the Test. Pt requesting to take off the R SC Perma Cath and instead to have HD through AV shunt
--- NOTE | 2018-06-14 16:09 | CP.PCM.PN ---
Subjective - Date & Time of Evaluation Date of Evaluation: 06/14/18 Time of Evaluation: 16:04 - Subjective Subjective: refused stress test today as her eyes were bothering her Objective - Vital Signs/Intake and Output Vital Signs (last 24 hours): Temp Pulse Resp BP Pulse Ox 98.5 F 77 20 149/69 97 06/14/18 12:20 06/14/18 13:00 06/14/18 13:00 06/14/18 13:00 06/14/18 13:00 - Medications Medications: Current Medications Albuterol/Ipratropium (Duoneb 3 Mg/0.5 Mg (3 Ml) Ud) 3 ml INH RQ4 [facility] Last Admin: 06/14/18 14:59 Dose: 3 ml Amlodipine Besylate (Norvasc) 10 mg PO DAILY [facility] Last Admin: 06/13/18 16:04 Dose: 10 mg Atorvastatin Calcium (Lipitor) 10 mg PO DAILY [facility] Last Admin: 06/13/18 16:03 Dose: 10 mg Benztropine Mesylate (Cogentin) 1 mg PO Q12 [facility] Last Admin: 06/14/18 08:50 Dose: Not Given Budesonide (Pulmicort Respules) 0.25 mg INH RBID [facility] Last Admin: 06/14/18 07:37 Dose: 0.25 mg Carvedilol (Coreg) 12.5 mg PO Q12 [facility] Last Admin: 06/14/18 08:50 Dose: Not Given Dextrose (Dextrose 50% Inj) 0 ml IV STAT PRN; Protocol PRN Reason: Hypoglycemia Protocol Ergocalciferol (Drisdol 50,000 Intl Units Cap) 1 cap PO Q7D [facility] Last Admin: 06/13/18 23:42 Dose: 1 cap Escitalopram Oxalate (Lexapro) 5 mg PO DAILY [facility] Last Admin: 06/13/18 16:03 Dose: 5 mg Glucagon (Glucagen Diagnostic Kit) 0 mg IM STAT PRN; Protocol PRN Reason: Hypoglycemia Protocol Heparin Sodium (Porcine) (Heparin) 5,000 units SC Q8 [facility]; Protocol Last Admin: 06/14/18 10:35 Dose: 5,000 units Home Med (Sucroferric Oxyhydroxide [Velphoro]) 1 tab PO [facility] Insulin Detemir (Levemir) 10 units SC HS [facility] Last Admin: 06/13/18 22:14 Dose: 10 units Insulin Human Lispro (Humalog) 0 units SC ACHS [facility]; Protocol Last Admin: 06/14/18 11:56 Dose: Not Given Losartan Potassium (Cozaar) 100 mg PO DAILY [facility] Last Admin: 06/14/18 08:50 Dose: Not Given Pantoprazole Sodium (Protonix Ec Tab) 40 mg PO DAILY [facility] Last Admin: 06/13/18 23:21 Dose: 40 mg Risperidone (Risperdal Tab) 2 mg PO Q12 [facility] Last Admin: 06/14/18 08:50 Dose: Not Given Sevelamer Carbonate (Renvela) 800 mg PO TID [facility] Last Admin: 06/14/18 12:15 Dose: Not Given Vitamin B Complex/Vit C/Folic Acid (Nephro-Nelson) 1 tab PO DAILY [facility] Last Admin: 06/13/18 16:06 Dose: 1 tab - Labs Labs: 06/14/18 10:42 06/14/18 10:42 PT 13.0 Seconds (9.8-13.1) 06/10/18 23:09 INR 1.2 06/10/18 23:09 APTT 46.4 Seconds (25.6-37.1) H 06/10/18 23:09 - Constitutional Appears: Well - Head Exam Head Exam: ATRAUMATIC, NORMAL INSPECTION, NORMOCEPHALIC - Eye Exam Eye Exam: EOMI, Normal appearance, PERRL Pupil Exam: NORMAL ACCOMODATION, PERRL - ENT Exam ENT Exam: Mucous Membranes Moist, Normal Exam - Neck Exam Neck Exam: Full ROM, Normal Inspection. absent: Lymphadenopathy - Respiratory Exam Respiratory Exam: Clear to Ausculation Bilateral, NORMAL BREATHING PATTERN - Cardiovascular Exam Cardiovascular Exam: REGULAR RHYTHM, +S1, +S2. absent: Murmur - GI/Abdominal Exam GI & Abdominal Exam: Soft, Normal Bowel Sounds. absent: Tenderness - Extremities Exam Extremities Exam: Full ROM, Normal Capillary Refill, Normal Inspection. absent: Joint Swelling, Pedal Edema - Back Exam Back Exam: NORMAL INSPECTION - Neurological Exam Neurological Exam: Alert, Awake, CN II-XII Intact, Normal Gait, Oriented x3 - Psychiatric Exam Psychiatric exam: Normal Affect, Normal Mood - Skin Skin Exam: Dry, Intact, Normal Color, Warm Assessment and Plan (1) CHF (congestive heart failure) Assessment & Plan: stress test in am npo p mn cont bb, arb Status: Acute (2) Acute pulmonary edema Assessment & Plan: remove fluid with HD Status: Acute (3) ESRD (end stage renal disease) Status: Chronic (4) CKD (chronic kidney disease) Status: Chronic (5) Diabetes mellitus Status: Chronic (6) HTN (hypertension) Status: Deleted (7) Schizophrenia Status: Chronic
[2018-06-14] MEDS: Pantoprazole 40 mg EC Tab PO SCH (16:29)
[2018-06-14] MEDS: Multivitamin Vitamin B Complex (Nephro-Vite) Tab PO SCH (16:32)
--- NOTE | 2018-06-14 19:14 | CP.PCM.CON ---
History of Present Illness - History of Present Illness History of Present Illness: SEEN ON RENAL F/U SEEN ON HD .. VSS .. UF 4 L CORONA FEELS MUCH IMPROVED Past Patient History - Infectious Disease Hx of Infectious Diseases: None - Past Medical History & Family History Past Medical History?: Yes - Past Social History Smoking Status: Unknown If Ever Smoked - CARDIAC Hx Hypertension: Yes - PULMONARY Hx Asthma: Yes - NEUROLOGICAL Hx Neurological Disorder: No - HEENT Hx HEENT Problems: No - RENAL Hx Dialysis: Yes (TTS) Date of Last Dialysis Treatment: 06/09/18 Hx Renal Failure: Yes - ENDOCRINE/METABOLIC Hx Endocrine Disorders: Yes Hx Diabetes Mellitus Type 2: Yes - HEMATOLOGICAL/ONCOLOGICAL Hx Anemia: Yes Hx Human Immunodeficiency Virus (HIV): No - INTEGUMENTARY Hx Dermatological Problems: No - MUSCULOSKELETAL/RHEUMATOLOGICAL Hx Musculoskeletal Disorders: No Hx Falls: (unknown) - GASTROINTESTINAL Hx Gall Bladder Disease: Yes (gallbladder stones) - GENITOURINARY/GYNECOLOGICAL Hx Genitourinary Disorders: No - PSYCHIATRIC Hx Anxiety: Yes Hx Depression: Yes Hx Schizophrenia: Yes - SURGICAL HISTORY Hx Cholecystectomy: Yes - ANESTHESIA Hx Anesthesia: Yes Hx Anesthesia Reactions: No Hx Malignant Hyperthermia: No Meds Allergies/Adverse Reactions: Allergies Allergy/AdvReac Type Severity Reaction Status Date / Time iodine Allergy URTICARIA Verified 06/11/18 04:32 - Medications Medications: Current Medications Albuterol/Ipratropium (Duoneb 3 Mg/0.5 Mg (3 Ml) Ud) 3 ml INH RQ4 [facility] Last Admin: 06/14/18 14:59 Dose: 3 ml Amlodipine Besylate (Norvasc) 10 mg PO DAILY [facility] Last Admin: 06/14/18 16:29 Dose: 10 mg Atorvastatin Calcium (Lipitor) 10 mg PO DAILY [facility] Last Admin: 06/14/18 16:31 Dose: 10 mg Benztropine Mesylate (Cogentin) 1 mg PO Q12 [facility] Last Admin: 06/14/18 08:50 Dose: Not Given Budesonide (Pulmicort Respules) 0.25 mg INH RBID [facility] Last Admin: 06/14/18 07:37 Dose: 0.25 mg Carvedilol (Coreg) 12.5 mg PO Q12 [facility] Last Admin: 06/14/18 08:50 Dose: Not Given Dextrose (Dextrose 50% Inj) 0 ml IV STAT PRN; Protocol PRN Reason: Hypoglycemia Protocol Ergocalciferol (Drisdol 50,000 Intl Units Cap) 1 cap PO Q7D [facility] Last Admin: 06/13/18 23:42 Dose: 1 cap Escitalopram Oxalate (Lexapro) 5 mg PO DAILY [facility] Last Admin: 06/14/18 16:31 Dose: 5 mg Glucagon (Glucagen Diagnostic Kit) 0 mg IM STAT PRN; Protocol PRN Reason: Hypoglycemia Protocol Heparin Sodium (Porcine) (Heparin) 5,000 units SC Q8 [facility]; Protocol Last Admin: 06/14/18 16:32 Dose: 5,000 units Home Med (Sucroferric Oxyhydroxide [Velphoro]) 1 tab PO [facility] Insulin Detemir (Levemir) 10 units SC HS [facility] Last Admin: 06/13/18 22:14 Dose: 10 units Insulin Human Lispro (Humalog) 0 units SC ACHS [facility]; Protocol Last Admin: 06/14/18 16:44 Dose: Not Given Losartan Potassium (Cozaar) 100 mg PO DAILY [facility] Last Admin: 06/14/18 08:50 Dose: Not Given Pantoprazole Sodium (Protonix Ec Tab) 40 mg PO DAILY [facility] Last Admin: 06/14/18 16:29 Dose: 40 mg Risperidone (Risperdal Tab) 2 mg PO Q12 [facility] Last Admin: 06/14/18 08:50 Dose: Not Given Sevelamer Carbonate (Renvela) 800 mg PO TID [facility] Last Admin: 06/14/18 16:33 Dose: 800 mg Vitamin B Complex/Vit C/Folic Acid (Nephro-Nelson) 1 tab PO DAILY [facility] Last Admin: 06/14/18 16:32 Dose: 1 tab Results - Vital Signs Recent Vital Signs: Last Vital Signs Temp 98.7 F 06/14/18 16:00 Pulse 70 06/14/18 17:00 Resp 20 06/14/18 17:00 BP 151/81 H 06/14/18 17:00 Pulse Ox 97 06/14/18 17:00 - Labs Result Diagrams: 06/14/18 10:42 06/14/18 10:42 Labs: Laboratory Results - last 24 hr 06/13/18 06/13/18 06/13/18 04:32 11:50 16:35 WBC RBC Hgb Hct MCV MCH MCHC RDW Plt Count Sodium Potassium Chloride Carbon Dioxide Anion Gap BUN Creatinine Est GFR ( Amer) Est GFR (Non-Af Amer) POC Glucose (mg/dL) 79 147 H 173 H Random Glucose Calcium Hep Bs Antigen Hep Bs Antibody Hep B Core IgM Ab 06/13/18 06/13/18 06/13/18 17:19 17:19 21:30 WBC RBC Hgb Hct MCV MCH MCHC RDW Plt Count Sodium Potassium Chloride Carbon Dioxide Anion Gap BUN Creatinine Est GFR ( Amer) Est GFR (Non-Af Amer) POC Glucose (mg/dL) 102 Random Glucose Calcium Hep Bs Antigen Negative Hep Bs Antibody Positive Hep B Core IgM Ab Negative 06/14/18 06/14/18 06/14/18 05:52 10:42 10:42 WBC 6.6 RBC 2.67 L Hgb 7.9 L Hct 23.3 L MCV 87.4 MCH 29.7 MCHC 34.0 RDW 16.0 H Plt Count 188 Sodium 132 Potassium 5.1 H Chloride 97 L Carbon Dioxide 30 Anion Gap 10 BUN 39 H Creatinine 5.8 H Est GFR ( Amer) 9 Est GFR (Non-Af Amer) 8 POC Glucose (mg/dL) 95 Random Glucose 88 Calcium 8.3 L Hep Bs Antigen Hep Bs Antibody Hep B Core IgM Ab Assessment & Plan - Assessment and Plan (Free Text) Assessment: ESRD ON HD .. TIDAY THEN SAT ANEMIA OF CKD .. ON EPO P EDEMA .. CHF .. F OVERLOAD HTN DM SCHIZOPHRENIA P : C/O CURRENT CARE C/O PRESENT MANAGEMENT - Date & Time Date: 06/14/18 Time: 13:00
[2018-06-14] MEDS: Insulin Detemir 100 Units/ml Inj SC SCH (22:40)
[2018-06-15] MEDS: Albuterol-Ipratrop 3 mg / 0.5 (3 ml) UD INH SCH ×7 (00:05→23:43)
[2018-06-15] MEDS: Insulin Lispro (humaLOG) 100 Units/ml Inj SC SCH ×3 (06:46→16:14)
[2018-06-15] MEDS: Budesonide 0.25 mg/2 ml Inhal Susp UD INH SCH ×2 (07:15→19:02)
[2018-06-15] MEDS: Pantoprazole 40 mg EC Tab PO SCH (10:58)
[2018-06-15] MEDS: Multivitamin Vitamin B Complex (Nephro-Vite) Tab PO SCH (10:59)
--- NOTE | 2018-06-15 15:52 | CP.PCM.PN ---
Subjective - Date & Time of Evaluation Date of Evaluation: 06/15/18 Time of Evaluation: 15:50 - Subjective Subjective: refused stress test 2nd time BP elevated Objective - Vital Signs/Intake and Output Vital Signs (last 24 hours): Temp Pulse Resp BP Pulse Ox 97.7 F 82 28 H 154/67 H 100 06/15/18 01:00 06/15/18 10:58 06/15/18 01:00 06/15/18 10:58 06/15/18 01:00 Intake and Output: 06/15/18 06/15/18 06:59 18:59 Intake Total 460 Output Total 4425 Balance -3965 - Medications Medications: Current Medications Albuterol/Ipratropium (Duoneb 3 Mg/0.5 Mg (3 Ml) Ud) 3 ml INH RQ4 [facility] Last Admin: 06/15/18 15:11 Dose: 3 ml Amlodipine Besylate (Norvasc) 10 mg PO DAILY [facility] Last Admin: 06/15/18 10:58 Dose: 10 mg Atorvastatin Calcium (Lipitor) 10 mg PO DAILY [facility] Last Admin: 06/15/18 10:59 Dose: 10 mg Benztropine Mesylate (Cogentin) 1 mg PO Q12 [facility] Last Admin: 06/14/18 22:00 Dose: 1 mg Budesonide (Pulmicort Respules) 0.25 mg INH RBID [facility] Last Admin: 06/15/18 07:15 Dose: 0.25 mg Carvedilol (Coreg) 12.5 mg PO Q12 [facility] Last Admin: 06/15/18 10:54 Dose: 12.5 mg Dextrose (Dextrose 50% Inj) 0 ml IV STAT PRN; Protocol PRN Reason: Hypoglycemia Protocol Ergocalciferol (Drisdol 50,000 Intl Units Cap) 1 cap PO Q7D [facility] Last Admin: 06/13/18 23:42 Dose: 1 cap Escitalopram Oxalate (Lexapro) 5 mg PO DAILY [facility] Last Admin: 06/14/18 16:31 Dose: 5 mg Glucagon (Glucagen Diagnostic Kit) 0 mg IM STAT PRN; Protocol PRN Reason: Hypoglycemia Protocol Heparin Sodium (Porcine) (Heparin) 5,000 units SC Q8 [facility]; Protocol Last Admin: 06/15/18 11:04 Dose: 5,000 units Home Med (Sucroferric Oxyhydroxide [Velphoro]) 1 tab PO WMHS [facility] Insulin Detemir (Levemir) 10 units SC [facility] Last Admin: 06/14/18 22:40 Dose: 10 units Insulin Human Lispro (Humalog) 0 units SC [facility]; Protocol Last Admin: 06/15/18 11:11 Dose: Not Given Losartan Potassium (Cozaar) 100 mg PO DAILY [facility] Last Admin: 06/15/18 10:56 Dose: 100 mg Pantoprazole Sodium (Protonix Ec Tab) 40 mg PO DAILY [facility] Last Admin: 06/15/18 10:58 Dose: 40 mg Risperidone (Risperdal Tab) 2 mg PO Q12 [facility] Last Admin: 06/14/18 21:30 Dose: 2 mg Sevelamer Carbonate (Renvela) 800 mg PO TID [facility] Last Admin: 06/15/18 15:10 Dose: 800 mg Vitamin B Complex/Vit C/Folic Acid (Nephro-Nelson) 1 tab PO DAILY [facility] Last Admin: 06/15/18 10:59 Dose: 1 tab - Labs Labs: 06/14/18 10:42 06/14/18 10:42 PT 13.0 Seconds (9.8-13.1) 06/10/18 23:09 INR 1.2 06/10/18 23:09 APTT 46.4 Seconds (25.6-37.1) H 06/10/18 23:09 - Constitutional Appears: Well - Head Exam Head Exam: ATRAUMATIC, NORMAL INSPECTION, NORMOCEPHALIC - Eye Exam Eye Exam: EOMI, Normal appearance, PERRL Pupil Exam: NORMAL ACCOMODATION, PERRL - ENT Exam ENT Exam: Mucous Membranes Moist, Normal Exam - Neck Exam Neck Exam: Full ROM, Normal Inspection. absent: Lymphadenopathy - Respiratory Exam Respiratory Exam: Clear to Ausculation Bilateral, NORMAL BREATHING PATTERN - Cardiovascular Exam Cardiovascular Exam: REGULAR RHYTHM, +S1, +S2, Murmur - GI/Abdominal Exam GI & Abdominal Exam: Soft, Normal Bowel Sounds. absent: Tenderness - Extremities Exam Extremities Exam: Full ROM, Normal Capillary Refill, Normal Inspection. absent: Joint Swelling, Pedal Edema - Back Exam Back Exam: NORMAL INSPECTION - Neurological Exam Neurological Exam: Alert, Awake, CN II-XII Intact, Normal Gait, Oriented x3 - Psychiatric Exam Psychiatric exam: Normal Affect, Normal Mood - Skin Skin Exam: Dry, Intact, Normal Color, Warm Assessment and Plan (1) CHF (congestive heart failure) Assessment & Plan: pt refused stress test etiology diastolic - ? ischemic vs uncontrolled HTN cont titration of meds for controlling RAAS increase dose of coreg Status: Acute (2) Acute pulmonary edema Status: Acute (3) ESRD (end stage renal disease) Status: Chronic (4) CKD (chronic kidney disease) Status: Chronic (5) Diabetes mellitus Status: Chronic (6) HTN (hypertension) Status: Deleted (7) Schizophrenia Status: Chronic
--- NOTE | 2018-06-15 17:06 | CP.PCM.PN ---
Subjective - Date & Time of Evaluation Date of Evaluation: 06/14/18 Time of Evaluation: 14:00 - Subjective Subjective: F/U CHF, Pulmonary edema. No A/D, refusing stress test x 2, BP 123/83 now.No SOB, no CP. Objective - Vital Signs/Intake and Output Vital Signs (last 24 hours): Temp Pulse Resp BP Pulse Ox 98.4 F 89 28 H 132/83 100 06/15/18 16:00 06/15/18 16:00 06/15/18 01:00 06/15/18 16:00 06/15/18 01:00 Intake and Output: 06/15/18 06/15/18 06:59 18:59 Intake Total 460 Output Total 4425 Balance -3965 - Medications Medications: Current Medications Albuterol/Ipratropium (Duoneb 3 Mg/0.5 Mg (3 Ml) Ud) 3 ml INH RQ4 [facility] Last Admin: 06/15/18 15:11 Dose: 3 ml Amlodipine Besylate (Norvasc) 10 mg PO DAILY [facility] Last Admin: 06/15/18 10:58 Dose: 10 mg Atorvastatin Calcium (Lipitor) 10 mg PO DAILY [facility] Last Admin: 06/15/18 10:59 Dose: 10 mg Benztropine Mesylate (Cogentin) 1 mg PO Q12 [facility] Last Admin: 06/14/18 22:00 Dose: 1 mg Budesonide (Pulmicort Respules) 0.25 mg INH RBID [facility] Last Admin: 06/15/18 07:15 Dose: 0.25 mg Carvedilol (Coreg) 25 mg PO Q12 [facility] Dextrose (Dextrose 50% Inj) 0 ml IV STAT PRN; Protocol PRN Reason: Hypoglycemia Protocol Ergocalciferol (Drisdol 50,000 Intl Units Cap) 1 cap PO Q7D [facility] Last Admin: 06/13/18 23:42 Dose: 1 cap Escitalopram Oxalate (Lexapro) 5 mg PO DAILY [facility] Last Admin: 06/14/18 16:31 Dose: 5 mg Glucagon (Glucagen Diagnostic Kit) 0 mg IM STAT PRN; Protocol PRN Reason: Hypoglycemia Protocol Heparin Sodium (Porcine) (Heparin) 5,000 units SC Q8 [facility]; Protocol Last Admin: 06/15/18 16:16 Dose: 5,000 units Home Med (Sucroferric Oxyhydroxide [Velphoro]) 1 tab PO [facility] Insulin Detemir (Levemir) 10 units SC [facility] Last Admin: 06/14/18 22:40 Dose: 10 units Insulin Human Lispro (Humalog) 0 units SC [facility]; Protocol Last Admin: 06/15/18 16:14 Dose: Not Given Losartan Potassium (Cozaar) 100 mg PO DAILY [facility] Last Admin: 06/15/18 10:56 Dose: 100 mg Pantoprazole Sodium (Protonix Ec Tab) 40 mg PO DAILY [facility] Last Admin: 06/15/18 10:58 Dose: 40 mg Risperidone (Risperdal Tab) 2 mg PO Q12 [facility] Last Admin: 06/14/18 21:30 Dose: 2 mg Sevelamer Carbonate (Renvela) 800 mg PO TID [facility] Last Admin: 06/15/18 15:10 Dose: 800 mg Vitamin B Complex/Vit C/Folic Acid (Nephro-Nelson) 1 tab PO DAILY [facility] Last Admin: 06/15/18 10:59 Dose: 1 tab - Labs Labs: 06/14/18 10:42 06/14/18 10:42 PT 13.0 Seconds (9.8-13.1) 06/10/18 23:09 INR 1.2 06/10/18 23:09 APTT 46.4 Seconds (25.6-37.1) H 06/10/18 23:09 - Constitutional Appears: No Acute Distress, Chronically Ill - Head Exam Head Exam: NORMAL INSPECTION - Eye Exam Eye Exam: PERRL - ENT Exam ENT Exam: Normal Exam - Neck Exam Neck Exam: Normal Inspection - Respiratory Exam Respiratory Exam: Decreased Breath Sounds (at bases) - Cardiovascular Exam Cardiovascular Exam: REGULAR RHYTHM - GI/Abdominal Exam GI & Abdominal Exam: Soft, Normal Bowel Sounds - Extremities Exam Additional comments: R arm AV fistula with bruit and thrill - Back Exam Back Exam: NORMAL INSPECTION - Neurological Exam Neurological Exam: Awake Additional comments: Ox2, no focal motor/sensory deficit. - Psychiatric Exam Psychiatric exam: Depressed - Skin Skin Exam: Dry, Warm Assessment and Plan (1) CHF (congestive heart failure) Status: Acute (2) Acute pulmonary edema Status: Acute (3) ESRD (end stage renal disease) Status: Chronic (4) Anemia in CKD (chronic kidney disease) Status: Acute (5) Asthma Status: Chronic (6) Diabetes mellitus Status: Chronic (7) Anxiety and depression Status: Chronic - Assessment and Plan (Free Text) Plan: Continue HD, Duoneb, Pulmicort, Coreg increased to 25 q 12, Norvasc, Insulin and rest of Tx.
[2018-06-15] MEDS: Insulin Detemir 100 Units/ml Inj SC SCH (23:01)
[2018-06-16] MEDS: Albuterol-Ipratrop 3 mg / 0.5 (3 ml) UD INH SCH ×6 (05:30→23:19)
[2018-06-16] MEDS: Budesonide 0.25 mg/2 ml Inhal Susp UD INH SCH ×2 (07:09→19:11)
[2018-06-16] MEDS: Insulin Lispro (humaLOG) 100 Units/ml Inj SC SCH ×4 (08:33→21:41)
[2018-06-16] MEDS: Multivitamin Vitamin B Complex (Nephro-Vite) Tab PO SCH (08:43)
[2018-06-16] MEDS: Pantoprazole 40 mg EC Tab PO SCH (08:44)
--- NOTE | 2018-06-16 14:52 | CP.PCM.PN ---
Subjective - Date & Time of Evaluation Date of Evaluation: 06/16/18 Time of Evaluation: 14:30 - Subjective Subjective: F/U CHF/ Pulmonary edema. No A/D, no c/o on NC 2 L/M. Objective - Vital Signs/Intake and Output Vital Signs (last 24 hours): Temp Pulse Resp BP Pulse Ox 98 F 79 16 154/79 H 99 06/16/18 12:36 06/16/18 12:36 06/16/18 12:36 06/16/18 12:36 06/16/18 12:36 - Medications Medications: Current Medications Albuterol/Ipratropium (Duoneb 3 Mg/0.5 Mg (3 Ml) Ud) 3 ml INH RQ4 [facility] Last Admin: 06/16/18 11:35 Dose: 3 ml Amlodipine Besylate (Norvasc) 10 mg PO DAILY [facility] Last Admin: 06/15/18 10:58 Dose: 10 mg Atorvastatin Calcium (Lipitor) 10 mg PO DAILY [facility] Last Admin: 06/16/18 08:43 Dose: 10 mg Benztropine Mesylate (Cogentin) 1 mg PO Q12 [facility] Last Admin: 06/16/18 12:03 Dose: 1 mg Budesonide (Pulmicort Respules) 0.25 mg INH RBID [facility] Last Admin: 06/16/18 07:09 Dose: 0.25 mg Carvedilol (Coreg) 25 mg PO Q12 [facility] Last Admin: 06/15/18 23:02 Dose: 25 mg Dextrose (Dextrose 50% Inj) 0 ml IV STAT PRN; Protocol PRN Reason: Hypoglycemia Protocol Epoetin Maynor (Procrit) 10,000 unit SC MWF [facility] Ergocalciferol (Drisdol 50,000 Intl Units Cap) 1 cap PO Q7D [facility] Last Admin: 06/13/18 23:42 Dose: 1 cap Escitalopram Oxalate (Lexapro) 5 mg PO DAILY [facility] Last Admin: 06/16/18 12:03 Dose: 5 mg Glucagon (Glucagen Diagnostic Kit) 0 mg IM STAT PRN; Protocol PRN Reason: Hypoglycemia Protocol Home Med (Sucroferric Oxyhydroxide [Velphoro]) 1 tab PO WMHS [facility] Insulin Detemir (Levemir) 10 units SC HS [facility] Last Admin: 06/15/18 23:01 Dose: 10 units Insulin Human Lispro (Humalog) 0 units SC ACHS [facility]; Protocol Last Admin: 06/16/18 12:06 Dose: Not Given Lactulose (Enulose) 20 gm PO DAILY PRN PRN Reason: Constipation Losartan Potassium (Cozaar) 100 mg PO DAILY [facility] Last Admin: 06/15/18 10:56 Dose: 100 mg Pantoprazole Sodium (Protonix Ec Tab) 40 mg PO DAILY [facility] Last Admin: 06/16/18 08:44 Dose: 40 mg Risperidone (Risperdal Tab) 2 mg PO Q12 [facility] Last Admin: 06/16/18 12:03 Dose: 2 mg Sevelamer Carbonate (Renvela) 800 mg PO TID [facility] Last Admin: 06/16/18 08:46 Dose: 800 mg Vitamin B Complex/Vit C/Folic Acid (Nephro-Nelson) 1 tab PO DAILY [facility] Last Admin: 06/16/18 08:43 Dose: 1 tab - Labs Labs: 06/14/18 10:42 06/14/18 10:42 PT 13.0 Seconds (9.8-13.1) 06/10/18 23:09 INR 1.2 06/10/18 23:09 APTT 46.4 Seconds (25.6-37.1) H 06/10/18 23:09 - Constitutional Appears: No Acute Distress, Chronically Ill - Head Exam Head Exam: NORMAL INSPECTION - Eye Exam Eye Exam: PERRL - ENT Exam ENT Exam: Normal Exam - Neck Exam Neck Exam: Normal Inspection - Respiratory Exam Respiratory Exam: Decreased Breath Sounds (at bases) - Cardiovascular Exam Cardiovascular Exam: REGULAR RHYTHM - GI/Abdominal Exam GI & Abdominal Exam: Soft, Normal Bowel Sounds - Extremities Exam Additional comments: R arm AV fistula with bruit and thrill. - Back Exam Back Exam: NORMAL INSPECTION - Neurological Exam Neurological Exam: Alert, Oriented x3 Additional comments: No focal motor/sensory deficit. - Psychiatric Exam Psychiatric exam: Depressed - Skin Skin Exam: Dry, Warm Assessment and Plan (1) CHF (congestive heart failure) Status: Acute (2) Acute pulmonary edema Status: Acute (3) ESRD (end stage renal disease) Status: Chronic (4) Anemia in CKD (chronic kidney disease) Status: Acute (5) Asthma Status: Chronic (6) Diabetes mellitus Status: Chronic (7) Anxiety and depression Status: Chronic - Assessment and Plan (Free Text) Plan: HD today, continue Congentin, Cozaar, Coreg, Duoneb, Insulins, Risperdal and rest of tx.
--- NOTE | 2018-06-16 19:52 | CP.PCM.PN ---
Subjective - Date & Time of Evaluation Date of Evaluation: 06/16/18 Time of Evaluation: 18:00 - Subjective Subjective: SEEN ON RENAL F/U SEEN ON HD CASE D/W DR GALINDO FEELS MUCH BETTER WILL REMOVE 4 L ON HD TODAY [place] Objective - Vital Signs/Intake and Output Vital Signs (last 24 hours): Temp Pulse Resp BP Pulse Ox 98.2 F 76 16 140/79 95 06/16/18 19:44 06/16/18 19:44 06/16/18 19:44 06/16/18 19:44 06/16/18 19:44 - Medications Medications: Current Medications Albuterol/Ipratropium (Duoneb 3 Mg/0.5 Mg (3 Ml) Ud) 3 ml INH RQ4 [facility] Last Admin: 06/16/18 19:11 Dose: 3 ml Amlodipine Besylate (Norvasc) 10 mg PO DAILY [facility] Last Admin: 06/16/18 16:36 Dose: Not Given Atorvastatin Calcium (Lipitor) 10 mg PO DAILY [facility] Last Admin: 06/16/18 08:43 Dose: 10 mg Benztropine Mesylate (Cogentin) 1 mg PO Q12 [facility] Last Admin: 06/16/18 12:03 Dose: 1 mg Budesonide (Pulmicort Respules) 0.25 mg INH RBID [facility] Last Admin: 06/16/18 19:11 Dose: 0.25 mg Carvedilol (Coreg) 25 mg PO Q12 [facility] Last Admin: 06/16/18 16:36 Dose: Not Given Dextrose (Dextrose 50% Inj) 0 ml IV STAT PRN; Protocol PRN Reason: Hypoglycemia Protocol Epoetin Maynor (Procrit) 10,000 unit SC MWF [facility] Ergocalciferol (Drisdol 50,000 Intl Units Cap) 1 cap PO Q7D [facility] Last Admin: 06/13/18 23:42 Dose: 1 cap Escitalopram Oxalate (Lexapro) 5 mg PO DAILY [facility] Last Admin: 06/16/18 12:03 Dose: 5 mg Glucagon (Glucagen Diagnostic Kit) 0 mg IM STAT PRN; Protocol PRN Reason: Hypoglycemia Protocol Home Med (Sucroferric Oxyhydroxide [Velphoro]) 1 tab PO [facility]HS [facility] Insulin Detemir (Levemir) 10 units SC HS [facility] Last Admin: 10/05/18 23:01 Dose: 10 units Insulin Human Lispro (Humalog) 0 units SC ACHS [facility]; Protocol Last Admin: 06/16/18 16:35 Dose: Not Given Lactulose (Enulose) 20 gm PO DAILY PRN PRN Reason: Constipation Losartan Potassium (Cozaar) 100 mg PO DAILY [facility] Last Admin: 06/16/18 16:36 Dose: Not Given Pantoprazole Sodium (Protonix Ec Tab) 40 mg PO DAILY [facility] Last Admin: 06/16/18 08:44 Dose: 40 mg Risperidone (Risperdal Tab) 2 mg PO Q12 [facility] Last Admin: 06/16/18 12:03 Dose: 2 mg Sevelamer Carbonate (Renvela) 800 mg PO TID [facility] Last Admin: 06/16/18 16:34 Dose: 800 mg Vitamin B Complex/Vit C/Folic Acid (Nephro-Nelson) 1 tab PO DAILY [facility] Last Admin: 06/16/18 08:43 Dose: 1 tab - Labs Labs: 06/14/18 10:42 06/14/18 10:42 PT 13.0 Seconds (9.8-13.1) 06/10/18 23:09 INR 1.2 06/10/18 23:09 APTT 46.4 Seconds (25.6-37.1) H 06/10/18 23:09 Assessment and Plan - Assessment and Plan (Free Text) Assessment: ESRD ON HD T T S AND MON ANEMIA OF CKD .. ON EPO MMP P : C/O CURRENT CARE C/O PRESENT MANAGEMENT
[2018-06-16] MEDS: Insulin Detemir 100 Units/ml Inj SC SCH (21:38)
[2018-06-17] MEDS: Albuterol-Ipratrop 3 mg / 0.5 (3 ml) UD INH SCH ×6 (05:10→23:43)
[2018-06-17] MEDS: Budesonide 0.25 mg/2 ml Inhal Susp UD INH SCH ×2 (07:33→19:05)
[2018-06-17] MEDS: Insulin Lispro (humaLOG) 100 Units/ml Inj SC SCH ×3 (09:47→17:49)
[2018-06-17] MEDS: Pantoprazole 40 mg EC Tab PO SCH (09:52)
[2018-06-17] MEDS: Multivitamin Vitamin B Complex (Nephro-Vite) Tab PO SCH (09:52)
[2018-06-17] MEDS: Insulin Detemir 100 Units/ml Inj SC SCH (21:45)
--- NOTE | 2018-06-17 21:48 | CP.PCM.PN ---
Subjective - Date & Time of Evaluation Date of Evaluation: 06/17/18 Time of Evaluation: 18:00 - Subjective Subjective: SEEN ON RENAL F/U CASE D/W HER MOM WELL HER SIS CECILIA AT LENGTH PT IS FEELING IMPROVED ALL QUESTIONS FROM MOM AND SIS WERE ANSWERED PT DOESNT WANT HD ON MON .. SHE ONLY WANTS T T S CASE ALSO D/W DR GALINDO AT LENGTH Objective - Vital Signs/Intake and Output Vital Signs (last 24 hours): Temp Pulse Resp BP Pulse Ox 98.4 F 71 16 165/76 H 97 06/17/18 20:28 06/17/18 21:45 06/17/18 20:28 06/17/18 21:45 06/17/18 20:28 Intake and Output: 06/17/18 06/18/18 18:59 06:59 Intake Total 240 Balance 240 - Medications Medications: Current Medications Albuterol/Ipratropium (Duoneb 3 Mg/0.5 Mg (3 Ml) Ud) 3 ml INH RQ4 [facility] Last Admin: 06/17/18 19:05 Dose: 3 ml Amlodipine Besylate (Norvasc) 10 mg PO DAILY [facility] Last Admin: 06/17/18 09:52 Dose: 10 mg Atorvastatin Calcium (Lipitor) 10 mg PO DAILY [facility] Last Admin: 06/17/18 09:52 Dose: 10 mg Benztropine Mesylate (Cogentin) 1 mg PO Q12 [facility] Last Admin: 06/17/18 21:45 Dose: 1 mg Budesonide (Pulmicort Respules) 0.25 mg INH RBID [facility] Last Admin: 06/17/18 19:05 Dose: 0.25 mg Carvedilol (Coreg) 25 mg PO Q12 [facility] Last Admin: 06/17/18 21:45 Dose: 25 mg Dextrose (Dextrose 50% Inj) 0 ml IV STAT PRN; Protocol PRN Reason: Hypoglycemia Protocol Epoetin Maynor (Procrit) 10,000 unit SC MWF [facility] Ergocalciferol (Drisdol 50,000 Intl Units Cap) 1 cap PO Q7D [facility] Last Admin: 06/13/18 23:42 Dose: 1 cap Escitalopram Oxalate (Lexapro) 5 mg PO DAILY [facility] Last Admin: 06/17/18 09:52 Dose: 5 mg Glucagon (Glucagen Diagnostic Kit) 0 mg IM STAT PRN; Protocol PRN Reason: Hypoglycemia Protocol Home Med (Sucroferric Oxyhydroxide [Velphoro]) 1 tab PO [facility]HS [facility] Insulin Detemir (Levemir) 10 units SC HS [facility] Last Admin: 06/17/18 21:45 Dose: 10 units Insulin Human Lispro (Humalog) 0 units SC ACHS [facility]; Protocol Last Admin: 06/17/18 17:49 Dose: Not Given Lactulose (Enulose) 20 gm PO DAILY PRN PRN Reason: Constipation Losartan Potassium (Cozaar) 100 mg PO DAILY [facility] Last Admin: 06/17/18 09:51 Dose: 100 mg Pantoprazole Sodium (Protonix Ec Tab) 40 mg PO DAILY [facility] Last Admin: 06/17/18 09:52 Dose: 40 mg Risperidone (Risperdal Tab) 2 mg PO Q12 [facility] Last Admin: 06/17/18 21:44 Dose: 2 mg Sevelamer Carbonate (Renvela) 800 mg PO TID [facility] Last Admin: 06/17/18 18:20 Dose: 800 mg Vitamin B Complex/Vit C/Folic Acid (Nephro-Nelson) 1 tab PO DAILY [facility] Last Admin: 06/17/18 09:52 Dose: 1 tab - Labs Labs: 06/14/18 10:42 06/14/18 10:42 PT 13.0 Seconds (9.8-13.1) 06/10/18 23:09 INR 1.2 06/10/18 23:09 APTT 46.4 Seconds (25.6-37.1) H 06/10/18 23:09 Assessment and Plan - Assessment and Plan (Free Text) Assessment: ESRD ON HD T T S .. TO BE C/O ANEMIA OF CKD .. ON EPO MMP P : C/O CURRENT CARE C/O PRESENT MANAGEMENT CASE D/W PMD DR GALINDO
--- NOTE | 2018-06-17 22:31 | CP.PCM.PN ---
Subjective - Date & Time of Evaluation Date of Evaluation: 06/17/18 Time of Evaluation: 12:20 - Subjective Subjective: F/U CHF, Pulmonary edema. No A/D, no c/o, no SOB Objective - Vital Signs/Intake and Output Vital Signs (last 24 hours): Temp Pulse Resp BP Pulse Ox 98.4 F 71 16 165/76 H 97 06/17/18 20:28 06/17/18 21:45 06/17/18 20:28 06/17/18 21:45 06/17/18 20:28 Intake and Output: 06/17/18 06/18/18 18:59 06:59 Intake Total 240 Balance 240 - Medications Medications: Current Medications Albuterol/Ipratropium (Duoneb 3 Mg/0.5 Mg (3 Ml) Ud) 3 ml INH RQ4 [facility] Last Admin: 06/17/18 19:05 Dose: 3 ml Amlodipine Besylate (Norvasc) 10 mg PO DAILY [facility] Last Admin: 06/17/18 09:52 Dose: 10 mg Atorvastatin Calcium (Lipitor) 10 mg PO DAILY [facility] Last Admin: 06/17/18 09:52 Dose: 10 mg Benztropine Mesylate (Cogentin) 1 mg PO Q12 [facility] Last Admin: 06/17/18 21:45 Dose: 1 mg Budesonide (Pulmicort Respules) 0.25 mg INH RBID [facility] Last Admin: 06/17/18 19:05 Dose: 0.25 mg Carvedilol (Coreg) 25 mg PO Q12 [facility] Last Admin: 06/17/18 21:45 Dose: 25 mg Dextrose (Dextrose 50% Inj) 0 ml IV STAT PRN; Protocol PRN Reason: Hypoglycemia Protocol Epoetin Maynor (Procrit) 10,000 unit SC MWF [facility] Ergocalciferol (Drisdol 50,000 Intl Units Cap) 1 cap PO Q7D [facility] Last Admin: 06/13/18 23:42 Dose: 1 cap Escitalopram Oxalate (Lexapro) 5 mg PO DAILY [facility] Last Admin: 06/17/18 09:52 Dose: 5 mg Glucagon (Glucagen Diagnostic Kit) 0 mg IM STAT PRN; Protocol PRN Reason: Hypoglycemia Protocol Home Med (Sucroferric Oxyhydroxide [Velphoro]) 1 tab PO [facility] Insulin Detemir (Levemir) 10 units SC HS [facility] Last Admin: 06/17/18 21:45 Dose: 10 units Insulin Human Lispro (Humalog) 0 units SC ACHS [facility]; Protocol Last Admin: 06/17/18 17:49 Dose: Not Given Lactulose (Enulose) 20 gm PO DAILY PRN PRN Reason: Constipation Losartan Potassium (Cozaar) 100 mg PO DAILY [facility] Last Admin: 06/17/18 09:51 Dose: 100 mg Pantoprazole Sodium (Protonix Ec Tab) 40 mg PO DAILY [facility] Last Admin: 06/17/18 09:52 Dose: 40 mg Risperidone (Risperdal Tab) 2 mg PO Q12 [facility] Last Admin: 06/17/18 21:44 Dose: 2 mg Sevelamer Carbonate (Renvela) 800 mg PO TID [facility] Last Admin: 06/17/18 18:20 Dose: 800 mg Vitamin B Complex/Vit C/Folic Acid (Nephro-Nelson) 1 tab PO DAILY [facility] Last Admin: 06/17/18 09:52 Dose: 1 tab - Labs Labs: 06/14/18 10:42 06/14/18 10:42 PT 13.0 Seconds (9.8-13.1) 06/10/18 23:09 INR 1.2 06/10/18 23:09 APTT 46.4 Seconds (25.6-37.1) H 06/10/18 23:09 Assessment and Plan (1) CHF (congestive heart failure) Status: Acute (2) Acute pulmonary edema Status: Acute (3) ESRD (end stage renal disease) Status: Chronic (4) Anemia in CKD (chronic kidney disease) Status: Acute (5) Asthma Status: Chronic (6) Diabetes mellitus Status: Chronic (7) Anxiety and depression Status: Chronic
[2018-06-18] MEDS: Insulin Lispro (humaLOG) 100 Units/ml Inj SC SCH ×7 (00:07→21:46)
[2018-06-18] MEDS: Albuterol-Ipratrop 3 mg / 0.5 (3 ml) UD INH SCH ×7 (04:48→23:18)
[2018-06-18] MEDS: Budesonide 0.25 mg/2 ml Inhal Susp UD INH SCH ×2 (07:29→19:04)
[2018-06-18] MEDS: Multivitamin Vitamin B Complex (Nephro-Vite) Tab PO SCH ×2 (10:14→12:33)
[2018-06-18] MEDS: Pantoprazole 40 mg EC Tab PO SCH ×2 (10:15→12:35)
[2018-06-18] MEDS: EPOETIN ALFA 10,000 UNIT/ML ML SC SCH ×2 (10:15→12:55)
[2018-06-18 12:20] LABS: HEMOGLOBIN 9.1 g/dL (12.0-16.0); MEAN CELL VOLUME 85.9 fl (81.0-99.0); MEAN CORPUSCULAR HEMOGLOBIN 28.9 pg (27.0-31.0); MEAN CORPUSCULAR HGB CONC 33.6 g/dL (33.0-37.0); RBC 3.17 Mil/uL (3.80-5.20); RED CELL DISTRIBUTION WIDTH 15.3 % (11.5-14.5); WHITE BLOOD COUNT 8.7 K/uL (4.8-10.8)
[2018-06-18 12:58] LABS: CALCIUM 8.9 mg/dL (8.4-10.2)
--- NOTE | 2018-06-18 19:32 | CP.PCM.PN ---
Subjective - Date & Time of Evaluation Date of Evaluation: 06/18/18 Time of Evaluation: 12:20 - Subjective Subjective: F/U CHF, Pulmonary edema. No A/D, no c/o, had stress Test today. Objective - Vital Signs/Intake and Output Vital Signs (last 24 hours): Temp Pulse Resp BP Pulse Ox 98.2 F 69 16 159/70 H 97 06/18/18 16:03 06/18/18 16:03 06/18/18 16:03 06/18/18 16:03 06/18/18 16:03 Intake and Output: 06/18/18 06/19/18 18:59 06:59 Intake Total 610 Output Total 425 Balance 185 - Medications Medications: Current Medications Albuterol/Ipratropium (Duoneb 3 Mg/0.5 Mg (3 Ml) Ud) 3 ml INH RQ4 [facility] Last Admin: 06/18/18 19:04 Dose: 3 ml Amlodipine Besylate (Norvasc) 10 mg PO DAILY [facility] Last Admin: 06/18/18 12:33 Dose: 10 mg Atorvastatin Calcium (Lipitor) 10 mg PO DAILY [facility] Last Admin: 06/18/18 12:32 Dose: 10 mg Benztropine Mesylate (Cogentin) 1 mg PO Q12 [facility] Last Admin: 06/18/18 12:24 Dose: 1 mg Budesonide (Pulmicort Respules) 0.25 mg INH RBID [facility] Last Admin: 06/18/18 19:04 Dose: 0.25 mg Carvedilol (Coreg) 25 mg PO Q12 [facility] Last Admin: 06/18/18 12:28 Dose: 25 mg Dextrose (Dextrose 50% Inj) 0 ml IV STAT PRN; Protocol PRN Reason: Hypoglycemia Protocol Epoetin Maynor (Procrit) 10,000 unit SC MWF [facility] Last Admin: 06/18/18 12:55 Dose: 10,000 unit Ergocalciferol (Drisdol 50,000 Intl Units Cap) 1 cap PO Q7D [facility] Last Admin: 06/13/18 23:42 Dose: 1 cap Escitalopram Oxalate (Lexapro) 5 mg PO DAILY [facility] Last Admin: 06/18/18 12:30 Dose: 5 mg Glucagon (Glucagen Diagnostic Kit) 0 mg IM STAT PRN; Protocol PRN Reason: Hypoglycemia Protocol Home Med (Sucroferric Oxyhydroxide [Velphoro]) 1 tab PO [facility] Insulin Detemir (Levemir) 10 units SC HS [facility] Last Admin: 06/17/18 21:45 Dose: 10 units Insulin Human Lispro (Humalog) 0 units SC [facility]; Protocol Last Admin: 06/18/18 16:50 Dose: 1 u Lactulose (Enulose) 20 gm PO DAILY PRN PRN Reason: Constipation Losartan Potassium (Cozaar) 100 mg PO DAILY [facility] Last Admin: 06/18/18 12:29 Dose: 100 mg Pantoprazole Sodium (Protonix Ec Tab) 40 mg PO DAILY [facility] Last Admin: 06/18/18 12:35 Dose: 40 mg Risperidone (Risperdal Tab) 2 mg PO Q12 [facility] Last Admin: 06/18/18 12:36 Dose: 2 mg Sevelamer Carbonate (Renvela) 800 mg PO TID [facility] Last Admin: 06/18/18 16:51 Dose: 800 mg Vitamin B Complex/Vit C/Folic Acid (Nephro-Nelson) 1 tab PO DAILY [facility] Last Admin: 06/18/18 12:33 Dose: 1 tab - Labs Labs: 06/18/18 12:13 06/18/18 12:13 PT 13.0 Seconds (9.8-13.1) 06/10/18 23:09 INR 1.2 06/10/18 23:09 APTT 46.4 Seconds (25.6-37.1) H 06/10/18 23:09 - Constitutional Appears: No Acute Distress, Chronically Ill - Head Exam Head Exam: NORMAL INSPECTION - Eye Exam Eye Exam: PERRL - ENT Exam ENT Exam: Mucous Membranes Moist - Neck Exam Neck Exam: Normal Inspection - Respiratory Exam Respiratory Exam: Decreased Breath Sounds (at bases) Additional comments: R subclavian Perma-cath - Cardiovascular Exam Cardiovascular Exam: REGULAR RHYTHM - GI/Abdominal Exam GI & Abdominal Exam: Soft, Normal Bowel Sounds - Extremities Exam Additional comments: R AV fistula with bruit and thrill - Back Exam Back Exam: NORMAL INSPECTION - Neurological Exam Neurological Exam: Alert, Oriented x3 Additional comments: No focal motor/sensory deficit. - Psychiatric Exam Psychiatric exam: Depressed - Skin Skin Exam: Dry, Warm Assessment and Plan (1) CHF (congestive heart failure) Status: Acute (2) Acute pulmonary edema Status: Acute (3) ESRD (end stage renal disease) Status: Chronic (4) Anemia in CKD (chronic kidney disease) Status: Acute (5) Asthma Status: Chronic (6) Diabetes mellitus Status: Chronic (7) Anxiety and depression Status: Chronic - Assessment and Plan (Free Text) Plan: F/U Stress Test result. continue Duoneb and rest of Tx.
[2018-06-18] MEDS: Insulin Detemir 100 Units/ml Inj SC SCH (21:47)
--- NOTE | 2018-06-18 23:26 | CP.PCM.PN ---
Subjective - Date & Time of Evaluation Date of Evaluation: 06/18/18 Time of Evaluation: 16:00 - Subjective Subjective: FEELS MUCH BETTER ON HD T T S HGB GETTING BETTER D/W PT , HER SIS CECILIA AND HER MOTHER ABOUT ALL ASPECT OF RENAL CARE ALL THEIR QUESTIONS WERE ANSWERED Objective - Vital Signs/Intake and Output Vital Signs (last 24 hours): Temp Pulse Resp BP Pulse Ox 97.8 F 70 16 132/66 97 06/18/18 20:07 06/18/18 20:54 06/18/18 20:07 06/18/18 20:54 06/18/18 20:07 Intake and Output: 06/18/18 06/19/18 18:59 06:59 Intake Total 610 Output Total 425 Balance 185 - Medications Medications: Current Medications Albuterol/Ipratropium (Duoneb 3 Mg/0.5 Mg (3 Ml) Ud) 3 ml INH RQ4 [facility] Last Admin: 06/18/18 23:18 Dose: 3 ml Amlodipine Besylate (Norvasc) 10 mg PO DAILY [facility] Last Admin: 06/18/18 12:33 Dose: 10 mg Atorvastatin Calcium (Lipitor) 10 mg PO DAILY [facility] Last Admin: 06/18/18 12:32 Dose: 10 mg Benztropine Mesylate (Cogentin) 1 mg PO Q12 [facility] Last Admin: 06/18/18 20:54 Dose: 1 mg Carvedilol (Coreg) 25 mg PO Q12 [facility] Last Admin: 06/18/18 20:54 Dose: 25 mg Dextrose (Dextrose 50% Inj) 0 ml IV STAT PRN; Protocol PRN Reason: Hypoglycemia Protocol Epoetin Maynor (Procrit) 10,000 unit SC MWF [facility] Last Admin: 06/18/18 12:55 Dose: 10,000 unit Ergocalciferol (Drisdol 50,000 Intl Units Cap) 1 cap PO Q7D [facility] Last Admin: 06/13/18 23:42 Dose: 1 cap Escitalopram Oxalate (Lexapro) 5 mg PO DAILY [facility] Last Admin: 06/18/18 12:30 Dose: 5 mg Glucagon (Glucagen Diagnostic Kit) 0 mg IM STAT PRN; Protocol PRN Reason: Hypoglycemia Protocol Home Med (Sucroferric Oxyhydroxide [Velphoro]) 1 tab PO [facility] Insulin Detemir (Levemir) 10 units SC HS [facility] Last Admin: 06/18/18 21:47 Dose: 10 units Insulin Human Lispro (Humalog) 0 units SC ACHS [facility]; Protocol Last Admin: 06/18/18 21:46 Dose: Not Given Lactulose (Enulose) 20 gm PO DAILY PRN PRN Reason: Constipation Losartan Potassium (Cozaar) 100 mg PO DAILY [facility] Last Admin: 06/18/18 12:29 Dose: 100 mg Pantoprazole Sodium (Protonix Ec Tab) 40 mg PO DAILY [facility] Last Admin: 06/18/18 12:35 Dose: 40 mg Risperidone (Risperdal Tab) 2 mg PO Q12 [facility] Last Admin: 06/18/18 20:54 Dose: 2 mg Sevelamer Carbonate (Renvela) 800 mg PO TID [facility] Last Admin: 06/18/18 16:51 Dose: 800 mg Vitamin B Complex/Vit C/Folic Acid (Nephro-Nelson) 1 tab PO DAILY [facility] Last Admin: 06/18/18 12:33 Dose: 1 tab - Labs Labs: 06/18/18 12:13 06/18/18 12:13 PT 13.0 Seconds (9.8-13.1) 06/10/18 23:09 INR 1.2 06/10/18 23:09 APTT 46.4 Seconds (25.6-37.1) H 06/10/18 23:09 Assessment and Plan - Assessment and Plan (Free Text) Assessment: ESRD ON HD T T S .. TO BE C/O ANEMIA OF CKD .. ON EPO ..H/H BETTER ELECTROLYTES ABNO .. INSTRUCTED ABOUT FLUID RESTRICTION CAME IN WITH CHF .. P EDEMA AND FLUID OVERLOAD .. BETTER MMP P : C/O CURRENT CARE C/O PRESENT MANAGEMENT C/O CURRENT MEDS CASE D/W DR GALINDO
[2018-06-19] MEDS: Albuterol-Ipratrop 3 mg / 0.5 (3 ml) UD INH SCH ×5 (02:59→19:22)
[2018-06-19] MEDS: Insulin Lispro (humaLOG) 100 Units/ml Inj SC SCH ×3 (07:28→16:42)
[2018-06-19 08:29] VITALS: RESP 20
[2018-06-19] MEDS: Multivitamin Vitamin B Complex (Nephro-Vite) Tab PO SCH (08:39)
[2018-06-19] MEDS: Pantoprazole 40 mg EC Tab PO SCH (08:40)
--- NOTE | 2018-06-19 15:12 | CP.PCM.PCO ---
Assessment/Plan - Assessment and Plan (Free Text) Assessment: Patient seen and examined this afternoon Vital signs stable Chest pain free, denies shortness of breath nausea or vomiting. Stress test discussed with Debt Collector, Dr Barrera, negative for ischemia. Patient for discharge this afternoon after dialysis. Discussed with Dr Ace who agrees with dc.
--- NOTE | 2018-06-19 16:33 | CP.PCM.PN ---
Subjective - Date & Time of Evaluation Date of Evaluation: 06/19/18 Time of Evaluation: 16:00 - Subjective Subjective: seen on renal f/u feels better stress test reported as negative for HD today then d/c Objective - Vital Signs/Intake and Output Vital Signs (last 24 hours): Temp Pulse Resp BP Pulse Ox 97.5 F L 75 20 153/81 H 97 06/19/18 16:20 06/19/18 16:20 06/19/18 16:20 06/19/18 16:20 06/19/18 16:20 Intake and Output: 06/19/18 06/19/18 06:59 18:59 Intake Total 416 Output Total 200 Balance 216 - Medications Medications: Current Medications Albuterol/Ipratropium (Duoneb 3 Mg/0.5 Mg (3 Ml) Ud) 3 ml INH RQ4 [facility] Last Admin: 06/19/18 15:35 Dose: 3 ml Amlodipine Besylate (Norvasc) 10 mg PO DAILY [facility] Last Admin: 06/19/18 09:38 Dose: Not Given Atorvastatin Calcium (Lipitor) 10 mg PO DAILY [facility] Last Admin: 06/19/18 08:39 Dose: 10 mg Benztropine Mesylate (Cogentin) 1 mg PO Q12 [facility] Last Admin: 06/19/18 08:38 Dose: 1 mg Carvedilol (Coreg) 25 mg PO Q12 [facility] Last Admin: 06/19/18 09:33 Dose: Not Given Dextrose (Dextrose 50% Inj) 0 ml IV STAT PRN; Protocol PRN Reason: Hypoglycemia Protocol Epoetin Maynor (Procrit) 10,000 unit SC MWF [facility] Last Admin: 06/18/18 12:55 Dose: 10,000 unit Ergocalciferol (Drisdol 50,000 Intl Units Cap) 1 cap PO Q7D [facility] Last Admin: 06/13/18 23:42 Dose: 1 cap Escitalopram Oxalate (Lexapro) 5 mg PO DAILY [facility] Last Admin: 06/19/18 08:39 Dose: 5 mg Glucagon (Glucagen Diagnostic Kit) 0 mg IM STAT PRN; Protocol PRN Reason: Hypoglycemia Protocol Home Med (Sucroferric Oxyhydroxide [Velphoro]) 1 tab PO [facility] Insulin Detemir (Levemir) 10 units SC HS [facility] Last Admin: 06/18/18 21:47 Dose: 10 units Insulin Human Lispro (Humalog) 0 units SC ACHS [facility]; Protocol Last Admin: 06/19/18 11:49 Dose: Not Given Lactulose (Enulose) 20 gm PO DAILY PRN PRN Reason: Constipation Losartan Potassium (Cozaar) 100 mg PO DAILY [facility] Last Admin: 06/19/18 09:35 Dose: Not Given Pantoprazole Sodium (Protonix Ec Tab) 40 mg PO DAILY [facility] Last Admin: 06/19/18 08:40 Dose: 40 mg Risperidone (Risperdal Tab) 2 mg PO Q12 [facility] Last Admin: 06/19/18 08:40 Dose: 2 mg Sevelamer Carbonate (Renvela) 800 mg PO TID [facility] Last Admin: 06/19/18 13:45 Dose: 800 mg Vitamin B Complex/Vit C/Folic Acid (Nephro-Nelson) 1 tab PO DAILY [facility] Last Admin: 06/19/18 08:39 Dose: 1 tab - Labs Labs: 06/18/18 12:13 06/18/18 12:13 PT 13.0 Seconds (9.8-13.1) 06/10/18 23:09 INR 1.2 06/10/18 23:09 APTT 46.4 Seconds (25.6-37.1) H 06/10/18 23:09 Assessment and Plan - Assessment and Plan (Free Text) Assessment: ESRD ON HD T T S ANEMIA OF CKD .. H/H BETTER ON EPO ELECTROLYTES ABN .. NOW BETTER MMP P ; c/o current care c/o present management c/o current meds pt is cleared from renal stand point
--- NOTE | 2018-06-19 17:25 | CP.PCM.PN ---
Subjective - Date & Time of Evaluation Date of Evaluation: 06/19/18 Time of Evaluation: 12:40 - Subjective Subjective: F/U CHF, Pulmonary edema. Objective - Vital Signs/Intake and Output Vital Signs (last 24 hours): Temp Pulse Resp BP Pulse Ox 97.5 F L 75 20 153/81 H 97 06/19/18 16:20 06/19/18 16:20 06/19/18 16:20 06/19/18 16:20 06/19/18 16:20 Intake and Output: 06/19/18 06/19/18 06:59 18:59 Intake Total 416 Output Total 200 Balance 216 - Medications Medications: Current Medications Albuterol/Ipratropium (Duoneb 3 Mg/0.5 Mg (3 Ml) Ud) 3 ml INH RQ4 [facility] Last Admin: 06/19/18 15:35 Dose: 3 ml Amlodipine Besylate (Norvasc) 10 mg PO DAILY [facility] Last Admin: 06/19/18 09:38 Dose: Not Given Atorvastatin Calcium (Lipitor) 10 mg PO DAILY [facility] Last Admin: 06/19/18 08:39 Dose: 10 mg Benztropine Mesylate (Cogentin) 1 mg PO Q12 [facility] Last Admin: 06/19/18 08:38 Dose: 1 mg Carvedilol (Coreg) 25 mg PO Q12 [facility] Last Admin: 06/19/18 09:33 Dose: Not Given Dextrose (Dextrose 50% Inj) 0 ml IV STAT PRN; Protocol PRN Reason: Hypoglycemia Protocol Epoetin Maynor (Procrit) 10,000 unit SC MWF [facility] Last Admin: 06/18/18 12:55 Dose: 10,000 unit Ergocalciferol (Drisdol 50,000 Intl Units Cap) 1 cap PO Q7D [facility] Last Admin: 06/13/18 23:42 Dose: 1 cap Escitalopram Oxalate (Lexapro) 5 mg PO DAILY [facility] Last Admin: 06/19/18 08:39 Dose: 5 mg Glucagon (Glucagen Diagnostic Kit) 0 mg IM STAT PRN; Protocol PRN Reason: Hypoglycemia Protocol Home Med (Sucroferric Oxyhydroxide [Velphoro]) 1 tab PO [facility] Insulin Detemir (Levemir) 10 units SC HS [facility] Last Admin: 06/18/18 21:47 Dose: 10 units Insulin Human Lispro (Humalog) 0 units SC ACHS [facility]; Protocol Last Admin: 06/19/18 16:42 Dose: Not Given Lactulose (Enulose) 20 gm PO DAILY PRN PRN Reason: Constipation Losartan Potassium (Cozaar) 100 mg PO DAILY [facility] Last Admin: 06/19/18 09:35 Dose: Not Given Pantoprazole Sodium (Protonix Ec Tab) 40 mg PO DAILY [facility] Last Admin: 06/19/18 08:40 Dose: 40 mg Risperidone (Risperdal Tab) 2 mg PO Q12 [facility] Last Admin: 06/19/18 08:40 Dose: 2 mg Sevelamer Carbonate (Renvela) 800 mg PO TID [facility] Last Admin: 06/19/18 16:44 Dose: 800 mg Vitamin B Complex/Vit C/Folic Acid (Nephro-Nelson) 1 tab PO DAILY [facility] Last Admin: 06/19/18 08:39 Dose: 1 tab - Labs Labs: 06/18/18 12:13 06/18/18 12:13 PT 13.0 Seconds (9.8-13.1) 06/10/18 23:09 INR 1.2 06/10/18 23:09 APTT 46.4 Seconds (25.6-37.1) H 06/10/18 23:09 Assessment and Plan (1) CHF (congestive heart failure) Status: Acute (2) Acute pulmonary edema Status: Acute (3) ESRD (end stage renal disease) Status: Chronic (4) Anemia in CKD (chronic kidney disease) Status: Acute (5) Asthma Status: Chronic (6) Diabetes mellitus Status: Chronic (7) Anxiety and depression Status: Chronic
[2018-06-19 19:31] VITALS: BP 159/81; PULSE 71; TEMP 98.2; O2SAT 91
--- NOTE | 2018-06-19 22:14 | CP.PCM.DIS ---
Provider - Provider Date of Admission: 06/11/18 01:10 Attending physician: Sravan Ace MD Consults: Nephrology-Dr. Malone Cardiology-Dr. Barrera Time Spent in preparation of Discharge (in minutes): 35 Diagnosis - Discharge Diagnosis (1) CHF (congestive heart failure) Status: Acute Priority: High (2) Acute pulmonary edema Status: Acute Priority: High (3) ESRD (end stage renal disease) Status: Chronic Priority: High (4) Anemia in CKD (chronic kidney disease) Status: Acute Priority: High (5) Asthma Status: Chronic Priority: Medium (6) Diabetes mellitus Status: Chronic Priority: Medium (7) Anxiety and depression Status: Chronic Priority: Medium Hospital Course - Lab Results Lab Results: Micro Results 06/15/18 08:29 Naris MRSA Culture (Admit) - Final MRSA NOT DETECTED 06/11/18 10:03 Naris MRSA Culture (Admit) - Final MRSA NOT DETECTED Most Recent Lab Values WBC 8.7 K/uL (4.8-10.8) 06/18/18 12:13 RBC 3.17 Mil/uL (3.80-5.20) L 06/18/18 12:13 Hgb 9.1 g/dL (12.0-16.0) L 06/18/18 12:13 Hct 27.2 % (34.0-47.0) L 06/18/18 12:13 MCV 85.9 fl (81.0-99.0) 06/18/18 12:13 MCH 28.9 pg (27.0-31.0) 06/18/18 12:13 MCHC 33.6 g/dL (33.0-37.0) 06/18/18 12:13 RDW 15.3 % (11.5-14.5) H 06/18/18 12:13 Plt Count 258 K/uL (130-400) 06/18/18 12:13 MPV 7.1 fl (7.2-11.7) L 06/13/18 04:45 Neut % (Auto) 66.2 % (50.0-75.0) 06/13/18 04:45 Lymph % (Auto) 18.4 % (20.0-40.0) L 06/13/18 04:45 Early % (Auto) 9.8 % (0.0-10.0) 06/13/18 04:45 Eos % (Auto) 5.1 % (0.0-4.0) H 06/13/18 04:45 Baso % (Auto) 0.5 % (0.0-2.0) 06/13/18 04:45 Neut # (Auto) 5.0 K/uL (1.8-7.0) 06/13/18 04:45 Lymph # (Auto) 1.4 K/uL (1.0-4.3) 06/13/18 04:45 Early # (Auto) 0.7 K/uL (0.0-0.8) 06/13/18 04:45 Eos # (Auto) 0.4 K/uL (0.0-0.7) 06/13/18 04:45 Baso # (Auto) 0.0 K/uL (0.0-0.2) 06/13/18 04:45 PT 13.0 Seconds (9.8-13.1) 06/10/18 23:09 INR 1.2 06/10/18 23:09 APTT 46.4 Seconds (25.6-37.1) H 06/10/18 23:09 pCO2 47 mm/Hg (35-45) H 06/11/18 02:28 pO2 171 mm/Hg (80-100) H 06/11/18 02:28 HCO3 26.5 mmol/L (21-28) 06/11/18 02:28 ABG pH 7.38 (7.35-7.45) 06/11/18 02:28 ABG Total CO2 29.2 mmol/L (22-28) H 06/11/18 02:28 ABG O2 Saturation 100.7 % (95-98) H 06/11/18 02:28 ABG Base Excess 2.0 mmol/L (-2.0-3.0) 06/11/18 02:28 Pravin Test Yes 06/11/18 02:28 ABG Potassium 4.7 mmol/L (3.6-5.2) 06/11/18 02:28 A-a O2 Difference 483.0 mm/Hg 06/11/18 02:28 Sodium 128.0 mmol/L (132-148) L 06/11/18 02:28 Chloride 92.0 mmol/L (98-107) L 06/11/18 02:28 Glucose 165 mg/dL (65-105) H 06/11/18 02:28 Lactate 1.0 mmol/L (0.7-2.1) 06/11/18 02:28 Vent Mode Bipap 06/11/18 02:28 Mechanical Rate 18 06/11/18 02:28 FiO2 100.0 % 06/11/18 02:28 Inspiratory BiPAP 14 06/11/18 02:28 Expiratory BiPAP 7 06/11/18 02:28 Sodium 128 mmol/l (132-148) L 06/18/18 12:13 Potassium 5.3 MMOL/L (3.6-5.0) H 06/18/18 12:13 Chloride 90 mmol/L (98-107) L 06/18/18 12:13 Carbon Dioxide 24 mmol/L (22-30) 06/18/18 12:13 Anion Gap 19 (10-20) 06/18/18 12:13 BUN 64 mg/dl (7-17) H 06/18/18 12:13 Creatinine 8.6 mg/dl (0.7-1.2) H* D 06/18/18 12:13 Est GFR ( Amer) 6 06/18/18 12:13 Est GFR (Non-Af Amer) 5 06/18/18 12:13 POC Glucose (mg/dL) 126 mg/dL (65-110) H 06/19/18 16:40 Random Glucose 112 mg/dL (65-105) H 06/18/18 12:13 Calcium 8.9 mg/dL (8.4-10.2) 06/18/18 12:13 Total Bilirubin 0.3 mg/dl (0.2-1.3) 06/13/18 04:45 AST 35 U/L (14-36) 06/13/18 04:45 ALT 27 U/L (9-52) 06/13/18 04:45 Alkaline Phosphatase 78 U/L (38-126) 06/13/18 04:45 Troponin I 0.0150 ng/mL (0.00-0.120) 06/10/18 23:09 NT-Pro-B Natriuret Pep 70230 pg/ml (0-900) H 06/16/18 05:32 Total Protein 6.1 G/DL (6.3-8.2) L 06/13/18 04:45 Albumin 2.8 g/dL (3.5-5.0) L 06/13/18 04:45 Globulin 3.4 gm/dL (2.2-3.9) 06/13/18 04:45 Albumin/Globulin Ratio 0.8 (1.0-2.1) L 06/13/18 04:45 Arterial Blood Potassium 4.7 mmol/L (3.6-5.2) 06/11/18 02:28 Urine Color Yellow (YELLOW) 06/10/18 23:49 Urine Clarity Slighty-cloudy (Clear) 06/10/18 23:49 Urine pH 8.0 (5.0-8.0) 06/10/18 23:49 Ur Specific Tillar 1.011 (1.003-1.030) 06/10/18 23:49 Urine Protein >=500 mg/dL (NEGATIVE) 06/10/18 23:49 Urine Glucose (UA) 150 mg/dL (Normal) 06/10/18 23:49 Urine Ketones Negative mg/dL (NEGATIVE) 06/10/18 23:49 Urine Blood Negative (NEGATIVE) 06/10/18 23:49 Urine Nitrate Negative (NEGATIVE) 06/10/18 23:49 Urine Bilirubin Negative (NEGATIVE) 06/10/18 23:49 Urine Urobilinogen 0.2-1.0 mg/dL (0.2-1.0) 06/10/18 23:49 Ur Leukocyte Esterase Neg Zoë/uL (Negative) 06/10/18 23:49 Urine RBC (Auto) 11 /hpf (0-3) H 06/10/18 23:49 Urine Microscopic WBC 6 /hpf (0-5) H 06/10/18 23:49 Ur Squamous Epith Cells 2 /hpf (0-5) 06/10/18 23:49 Hep Bs Antigen Negative (NEGATIVE) 06/13/18 17:19 Hep Bs Antibody Positive (NEGATIVE) 06/13/18 17:19 Hep B Core IgM Ab Negative (NEGATIVE) 06/13/18 17:19 Influenza Typ A,B (EIA) Negative for flu a/b (NEGATIVE) 06/10/18 23:09 - Date & Time of H&P Date of H&P: 06/11/18 Time of H&P: 03:20 Discharge Exam - Head Exam Head Exam: NORMAL INSPECTION - Eye Exam Eye Exam: PERRL - ENT Exam ENT Exam: Normal Exam - Neck Exam Neck exam: Normal Inspection - Respiratory Exam Respiratory Exam: Decreased Breath Sounds (at bases) Additional comments: R subclavian Perma-cath - Cardiovascular Exam Cardiovascular Exam: REGULAR RHYTHM - GI/Abdominal Exam GI & Abdominal Exam: Normal Bowel Sounds, Soft - Extremities Exam Additional comments: R AV fistula with bruit and thrill - Back Exam Back exam: NORMAL INSPECTION - Neurological Exam Neurological exam: Alert, Oriented x3 Additional comments: No focal motor sensory deficit. - Psychiatric Exam Psychiatric exam: Depressed - Skin Skin Exam: Dry, Warm Discharge Plan - Follow Up Plan Condition: SERIOUS Disposition: HOME/ ROUTINE Patient education suggested?: Yes Instructions: Heart Failure, Adult (DC), Respiratory Distress Syndrome, Adult (DC), End Stage Kidney Disease (DC) Additional Instructions: continue dialysis t-th-sat follow up with in 1 week follow up appt with on 06/26/18 3:15pm [address] [place] [address]. Referrals: Thor Barrera MD [Staff Provider] - Garo Maloen MD [Staff Provider] - Sravan Ace MD [Family Provider] -
--- NOTE | 2018-07-10 09:43 | PQF ---
PROVIDER RESPONSE TEXT: Acute diastolic CHF causing pulmonary edema REVIEWER QUERY TEXT: Documentation Clarification Your help is requested in clarifying the following clinical documentation, if you can please further specify in the medical record and discharge summary. PLEASE CLARIFY IF THE ACUTE PULMONARY EDEMA WAS CARDIAC OR NON CARDIAC IN NATURE. The patient's Clinical Indicators include: Patient with a history of ESRD on Hemodialysis 3 x week presents with SOB, lethargy and swelling of t he lower extremities. + crackles on physical exam CXR: Moderate pulmonary vascular congestion now evident reflecting interval decompensation. Medial b asilar atelectasis or infiltrate is seen greater the right than left side with trace right pleural ef fusion questioned. Pro BNP 23,100 Rx: NTG drip, Lasix IV, Hemodialysis, BIPAP Query created by: Collette Hays on 06/13/2018 9:06 AM Electronically signed by: Thor Barrera MD 07/10/2018 9:40 AM
== END 2018-06-19 21:17 | disposition home or self-care (01) | DRG 291 ==
LOC: H.ER 21:28 → UNDOADMIN 06-11 01:10 → H.ERHOLD 06-11 01:10 → H.ICU/CCU 06-11 04:10 → H.TEL 06-15 18:09
PROVIDERS: ADMIT Internal Medicine Pulmonary Disease; ATTEND Internal Medicine Pulmonary Disease
PROC: 5A1D70Z Performance of Urinary Filtration, Intermittent, Less than 6 Hours Per Day (ICD-10-PCS; principal; 2018-06-11)
PROC: 5A09557 Assistance with Respiratory Ventilation, Greater than 96 Consecutive Hours, Continuous Positive Airway Pressure (ICD-10-PCS; 2018-06-11)
PROC: 5A09457 Assistance with Respiratory Ventilation, 24-96 Consecutive Hours, Continuous Positive Airway Pressure (ICD-10-PCS; 2018-06-11)
PROC: 5A1D70Z Performance of Urinary Filtration, Intermittent, Less than 6 Hours Per Day (ICD-10-PCS; 2018-06-13)
PROC: 5A1D70Z Performance of Urinary Filtration, Intermittent, Less than 6 Hours Per Day (ICD-10-PCS; 2018-06-16)
PROC: 5A1D70Z Performance of Urinary Filtration, Intermittent, Less than 6 Hours Per Day (ICD-10-PCS; 2018-06-19)
DX: I13.2 Hypertensive heart and chronic kidney disease with heart failure and with stage 5 chronic kidney disease, or end stage renal disease (principal); J81.0 Acute pulmonary edema; N18.6 End stage renal disease; J96.91 Respiratory failure, unspecified with hypoxia; I50.31 Acute diastolic (congestive) heart failure; Z94.0 Kidney transplant status; T86.12 Kidney transplant failure; D63.1 Anemia in chronic kidney disease; Z99.2 Dependence on renal dialysis; E11.22 Type 2 diabetes mellitus with diabetic chronic kidney disease; F41.9 Anxiety disorder, unspecified; J44.9 Chronic obstructive pulmonary disease, unspecified; Z79.4 Long term (current) use of insulin; Z90.49 Acquired absence of other specified parts of digestive tract; K80.20 Calculus of gallbladder without cholecystitis without obstruction; Z79.899 Other long term (current) drug therapy; F20.9 Schizophrenia, unspecified; F31.9 Bipolar disorder, unspecified

== ENCOUNTER 2018-07-14 01:33 | Inpatient (IN) | payer MEDICARE, OTHER ==
[2018-07-14 01:33] VITALS: BMI 36.3
[2018-07-14] MEDS ORDERED: Nitroglycerin 2% Ointment Foilpak UD TOP STA (03:02)
[2018-07-14] MEDS ORDERED: DiphenhydrAMINE 50 mg/ml Inj IV STA (03:02)
[2018-07-14 03:07] LABS: BASO % 0.3 % (0.0-2.0); EOS # 0.1 K/uL (0.0-0.7); EOS % 1.2 % (0.0-4.0); HEMOGLOBIN 9.6 g/dL (12.0-16.0); LYMPH # 0.8 K/uL (1.0-4.3); LYMPH % 9.2 % (20.0-40.0); MEAN CELL VOLUME 86.7 fl (81.0-99.0); MEAN CORPUSCULAR HGB CONC 32.3 g/dL (33.0-37.0); MEAN PLATELET VOLUME 7.2 fl (7.2-11.7); MONO # 0.5 K/uL (0.0-0.8); MONO % 6.2 % (0.0-10.0); NEUT # 6.8 K/uL (1.8-7.0); NEUT % 83.1 % (50.0-75.0); PLATELET COUNT 212 K/uL (130-400); RBC 3.43 Mil/uL (3.80-5.20); RED CELL DISTRIBUTION WIDTH 16.8 % (11.5-14.5); WHITE BLOOD COUNT 8.1 K/uL (4.8-10.8)
[2018-07-14] MEDS ORDERED: Nitroglycerin 2% Ointment Foilpak UD TOP ONE (03:08)
[2018-07-14] MEDS ORDERED: DiphenhydrAMINE 50 mg/ml Inj ONE (03:08)
[2018-07-14] MEDS ORDERED: Dextrose 50% SYRINGE Inj (50 ml) IVP ONE ×2 (03:21→05:27)
[2018-07-14 03:22] LABS: ALB/GLOB RATIO 0.9 (1.0-2.1); ALBUMIN 3.1 g/dL (3.5-5.0); CALCIUM 8.2 mg/dL (8.4-10.2)
[2018-07-14 03:29] LABS: TROPONIN I 0.027 ng/mL (0.00-0.120)
--- NOTE | 2018-07-14 03:32 | ED PDOC ---
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 Patient was recently admitted on 06/11/18 for CHF with renal failure S/P transplant. Sister states the patient is not severely ill but has similar presentation. Additionally, patient complains of persistent itchiness to her back en route to ED. PCP: Dr. Sravan Ace Past Medical History Reviewed: Historical Data, Nursing Documentation, Vital Signs Vital Signs: Last Vital Signs Temp 99.0 F 07/14/18 02:08 Pulse 91 H 07/14/18 03:15 Resp 16 07/14/18 02:08 BP 179/93 H 07/14/18 03:27 Pulse Ox 91 L 07/14/18 02:08 - Medical History PMH: Anemia, Anxiety, Asthma, Depression, Diabetes, Gall Bladder Disease (gallbladder stones), HTN, End Stage Renal Disease (on dialysis T-), Schizophrenia Denies: HIV - Surgical History Surgical History: Cholecystectomy - Family History Family History: States: Unknown Family Hx - Home Medications Home Medications: Ambulatory Orders Medication Instructions Recorded RX: Atorvastatin [Lipitor] 10 mg PO DAILY 12/25/17 RX: Benztropine [Cogentin] 1 mg PO Q12 12/25/17 RX: Escitalopram Oxalate [Lexapro] 5 mg PO DAILY 12/25/17 RX: Glimepiride [amaRYL] 4 mg PO BID 12/25/17 RX: Insulin Aspart Prot/Insuln Asp 10 unit SC BID 12/25/17 [Novolog Mix 70-30 Vial] RX: Insulin Glargine, Recombina 10 unit SC HS 12/25/17 [Lantus] RX: Sodium Bicarbonate Tab 3 tab PO TID 12/25/17 RX: risperiDONE [RisperDAL Tab] 2 mg PO Q12 12/25/17 RX: Carvedilol [Coreg] 12.5 mg PO Q12 04/06/18 RX: amLODIPine [Norvasc] 10 mg PO DAILY 04/06/18 RX: Sevelamer Carbonate [Renvela] 800 mg PO TID #90 tab 05/16/18 RX: Vitamin B Complex/Vit C/Folic 1 tab PO DAILY #30 tab 05/16/18 [Nephro-Nelson] Sucroferric Oxyhydroxide [Velphoro] 1 tab PO [facility] 06/11/18 - Allergies Allergies/Adverse Reactions: Allergies Allergy/AdvReac Type Severity Reaction Status Date / Time iodine Allergy URTICARIA Verified 06/11/18 04:32 Review of Systems ROS Statement: Except As Marked, All Systems Reviewed And Found Negative Cardiovascular: Positive for: Chest Pain Respiratory: Positive for: Shortness of Breath Skin: Positive for: Other (itchiness to back) Neurological: Negative for: Weakness, Numbness Physical Exam - Reviewed Nursing Documentation Reviewed: Yes Vital Signs Reviewed: Yes - Physical Exam Appears: Positive for: Non-toxic, No Acute Distress Head Exam: Positive for: ATRAUMATIC, NORMAL INSPECTION, NORMOCEPHALIC Skin: Positive for: Normal Color Eye Exam: Positive for: Normal appearance ENT: Positive for: Normal ENT Inspection Neck: Positive for: Normal Cardiovascular/Chest: Positive for: Regular Rate, Rhythm, Chest Non Tender Respiratory: Positive for: Rhonchi (at bilateral bases). Negative for: Respiratory Distress Gastrointestinal/Abdominal: Positive for: Normal Exam, Soft. Negative for: Tenderness Extremity: Positive for: Normal ROM (upper/lower) Neurologic/Psych: Positive for: Alert, Oriented. Negative for: Motor/Sensory Deficits - Laboratory Results Result Diagrams: 07/14/18 02:55 07/14/18 02:55 - ECG O2 Sat by Pulse Oximetry: 91 (RA) Pulse Ox Interpretation: Normal Medical Decision Making Medical Decision Making: Initial Impression: 52 year old female with shortness of breath and chest pain in setting of known end-stage renal disease and CHF. Initial Plan: * EKG * Labs * CXR * Benadryl 50mg IV * Dextrose 50ml IVP * Lasix 60mg IV * Nitro-Bid 2% oint * Accucheck Time: 610 --Case discussed with Dr Ace and Dr. Hyatt for further treatment and management. Dr. Hyatt requests a dialysis nurse be made aware of case. Scribe Attestation: Documented by Chastity Riddle, acting as a scribe for Cooper Best MD. Provider Scribe Attestation: All medical record entries made by the Scribe were at my direction and personally dictated by me. I have reviewed the chart and agree that the record accurately reflects my personal performance of the history, physical exam, medical decision making, and the department course for this patient. I have also personally directed, reviewed, and agree with the discharge instructions and disposition. Disposition - Clinical Impression Clinical Impression: CHF (congestive heart failure), Hypoglycemia, ESRD (end stage renal disease) - Patient ED Disposition Is Patient to be Admitted: Yes Discussed With Dr.: Sravan Ace (Dr Malone aware) Counseled Patient/Family Regarding: Studies Performed, Diagnosis - Disposition Disposition Time: 05:00 Condition: GUARDED - Pt Status Changed To: Hospital Disposition Of: Inpatient - Admit Certification Admit to Inpatient:: After my assessment, the patient will require hospitalization for at least two midnights. This is because of the severity of symptoms shown, intensity of services needed, and/or the medical risk in this patient being treated as an outpatient. - POA Present On Arrival: Poor Glycemic Control
[2018-07-14 03:44] LABS: NEUTROPHIL 81 % (42-75); TOTAL CELLS COUNTED 100
[2018-07-14 03:45] LABS: ANISOCYTOSIS SLIGHT; GIANT PLATELETS PRESENT; LYMPHOCYTE 10 % (20-50); MONOCYTE 8 % (0-10); PLATELET ESTIMATE NORMAL (NORMAL)
[2018-07-14] MEDS ORDERED: Promethazine 25 MG in Sodium Chloride 0.9% 50 ML IVPB ONE (04:30)
[2018-07-14] MEDS ORDERED: Dextrose 50% SYRINGE Inj (50 ml) ONE (05:28)
[2018-07-14] MEDS ORDERED: INSULN ASP SC SCH (09:00)
[2018-07-14] MEDS ORDERED: INSULIN ASPART PROT SC SCH (09:00)
--- NOTE | 2018-07-14 09:02 | CARD ---
APPROVED REPORT Date of service: 07/14/2018 EKG Measurement Heart [id number] <Conclusion> Normal sinus rhythm Prolonged QT Abnormal ECG
[2018-07-14 09:30] LABS: ABG ALLEN TEST YES; ARTERIAL BLOOD GAS HCO3 33.9 mmol/L (21-28); ARTERIAL BLOOD GAS HEMOGLOBIN 9.8 g/dL (11.7-17.4); ARTERIAL BLOOD GAS O2 CAPACITY 13.3 mL/dL (16-24); ARTERIAL BLOOD GAS O2 CONTENT 12.7 ML/dL (15-23); ARTERIAL BLOOD GAS O2 SAT 95.6 % (95-98); ARTERIAL BLOOD GAS PCO2 49 mm/Hg (35-45); ARTERIAL BLOOD GAS PH 7.48 (7.35-7.45); ARTERIAL BLOOD GAS PO2 67 mm/Hg (80-100)
--- NOTE | 2018-07-14 10:47 | RAD ---
Date of service: 07/14/2018 HISTORY: chest pain COMPARISON: No prior. FINDINGS: LUNGS: Large right lower lobe pneumonia. PLEURA: No significant pleural effusion identified, no pneumothorax apparent. CARDIOVASCULAR: No aortic atherosclerotic calcification present. Normal cardiac size. No pulmonary vascular congestion. OSSEOUS STRUCTURES: No significant abnormalities. VISUALIZED UPPER ABDOMEN: Normal. OTHER FINDINGS: Delmi cath in place. IMPRESSION: Large right lower lobe pneumonia with consolidation
[2018-07-14] MEDS ORDERED: SUCROFERRIC OXYHYDROXIDE PO SCH (11:30)
[2018-07-14] MEDS: Multivitamin Vitamin B Complex (Nephro-Vite) Tab PO SCH (14:32)
[2018-07-14] MEDS ORDERED: Clindamycin 300 MG in Sodium Chloride 0.9% 50 ML IVPB SCH (16:00)
[2018-07-14] MEDS ORDERED: Sodium Chloride 3% for Inhalation 4 ML VIAL.NEB IH PRN (16:23)
[2018-07-14] MEDS ORDERED: Promethazine/Cod 6.25mg-10mg/5ml Syr UD PO PRN (16:24)
--- NOTE | 2018-07-14 16:33 | CP.PCM.HP ---
History of Present Illness - History of Present Illness History of Present Illness: CC: Chest pain. 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 Anemia on CKD, Random glucose in 34. Aggravated factor: Movement/exercise. Pt denied: Fever, chills, n/v/d, abdominal pain, urinary symptoms, palpitations, syncope, dizziness, headache, sick contact, recent travel out of [facility]. CXR: Large RLL PNA. EKG: Normal sinus rhythm. Present on Admission - Present on Admission Any Indicators Present on Admission: No Review of Systems - Constitutional Constitutional: Other (negative) - EENT Eyes: Other (negative) Ears: Other (negative) Nose/Mouth/Throat: Other (negative) - Cardiovascular Cardiovascular: Chest Pain - Respiratory Respiratory: Cough, Dyspnea - Gastrointestinal Gastrointestinal: Other (negative) - Genitourinary Genitourinary: Other (negtive) - Musculoskeletal Musculoskeletal: Other (negative) - Integumentary Integumentary: Other (negative) - Neurological Neurological: Other (negative) - Psychiatric Psychiatric: Anxiety, Depression - Endocrine Endocrine: Other (negative) - Hematologic/Lymphatic Hematologic: Other (anemia) Past Patient History - Infectious Disease Hx of Infectious Diseases: None - Past Medical History & Family History Past Medical History?: Yes Pertinent Family History: Unknown - Past Social History Smoking Status: Never Smoked Alcohol: None Drugs: Denies Home Situation {Lives}: With Family - CARDIAC Hx Cardiac Disorders: Yes Hx Hypercholesterolemia: Yes Hx Hypertension: Yes - PULMONARY Hx Respiratory Disorders: Yes Hx Asthma: Yes - NEUROLOGICAL Hx Neurological Disorder: No - HEENT Hx HEENT Problems: No - RENAL Hx Chronic Kidney Disease: Yes Hx Dialysis: Yes Type of Dialysis Access: right arm av shunt Date of Last Dialysis Treatment: 07/12/18 - ENDOCRINE/METABOLIC Hx Endocrine Disorders: Yes Hx Diabetes Mellitus Type 2: Yes - HEMATOLOGICAL/ONCOLOGICAL Hx Blood Disorders: Yes Hx Anemia: Yes Hx Human Immunodeficiency Virus (HIV): No - INTEGUMENTARY Hx Dermatological Problems: No - MUSCULOSKELETAL/RHEUMATOLOGICAL Hx Musculoskeletal Disorders: No Hx Falls: No - GASTROINTESTINAL Hx Gastrointestinal Disorders: Yes Hx Gall Bladder Disease: Yes (gallbladder stones) - GENITOURINARY/GYNECOLOGICAL Hx Genitourinary Disorders: No - PSYCHIATRIC Hx Psychophysiologic Disorder: Yes Hx Anxiety: Yes Hx Depression: Yes Hx Schizophrenia: Yes Hx Substance Use: No - SURGICAL HISTORY Hx Surgeries: Yes Hx Cholecystectomy: Yes - ANESTHESIA Hx Anesthesia: Yes Hx Anesthesia Reactions: No Hx Malignant Hyperthermia: No Meds Allergies/Adverse Reactions: Allergies Allergy/AdvReac Type Severity Reaction Status Date / Time iodine Allergy URTICARIA Verified 06/11/18 04:32 Physical Exam - Constitutional Appears: No Acute Distress, Chronically Ill - Head Exam Head Exam: NORMAL INSPECTION - Eye Exam Eye Exam: PERRL - ENT Exam ENT Exam: Normal Oropharynx - Neck Exam Neck exam: Positive for: Normal Inspection - Respiratory Exam Respiratory Exam: Decreased Breath Sounds (at bases) Additional comments: R chest Perma cath - Cardiovascular Exam Cardiovascular Exam: REGULAR RHYTHM - GI/Abdominal Exam GI & Abdominal Exam: Normal Bowel Sounds, Soft - Extremities Exam Extremities exam: Positive for: normal inspection (Old fistula L arm, AV fistula R arm with bruit and thrill) - Back Exam Back exam: NORMAL INSPECTION - Neurological Exam Neurological exam: Alert, Oriented x3 Additional comments: No focal motor/sensory deficit. - Psychiatric Exam Psychiatric exam: Anxious, Depressed - Skin Skin Exam: Warm Results - Vital Signs Recent Vital Signs: Last Vital Signs Temp 98.4 F 07/14/18 15:52 Pulse 66 07/14/18 15:52 Resp 20 07/14/18 15:52 BP 121/69 07/14/18 15:52 Pulse Ox 96 07/14/18 15:52 reviewed [email or web address] - Labs Result Diagrams: 07/15/18 11:50 07/15/18 11:50 Labs: Laboratory Results - last 24 hr 07/14/18 07/14/18 07/14/18 02:55 02:55 03:27 WBC 8.1 RBC 3.43 L Hgb 9.6 L Hct 29.8 L MCV 86.7 MCH 28.0 MCHC 32.3 L RDW 16.8 H Plt Count 212 MPV 7.2 Neut % (Auto) 83.1 H Lymph % (Auto) 9.2 L [place] % (Auto) 6.2 Eos % (Auto) 1.2 Baso % (Auto) 0.3 Neut # (Auto) 6.8 Lymph # (Auto) 0.8 L [place] # (Auto) 0.5 Eos # (Auto) 0.1 Baso # (Auto) 0.0 Neutrophils % (Manual) 81 H Lymphocytes % (Manual) 10 L Monocytes % (Manual) 8 Platelet Estimate Normal Giant Platelets Present Anisocytosis (manual) Slight pCO2 pO2 HCO3 ABG pH ABG Total CO2 ABG O2 Saturation ABG O2 Content ABG Base Excess ABG Hemoglobin ABG Carboxyhemoglobin POC ABG HHb (Measured) ABG Methemoglobin ABG O2 Capacity Pravin Test A-a O2 Difference Hgb O2 Saturation Mechanical Rate FiO2 Inspiratory BiPAP Expiratory BiPAP Sodium 132 Potassium 4.2 Chloride 89 L Carbon Dioxide 34 H Anion Gap 13 BUN 40 H Creatinine 6.1 H Est GFR ( Amer) 9 Est GFR (Non-Af Amer) 7 POC Glucose (mg/dL) Random Glucose 34 L* D Calcium 8.2 L Total Bilirubin 0.6 AST 69 H D ALT 36 Alkaline Phosphatase 65 Troponin I 0.0270 NT-Pro-B Natriuret Pep 189398 H Total Protein 6.6 Albumin 3.1 L Globulin 3.5 Albumin/Globulin Ratio 0.9 L Serum HCG, Qual Negative 07/14/18 07/14/18 07/14/18 04:30 05:26 06:05 WBC RBC Hgb Hct MCV MCH MCHC RDW Plt Count MPV Neut % (Auto) Lymph % (Auto) [place] % (Auto) Eos % (Auto) Baso % (Auto) Neut # (Auto) Lymph # (Auto) [place] # (Auto) Eos # (Auto) Baso # (Auto) Neutrophils % (Manual) Lymphocytes % (Manual) Monocytes % (Manual) Platelet Estimate Giant Platelets Anisocytosis (manual) pCO2 pO2 HCO3 ABG pH ABG Total CO2 ABG O2 Saturation ABG O2 Content ABG Base Excess ABG Hemoglobin ABG Carboxyhemoglobin POC ABG HHb (Measured) ABG Methemoglobin ABG O2 Capacity Pravin Test A-a O2 Difference Hgb O2 Saturation Mechanical Rate FiO2 Inspiratory BiPAP Expiratory BiPAP Sodium Potassium Chloride Carbon Dioxide Anion Gap BUN Creatinine Est GFR ( Amer) Est GFR (Non-Af Amer) POC Glucose (mg/dL) 84 63 L 127 H Random Glucose Calcium Total Bilirubin AST ALT Alkaline Phosphatase Troponin I NT-Pro-B Natriuret Pep Total Protein Albumin Globulin Albumin/Globulin Ratio Serum HCG, Qual 07/14/18 07/14/18 07/14/18 08:33 09:25 11:32 WBC RBC Hgb Hct MCV MCH MCHC RDW Plt Count MPV Neut % (Auto) Lymph % (Auto) [place] % (Auto) Eos % (Auto) Baso % (Auto) Neut # (Auto) Lymph # (Auto) [place] # (Auto) Eos # (Auto) Baso # (Auto) Neutrophils % (Manual) Lymphocytes % (Manual) Monocytes % (Manual) Platelet Estimate Giant Platelets Anisocytosis (manual) pCO2 49 H pO2 67 L HCO3 33.9 H ABG pH 7.48 H ABG Total CO2 38.0 H ABG O2 Saturation 95.6 ABG O2 Content 12.7 L ABG Base Excess 11.6 H ABG Hemoglobin 9.8 L ABG Carboxyhemoglobin 2.7 H POC ABG HHb (Measured) 4.2 ABG Methemoglobin 1.1 ABG O2 Capacity 13.3 L Pravin Test Yes A-a O2 Difference 300.0 Hgb O2 Saturation 92.0 L Mechanical Rate 12 FiO2 60.0 Inspiratory BiPAP 10 Expiratory BiPAP 5 Sodium Potassium Chloride Carbon Dioxide Anion Gap BUN Creatinine Est GFR ( Amer) Est GFR (Non-Af Amer) POC Glucose (mg/dL) 75 83 Random Glucose Calcium Total Bilirubin AST ALT Alkaline Phosphatase Troponin I NT-Pro-B Natriuret Pep Total Protein Albumin Globulin Albumin/Globulin Ratio Serum HCG, Qual 07/14/18 16:06 WBC RBC Hgb Hct MCV MCH MCHC RDW Plt Count MPV Neut % (Auto) Lymph % (Auto) [place] % (Auto) Eos % (Auto) Baso % (Auto) Neut # (Auto) Lymph # (Auto) [place] # (Auto) Eos # (Auto) Baso # (Auto) Neutrophils % (Manual) Lymphocytes % (Manual) Monocytes % (Manual) Platelet Estimate Giant Platelets Anisocytosis (manual) pCO2 pO2 HCO3 ABG pH ABG Total CO2 ABG O2 Saturation ABG O2 Content ABG Base Excess ABG Hemoglobin ABG Carboxyhemoglobin POC ABG HHb (Measured) ABG Methemoglobin ABG O2 Capacity Pravin Test A-a O2 Difference Hgb O2 Saturation Mechanical Rate FiO2 Inspiratory BiPAP Expiratory BiPAP Sodium Potassium Chloride Carbon Dioxide Anion Gap BUN Creatinine Est GFR ( Amer) Est GFR (Non-Af Amer) POC Glucose (mg/dL) 120 H Random Glucose Calcium Total Bilirubin AST ALT Alkaline Phosphatase Troponin I NT-Pro-B Natriuret Pep Total Protein Albumin Globulin Albumin/Globulin Ratio Serum HCG, Qual reviewed J.P. - EKG Data EKG comments: reviewed J.P. - Imaging and Cardiology Chest x-ray Status: Report reviewed by me (Michael) Assessment & Plan (1) RLL pneumonia Status: Acute Priority: High (2) ESRD on hemodialysis Status: Chronic Priority: High (3) Anemia in CKD (chronic kidney disease) Status: Acute Priority: High (4) Diabetes mellitus Status: Acute Priority: High (5) Hypoglycemia Status: Acute Priority: High (6) Kidney transplant failure Status: Chronic Priority: High (7) Anxiety and depression Status: Chronic Priority: Medium - Assessment and Plan (Free Text) Plan: F/U Chest CT, Blood/Sputum C-S, continue NC 2 L/M, renal diet, Clindamycin, Zosyn, Insulin, IV fluid, Prometazine with Co, Lexapro, Norvasc, Carvedidol and rest of Tx. Nephrology consult appreciated. - Date & Time Date: 07/14/18
--- NOTE | 2018-07-14 16:34 | CP.PCM.CON ---
History of Present Illness - History of Present Illness History of Present Illness: REASONS FOR CONSULT : ESRD ON HD T T S ANEMIA OF CKD .. ON EPO FLIUS OVERLOAD .. P EDEMA .. CHF S/P RENAL TRANSPLANT THAT FAILD .. PT IS NOW BACK ON HD PT IS WELL KNOWN TO ME FOR THE LAST 2 DECADES CAME IN WITH HYPOGLYCEMIA .. F OVERLOAD AND PNEUMONIA Past Patient History - Infectious Disease Hx of Infectious Diseases: None - Past Medical History & Family History Past Medical History?: Yes - Past Social History Smoking Status: Never Smoked - CARDIAC Hx Hypercholesterolemia: Yes Hx Hypertension: Yes - PULMONARY Hx Asthma: Yes - NEUROLOGICAL Hx Neurological Disorder: No - HEENT Hx HEENT Problems: No - RENAL Hx Chronic Kidney Disease: Yes Hx Dialysis: Yes Type of Dialysis Access: right arm av shunt Date of Last Dialysis Treatment: 07/12/18 - ENDOCRINE/METABOLIC Hx Endocrine Disorders: Yes Hx Diabetes Mellitus Type 2: Yes - HEMATOLOGICAL/ONCOLOGICAL Hx Anemia: Yes Hx Human Immunodeficiency Virus (HIV): No - INTEGUMENTARY Hx Dermatological Problems: No - MUSCULOSKELETAL/RHEUMATOLOGICAL Hx Musculoskeletal Disorders: No Hx Falls: No - GASTROINTESTINAL Hx Gall Bladder Disease: Yes (gallbladder stones) - GENITOURINARY/GYNECOLOGICAL Hx Genitourinary Disorders: No - PSYCHIATRIC Hx Anxiety: Yes Hx Depression: Yes Hx Schizophrenia: Yes Hx Substance Use: No - SURGICAL HISTORY Hx Cholecystectomy: Yes - ANESTHESIA Hx Anesthesia: Yes Hx Anesthesia Reactions: No Hx Malignant Hyperthermia: No Meds Allergies/Adverse Reactions: Allergies Allergy/AdvReac Type Severity Reaction Status Date / Time iodine Allergy URTICARIA Verified 06/11/18 04:32 - Medications Medications: Current Medications Amlodipine Besylate (Norvasc) 10 mg PO DAILY [facility] Last Admin: 07/14/18 14:30 Dose: 10 mg Atorvastatin Calcium (Lipitor) 10 mg PO [facility] Benztropine Mesylate (Cogentin) 1 mg PO Q12 [facility] Last Admin: 07/14/18 14:28 Dose: 1 mg Carvedilol (Coreg) 12.5 mg PO Q12 [facility] Last Admin: 07/14/18 14:27 Dose: 12.5 mg Clonidine HCl (Catapres) 0.2 mg PO TID [facility] Last Admin: 07/14/18 14:21 Dose: Not Given Escitalopram Oxalate (Lexapro) 5 mg PO DAILY [facility] Last Admin: 07/14/18 14:26 Dose: 5 mg Glipizide (Glucotrol Xl) 10 mg PO BID [facility] Home Med (Sucroferric Oxyhydroxide [Velphoro]) 1 tab PO [facility] Dextrose (Dextrose 10% In Water) 500 mls @ 40 mls/hr IV .[id number] [facility] Stop: 07/15/18 05:28 Last Admin: 07/14/18 06:28 Dose: 40 mls/hr Clindamycin Phosphate 300 mg/ (Sodium Chloride) 52 mls @ 104 mls/hr IVPB Q8H [facility]; Protocol Vancomycin HCl 1 gm/ Sodium (Chloride) 250 mls @ 166.667 mls/hr IVPB ONCE ONE; Protocol Stop: 07/14/18 17:49 Piperacillin Sod/Tazobactam (Sod 2.25 gm/ Sodium Chloride) 100 mls @ 100 mls/hr IVPB Q8H [facility]; Protocol Insulin Detemir (Levemir) 10 units SC HS [facility] Insulin Lispro Protam/Lispro Human (Humalog Mix 75/25) 10 units SC BID [facility] Promethazine HCl/Codeine (Phenergan/Codeine Oral Syrup) 5 ml PO Q6 PRN PRN Reason: Cough Risperidone (Risperdal Tab) 2 mg PO Q12 [facility] Last Admin: 07/14/18 14:27 Dose: 2 mg Sevelamer Carbonate (Renvela) 800 mg PO TID [facility] Last Admin: 07/14/18 14:28 Dose: 800 mg Sodium Bicarbonate (Sodium Bicarbonate Tab) 650 mg PO TID [facility] Last Admin: 07/14/18 14:28 Dose: 650 mg Vitamin B Complex/Vit C/Folic Acid (Nephro-Nelson) 1 tab PO DAILY [facility] Last Admin: 07/14/18 14:32 Dose: Not Given Results - Vital Signs Recent Vital Signs: Last Vital Signs Temp 98.4 F 07/14/18 15:52 Pulse 66 07/14/18 15:52 Resp 20 07/14/18 15:52 BP 121/69 07/14/18 15:52 Pulse Ox 96 07/14/18 15:52 - Labs Result Diagrams: 07/14/18 02:55 07/14/18 02:55 Labs: Laboratory Results - last 24 hr 07/14/18 07/14/18 07/14/18 02:55 02:55 03:27 WBC 8.1 RBC 3.43 L Hgb 9.6 L Hct 29.8 L MCV 86.7 MCH 28.0 MCHC 32.3 L RDW 16.8 H Plt Count 212 MPV 7.2 Neut % (Auto) 83.1 H Lymph % (Auto) 9.2 L [place] % (Auto) 6.2 Eos % (Auto) 1.2 Baso % (Auto) 0.3 Neut # (Auto) 6.8 Lymph # (Auto) 0.8 L [place] # (Auto) 0.5 Eos # (Auto) 0.1 Baso # (Auto) 0.0 Neutrophils % (Manual) 81 H Lymphocytes % (Manual) 10 L Monocytes % (Manual) 8 Platelet Estimate Normal Giant Platelets Present Anisocytosis (manual) Slight pCO2 pO2 HCO3 ABG pH ABG Total CO2 ABG O2 Saturation ABG O2 Content ABG Base Excess ABG Hemoglobin ABG Carboxyhemoglobin POC ABG HHb (Measured) ABG Methemoglobin ABG O2 Capacity Pravin Test A-a O2 Difference Hgb O2 Saturation Mechanical Rate FiO2 Inspiratory BiPAP Expiratory BiPAP Sodium 132 Potassium 4.2 Chloride 89 L Carbon Dioxide 34 H Anion Gap 13 BUN 40 H Creatinine 6.1 H Est GFR ( Amer) 9 Est GFR (Non-Af Amer) 7 POC Glucose (mg/dL) Random Glucose 34 L* D Calcium 8.2 L Total Bilirubin 0.6 AST 69 H D ALT 36 Alkaline Phosphatase 65 Troponin I 0.0270 NT-Pro-B Natriuret Pep [id number] H Total Protein 6.6 Albumin 3.1 L Globulin 3.5 Albumin/Globulin Ratio 0.9 L Serum HCG, Qual Negative 07/14/18 07/14/18 07/14/18 04:30 05:26 06:05 WBC RBC Hgb Hct MCV MCH MCHC RDW Plt Count MPV Neut % (Auto) Lymph % (Auto) [place] % (Auto) Eos % (Auto) Baso % (Auto) Neut # (Auto) Lymph # (Auto) [place] # (Auto) Eos # (Auto) Baso # (Auto) Neutrophils % (Manual) Lymphocytes % (Manual) Monocytes % (Manual) Platelet Estimate Giant Platelets Anisocytosis (manual) pCO2 pO2 HCO3 ABG pH ABG Total CO2 ABG O2 Saturation ABG O2 Content ABG Base Excess ABG Hemoglobin ABG Carboxyhemoglobin POC ABG HHb (Measured) ABG Methemoglobin ABG O2 Capacity Pravin Test A-a O2 Difference Hgb O2 Saturation Mechanical Rate FiO2 Inspiratory BiPAP Expiratory BiPAP Sodium Potassium Chloride Carbon Dioxide Anion Gap BUN Creatinine Est GFR ( Amer) Est GFR (Non-Af Amer) POC Glucose (mg/dL) 84 63 L 127 H Random Glucose Calcium Total Bilirubin AST ALT Alkaline Phosphatase Troponin I NT-Pro-B Natriuret Pep Total Protein Albumin Globulin Albumin/Globulin Ratio Serum HCG, Qual 07/14/18 07/14/18 07/14/18 08:33 09:25 11:32 WBC RBC Hgb Hct MCV MCH MCHC RDW Plt Count MPV Neut % (Auto) Lymph % (Auto) [place] % (Auto) Eos % (Auto) Baso % (Auto) Neut # (Auto) Lymph # (Auto) [place] # (Auto) Eos # (Auto) Baso # (Auto) Neutrophils % (Manual) Lymphocytes % (Manual) Monocytes % (Manual) Platelet Estimate Giant Platelets Anisocytosis (manual) pCO2 49 H pO2 67 L HCO3 33.9 H ABG pH 7.48 H ABG Total CO2 38.0 H ABG O2 Saturation 95.6 ABG O2 Content 12.7 L ABG Base Excess 11.6 H ABG Hemoglobin 9.8 L ABG Carboxyhemoglobin 2.7 H POC ABG HHb (Measured) 4.2 ABG Methemoglobin 1.1 ABG O2 Capacity 13.3 L Pravin Test Yes A-a O2 Difference 300.0 Hgb O2 Saturation 92.0 L Mechanical Rate 12 FiO2 60.0 Inspiratory BiPAP 10 Expiratory BiPAP 5 Sodium Potassium Chloride Carbon Dioxide Anion Gap BUN Creatinine Est GFR ( Amer) Est GFR (Non-Af Amer) POC Glucose (mg/dL) 75 83 Random Glucose Calcium Total Bilirubin AST ALT Alkaline Phosphatase Troponin I NT-Pro-B Natriuret Pep Total Protein Albumin Globulin Albumin/Globulin Ratio Serum HCG, Qual 07/14/18 16:06 WBC RBC Hgb Hct MCV MCH MCHC RDW Plt Count MPV Neut % (Auto) Lymph % (Auto) [place] % (Auto) Eos % (Auto) Baso % (Auto) Neut # (Auto) Lymph # (Auto) [place] # (Auto) Eos # (Auto) Baso # (Auto) Neutrophils % (Manual) Lymphocytes % (Manual) Monocytes % (Manual) Platelet Estimate Giant Platelets Anisocytosis (manual) pCO2 pO2 HCO3 ABG pH ABG Total CO2 ABG O2 Saturation ABG O2 Content ABG Base Excess ABG Hemoglobin ABG Carboxyhemoglobin POC ABG HHb (Measured) ABG Methemoglobin ABG O2 Capacity Pravin Test A-a O2 Difference Hgb O2 Saturation Mechanical Rate FiO2 Inspiratory BiPAP Expiratory BiPAP Sodium Potassium Chloride Carbon Dioxide Anion Gap BUN Creatinine Est GFR ( Amer) Est GFR (Non-Af Amer) POC Glucose (mg/dL) 120 H Random Glucose Calcium Total Bilirubin AST ALT Alkaline Phosphatase Troponin I NT-Pro-B Natriuret Pep Total Protein Albumin Globulin Albumin/Globulin Ratio Serum HCG, Qual Assessment & Plan - Assessment and Plan (Free Text) Assessment: ESRD ON HD T T S .. JUST RECIEVED HER HD WITH UF OF 4 L ANEMIA OF CKD .. ON EPO FLIUS O LOAD .. RECIEVED HD STAT MMP P : HD WAS DONE STAT RENAL AND DIABETIC DIET C/O CURRENT MEDS - Date & Time Date: 07/14/18 Time: 14:00
[2018-07-14] MEDS ORDERED: GlipiZIDE 5 mg SR Tab PO SCH (17:00)
[2018-07-14] MEDS ORDERED: Insulin Lispro Mix 75/25 100 units/ml (HumaLog) 10ml SC SCH (17:00)
[2018-07-14] MEDS: Ergocalciferol 50,000 Intl Units Cap PO SCH (18:23)
--- NOTE | 2018-07-14 20:10 | CT ---
Date of service: 07/14/2018 PROCEDURE: CT Chest without contrast HISTORY: PNA COMPARISON: None available. TECHNIQUE: Contiguous axial images were obtained through the chest without intravenous contrast enhancement. Sagittal and coronal reconstructions were performed. Radiation dose: Total exam DLP = 533.07 mGy-cm. This CT exam was performed using one or more of the following dose reduction techniques: Automated exposure control, adjustment of the mA and/or kV according to patient size, and/or use of iterative reconstruction technique. FINDINGS: LUNGS: Large right upper lobe infiltrate with consolidation. MEDIASTINUM: Unremarkable thoracic aorta. No aneurysm. Normal sized heart. Main pulmonary artery unremarkable. No vascular congestion. No lymphadenopathy. No aortic atherosclerotic calcification. PLEURA: Large bilateral pleural effusions. Associated passive atelectasis at the lung bases. BONES: No fracture. No destructive lesion. UPPER ABDOMEN: Grossly unremarkable. OTHER FINDINGS: None. IMPRESSION: Large bilateral pleural effusions with right upper lobe infiltrate and compressive atelectasis at the lung bases compatible with CHF and/or pneumonia.
[2018-07-14] MEDS ORDERED: Insulin Detemir 100 Units/ml Inj SC SCH (22:00)
[2018-07-14] MEDS: Clindamycin in NS 300 MG/50 ML BAG IV SCH (23:05)
[2018-07-15] MEDS: Clindamycin in NS 300 MG/50 ML BAG IV SCH ×3 (04:13→20:52)
[2018-07-15 08:08] LABS: MEAN CELL VOLUME 89.6 fl (81.0-99.0); MEAN CORPUSCULAR HGB CONC 31.3 g/dL (33.0-37.0); RBC 3.21 Mil/uL (3.80-5.20); RED CELL DISTRIBUTION WIDTH 17.2 % (11.5-14.5); WHITE BLOOD COUNT 6.3 K/uL (4.8-10.8)
[2018-07-15 08:32] LABS: CALCIUM 8.2 mg/dL (8.4-10.2)
[2018-07-15] MEDS: Multivitamin Vitamin B Complex (Nephro-Vite) Tab PO SCH (09:23)
--- NOTE | 2018-07-15 11:43 | CP.PCM.PN ---
Subjective - Date & Time of Evaluation Date of Evaluation: 07/15/18 - Subjective Subjective: Patient had [employer], she was found lethargic by nurse and difficult to arouse, upon examination by [employer] team and me at bedside, Patient was awake alert and oriented x3, in no acute distress, Patient denied chest pain, shortness of breath, dizziness, headache, abdominal pain and N/V/D Objective - Vital Signs/Intake and Output Vital Signs (last 24 hours): Temp Pulse Resp BP Pulse Ox 98 F 61 18 132/73 93 L 07/15/18 08:46 07/15/18 09:24 07/15/18 08:46 07/15/18 09:24 07/15/18 08:46 - Medications Medications: Current Medications Amlodipine Besylate (Norvasc) 10 mg PO DAILY [facility] Last Admin: 07/15/18 09:24 Dose: 10 mg Atorvastatin Calcium (Lipitor) 10 mg PO HS [facility] Last Admin: 07/14/18 21:19 Dose: 10 mg Benztropine Mesylate (Cogentin) 1 mg PO Q12 [facility] Last Admin: 07/15/18 09:19 Dose: 1 mg Carvedilol (Coreg) 12.5 mg PO Q12 [facility] Last Admin: 07/15/18 09:21 Dose: 12.5 mg Clonidine HCl (Catapres) 0.2 mg PO TID [facility] Last Admin: 07/15/18 09:18 Dose: 0.2 mg Ergocalciferol (Drisdol 50,000 Intl Units Cap) 1 cap PO Q7D [facility] Last Admin: 07/14/18 18:23 Dose: 1 cap Escitalopram Oxalate (Lexapro) 5 mg PO DAILY [facility] Last Admin: 07/15/18 09:22 Dose: 5 mg Glipizide (Glucotrol Xl) 10 mg PO BID [facility] Home Med (Sucroferric Oxyhydroxide [Velphoro]) 1 tab PO [facility] Piperacillin Sod/Tazobactam (Sod 2.25 gm/ Sodium Chloride) 100 mls @ 100 mls/hr IVPB Q8H [facility]; Protocol Last Admin: 07/15/18 09:30 Dose: 100 mls/hr Clindamycin in NS (Clindamycin 300 Mg/50 Ml-Ns) 300 mg in 50 mls @ 100 mls/hr IV Q8H [facility]; Protocol Last Admin: 07/15/18 04:13 Dose: 100 mls/hr Insulin Detemir (Levemir) 10 units SC HS [facility] Insulin Lispro Protam/Lispro Human (Humalog Mix 75/25) 10 units SC BID [facility] Promethazine HCl/Codeine (Phenergan/Codeine Oral Syrup) 5 ml PO Q6 PRN PRN Reason: Cough Risperidone (Risperdal Tab) 2 mg PO Q12 [facility] Last Admin: 07/15/18 09:25 Dose: 2 mg Sevelamer Carbonate (Renvela) 800 mg PO TID [facility] Last Admin: 07/15/18 09:25 Dose: 800 mg Vitamin B Complex/Vit C/Folic Acid (Nephro-Nelson) 1 tab PO DAILY [facility] Last Admin: 07/15/18 09:23 Dose: 1 tab - Labs Labs: 07/15/18 06:00 07/15/18 06:00 - Constitutional Appears: No Acute Distress - Head Exam Head Exam: NORMAL INSPECTION - Eye Exam Eye Exam: PERRL - ENT Exam ENT Exam: Normal Exam - Neck Exam Neck Exam: Normal Inspection - Respiratory Exam Respiratory Exam: Decreased Breath Sounds (at bases) Additional comments: R Chest Perma Cath - Cardiovascular Exam Cardiovascular Exam: REGULAR RHYTHM - GI/Abdominal Exam GI & Abdominal Exam: Soft, Normal Bowel Sounds - Extremities Exam Additional comments: Old AV fistula L arm, R arm AV fistula with bruiy and thrill - Back Exam Back Exam: NORMAL INSPECTION - Neurological Exam Neurological Exam: Alert, CN II-XII Intact, Oriented x3 Additional comments: no focal motor/sensory deficit - Psychiatric Exam Psychiatric exam: Anxious, Depressed - Skin Skin Exam: Warm Assessment and Plan (1) RLL pneumonia Status: Acute (2) ESRD on hemodialysis Status: Chronic (3) CHF (congestive heart failure) Status: Acute (4) Pleural effusion Status: Acute (5) Anemia in CKD (chronic kidney disease) Status: Acute (6) Diabetes mellitus Status: Acute (7) Hypoglycemia Status: Acute (8) Kidney transplant failure Status: Chronic (9) Anxiety and depression Status: Chronic - Assessment and Plan (Free Text) Plan: s/p [employer] stable, trial of DC Clonidine, continue current Atb cooverage, HD and rest of treatment
--- NOTE | 2018-07-15 11:49 | PCM.RRT ---
<Radha Annette De Oliveira - Last Filed: 07/15/18 12:19> PODODERMATOLOGIST Nurse Assessment - Situation PODODERMATOLOGIST Responder Arrival Time: 11:21 - Ventilator Settings FIO2 (% Oxygen): 60 I.Reason for PODODERMATOLOGIST - A) Acute Change in Patient: Subjective: PODODERMATOLOGIST Time: 11:19AM PODODERMATOLOGIST Location: [address] [place] [address] PODODERMATOLOGIST VS on arrival : BP 125/77, O2 Sat 96% on Ox 2L NC, HR 67. S: PODODERMATOLOGIST called by Nurse after patient was found lethargic and difficult to arose by Nurse while she was rounding on the patient. The patient is a 52 Y/O Female with PMHx of astham, Renal transplant that failed and now the patient is on hemodialyisis TTS. Patient was admitted yesterday for evaluation of chest pain and SOB, was found to have associated PNA on CXR, also was fluid overloaded, was evaluated by Nephro and received hemodialyis. According to nurse report patient was started on clonidine 0.2 TID for HTN yesterday. Patient at this time c/o feeling "sleepy", patient is AAOx3, denies any headache, chest pain, SOB, abdominal pain, N/V/D. O: HEENT: Normocephalic, atraumatic CV: RRR, No gallop, S1 S2 present. RESP: Clear to auscultation. ABD: Soft, No tenderness to palpation Ext: No edema. NEURO: AAOx3, answering all quenstions, no sensorial or motor deficit noted at this time. Assesment and impression: 52 Y/O Female with PMHx of asthma, Renal transplant that failed and now the patient is on hemodialyisis TTS, admitted for evaluation of chest pain and SOB and found with PNA by CXR and fuid overload treated with hemodialyisis, now with an acute episode of lethargic that appears improving at this time. VS at the end of PODODERMATOLOGIST: BP 128/72, O2 sat 97%, HR 66, Interventions and Plan: -c/w Oxigen 2L NC -Stat ABG -Stat CBC -Stat BMP -continue close monitoring of patient status <Jay Ring D - Last Filed: 07/15/18 15:02> Attending/Attestation - Attestation I have personally seen and examined this patient.: Yes I have fully participated in the care of the patient.: Yes I have reviewed all pertinent clinical information, including history, physical exam and plan: Yes Notes (Text): 07/15/18 15:02 Patient seen and examined with resident during PODODERMATOLOGIST. Case discussed and agreed with assessment and plan.
[2018-07-15 12:10] LABS: HEMOGLOBIN 9.2 g/dL (12.0-16.0); MEAN CORPUSCULAR HEMOGLOBIN 27.8 pg (27.0-31.0); MEAN CORPUSCULAR HGB CONC 31.6 g/dL (33.0-37.0); RBC 3.31 Mil/uL (3.80-5.20); RED CELL DISTRIBUTION WIDTH 17.7 % (11.5-14.5); WHITE BLOOD COUNT 6.2 K/uL (4.8-10.8)
[2018-07-15 12:11] LABS: CALCIUM 8.1 mg/dL (8.4-10.2)
[2018-07-15 14:15] LABS: ABG ALLEN TEST YES; ARTERIAL BLOOD GAS HCO3 30.1 mmol/L (21-28); ARTERIAL BLOOD GAS HEMOGLOBIN 9.3 g/dL (11.7-17.4); ARTERIAL BLOOD GAS O2 CAPACITY 12.7 mL/dL (16-24); ARTERIAL BLOOD GAS O2 CONTENT 12.3 ML/dL (15-23); ARTERIAL BLOOD GAS O2 SAT 96.7 % (95-98); ARTERIAL BLOOD GAS PCO2 39 mm/Hg (35-45); ARTERIAL BLOOD GAS PO2 64 mm/Hg (80-100); ARTERIAL BLOOD GAS TCO2 31.6 mmol/L (22-28)
[2018-07-15] MEDS: guaiFENesin 100 mg/5 ml Syrup UD PO PRN (14:34)
[2018-07-16] MEDS: Clindamycin in NS 300 MG/50 ML BAG IV SCH ×3 (03:36→20:41)
[2018-07-16 09:30] LABS: HEPATITIS B SURFACE AG Negative (NEGATIVE)
[2018-07-16] MEDS: Multivitamin Vitamin B Complex (Nephro-Vite) Tab PO SCH (09:31)
[2018-07-16] MEDS: guaiFENesin 100 mg/5 ml Syrup UD PO PRN (09:31)
[2018-07-16 09:35] LABS: HEPATITIS B CORE AB NEGATIVE (NEGATIVE)
[2018-07-16 09:51] LABS: HEMOGLOBIN 9.4 g/dL (12.0-16.0); MEAN CELL VOLUME 87.3 fl (81.0-99.0); MEAN CORPUSCULAR HEMOGLOBIN 27.8 pg (27.0-31.0); MEAN CORPUSCULAR HGB CONC 31.9 g/dL (33.0-37.0); RBC 3.4 Mil/uL (3.80-5.20); RED CELL DISTRIBUTION WIDTH 17.4 % (11.5-14.5)
--- NOTE | 2018-07-16 14:11 | RAD ---
Date of service: 07/16/2018 HISTORY: f/u pna COMPARISON: Portable chest 07/14/2018. TECHNIQUE: Chest PA and lateral FINDINGS: LUNGS: Right central venous dialysis catheter unchanged in position. Right pleural effusion persists with none on the left. Diminishing alveolitis right base. Likely atelectasis unchanged at the medial left base. No pneumothorax bilaterally. Pulmonary vascular congestion. Cardiac size stable. PLEURA: No significant pleural effusion identified. No pneumothorax apparent. CARDIOVASCULAR: As above. OSSEOUS STRUCTURES: No significant abnormalities. VISUALIZED UPPER ABDOMEN: Normal. OTHER FINDINGS: None. IMPRESSION: Diminishing right-sided alveolitis with residual mild pleural effusion unchanged. Likely atelectasis unchanged left base.
--- NOTE | 2018-07-16 15:05 | CP.PCM.PN ---
Subjective - Date & Time of Evaluation Date of Evaluation: 07/16/18 - Subjective Subjective: F/U PNA No SOB, breathing better, occasional dry cough. Objective - Vital Signs/Intake and Output Vital Signs (last 24 hours): Temp Pulse Resp BP Pulse Ox 98.6 F 65 18 133/75 96 07/16/18 12:24 07/16/18 12:24 07/16/18 12:24 07/16/18 12:24 07/16/18 12:24 - Medications Medications: Current Medications Amlodipine Besylate (Norvasc) 10 mg PO DAILY [facility] Last Admin: 07/16/18 09:32 Dose: 10 mg Atorvastatin Calcium (Lipitor) 10 mg PO HS [facility] Last Admin: 07/15/18 23:01 Dose: 10 mg Benztropine Mesylate (Cogentin) 1 mg PO Q12 [facility] Last Admin: 07/16/18 09:31 Dose: 1 mg Carvedilol (Coreg) 12.5 mg PO Q12 [facility] Last Admin: 07/16/18 09:31 Dose: 12.5 mg Ergocalciferol (Drisdol 50,000 Intl Units Cap) 1 cap PO Q7D [facility] Last Admin: 07/14/18 18:23 Dose: 1 cap Escitalopram Oxalate (Lexapro) 5 mg PO DAILY [facility] Last Admin: 07/16/18 09:31 Dose: 5 mg Glipizide (Glucotrol Xl) 10 mg PO BID [facility] Guaifenesin (Robitussin) 100 mg PO Q6 PRN PRN Reason: Cough Last Admin: 07/16/18 09:31 Dose: 100 mg Home Med (Sucroferric Oxyhydroxide [Velphoro]) 1 tab PO [facility] Piperacillin Sod/Tazobactam (Sod 2.25 gm/ Sodium Chloride) 100 mls @ 100 mls/hr IVPB Q8H [facility]; Protocol Last Admin: 07/16/18 09:35 Dose: 100 mls/hr Clindamycin in NS (Clindamycin 300 Mg/50 Ml-Ns) 300 mg in 50 mls @ 100 mls/hr IV Q8H [facility]; Protocol Last Admin: 07/16/18 12:29 Dose: 100 mls/hr Insulin Detemir (Levemir) 10 units SC [facility] Insulin Lispro Protam/Lispro Human (Humalog Mix 75/25) 10 units SC BID [facility] Promethazine HCl/Codeine (Phenergan/Codeine Oral Syrup) 5 ml PO Q6 PRN PRN Reason: Cough Risperidone (Risperdal Tab) 2 mg PO Q12 [facility] Last Admin: 07/16/18 09:31 Dose: 2 mg Sevelamer Carbonate (Renvela) 800 mg PO TID [facility] Last Admin: 07/16/18 12:25 Dose: 800 mg Vitamin B Complex/Vit C/Folic Acid (Nephro-Nelson) 1 tab PO DAILY [facility] Last Admin: 07/16/18 09:31 Dose: 1 tab - Labs Labs: 07/16/18 09:36 07/16/18 09:36 - Constitutional Appears: No Acute Distress - Head Exam Head Exam: NORMAL INSPECTION - Eye Exam Eye Exam: PERRL - ENT Exam ENT Exam: Normal Exam - Neck Exam Neck Exam: Normal Inspection - Respiratory Exam Respiratory Exam: Decreased Breath Sounds (at bases), Rhonchi (scattered) Additional comments: R Chest Perma Cath - Cardiovascular Exam Cardiovascular Exam: REGULAR RHYTHM - GI/Abdominal Exam GI & Abdominal Exam: Soft, Normal Bowel Sounds - Extremities Exam Additional comments: Old AV fistula L arm, R arm AV fistula with bruit and thrill - Back Exam Back Exam: NORMAL INSPECTION - Neurological Exam Neurological Exam: Alert, CN II-XII Intact, Oriented x3 Additional comments: No focal motor/sensory deficit. - Psychiatric Exam Psychiatric exam: Anxious, Depressed - Skin Skin Exam: Warm Assessment and Plan (1) RLL pneumonia Status: Acute (2) ESRD on hemodialysis Status: Chronic (3) Anemia in CKD (chronic kidney disease) Status: Acute (4) Diabetes mellitus Status: Acute (5) Hypoglycemia Status: Acute (6) Kidney transplant failure Status: Chronic (7) Anxiety and depression Status: Chronic - Assessment and Plan (Free Text) Plan: Continue Clinda, Zosyn, Robitussin DM, Lipitor, Coreg, Congentin and rest of Tx.
--- NOTE | 2018-07-16 18:17 | CP.PCM.PN ---
Subjective - Date & Time of Evaluation Date of Evaluation: 07/16/18 Time of Evaluation: 14:00 - Subjective Subjective: SEEN ON RENAL F/U ALTHOUGH SLOW MENTATION BUT FULLY A@O ON HD T T S C/O DRY COUGH ALL PREVIOUS EMR REVIEWED Objective - Vital Signs/Intake and Output Vital Signs (last 24 hours): Temp Pulse Resp BP Pulse Ox 97.5 F L 66 16 123/71 92 L 07/16/18 15:51 07/16/18 15:51 07/16/18 15:51 07/16/18 15:51 07/16/18 15:51 - Medications Medications: Current Medications Amlodipine Besylate (Norvasc) 10 mg PO DAILY [facility] Last Admin: 07/16/18 09:32 Dose: 10 mg Atorvastatin Calcium (Lipitor) 10 mg PO HS [facility] Last Admin: 07/15/18 23:01 Dose: 10 mg Benztropine Mesylate (Cogentin) 1 mg PO Q12 [facility] Last Admin: 07/16/18 09:31 Dose: 1 mg Carvedilol (Coreg) 12.5 mg PO Q12 [facility] Last Admin: 07/16/18 09:31 Dose: 12.5 mg Ergocalciferol (Drisdol 50,000 Intl Units Cap) 1 cap PO Q7D [facility] Last Admin: 07/14/18 18:23 Dose: 1 cap Escitalopram Oxalate (Lexapro) 5 mg PO DAILY [facility] Last Admin: 07/16/18 09:31 Dose: 5 mg Glipizide (Glucotrol Xl) 10 mg PO BID [facility] Guaifenesin (Robitussin) 100 mg PO Q6 PRN PRN Reason: Cough Last Admin: 07/16/18 09:31 Dose: 100 mg Home Med (Sucroferric Oxyhydroxide [Velphoro]) 1 tab PO [facility] Piperacillin Sod/Tazobactam (Sod 2.25 gm/ Sodium Chloride) 100 mls @ 100 mls/hr IVPB Q8H [facility]; Protocol Last Admin: 07/16/18 16:15 Dose: 100 mls/hr Clindamycin in NS (Clindamycin 300 Mg/50 Ml-Ns) 300 mg in 50 mls @ 100 mls/hr IV Q8H [facility]; Protocol Last Admin: 07/16/18 12:29 Dose: 100 mls/hr Insulin Detemir (Levemir) 10 units SC HS [facility] Insulin Lispro Protam/Lispro Human (Humalog Mix 75/25) 10 units SC BID [facility] Promethazine HCl/Codeine (Phenergan/Codeine Oral Syrup) 5 ml PO Q6 PRN PRN Reason: Cough Risperidone (Risperdal Tab) 2 mg PO Q12 [facility] Last Admin: 07/16/18 09:31 Dose: 2 mg Sevelamer Carbonate (Renvela) 800 mg PO TID [facility] Last Admin: 07/16/18 16:15 Dose: 800 mg Vitamin B Complex/Vit C/Folic Acid (Nephro-Nelson) 1 tab PO DAILY [facility] Last Admin: 07/16/18 09:31 Dose: 1 tab - Labs Labs: 07/16/18 09:36 07/16/18 09:36 Assessment and Plan - Assessment and Plan (Free Text) Assessment: ESRD ON HD T T S .. TO BE C/O ELECTROLYTES ABN .. NOW BETTER ANEMIA OF CKD .. H/H STABLE PNEUMONIA .. ON IVAB MMP P : C/O WITH HD C/O PRESENT MANAGEMENT \ C/O CURRENT MEDS
[2018-07-17] MEDS: Clindamycin in NS 300 MG/50 ML BAG IV SCH ×3 (04:24→23:10)
[2018-07-17] MEDS: Multivitamin Vitamin B Complex (Nephro-Vite) Tab PO SCH (09:46)
--- NOTE | 2018-07-17 13:03 | PQF ---
PROVIDER RESPONSE TEXT: Acute on chronic diastolic heart failure. REVIEWER QUERY TEXT: Heart Failure Acuity and Type Congestive Heart Failure is documented in the Medical Record. Please document the type and acuity (in cludes probable or suspected) Such as: Type: -- Combined systolic and diastolic (heart failure with reduced ejection fraction and diastolic) dysfu nction -- Diastolic (HFpEF) -- Systolic (HFrEF) -- Left heart failure -- Right heart failure -- Right heart failure due to left heart failure -- High output failure -- End stage heart failure -- Other, please specify Acuity: -- Acute -- Chronic -- Acute on chronic -- Other, please specify Also please document the underlying cause of the CHF (includes probable or suspected) The patient's Clinical Indicators include: Admitted with chest pain, cough and SOB. PMH: CHF, ESRD on Hemodialysis. Pro BNP 118,000 Rx: IV Lasix given in the ER, Coreg Documentation of CHF status acute Query created by: Collette Hays on 07/16/2018 12:34 PM Electronically signed by: Sravan Ace MD 07/17/2018 1:00 PM
[2018-07-17 14:10] LABS: ABG ALLEN TEST YES; ARTERIAL BLOOD GAS HCO3 26.6 mmol/L (21-28); ARTERIAL BLOOD GAS HEMOGLOBIN 9.8 g/dL (11.7-17.4); ARTERIAL BLOOD GAS O2 CAPACITY 13.3 mL/dL (16-24); ARTERIAL BLOOD GAS O2 CONTENT 12.1 ML/dL (15-23); ARTERIAL BLOOD GAS PCO2 38 mm/Hg (35-45); ARTERIAL BLOOD GAS PH 7.45 (7.35-7.45); ARTERIAL BLOOD GAS PO2 55 mm/Hg (80-100); ARTERIAL BLOOD GAS TCO2 27.6 mmol/L (22-28)
--- NOTE | 2018-07-17 15:06 | CP.PCM.PN ---
Subjective - Date & Time of Evaluation Date of Evaluation: 07/17/18 Time of Evaluation: 11:50 - Subjective Subjective: F/U PNA Pt awake, having dizziness Objective - Vital Signs/Intake and Output Vital Signs (last 24 hours): Temp Pulse Resp BP Pulse Ox 97.3 F L 70 18 146/82 98 07/17/18 12:31 07/17/18 12:31 07/17/18 12:31 07/17/18 12:31 07/17/18 12:31 - Medications Medications: Current Medications Amlodipine Besylate (Norvasc) 10 mg PO DAILY [facility] Last Admin: 07/17/18 09:46 Dose: 10 mg Atorvastatin Calcium (Lipitor) 10 mg PO HS [facility] Last Admin: 07/16/18 21:02 Dose: 10 mg Benztropine Mesylate (Cogentin) 1 mg PO Q12 [facility] Last Admin: 07/17/18 09:46 Dose: 1 mg Carvedilol (Coreg) 12.5 mg PO Q12 [facility] Last Admin: 07/17/18 09:47 Dose: 12.5 mg Ergocalciferol (Drisdol 50,000 Intl Units Cap) 1 cap PO Q7D [facility] Last Admin: 07/14/18 18:23 Dose: 1 cap Escitalopram Oxalate (Lexapro) 5 mg PO DAILY [facility] Last Admin: 07/17/18 09:46 Dose: 5 mg Glipizide (Glucotrol Xl) 10 mg PO BID [facility] Guaifenesin (Robitussin) 100 mg PO Q6 PRN PRN Reason: Cough Last Admin: 07/16/18 09:31 Dose: 100 mg Home Med (Sucroferric Oxyhydroxide [Velphoro]) 1 tab PO [facility] Piperacillin Sod/Tazobactam (Sod 2.25 gm/ Sodium Chloride) 100 mls @ 100 mls/hr IVPB Q8H [facility]; Protocol Last Admin: 07/17/18 08:45 Dose: 100 mls/hr Clindamycin in NS (Clindamycin 300 Mg/50 Ml-Ns) 300 mg in 50 mls @ 100 mls/hr IV Q8H [facility]; Protocol Last Admin: 07/17/18 11:40 Dose: 100 mls/hr Insulin Detemir (Levemir) 10 units SC [facility] Insulin Lispro Protam/Lispro Human (Humalog Mix 75/25) 10 units SC BID [facility] Meclizine HCl (Antivert) 12.5 mg PO TID [facility] Last Admin: 07/17/18 13:42 Dose: 12.5 mg Ondansetron HCl (Zofran Inj) 4 mg IVP Q4 PRN PRN Reason: Nausea/Vomiting Last Admin: 07/17/18 00:15 Dose: 4 mg Promethazine HCl/Codeine (Phenergan/Codeine Oral Syrup) 5 ml PO Q6 PRN PRN Reason: Cough Risperidone (Risperdal Tab) 2 mg PO Q12 [facility] Last Admin: 07/17/18 09:46 Dose: 2 mg Sevelamer Carbonate (Renvela) 800 mg PO TID [facility] Last Admin: 07/17/18 13:42 Dose: 800 mg Vitamin B Complex/Vit C/Folic Acid (Nephro-Nelson) 1 tab PO DAILY [facility] Last Admin: 07/17/18 09:46 Dose: 1 tab - Labs Labs: 07/16/18 09:36 07/16/18 09:36 - Constitutional Appears: No Acute Distress - Head Exam Head Exam: NORMAL INSPECTION - Eye Exam Eye Exam: PERRL - ENT Exam ENT Exam: Normal Exam - Neck Exam Neck Exam: Normal Inspection - Respiratory Exam Respiratory Exam: Decreased Breath Sounds (at bases) Additional comments: R chest Perma Cath - Cardiovascular Exam Cardiovascular Exam: REGULAR RHYTHM - GI/Abdominal Exam GI & Abdominal Exam: Soft, Normal Bowel Sounds - Extremities Exam Additional comments: Old AV fistua L arm, R arm AV fistula with bruit and thrill - Back Exam Back Exam: NORMAL INSPECTION - Neurological Exam Neurological Exam: Alert, CN II-XII Intact, Oriented x3 Additional comments: No focal motor/esnsory deficit. - Psychiatric Exam Psychiatric exam: Anxious, Depressed - Skin Skin Exam: Warm Assessment and Plan (1) RLL pneumonia Status: Acute (2) ESRD on hemodialysis Status: Chronic (3) Anemia in CKD (chronic kidney disease) Status: Acute (4) Diabetes mellitus Status: Acute (5) Hypoglycemia Status: Acute (6) Kidney transplant failure Status: Chronic (7) Anxiety and depression Status: Chronic - Assessment and Plan (Free Text) Plan: Continue Zithromax, Clinda, Meclizine 12.5 bid and rest of Tx.
--- NOTE | 2018-07-17 19:26 | CP.PCM.PN ---
Subjective - Date & Time of Evaluation Date of Evaluation: 07/17/18 Time of Evaluation: 16:00 - Subjective Subjective: SEEN ON RENAL F/U RECIEVED HER HD EARLIAR .. TOLERATED WELL FEELS MUCH BETTER ALL PREVIOUS EMR REVIEWED Objective - Vital Signs/Intake and Output Vital Signs (last 24 hours): Temp Pulse Resp BP Pulse Ox 98.3 F 66 16 131/74 96 07/17/18 15:53 07/17/18 15:53 07/17/18 15:53 07/17/18 15:53 07/17/18 15:53 - Medications Medications: Current Medications Amlodipine Besylate (Norvasc) 10 mg PO DAILY [facility] Last Admin: 07/17/18 09:46 Dose: 10 mg Atorvastatin Calcium (Lipitor) 10 mg PO HS [facility] Last Admin: 07/16/18 21:02 Dose: 10 mg Benztropine Mesylate (Cogentin) 1 mg PO Q12 [facility] Last Admin: 07/17/18 09:46 Dose: 1 mg Carvedilol (Coreg) 12.5 mg PO Q12 [facility] Last Admin: 07/17/18 09:47 Dose: 12.5 mg Ergocalciferol (Drisdol 50,000 Intl Units Cap) 1 cap PO Q7D [facility] Last Admin: 07/14/18 18:23 Dose: 1 cap Escitalopram Oxalate (Lexapro) 5 mg PO DAILY [facility] Last Admin: 07/17/18 09:46 Dose: 5 mg Glipizide (Glucotrol Xl) 10 mg PO BID [facility] Guaifenesin (Robitussin) 100 mg PO Q6 PRN PRN Reason: Cough Last Admin: 07/16/18 09:31 Dose: 100 mg Home Med (Sucroferric Oxyhydroxide [Velphoro]) 1 tab PO [facility] Piperacillin Sod/Tazobactam (Sod 2.25 gm/ Sodium Chloride) 100 mls @ 100 mls/hr IVPB Q8H [facility]; Protocol Last Admin: 07/17/18 08:45 Dose: 100 mls/hr Clindamycin in NS (Clindamycin 300 Mg/50 Ml-Ns) 300 mg in 50 mls @ 100 mls/hr IV Q8H [facility]; Protocol Last Admin: 07/17/18 11:40 Dose: 100 mls/hr Insulin Detemir (Levemir) 10 units SC HS [facility] Insulin Lispro Protam/Lispro Human (Humalog Mix 75/25) 10 units SC BID [facility] Meclizine HCl (Antivert) 12.5 mg PO TID [facility] Last Admin: 07/17/18 13:42 Dose: 12.5 mg Ondansetron HCl (Zofran Inj) 4 mg IVP Q4 PRN PRN Reason: Nausea/Vomiting Last Admin: 07/17/18 00:15 Dose: 4 mg Promethazine HCl/Codeine (Phenergan/Codeine Oral Syrup) 5 ml PO Q6 PRN PRN Reason: Cough Risperidone (Risperdal Tab) 2 mg PO Q12 [facility] Last Admin: 07/17/18 09:46 Dose: 2 mg Sevelamer Carbonate (Renvela) 800 mg PO TID [facility] Last Admin: 07/17/18 17:38 Dose: 800 mg Vitamin B Complex/Vit C/Folic Acid (Nephro-Nelson) 1 tab PO DAILY [facility] Last Admin: 07/17/18 09:46 Dose: 1 tab - Labs Labs: 07/16/18 09:36 07/16/18 09:36 Assessment and Plan - Assessment and Plan (Free Text) Assessment: ESRD ON HD TTS ANEMIA OF CKD .. ON EPO ELECTROLYTES ABNORMALITIES .. BETTER S/P FAILED RENAL RANSPLANT .. BACK ON HD PNA ON IVAB MMP P : C/O CURRENT MANAGEMENT C/O HD ON TTS C/O PRESENT MEDS
[2018-07-18] MEDS: Clindamycin in NS 300 MG/50 ML BAG IV SCH ×2 (05:28→13:30)
[2018-07-18] MEDS: Multivitamin Vitamin B Complex (Nephro-Vite) Tab PO SCH (08:45)
--- NOTE | 2018-07-18 11:54 | CP.PCM.CON ---
History of Present Illness - History of Present Illness History of Present Illness: pt is 52ys old female admitted for chest pain/ psychiatry consult requested as pt is on risperidone and cogentin pt on evaluation, denied any previous psychiatric hospitalizations, stated she has been seeing a psychiatrist Dr Méndez for a long time , he has placed her on risperidone as she always experienced non command auditory hallucinations, pt is on cogentin as she has developed occulogyric crisis before a side effect of risperidone, pt currently lives with mother and sister whom she states being supportive pt denied any previous suicidal attempts, on current evaluation, denied any changes in sleep or appetite denied mood symptoms, cooperative, good eye contact speech with paucity but goal directed, concrete thought process, denied any current suicidal or homicidal ideation , denied perceptual disturbances , alert awake oriented to person, place and time Past Patient History - Infectious Disease Hx of Infectious Diseases: None - Past Medical History & Family History Past Medical History?: Yes - Past Social History Smoking Status: Never Smoked Alcohol: None Drugs: Denies Home Situation {Lives}: With Family - CARDIAC Hx Cardiac Disorders: Yes Hx Hypercholesterolemia: Yes Hx Hypertension: Yes - PULMONARY Hx Respiratory Disorders: Yes Hx Asthma: Yes - NEUROLOGICAL Hx Neurological Disorder: No - HEENT Hx HEENT Problems: No - RENAL Hx Chronic Kidney Disease: Yes Hx Dialysis: Yes Type of Dialysis Access: right arm av shunt Date of Last Dialysis Treatment: 07/12/18 - ENDOCRINE/METABOLIC Hx Endocrine Disorders: Yes Hx Diabetes Mellitus Type 2: Yes - HEMATOLOGICAL/ONCOLOGICAL Hx Blood Disorders: Yes Hx Anemia: Yes Hx Human Immunodeficiency Virus (HIV): No - INTEGUMENTARY Hx Dermatological Problems: No - MUSCULOSKELETAL/RHEUMATOLOGICAL Hx Musculoskeletal Disorders: No Hx Falls: No - GASTROINTESTINAL Hx Gastrointestinal Disorders: Yes Hx Gall Bladder Disease: Yes (gallbladder stones) - GENITOURINARY/GYNECOLOGICAL Hx Genitourinary Disorders: No - PSYCHIATRIC Hx Psychophysiologic Disorder: Yes Hx Anxiety: Yes Hx Depression: Yes Hx Schizophrenia: Yes Hx Substance Use: No - SURGICAL HISTORY Hx Surgeries: Yes Hx Cholecystectomy: Yes - ANESTHESIA Hx Anesthesia: Yes Hx Anesthesia Reactions: No Hx Malignant Hyperthermia: No Meds Allergies/Adverse Reactions: Allergies Allergy/AdvReac Type Severity Reaction Status Date / Time iodine Allergy URTICARIA Verified 06/11/18 04:32 - Medications Medications: Current Medications Amlodipine Besylate (Norvasc) 10 mg PO DAILY [facility] Last Admin: 11/07/18 08:45 Dose: 10 mg Atorvastatin Calcium (Lipitor) 10 mg PO HS [facility] Last Admin: 07/17/18 23:11 Dose: 10 mg Benztropine Mesylate (Cogentin) 1 mg PO Q12 [facility] Last Admin: 07/18/18 08:45 Dose: 1 mg Carvedilol (Coreg) 12.5 mg PO Q12 [facility] Last Admin: 07/18/18 08:46 Dose: 12.5 mg Ergocalciferol (Drisdol 50,000 Intl Units Cap) 1 cap PO Q7D [facility] Last Admin: 07/14/18 18:23 Dose: 1 cap Escitalopram Oxalate (Lexapro) 5 mg PO DAILY [facility] Last Admin: 07/18/18 08:46 Dose: 5 mg Glipizide (Glucotrol Xl) 10 mg PO BID [facility] Guaifenesin (Robitussin) 100 mg PO Q6 PRN PRN Reason: Cough Last Admin: 07/16/18 09:31 Dose: 100 mg Home Med (Sucroferric Oxyhydroxide [Velphoro]) 1 tab PO WMHS [facility] Piperacillin Sod/Tazobactam (Sod 2.25 gm/ Sodium Chloride) 100 mls @ 100 mls/hr IVPB Q8H [facility]; Protocol Last Admin: 07/18/18 08:44 Dose: 100 mls/hr Clindamycin in NS (Clindamycin 300 Mg/50 Ml-Ns) 300 mg in 50 mls @ 100 mls/hr IV Q8H [facility]; Protocol Last Admin: 07/18/18 05:28 Dose: 100 mls/hr Azithromycin 500 mg/ Sodium (Chloride) 250 mls @ 250 mls/hr IVPB DAILY [facility]; Protocol Insulin Detemir (Levemir) 10 units SC HS [facility] Insulin Lispro Protam/Lispro Human (Humalog Mix 75/25) 10 units SC BID [facility] Meclizine HCl (Antivert) 12.5 mg PO TID [facility] Last Admin: 07/18/18 08:46 Dose: 12.5 mg Ondansetron HCl (Zofran Inj) 4 mg IVP Q4 PRN PRN Reason: Nausea/Vomiting Last Admin: 07/17/18 00:15 Dose: 4 mg Promethazine HCl/Codeine (Phenergan/Codeine Oral Syrup) 5 ml PO Q6 PRN PRN Reason: Cough Risperidone (Risperdal Tab) 2 mg PO Q12 [facility] Last Admin: 07/18/18 08:45 Dose: 2 mg Sevelamer Carbonate (Renvela) 800 mg PO TID [facility] Last Admin: 07/18/18 08:45 Dose: 800 mg Vitamin B Complex/Vit C/Folic Acid (Nephro-Nelson) 1 tab PO DAILY [facility] Last Admin: 07/18/18 08:45 Dose: 1 tab Results - Vital Signs Recent Vital Signs: Last Vital Signs Temp 98.4 F 07/18/18 05:18 Pulse 76 07/18/18 08:46 Resp 18 07/18/18 05:18 BP 157/76 H 07/18/18 08:46 Pulse Ox 95 07/18/18 05:18 - Labs Result Diagrams: 07/16/18 09:36 07/16/18 09:36 Labs: Laboratory Results - last 24 hr 07/17/18 07/17/18 07/17/18 12:47 16:01 21:29 pCO2 38 pO2 55 L HCO3 26.6 ABG pH 7.45 ABG Total CO2 27.6 ABG O2 Saturation 91.0 L ABG O2 Content 12.1 L ABG Base Excess 2.3 ABG Hemoglobin 9.8 L ABG Carboxyhemoglobin 2.6 H POC ABG HHb (Measured) 8.7 H ABG Methemoglobin 1.0 ABG O2 Capacity 13.3 L Pravin Test Yes A-a O2 Difference 47.0 Hgb O2 Saturation 87.7 L FiO2 21.0 POC Glucose (mg/dL) 164 H 194 H 07/18/18 05:32 pCO2 pO2 HCO3 ABG pH ABG Total CO2 ABG O2 Saturation ABG O2 Content ABG Base Excess ABG Hemoglobin ABG Carboxyhemoglobin POC ABG HHb (Measured) ABG Methemoglobin ABG O2 Capacity Pravin Test A-a O2 Difference Hgb O2 Saturation FiO2 POC Glucose (mg/dL) 122 H Assessment & Plan - Assessment and Plan (Free Text) Assessment: schizophrenia undifferentiated continuos Plan: pt at current mental status not danger to self or others , psychiatrically cleared for discharge when medically cleared
--- NOTE | 2018-07-18 11:57 | CP.PCM.CON ---
History of Present Illness - History of Present Illness History of Present Illness: Infectious Disease Consultation- asked to see this patient at the request of for pneumonia. HPI- History obtained from the medical chart and from DIRECTOR PROJECT MANAGEMENT Prudence as pt. not very good historian. 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 pt. has been on clindamycin and zosyn since admission as per her PMD. she is clinically better as per [employer] but had episode of hypoxia and hence i'm asked to evaluate pt. and make sure she is on appropriate antibiotics. pt. denies any fever or chills, states her cough is less and no phlegm, had mild sob but not now, as per nurse her o2 sat now is 94% on 2L oxygen . Pt denied: Fever, chills, n/v/d, abdominal pain, denies palpitations, syncope, dizziness, headache, sick contact, recent travel out of [facility]. Review of Systems - Review of Systems Review of Systems: ROS- denies any fever or chills, denies any BAL, mild cough but not productive, mild sob, denies any chest pain. deneis any abd. pain, denies any nausea or vomiting, denies any diarrhea Past Patient History - Infectious Disease Hx of Infectious Diseases: None - Past Medical History & Family History Past Medical History?: Yes - Past Social History Smoking Status: Never Smoked Alcohol: None Drugs: Denies Home Situation {Lives}: With Family - CARDIAC Hx Cardiac Disorders: Yes Hx Hypercholesterolemia: Yes Hx Hypertension: Yes - PULMONARY Hx Respiratory Disorders: Yes Hx Asthma: Yes - NEUROLOGICAL Hx Neurological Disorder: No - HEENT Hx HEENT Problems: No - RENAL Hx Chronic Kidney Disease: Yes Hx Dialysis: Yes Type of Dialysis Access: right arm av shunt Date of Last Dialysis Treatment: 07/12/18 - ENDOCRINE/METABOLIC Hx Endocrine Disorders: Yes Hx Diabetes Mellitus Type 2: Yes - HEMATOLOGICAL/ONCOLOGICAL Hx Blood Disorders: Yes Hx Anemia: Yes - INTEGUMENTARY Hx Dermatological Problems: No - MUSCULOSKELETAL/RHEUMATOLOGICAL Hx Musculoskeletal Disorders: No Hx Falls: No - GASTROINTESTINAL Hx Gastrointestinal Disorders: Yes Hx Gall Bladder Disease: Yes (gallbladder stones) - GENITOURINARY/GYNECOLOGICAL Hx Genitourinary Disorders: No - PSYCHIATRIC Hx Psychophysiologic Disorder: Yes Hx Anxiety: Yes Hx Depression: Yes Hx Schizophrenia: Yes Hx Substance Use: No - SURGICAL HISTORY Hx Surgeries: Yes Hx Cholecystectomy: Yes - ANESTHESIA Hx Anesthesia: Yes Hx Anesthesia Reactions: No Hx Malignant Hyperthermia: No Meds Allergies/Adverse Reactions: Allergies Allergy/AdvReac Type Severity Reaction Status Date / Time iodine Allergy URTICARIA Verified 06/11/18 04:32 - Medications Medications: Current Medications Amlodipine Besylate (Norvasc) 10 mg PO DAILY [facility] Last Admin: 07/18/18 08:45 Dose: 10 mg Atorvastatin Calcium (Lipitor) 10 mg PO HS [facility] Last Admin: 07/17/18 23:11 Dose: 10 mg Benztropine Mesylate (Cogentin) 1 mg PO Q12 [facility] Last Admin: 07/18/18 08:45 Dose: 1 mg Carvedilol (Coreg) 12.5 mg PO Q12 [facility] Last Admin: 07/18/18 08:46 Dose: 12.5 mg Ergocalciferol (Drisdol 50,000 Intl Units Cap) 1 cap PO Q7D [facility] Last Admin: 07/14/18 18:23 Dose: 1 cap Escitalopram Oxalate (Lexapro) 5 mg PO DAILY [facility] Last Admin: 07/18/18 08:46 Dose: 5 mg Glipizide (Glucotrol Xl) 10 mg PO BID [facility] Guaifenesin (Robitussin) 100 mg PO Q6 PRN PRN Reason: Cough Last Admin: 07/16/18 09:31 Dose: 100 mg Home Med (Sucroferric Oxyhydroxide [Velphoro]) 1 tab PO WMHS [facility] Piperacillin Sod/Tazobactam (Sod 2.25 gm/ Sodium Chloride) 100 mls @ 100 mls/hr IVPB Q8H [facility]; Protocol Last Admin: 07/18/18 08:44 Dose: 100 mls/hr Clindamycin in NS (Clindamycin 300 Mg/50 Ml-Ns) 300 mg in 50 mls @ 100 mls/hr IV Q8H [facility]; Protocol Last Admin: 07/18/18 05:28 Dose: 100 mls/hr Azithromycin 500 mg/ Sodium (Chloride) 250 mls @ 250 mls/hr IVPB DAILY [facility]; Protocol Insulin Detemir (Levemir) 10 units SC [facility] Insulin Lispro Protam/Lispro Human (Humalog Mix 75/25) 10 units SC BID [facility] Meclizine HCl (Antivert) 12.5 mg PO TID [facility] Last Admin: 07/18/18 08:46 Dose: 12.5 mg Ondansetron HCl (Zofran Inj) 4 mg IVP Q4 PRN PRN Reason: Nausea/Vomiting Last Admin: 07/17/18 00:15 Dose: 4 mg Promethazine HCl/Codeine (Phenergan/Codeine Oral Syrup) 5 ml PO Q6 PRN PRN Reason: Cough Risperidone (Risperdal Tab) 2 mg PO Q12 [facility] Last Admin: 07/18/18 08:45 Dose: 2 mg Sevelamer Carbonate (Renvela) 800 mg PO TID [facility] Last Admin: 07/18/18 08:45 Dose: 800 mg Vitamin B Complex/Vit C/Folic Acid (Nephro-Nelson) 1 tab PO DAILY [facility] Last Admin: 07/18/18 08:45 Dose: 1 tab Physical Exam - Constitutional Appears: Non-toxic, No Acute Distress - Head Exam Head Exam: ATRAUMATIC - Eye Exam Eye Exam: EOMI, PERRL - ENT Exam ENT Exam: Normal Oropharynx - Neck Exam Neck exam: Positive for: Full Rom - Respiratory Exam Respiratory Exam: NORMAL BREATHING PATTERN Additional comments: no wheezing no crackles slightly reduced breath sounds at right base - Cardiovascular Exam Cardiovascular Exam: RRR, +S1, +S2 - GI/Abdominal Exam GI & Abdominal Exam: Normal Bowel Sounds, Soft Additional comments: NT, ND - Extremities Exam Extremities exam: Positive for: normal inspection - Neurological Exam Neurological exam: Alert, Oriented x3 Results - Vital Signs Recent Vital Signs: Last Vital Signs Temp 98.4 F 07/18/18 05:18 Pulse 76 07/18/18 08:46 Resp 18 07/18/18 05:18 BP 157/76 H 07/18/18 08:46 Pulse Ox 95 07/18/18 05:18 - Labs Result Diagrams: 07/16/18 09:36 07/16/18 09:36 Labs: Laboratory Results - last 24 hr 07/17/18 07/17/18 07/17/18 12:47 16:01 21:29 pCO2 38 pO2 55 L HCO3 26.6 ABG pH 7.45 ABG Total CO2 27.6 ABG O2 Saturation 91.0 L ABG O2 Content 12.1 L ABG Base Excess 2.3 ABG Hemoglobin 9.8 L ABG Carboxyhemoglobin 2.6 H POC ABG HHb (Measured) 8.7 H ABG Methemoglobin 1.0 ABG O2 Capacity 13.3 L Pravin Test Yes A-a O2 Difference 47.0 Hgb O2 Saturation 87.7 L FiO2 21.0 POC Glucose (mg/dL) 164 H 194 H 07/18/18 05:32 pCO2 pO2 HCO3 ABG pH ABG Total CO2 ABG O2 Saturation ABG O2 Content ABG Base Excess ABG Hemoglobin ABG Carboxyhemoglobin POC ABG HHb (Measured) ABG Methemoglobin ABG O2 Capacity Pravin Test A-a O2 Difference Hgb O2 Saturation FiO2 POC Glucose (mg/dL) 122 H Laboratory Results - last 72 hr 07/14/18 07/14/18 07/15/18 20:39 20:39 11:41 WBC RBC Hgb Hct MCV MCH MCHC RDW Plt Count pCO2 39 pO2 64 L HCO3 30.1 H ABG pH 7.50 H ABG Total CO2 31.6 H ABG O2 Saturation 96.7 ABG O2 Content 12.3 L ABG Base Excess 6.7 H ABG Hemoglobin 9.3 L ABG Carboxyhemoglobin 2.6 H POC ABG HHb (Measured) 3.2 ABG Methemoglobin 0.7 ABG O2 Capacity 12.7 L Pravin Test Yes A-a O2 Difference 115.0 Hgb O2 Saturation 93.6 L Vent Mode N/c FiO2 32.0 Sodium Potassium Chloride Carbon Dioxide Anion Gap BUN Creatinine Est GFR ( Amer) Est GFR (Non-Af Amer) POC Glucose (mg/dL) Random Glucose Calcium Hep Bs Antigen Negative Hep Bs Antibody Positive Hep B Core IgM Ab Negative 07/15/18 07/15/18 07/16/18 16:23 21:16 04:34 WBC RBC Hgb Hct MCV MCH MCHC RDW Plt Count pCO2 pO2 HCO3 ABG pH ABG Total CO2 ABG O2 Saturation ABG O2 Content ABG Base Excess ABG Hemoglobin ABG Carboxyhemoglobin POC ABG HHb (Measured) ABG Methemoglobin ABG O2 Capacity Pravin Test A-a O2 Difference Hgb O2 Saturation Vent Mode FiO2 Sodium Potassium Chloride Carbon Dioxide Anion Gap BUN Creatinine Est GFR ( Amer) Est GFR (Non-Af Amer) POC Glucose (mg/dL) 190 H 139 H 146 H Random Glucose Calcium Hep Bs Antigen Hep Bs Antibody Hep B Core IgM Ab 07/16/18 07/16/18 07/16/18 09:36 09:36 11:24 WBC 7.0 RBC 3.40 L Hgb 9.4 L Hct 29.7 L MCV 87.3 MCH 27.8 MCHC 31.9 L RDW 17.4 H Plt Count 179 pCO2 pO2 HCO3 ABG pH ABG Total CO2 ABG O2 Saturation ABG O2 Content ABG Base Excess ABG Hemoglobin ABG Carboxyhemoglobin POC ABG HHb (Measured) ABG Methemoglobin ABG O2 Capacity Pravin Test A-a O2 Difference Hgb O2 Saturation Vent Mode FiO2 Sodium 128 L Potassium 4.9 Chloride 94 L Carbon Dioxide 25 Anion Gap 14 BUN 50 H Creatinine 6.9 H Est GFR ( Amer) 8 Est GFR (Non-Af Amer) 6 POC Glucose (mg/dL) 168 H Random Glucose 122 H Calcium 8.0 L Hep Bs Antigen Hep Bs Antibody Hep B Core IgM Ab 07/16/18 07/16/18 07/17/18 16:33 21:39 05:22 WBC RBC Hgb Hct MCV MCH MCHC RDW Plt Count pCO2 pO2 HCO3 ABG pH ABG Total CO2 ABG O2 Saturation ABG O2 Content ABG Base Excess ABG Hemoglobin ABG Carboxyhemoglobin POC ABG HHb (Measured) ABG Methemoglobin ABG O2 Capacity Pravin Test A-a O2 Difference Hgb O2 Saturation Vent Mode FiO2 Sodium Potassium Chloride Carbon Dioxide Anion Gap BUN Creatinine Est GFR ( Amer) Est GFR (Non-Af Amer) POC Glucose (mg/dL) 124 H 173 H 136 H Random Glucose Calcium Hep Bs Antigen Hep Bs Antibody Hep B Core IgM Ab 07/17/18 07/17/18 07/17/18 10:50 12:47 16:01 WBC RBC Hgb Hct MCV MCH MCHC RDW Plt Count pCO2 38 pO2 55 L HCO3 26.6 ABG pH 7.45 ABG Total CO2 27.6 ABG O2 Saturation 91.0 L ABG O2 Content 12.1 L ABG Base Excess 2.3 ABG Hemoglobin 9.8 L ABG Carboxyhemoglobin 2.6 H POC ABG HHb (Measured) 8.7 H ABG Methemoglobin 1.0 ABG O2 Capacity 13.3 L Pravin Test Yes A-a O2 Difference 47.0 Hgb O2 Saturation 87.7 L Vent Mode FiO2 21.0 Sodium Potassium Chloride Carbon Dioxide Anion Gap BUN Creatinine Est GFR ( Amer) Est GFR (Non-Af Amer) POC Glucose (mg/dL) 173 H 164 H Random Glucose Calcium Hep Bs Antigen Hep Bs Antibody Hep B Core IgM Ab 07/17/18 07/18/18 07/18/18 21:29 05:32 12:36 WBC RBC Hgb Hct MCV MCH MCHC RDW Plt Count pCO2 pO2 HCO3 ABG pH ABG Total CO2 ABG O2 Saturation ABG O2 Content ABG Base Excess ABG Hemoglobin ABG Carboxyhemoglobin POC ABG HHb (Measured) ABG Methemoglobin ABG O2 Capacity Pravin Test A-a O2 Difference Hgb O2 Saturation Vent Mode FiO2 Sodium Potassium Chloride Carbon Dioxide Anion Gap BUN Creatinine Est GFR ( Amer) Est GFR (Non-Af Amer) POC Glucose (mg/dL) 194 H 122 H 190 H Random Glucose Calcium Hep Bs Antigen Hep Bs Antibody Hep B Core IgM Ab Microbiology 07/14/18 14:22 Blood Blood Culture - Preliminary NO GROWTH AFTER 3 DAYS Accession No. : [id number] Patient Name / ID : ESTHER OCONNELL M / [id number] Exam Date : 07/14/2018 03:44:33 ( Approved ) Study Comment : Sex / Age : F / 52Y Creator : Clay Salguero MD Dictator : Clay Salguero MD [employer] Packer : Supervisor Loading : Clay Salguero MD Approver2 : Report Date : 07/14/2018 10:44:02 My Comment : Date of service: 07/14/2018 HISTORY: chest pain COMPARISON: No prior. FINDINGS: LUNGS: Large right lower lobe pneumonia. PLEURA: No significant pleural effusion identified, no pneumothorax apparent. CARDIOVASCULAR: No aortic atherosclerotic calcification present. Normal cardiac size. No pulmonary vascular congestion. OSSEOUS STRUCTURES: No significant abnormalities. VISUALIZED UPPER ABDOMEN: Normal. OTHER FINDINGS: Delmi cath in place. IMPRESSION: Large right lower lobe pneumonia with consolidation Accession No. : [id number] Patient Name / ID : ESTHER Gaona / [id number] Exam Date : 07/14/2018 17:25:16 ( Approved ) Study Comment : Sex / Age : F / 52Y Creator : Clay Salguero MD Dictator : Clay Salguero MD Agricultural Produ[employer] Packer : Supervisor Loading : Clay Salguero MD Approver2 : Report Date : 07/14/2018 20:04:37 My Comment : Date of service: 07/14/2018 PROCEDURE: CT Chest without contrast HISTORY: PNA COMPARISON: None available. TECHNIQUE: Contiguous axial images were obtained through the chest without intravenous contrast enhancement. Sagittal and coronal reconstructions were performed. Radiation dose: Total exam DLP = 533.07 mGy-cm. This CT exam was performed using one or more of the following dose reduction techniques: Automated exposure control, adjustment of the mA and/or kV according to patient size, and/or use of iterative reconstruction technique. FINDINGS: LUNGS: Large right upper lobe infiltrate with consolidation. MEDIASTINUM: Unremarkable thoracic aorta. No aneurysm. Normal sized heart. Main pulmonary artery unremarkable. No vascular congestion. No lymphadenopathy. No aortic atherosclerotic calcification. PLEURA: Large bilateral pleural effusions. Associated passive atelectasis at the lung bases. BONES: No fracture. No destructive lesion. UPPER ABDOMEN: Grossly unremarkable. OTHER FINDINGS: None. IMPRESSION: Large bilateral pleural effusions with right upper lobe infiltrate and compressive atelectasis at the lung bases compatible with CHF and/or pneumonia. Accession No. : [id number] Patient Name / ID : ESTHER Gaona / [id number] Exam Date : 07/16/2018 10:03:46 ( Approved ) Study Comment : Sex / Age : F / 52Y Creator : Luis Dyer MD Dictator : Luis Dyer MD Agricultural Produ[employer] Packer : Supervisor Loading : Luis Dyer MD Approver2 : Report Date : 07/16/2018 13:25:56 My Comment : Date of service: 07/16/2018 HISTORY: f/u pna COMPARISON: Portable chest 07/14/2018. TECHNIQUE: Chest PA and lateral FINDINGS: LUNGS: Right central venous dialysis catheter unchanged in position. Right pleural effusion persists with none on the left. Diminishing alveolitis right base. Likely atelectasis unchanged at the medial left base. No pneumothorax bilaterally. Pulmonary vascular congestion. Cardiac size stable. PLEURA: No significant pleural effusion identified. No pneumothorax apparent. CARDIOVASCULAR: As above. OSSEOUS STRUCTURES: No significant abnormalities. VISUALIZED UPPER ABDOMEN: Normal. OTHER FINDINGS: None. IMPRESSION: Diminishing right-sided alveolitis with residual mild pleural effusion unchanged. Likely atelectasis unchanged left base. Assessment & Plan (1) RLL pneumonia Status: Acute Priority: High (2) Pleural effusion Status: Acute (3) ESRD on hemodialysis Status: Chronic Priority: High (4) Kidney transplant failure Status: Chronic Priority: High - Assessment and Plan (Free Text) Assessment: A/P- 52 year old female with failed kidney transplant on HD for ESRD admitted with sob and cough and hypoxemia found to have RLL pneumonia and b/l pleural effusions. clincially seems to have improved as per DIRECTOR PROJECT MANAGEMENT. afebrile normal wbc blood cx- neg ct and CXR reports noted still hypoxic off oxygen. Plan- check sputum cx. check urine legionella AG. check mycoplasma serology. may need to rule out PE since she does get hypoxic despite her pneumonia improving. advise to ocntinue with zithromax that was started today for coverage of atypical pathogens. start cefepime . d/c zosyn. d/c clindamycin. all labs and imaging reviewed. Thank you for allowing me to take part in the care of this patient.
[2018-07-18] MEDS: Azithromycin 500 MG in Sodium Chloride 0.9% 250 ML IVPB SCH (16:59)
[2018-07-18] MEDS: Cefepime 1 GM in Sodium Chloride 0.9% 100 ML IVPB SCH (16:59)
[2018-07-18] MEDS: guaiFENesin 100 mg/5 ml Syrup UD PO PRN (17:00)
--- NOTE | 2018-07-18 18:00 | CP.PCM.PN ---
Subjective - Date & Time of Evaluation Date of Evaluation: 07/18/18 Time of Evaluation: 11:40 - Subjective Subjective: F/U PNA Pt with no SOB, c/o of intermittent dry cough, dizziness improved. Objective - Vital Signs/Intake and Output Vital Signs (last 24 hours): Temp Pulse Resp BP Pulse Ox 97.9 F 74 18 142/68 94 L 07/18/18 16:19 07/18/18 16:19 07/18/18 16:19 07/18/18 16:19 07/18/18 16:19 - Medications Medications: Current Medications Amlodipine Besylate (Norvasc) 10 mg PO DAILY [facility] Last Admin: 07/18/18 08:45 Dose: 10 mg Atorvastatin Calcium (Lipitor) 10 mg PO HS [facility] Last Admin: 07/17/18 23:11 Dose: 10 mg Benztropine Mesylate (Cogentin) 1 mg PO Q12 [facility] Last Admin: 07/18/18 08:45 Dose: 1 mg Carvedilol (Coreg) 12.5 mg PO Q12 [facility] Last Admin: 07/18/18 08:46 Dose: 12.5 mg Ergocalciferol (Drisdol 50,000 Intl Units Cap) 1 cap PO Q7D [facility] Last Admin: 07/14/18 18:23 Dose: 1 cap Escitalopram Oxalate (Lexapro) 5 mg PO DAILY [facility] Last Admin: 07/18/18 08:46 Dose: 5 mg Glipizide (Glucotrol Xl) 10 mg PO BID [facility] Guaifenesin (Robitussin) 100 mg PO Q6 PRN PRN Reason: Cough Last Admin: 07/18/18 17:00 Dose: 100 mg Home Med (Sucroferric Oxyhydroxide [Velphoro]) 1 tab PO [facility] Azithromycin 500 mg/ Sodium (Chloride) 250 mls @ 250 mls/hr IVPB DAILY [facility]; Protocol Last Admin: 07/18/18 16:59 Dose: 250 mls/hr Cefepime HCl 1 gm/ Sodium (Chloride) 100 mls @ 100 mls/hr IVPB DAILY [facility]; Protocol Last Admin: 07/18/18 16:59 Dose: 100 mls/hr Insulin Detemir (Levemir) 10 units SC HS [facility] Insulin Lispro Protam/Lispro Human (Humalog Mix 75/25) 10 units SC BID [facility] Meclizine HCl (Antivert) 12.5 mg PO TID [facility] Last Admin: 07/18/18 16:58 Dose: 12.5 mg Ondansetron HCl (Zofran Inj) 4 mg IVP Q4 PRN PRN Reason: Nausea/Vomiting Last Admin: 07/17/18 00:15 Dose: 4 mg Promethazine HCl/Codeine (Phenergan/Codeine Oral Syrup) 5 ml PO Q6 PRN PRN Reason: Cough Risperidone (Risperdal Tab) 2 mg PO Q12 [facility] Last Admin: 07/18/18 08:45 Dose: 2 mg Sevelamer Carbonate (Renvela) 800 mg PO TID [facility] Last Admin: 07/18/18 16:58 Dose: 800 mg Vitamin B Complex/Vit C/Folic Acid (Nephro-Nelson) 1 tab PO DAILY [facility] Last Admin: 07/18/18 08:45 Dose: 1 tab - Labs Labs: 07/16/18 09:36 07/16/18 09:36 - Constitutional Appears: No Acute Distress - Head Exam Head Exam: NORMAL INSPECTION - Eye Exam Eye Exam: PERRL - ENT Exam ENT Exam: Normal Exam - Neck Exam Neck Exam: Normal Inspection - Respiratory Exam Respiratory Exam: Decreased Breath Sounds (at bases) - Cardiovascular Exam Cardiovascular Exam: REGULAR RHYTHM Additional comments: R chest Perma Cath - GI/Abdominal Exam GI & Abdominal Exam: Soft, Normal Bowel Sounds - Extremities Exam Additional comments: Old AV fistula L arm, R arm AV fistula with bruit and thrill. - Back Exam Back Exam: NORMAL INSPECTION - Neurological Exam Neurological Exam: Alert, CN II-XII Intact, Oriented x3 Additional comments: No focal motor/sensory deficit. - Psychiatric Exam Psychiatric exam: Anxious, Depressed - Skin Skin Exam: Warm Assessment and Plan (1) RLL pneumonia Status: Acute (2) ESRD on hemodialysis Status: Chronic (3) Anemia in CKD (chronic kidney disease) Status: Acute (4) Diabetes mellitus Status: Acute (5) Hypoglycemia Status: Acute (6) Kidney transplant failure Status: Chronic (7) Anxiety and depression Status: Chronic - Assessment and Plan (Free Text) Plan: Continue Zithromax, Cefepime, and rest of Tx, f/u ID.
--- NOTE | 2018-07-18 22:23 | CP.PCM.PN ---
Subjective - Date & Time of Evaluation Date of Evaluation: 07/18/18 Time of Evaluation: 14:00 - Subjective Subjective: SEEN ON RENAL F/U FEELS MUCH BETTER ID AND PSYCH CONSULTS APPRECIATED PT IS CLINICALLY BETTER ON HD T T S Objective - Vital Signs/Intake and Output Vital Signs (last 24 hours): Temp Pulse Resp BP Pulse Ox 98.3 F 83 18 158/88 H 97 07/18/18 20:30 07/18/18 22:01 07/18/18 20:30 07/18/18 22:01 07/18/18 20:30 - Medications Medications: Current Medications Amlodipine Besylate (Norvasc) 10 mg PO DAILY [facility] Last Admin: 07/18/18 08:45 Dose: 10 mg Atorvastatin Calcium (Lipitor) 10 mg PO HS [facility] Last Admin: 07/18/18 22:01 Dose: 10 mg Benztropine Mesylate (Cogentin) 1 mg PO Q12 [facility] Last Admin: 07/18/18 22:01 Dose: 1 mg Carvedilol (Coreg) 12.5 mg PO Q12 [facility] Last Admin: 07/18/18 22:01 Dose: 12.5 mg Ergocalciferol (Drisdol 50,000 Intl Units Cap) 1 cap PO Q7D [facility] Last Admin: 07/14/18 18:23 Dose: 1 cap Escitalopram Oxalate (Lexapro) 5 mg PO DAILY [facility] Last Admin: 07/18/18 08:46 Dose: 5 mg Glipizide (Glucotrol Xl) 10 mg PO BID [facility] Guaifenesin (Robitussin) 100 mg PO Q6 PRN PRN Reason: Cough Last Admin: 07/18/18 17:00 Dose: 100 mg Home Med (Sucroferric Oxyhydroxide [Velphoro]) 1 tab PO [facility] Azithromycin 500 mg/ Sodium (Chloride) 250 mls @ 250 mls/hr IVPB DAILY [facility]; Protocol Last Admin: 07/18/18 16:59 Dose: 250 mls/hr Cefepime HCl 1 gm/ Sodium (Chloride) 100 mls @ 100 mls/hr IVPB DAILY [facility]; Protocol Last Admin: 07/18/18 16:59 Dose: 100 mls/hr Insulin Detemir (Levemir) 10 units SC HS [facility] Insulin Lispro Protam/Lispro Human (Humalog Mix 75/25) 10 units SC BID [facility] Meclizine HCl (Antivert) 12.5 mg PO TID [facility] Last Admin: 07/18/18 16:58 Dose: 12.5 mg Ondansetron HCl (Zofran Inj) 4 mg IVP Q4 PRN PRN Reason: Nausea/Vomiting Last Admin: 07/17/18 00:15 Dose: 4 mg Promethazine HCl/Codeine (Phenergan/Codeine Oral Syrup) 5 ml PO Q6 PRN PRN Reason: Cough Risperidone (Risperdal Tab) 2 mg PO Q12 [facility] Last Admin: 07/18/18 22:01 Dose: 2 mg Sevelamer Carbonate (Renvela) 800 mg PO TID [facility] Last Admin: 07/18/18 16:58 Dose: 800 mg Vitamin B Complex/Vit C/Folic Acid (Nephro-Nelson) 1 tab PO DAILY [facility] Last Admin: 07/18/18 08:45 Dose: 1 tab - Labs Labs: 07/16/18 09:36 07/16/18 09:36 Assessment and Plan - Assessment and Plan (Free Text) Assessment: ESRD ON HD TTS .. TO BE C/O ANEMIA OF CKD .. ON EPO PNA .. ON IVAB PER ID SCHEZOPHRENIA .. SAME MEDS PER PSYCH MMP P : C/O CURRENT MEDS C/O PRESENT CARE C/O HD
[2018-07-19 05:40] LABS: HEMOGLOBIN 9.1 g/dL (12.0-16.0); MEAN CELL VOLUME 86.1 fl (81.0-99.0); MEAN CORPUSCULAR HEMOGLOBIN 28.4 pg (27.0-31.0); RBC 3.2 Mil/uL (3.80-5.20); RED CELL DISTRIBUTION WIDTH 17.2 % (11.5-14.5); WHITE BLOOD COUNT 6.4 K/uL (4.8-10.8)
[2018-07-19 06:15] LABS: CALCIUM 8.2 mg/dL (8.4-10.2)
[2018-07-19] MEDS: Multivitamin Vitamin B Complex (Nephro-Vite) Tab PO SCH (08:57)
[2018-07-19] MEDS: Cefepime 1 GM in Sodium Chloride 0.9% 100 ML IVPB SCH (15:30)
--- NOTE | 2018-07-19 15:48 | CP.PCM.PN ---
Subjective - Date & Time of Evaluation Date of Evaluation: 07/19/18 Time of Evaluation: 13:10 - Subjective Subjective: F/U Pleural Effusion B/L Pt having HD, no A/D, no SOB on O2 NC. Pt with unclear description about episodes of her eyes rolling back in the past 2 days. Objective - Vital Signs/Intake and Output Vital Signs (last 24 hours): Temp Pulse Resp BP Pulse Ox 98.7 F 68 18 151/66 H 93 L 07/19/18 08:00 07/19/18 08:00 07/19/18 08:00 07/19/18 08:00 07/19/18 08:00 - Medications Medications: Current Medications Amlodipine Besylate (Norvasc) 10 mg PO DAILY [facility] Last Admin: 07/19/18 08:58 Dose: 10 mg Atorvastatin Calcium (Lipitor) 10 mg PO HS [facility] Last Admin: 07/18/18 22:01 Dose: 10 mg Benztropine Mesylate (Cogentin) 1 mg PO Q12 [facility] Last Admin: 07/19/18 08:57 Dose: 1 mg Carvedilol (Coreg) 12.5 mg PO Q12 [facility] Last Admin: 07/19/18 08:57 Dose: 12.5 mg Ergocalciferol (Drisdol 50,000 Intl Units Cap) 1 cap PO Q7D [facility] Last Admin: 07/14/18 18:23 Dose: 1 cap Escitalopram Oxalate (Lexapro) 5 mg PO DAILY [facility] Last Admin: 07/19/18 08:57 Dose: 5 mg Glipizide (Glucotrol Xl) 10 mg PO BID [facility] Guaifenesin (Robitussin) 100 mg PO Q6 PRN PRN Reason: Cough Last Admin: 07/18/18 17:00 Dose: 100 mg Home Med (Sucroferric Oxyhydroxide [Velphoro]) 1 tab PO [facility] Azithromycin 500 mg/ Sodium (Chloride) 250 mls @ 250 mls/hr IVPB DAILY [facility]; Protocol Last Admin: 07/18/18 16:59 Dose: 250 mls/hr Cefepime HCl 1 gm/ Sodium (Chloride) 100 mls @ 100 mls/hr IVPB DAILY [facility]; Protocol Last Admin: 07/18/18 16:59 Dose: 100 mls/hr Insulin Detemir (Levemir) 10 units SC [facility] Insulin Lispro Protam/Lispro Human (Humalog Mix 75/25) 10 units SC BID [facility] Meclizine HCl (Antivert) 12.5 mg PO TID [facility] Last Admin: 07/19/18 12:46 Dose: 12.5 mg Ondansetron HCl (Zofran Inj) 4 mg IVP Q4 PRN PRN Reason: Nausea/Vomiting Last Admin: 07/17/18 00:15 Dose: 4 mg Promethazine HCl/Codeine (Phenergan/Codeine Oral Syrup) 5 ml PO Q6 PRN PRN Reason: Cough Risperidone (Risperdal Tab) 2 mg PO Q12 [facility] Last Admin: 07/19/18 08:57 Dose: 2 mg Sevelamer Carbonate (Renvela) 800 mg PO TID [facility] Last Admin: 07/19/18 12:46 Dose: 800 mg Vitamin B Complex/Vit C/Folic Acid (Nephro-Nelson) 1 tab PO DAILY [facility] Last Admin: 07/19/18 08:57 Dose: 1 tab - Labs Labs: 07/19/18 04:55 07/19/18 04:55 - Constitutional Appears: No Acute Distress - Head Exam Head Exam: NORMAL INSPECTION - Eye Exam Eye Exam: PERRL - ENT Exam ENT Exam: Normal Exam - Neck Exam Neck Exam: Normal Inspection - Respiratory Exam Respiratory Exam: Decreased Breath Sounds (at bases) Additional comments: R chest Perma Cath - Cardiovascular Exam Cardiovascular Exam: REGULAR RHYTHM - GI/Abdominal Exam GI & Abdominal Exam: Soft, Normal Bowel Sounds - Extremities Exam Additional comments: Old AV fistula L arm. R arm AV fistula with bruit and thrill. - Neurological Exam Neurological Exam: Alert, CN II-XII Intact, Oriented x3 Additional comments: No focal motor/sensory deficit. - Psychiatric Exam Psychiatric exam: Anxious, Depressed - Skin Skin Exam: Warm Assessment and Plan (1) Pleural effusion, bilateral Assessment & Plan: R>L. Status: Acute (2) RLL pneumonia Status: Resolved (3) ESRD on hemodialysis Status: Chronic (4) Anemia in CKD (chronic kidney disease) Status: Acute (5) Diabetes mellitus Status: Acute (6) Hypoglycemia Status: Acute (7) Kidney transplant failure Status: Chronic (8) Anxiety and depression Status: Chronic - Assessment and Plan (Free Text) Plan: Psych consult continue in [place]/Risperdal, continue rest of Tx.
[2018-07-19] MEDS: Azithromycin 500 MG in Sodium Chloride 0.9% 250 ML IVPB SCH (16:47)
--- NOTE | 2018-07-19 23:32 | CP.PCM.PN ---
Subjective - Date & Time of Evaluation Date of Evaluation: 07/19/18 Time of Evaluation: 16:00 - Subjective Subjective: SEEN ON RENAL F/U FEELS IMPROVED HAD HER HD EARLIAR .. TOLERATED WELL ALL PREVIOUS EMR REVIEWED Objective - Vital Signs/Intake and Output Vital Signs (last 24 hours): Temp Pulse Resp BP Pulse Ox 97.5 F L 73 20 170/82 H 93 L 07/19/18 19:19 07/19/18 21:27 07/19/18 19:19 07/19/18 21:27 07/19/18 19:19 - Medications Medications: Current Medications Amlodipine Besylate (Norvasc) 10 mg PO DAILY [facility] Last Admin: 07/19/18 08:58 Dose: 10 mg Atorvastatin Calcium (Lipitor) 10 mg PO HS [facility] Last Admin: 07/18/18 22:01 Dose: 10 mg Benztropine Mesylate (Cogentin) 1 mg PO Q12 [facility] Last Admin: 07/19/18 21:27 Dose: 1 mg Carvedilol (Coreg) 12.5 mg PO Q12 [facility] Last Admin: 07/19/18 21:27 Dose: 12.5 mg Ergocalciferol (Drisdol 50,000 Intl Units Cap) 1 cap PO Q7D [facility] Last Admin: 07/14/18 18:23 Dose: 1 cap Escitalopram Oxalate (Lexapro) 5 mg PO DAILY [facility] Last Admin: 07/19/18 08:57 Dose: 5 mg Glipizide (Glucotrol Xl) 10 mg PO BID [facility] Guaifenesin (Robitussin) 100 mg PO Q6 PRN PRN Reason: Cough Last Admin: 07/18/18 17:00 Dose: 100 mg Home Med (Sucroferric Oxyhydroxide [Velphoro]) 1 tab PO [facility] Azithromycin 500 mg/ Sodium (Chloride) 250 mls @ 250 mls/hr IVPB DAILY [facility]; Protocol Last Admin: 07/19/18 16:47 Dose: 250 mls/hr Cefepime HCl 1 gm/ Sodium (Chloride) 100 mls @ 100 mls/hr IVPB DAILY [facility]; Protocol Last Admin: 07/19/18 15:30 Dose: 100 mls/hr Insulin Detemir (Levemir) 10 units SC HS [facility] Insulin Lispro Protam/Lispro Human (Humalog Mix 75/25) 10 units SC BID [facility] Meclizine HCl (Antivert) 12.5 mg PO TID [facility] Last Admin: 07/19/18 16:44 Dose: 12.5 mg Ondansetron HCl (Zofran Inj) 4 mg IVP Q4 PRN PRN Reason: Nausea/Vomiting Last Admin: 07/17/18 00:15 Dose: 4 mg Promethazine HCl/Codeine (Phenergan/Codeine Oral Syrup) 5 ml PO Q6 PRN PRN Reason: Cough Risperidone (Risperdal Tab) 2 mg PO Q12 [facility] Last Admin: 07/19/18 08:57 Dose: 2 mg Sevelamer Carbonate (Renvela) 800 mg PO TID [facility] Last Admin: 07/19/18 16:44 Dose: 800 mg Vitamin B Complex/Vit C/Folic Acid (Nephro-Nelson) 1 tab PO DAILY [facility] Last Admin: 07/19/18 08:57 Dose: 1 tab - Labs Labs: 07/19/18 04:55 07/19/18 04:55 Assessment and Plan - Assessment and Plan (Free Text) Assessment: ESRD ON HD T T S .. TO BE C/O ANEMIA OF CKD ON EPO ELECTROLYTES ABN PNA ON IVAB MMP P : C/O PRESENT CARE C/O CURRENT MEDS C/O HD
[2018-07-20] MEDS: Multivitamin Vitamin B Complex (Nephro-Vite) Tab PO SCH (09:30)
[2018-07-20] MEDS: Cefepime 1 GM in Sodium Chloride 0.9% 100 ML IVPB SCH (09:31)
[2018-07-20] MEDS: Azithromycin 500 MG in Sodium Chloride 0.9% 250 ML IVPB SCH (09:34)
--- NOTE | 2018-07-20 11:58 | CT ---
Date of service: 07/19/2018 PROCEDURE: CT Chest without contrast HISTORY: pna COMPARISON: 07/14/2018 TECHNIQUE: Contiguous axial images were obtained through the chest without intravenous contrast enhancement. Sagittal and coronal reconstructions were performed. Radiation dose (DLP): 508.54 mGy-cm. This CT exam was performed using one or more of the following dose reduction techniques: Automated exposure control, adjustment of the mA and/or kV according to patient size, and/or use of iterative reconstruction technique. FINDINGS: LUNGS: Previous right upper lobe infiltrate has resolved. Previous minimal left upper lobe infiltrate has resolved. No new infiltrate identified. Almost complete atelectasis of right lower lobe likely passive secondary to pleural effusion. Subsegmental right upper lobe atelectasis. Minimal subsegmental atelectasis left lower lobe. MEDIASTINUM: Unremarkable thoracic aorta. No aneurysm. Mild cardiomegaly. No pericardial effusion. Right central venous infusion port noted main pulmonary artery unremarkable. No vascular congestion. No lymphadenopathy. PLEURA: Moderate to large right pleural effusion. Trace left pleural effusion, decreased from prior examination. BONES: No fracture. No destructive lesion. UPPER ABDOMEN: Severely atrophic left kidney. Right kidney not included. OTHER FINDINGS: Edema in right anterior chest wall extending into right breast. Questionable asymmetric density in right breast only partially included. Consider further evaluation with mammography. IMPRESSION: Moderate to large right pleural effusion and trace left pleural effusion. Resolved right-sided pulmonary infiltrates. Right lower lobe incomplete atelectasis and minimal right upper lobe and left lower lobe subsegmental atelectasis. Mild cardiomegaly. Right central venous infusion port right. Right anterior chest wall edema. Questionable asymmetry in right breast. Evaluation with mammography suggested. The preliminary findings for this examination were reported by [facility] at 7:26 p.m. on 07/19/2018.. There is concurrence of this report with the preliminary findings. Please note additional recommendation for mammography. See above.
--- NOTE | 2018-07-20 12:55 | NM ---
Date of service: 07/20/2018 COMPARISON: July 19, 2018. CT THORAX TECHNIQUE: 31.595 mCi technetium 99-m DTPA aerosol. 5.029 mCI technetium 99-m MAA administered intravenously. FINDINGS: VENTILATION COMPONENT: DIMINISHED VENTILATION RIGHT LOWER LOBE CONSISTENT WITH FINDINGS ON RECENT CT SCAN. Retention of radionuclide in the tracheobronchial tree and ingestion of radionuclide in the stomach, incidental findings PERFUSION COMPONENT: Heterogeneous distribution of radionuclide. No geographic, segmental, lobar abnormalities apparent on the present examination. IMPRESSION: Low probability ventilation perfusion scan for pulmonary embolism.
--- NOTE | 2018-07-20 14:18 | CP.PCM.PN ---
Subjective - Date & Time of Evaluation Date of Evaluation: 07/20/18 Time of Evaluation: 13:40 - Subjective Subjective: F/U Pleural Effusion b/l. Pt with no A/D, no SOB, no cough. Objective - Vital Signs/Intake and Output Vital Signs (last 24 hours): Temp Pulse Resp BP Pulse Ox 98.2 F 73 18 177/83 H 94 L 07/20/18 08:09 07/20/18 08:09 07/20/18 08:09 07/20/18 08:09 07/20/18 08:09 - Medications Medications: Current Medications Amlodipine Besylate (Norvasc) 10 mg PO DAILY [facility] Last Admin: 07/20/18 09:32 Dose: 10 mg Atorvastatin Calcium (Lipitor) 10 mg PO HS [facility] Last Admin: 07/19/18 22:00 Dose: 10 mg Benztropine Mesylate (Cogentin) 1 mg PO Q12 [facility] Last Admin: 07/20/18 09:30 Dose: 1 mg Carvedilol (Coreg) 12.5 mg PO Q12 [facility] Last Admin: 07/20/18 09:31 Dose: 12.5 mg Ergocalciferol (Drisdol 50,000 Intl Units Cap) 1 cap PO Q7D [facility] Last Admin: 07/14/18 18:23 Dose: 1 cap Escitalopram Oxalate (Lexapro) 5 mg PO DAILY [facility] Last Admin: 07/20/18 09:30 Dose: 5 mg Glipizide (Glucotrol Xl) 10 mg PO BID [facility] Guaifenesin (Robitussin) 100 mg PO Q6 PRN PRN Reason: Cough Last Admin: 07/18/18 17:00 Dose: 100 mg Home Med (Sucroferric Oxyhydroxide [Velphoro]) 1 tab PO [facility] Azithromycin 500 mg/ Sodium (Chloride) 250 mls @ 250 mls/hr IVPB DAILY [facility]; Protocol Last Admin: 07/20/18 09:34 Dose: 250 mls/hr Cefepime HCl 1 gm/ Sodium (Chloride) 100 mls @ 100 mls/hr IVPB DAILY [facility]; Protocol Last Admin: 07/20/18 09:31 Dose: 100 mls/hr Insulin Detemir (Levemir) 10 units SC HS [facility] Insulin Lispro Protam/Lispro Human (Humalog Mix 75/25) 10 units SC BID [facility] Meclizine HCl (Antivert) 12.5 mg PO TID [facility] Last Admin: 07/20/18 09:30 Dose: 12.5 mg Ondansetron HCl (Zofran Inj) 4 mg IVP Q4 PRN PRN Reason: Nausea/Vomiting Last Admin: 07/17/18 00:15 Dose: 4 mg Promethazine HCl/Codeine (Phenergan/Codeine Oral Syrup) 5 ml PO Q6 PRN PRN Reason: Cough Risperidone (Risperdal Tab) 2 mg PO Q12 [facility] Last Admin: 07/20/18 09:33 Dose: 2 mg Sevelamer Carbonate (Renvela) 800 mg PO TID [facility] Last Admin: 07/20/18 09:33 Dose: 800 mg Vitamin B Complex/Vit C/Folic Acid (Nephro-Nelson) 1 tab PO DAILY [facility] Last Admin: 07/20/18 09:30 Dose: 1 tab - Labs Labs: 07/19/18 04:55 07/19/18 04:55 - Constitutional Appears: No Acute Distress - Head Exam Head Exam: NORMAL INSPECTION - Eye Exam Eye Exam: PERRL - ENT Exam ENT Exam: Normal Exam - Neck Exam Neck Exam: Normal Inspection - Respiratory Exam Respiratory Exam: Decreased Breath Sounds (L>R) Additional comments: R Chest Perma Cath. - Cardiovascular Exam Cardiovascular Exam: REGULAR RHYTHM - GI/Abdominal Exam GI & Abdominal Exam: Soft, Normal Bowel Sounds - Extremities Exam Additional comments: Old AV fistula L arm, R arm AV fistula with bruit and thrill. - Back Exam Back Exam: NORMAL INSPECTION - Neurological Exam Neurological Exam: Alert, CN II-XII Intact, Oriented x3 Additional comments: No focal motor/sensory deficit. - Psychiatric Exam Psychiatric exam: Anxious, Depressed - Skin Skin Exam: Warm Assessment and Plan (1) Pleural effusion, bilateral Assessment & Plan: R>L Status: Acute (2) RLL pneumonia Status: Resolved (3) ESRD on hemodialysis Status: Chronic (4) Anemia in CKD (chronic kidney disease) Status: Acute (5) Diabetes mellitus Status: Acute (6) Hypoglycemia Status: Acute (7) Kidney transplant failure Status: Chronic (8) Anxiety and depression Status: Chronic - Assessment and Plan (Free Text) Plan: F/U with Renal for fluid retention, continue current Tx.
--- NOTE | 2018-07-21 04:15 | CON ---
DATE: 07/20/2018 REASON FOR CONSULTATION: Congestive heart failure. HISTORY OF PRESENT ILLNESS: The patient is a 52-year-old female with end-stage renal disease, on hemodialysis for the past few months; history of hypertension; history of congestive heart failure; and history of schizophrenia, was admitted initially because of shortness of breath and chest pain. The patient has a history of renal transplant in the past according to the ER physician interview. The patient denies having any prior cardiac history when I asked her about any history of heart attack or any coronary intervention in the past. SOCIAL HISTORY: The patient is a nonsmoker, nondrinker. MEDICATIONS: Antivert 12.5 mg t.i.d., Zithromax 500 mg intravenously daily, cefepime at 1 g intravenously daily, Cogentin 1 mg p.o. twice a day, Coreg 12.5 mg twice a day, glipizide XL 10 mg twice a day, Lexapro 5 mg once a day, Lipitor 10 mg once a day, Nephro-Nelson one tablet once a day, Norvasc 10 mg once a day, and Robitussin 100 mg p.o. every six hours p.r.n. REVIEW OF SYSTEMS: No fever or chills. The patient did report nausea. PHYSICAL EXAMINATION: GENERAL: The patient is a middle-aged female, who does not appear to be in any distress. VITAL SIGNS: Blood pressure 147/70, heart rate 72, temperature 97.6, and respirations 20. HEENT: Normocephalic. NECK: No JVD. CHEST: Absent breath sound over the right base. HEART: S1, S2, regular and distant. ABDOMEN: Soft. EXTREMITIES: 2 + pitting edema. IMAGING: Chest x-ray revealed cardiomegaly with right lower and middle lobe consolidation with large effusion. Ventilation perfusion scan with a low probability for pulmonary embolus. Chest CT scan without contrast revealed moderate to large right pleural effusion and trace left pleural effusion, right-sided pulmonary infiltrate, right lower lobe incomplete atelectasis and a minimal right upper lobe and left lower lobe subsegmental atelectasis. Mild cardiomegaly. Right anterior chest wall edema. EKG revealed normal sinus rhythm at a rate of 100 with prolonged QT interval. Echocardiographic study performed on 06/12/2018 last month, revealed normal ejection fraction, normal left ventricular diastolic function, [id number] mitral insufficiency and mild pulmonary hypertension. On that ventilation and perfusion scan, low probability for PE. LABORATORY STUDIES: Yesterday, hemoglobin and hematocrit 9.1 and 27.5, white count and platelet count are within normal limit. SMA-7 yesterday: Sodium 126, potassium 4.5, chloride 95, CO2 of 20, glucose 103, BUN 58, creatinine 8. ProBNP is 118,000. Troponin 0.027. ASSESSMENT: 1. Right lower lobe pneumonia with moderate to large pleural effusion. 2. End-stage renal disease, on hemodialysis. 3. Mild pulmonary hypertension. RECOMMENDATIONS: Continue current Norvasc 10 mg once a day, IV Zithromax at 500 mg daily, and IV cefepime 1 g daily. Continue Coreg 12.5 mg twice a day. No invasive cardiac workup is justified at this time. Chao Vela MD
--- NOTE | 2018-07-21 08:42 | CP.PCM.PN ---
Subjective - Date & Time of Evaluation Date of Evaluation: 07/20/18 Time of Evaluation: 16:00 - Subjective Subjective: SEEN ON RENAL F/U FEELS BETTER ON IVAB FOR PNA ALL PREVIOUS EMR REVIEWED Objective - Vital Signs/Intake and Output Vital Signs (last 24 hours): Temp Pulse Resp BP Pulse Ox 97.8 F 73 18 153/67 H 94 L 07/21/18 08:22 07/21/18 08:22 07/21/18 08:22 07/21/18 08:22 07/21/18 08:22 - Medications Medications: Current Medications Amlodipine Besylate (Norvasc) 10 mg PO DAILY [facility] Last Admin: 07/20/18 09:32 Dose: 10 mg Atorvastatin Calcium (Lipitor) 10 mg PO HS [facility] Last Admin: 07/20/18 21:37 Dose: 10 mg Benztropine Mesylate (Cogentin) 1 mg PO Q12 [facility] Last Admin: 07/20/18 21:37 Dose: 1 mg Carvedilol (Coreg) 12.5 mg PO Q12 [facility] Last Admin: 07/20/18 21:37 Dose: 12.5 mg Ergocalciferol (Drisdol 50,000 Intl Units Cap) 1 cap PO Q7D [facility] Last Admin: 07/14/18 18:23 Dose: 1 cap Escitalopram Oxalate (Lexapro) 5 mg PO DAILY [facility] Last Admin: 07/20/18 09:30 Dose: 5 mg Glipizide (Glucotrol Xl) 10 mg PO BID [facility] Guaifenesin (Robitussin) 100 mg PO Q6 PRN PRN Reason: Cough Last Admin: 07/18/18 17:00 Dose: 100 mg Home Med (Sucroferric Oxyhydroxide [Velphoro]) 1 tab PO [facility] Azithromycin 500 mg/ Sodium (Chloride) 250 mls @ 250 mls/hr IVPB DAILY [facility]; Protocol Last Admin: 07/20/18 09:34 Dose: 250 mls/hr Cefepime HCl 1 gm/ Sodium (Chloride) 100 mls @ 100 mls/hr IVPB DAILY [facility]; Protocol Last Admin: 07/20/18 09:31 Dose: 100 mls/hr Insulin Detemir (Levemir) 10 units SC HS [facility] Insulin Lispro Protam/Lispro Human (Humalog Mix 75/25) 10 units SC BID [facility] Meclizine HCl (Antivert) 12.5 mg PO TID [facility] Last Admin: 07/20/18 16:54 Dose: 12.5 mg Ondansetron HCl (Zofran Inj) 4 mg IVP Q4 PRN PRN Reason: Nausea/Vomiting Last Admin: 07/17/18 00:15 Dose: 4 mg Promethazine HCl/Codeine (Phenergan/Codeine Oral Syrup) 5 ml PO Q6 PRN PRN Reason: Cough Risperidone (Risperdal Tab) 2 mg PO Q12 [facility] Last Admin: 07/20/18 21:37 Dose: 2 mg Sevelamer Carbonate (Renvela) 800 mg PO TID [facility] Last Admin: 07/20/18 16:56 Dose: 800 mg Vitamin B Complex/Vit C/Folic Acid (Nephro-Nelson) 1 tab PO DAILY [facility] Last Admin: 07/20/18 09:30 Dose: 1 tab - Labs Labs: 07/19/18 04:55 07/19/18 04:55 Assessment and Plan - Assessment and Plan (Free Text) Assessment: ESRD ON HF TTS ANEMIS OF CKD ON EPO ELECTRLOLYTES R [place] PNA ON ICAB MMP P : C/O PRESENT CARE C/O CURRENT MEDS
[2018-07-21] MEDS: Multivitamin Vitamin B Complex (Nephro-Vite) Tab PO SCH (10:07)
[2018-07-21] MEDS: Azithromycin 500 MG in Sodium Chloride 0.9% 250 ML IVPB SCH (10:10)
[2018-07-21] MEDS: Cefepime 1 GM in Sodium Chloride 0.9% 100 ML IVPB SCH (10:10)
--- NOTE | 2018-07-21 15:43 | CP.PCM.PN ---
Subjective - Date & Time of Evaluation Date of Evaluation: 07/21/18 Time of Evaluation: 12:40 - Subjective Subjective: F/U Pleural effusion Pt with no c/o, no cough, no SOB, having HD. Objective - Vital Signs/Intake and Output Vital Signs (last 24 hours): Temp Pulse Resp BP Pulse Ox 97.5 F L 76 18 182/96 H 99 07/21/18 13:00 07/21/18 13:00 07/21/18 13:00 07/21/18 13:00 07/21/18 13:00 - Medications Medications: Current Medications Amlodipine Besylate (Norvasc) 10 mg PO DAILY [facility] Last Admin: 07/21/18 11:10 Dose: Not Given Atorvastatin Calcium (Lipitor) 10 mg PO HS [facility] Last Admin: 07/20/18 21:37 Dose: 10 mg Benztropine Mesylate (Cogentin) 1 mg PO Q12 [facility] Last Admin: 07/21/18 10:07 Dose: 1 mg Carvedilol (Coreg) 12.5 mg PO Q12 [facility] Last Admin: 07/21/18 11:09 Dose: Not Given Ergocalciferol (Drisdol 50,000 Intl Units Cap) 1 cap PO Q7D [facility] Last Admin: 07/14/18 18:23 Dose: 1 cap Escitalopram Oxalate (Lexapro) 5 mg PO DAILY [facility] Last Admin: 07/21/18 10:08 Dose: 5 mg Glipizide (Glucotrol Xl) 10 mg PO BID [facility] Guaifenesin (Robitussin) 100 mg PO Q6 PRN PRN Reason: Cough Last Admin: 07/18/18 17:00 Dose: 100 mg Home Med (Sucroferric Oxyhydroxide [Velphoro]) 1 tab PO [facility] Insulin Detemir (Levemir) 10 units SC HS [facility] Insulin Lispro Protam/Lispro Human (Humalog Mix 75/25) 10 units SC BID [facility] Meclizine HCl (Antivert) 12.5 mg PO TID [facility] Last Admin: 07/21/18 13:27 Dose: 12.5 mg Ondansetron HCl (Zofran Inj) 4 mg IVP Q4 PRN PRN Reason: Nausea/Vomiting Last Admin: 07/17/18 00:15 Dose: 4 mg Promethazine HCl/Codeine (Phenergan/Codeine Oral Syrup) 5 ml PO Q6 PRN PRN Reason: Cough Risperidone (Risperdal Tab) 2 mg PO Q12 [facility] Last Admin: 07/21/18 10:09 Dose: 2 mg Sevelamer Carbonate (Renvela) 800 mg PO TID [facility] Last Admin: 07/21/18 13:26 Dose: 800 mg Vitamin B Complex/Vit C/Folic Acid (Nephro-Nelson) 1 tab PO DAILY [facility] Last Admin: 07/21/18 10:07 Dose: 1 tab - Labs Labs: 07/19/18 04:55 07/19/18 04:55 - Constitutional Appears: No Acute Distress - Head Exam Head Exam: NORMAL INSPECTION - Eye Exam Eye Exam: PERRL - ENT Exam ENT Exam: Normal Exam - Neck Exam Neck Exam: Normal Inspection - Respiratory Exam Respiratory Exam: Decreased Breath Sounds (at bases) Additional comments: R chest Perma cath - Cardiovascular Exam Cardiovascular Exam: REGULAR RHYTHM - GI/Abdominal Exam GI & Abdominal Exam: Soft, Normal Bowel Sounds - Extremities Exam Additional comments: Old AV fistula L arm. R arm AV fistula with bruit and thrill. - Back Exam Back Exam: NORMAL INSPECTION - Neurological Exam Neurological Exam: Alert, CN II-XII Intact, Oriented x3 Additional comments: No focal motor/sensory deficit. - Psychiatric Exam Psychiatric exam: Anxious, Depressed - Skin Skin Exam: Warm Assessment and Plan (1) Pleural effusion, bilateral Status: Acute (2) RLL pneumonia Status: Resolved (3) ESRD on hemodialysis Status: Chronic (4) Anemia in CKD (chronic kidney disease) Status: Acute (5) Diabetes mellitus Status: Acute (6) Hypoglycemia Status: Acute (7) Kidney transplant failure Status: Chronic (8) Anxiety and depression Status: Chronic - Assessment and Plan (Free Text) Plan: Lung VQ Scan: Low probability for PE. Pt was seen by groundwater consultant for R Pleural effusion with recommendation of non invasion Cardiac workup, continue current medications.
[2018-07-21] MEDS: Ergocalciferol 50,000 Intl Units Cap PO SCH (16:40)
--- NOTE | 2018-07-21 18:13 | CP.PCM.PN ---
Subjective - Date & Time of Evaluation Date of Evaluation: 07/21/18 Time of Evaluation: 18:11 - Subjective Subjective: on hd tonight finishing up tx vss ira procedure well will cont tts Objective - Vital Signs/Intake and Output Vital Signs (last 24 hours): Temp Pulse Resp BP Pulse Ox 98.3 F 75 20 180/82 H 96 07/21/18 16:16 07/21/18 16:16 07/21/18 16:16 07/21/18 17:18 07/21/18 16:16 - Medications Medications: Current Medications Amlodipine Besylate (Norvasc) 10 mg PO DAILY [facility] Last Admin: 07/21/18 17:17 Dose: 10 mg Atorvastatin Calcium (Lipitor) 10 mg PO HS [facility] Last Admin: 07/20/18 21:37 Dose: 10 mg Benztropine Mesylate (Cogentin) 1 mg PO Q12 [facility] Last Admin: 07/21/18 10:07 Dose: 1 mg Carvedilol (Coreg) 12.5 mg PO Q12 [facility] Last Admin: 07/21/18 17:18 Dose: 12.5 mg Ergocalciferol (Drisdol 50,000 Intl Units Cap) 1 cap PO Q7D [facility] Last Admin: 07/21/18 16:40 Dose: 1 cap Escitalopram Oxalate (Lexapro) 5 mg PO DAILY [facility] Last Admin: 07/21/18 10:08 Dose: 5 mg Glipizide (Glucotrol Xl) 10 mg PO BID [facility] Guaifenesin (Robitussin) 100 mg PO Q6 PRN PRN Reason: Cough Last Admin: 07/18/18 17:00 Dose: 100 mg Home Med (Sucroferric Oxyhydroxide [Velphoro]) 1 tab PO [facility] Insulin Detemir (Levemir) 10 units SC HS [facility] Insulin Lispro Protam/Lispro Human (Humalog Mix 75/25) 10 units SC BID [facility] Meclizine HCl (Antivert) 12.5 mg PO TID [facility] Last Admin: 07/21/18 16:40 Dose: 12.5 mg Ondansetron HCl (Zofran Inj) 4 mg IVP Q4 PRN PRN Reason: Nausea/Vomiting Last Admin: 07/17/18 00:15 Dose: 4 mg Promethazine HCl/Codeine (Phenergan/Codeine Oral Syrup) 5 ml PO Q6 PRN PRN Reason: Cough Risperidone (Risperdal Tab) 2 mg PO Q12 [facility] Last Admin: 07/21/18 10:09 Dose: 2 mg Sevelamer Carbonate (Renvela) 800 mg PO TID [facility] Last Admin: 07/21/18 16:41 Dose: 800 mg Vitamin B Complex/Vit C/Folic Acid (Nephro-Nelson) 1 tab PO DAILY [facility] Last Admin: 07/21/18 10:07 Dose: 1 tab - Labs Labs: 07/19/18 04:55 07/19/18 04:55 - Constitutional Appears: Well, Non-toxic, No Acute Distress - Head Exam Head Exam: NORMAL INSPECTION - Eye Exam Eye Exam: Normal appearance - ENT Exam ENT Exam: Mucous Membranes Moist - Neck Exam Neck Exam: Normal Inspection - Respiratory Exam Respiratory Exam: NORMAL BREATHING PATTERN - Cardiovascular Exam Cardiovascular Exam: REGULAR RHYTHM - GI/Abdominal Exam GI & Abdominal Exam: Soft - Exam External exam: NORMAL EXTERNAL EXAM - Extremities Exam Extremities Exam: Full ROM - Neurological Exam Neurological Exam: Alert, Awake, Oriented x3 - Psychiatric Exam Psychiatric exam: Normal Affect - Skin Skin Exam: Dry, Warm
[2018-07-21] MEDS: guaiFENesin 100 mg/5 ml Syrup UD PO PRN (21:14)
--- NOTE | 2018-07-21 22:09 | PN ---
DATE: 07/21/2018 SUBJECTIVE: The patient just completed her hemodialysis. She denies any chest pain. PHYSICAL EXAMINATION: VITAL SIGNS: Blood pressure 180/82, heart rate 75, temperature 98.3, respirations 20. HEENT: Normocephalic. CHEST: Clear. HEART: S1 and S2 regular. EXTREMITIES: +2 pitting edema. LABORATORY DATA: Today's blood sugar is 104. ASSESSMENT: 1. Right lower lobe pneumonia with moderate to large pleural effusion. 2. End-stage renal disease, on hemodialysis. 3. Mild pulmonary hypertension. 4. Schizophrenia. RECOMMENDATIONS: Continue Cogentin 1 mg twice a day, Coreg 12.5 mg twice a day, Glucotrol XL 10 mg twice a day, Lexapro 5 mg once daily, Lipitor 10 mg once a day, Norvasc 10 mg once a day, Risperdal 2 mg p.o. twice a day. Chao Vela MD
[2018-07-22] MEDS: guaiFENesin 100 mg/5 ml Syrup UD PO PRN (09:12)
[2018-07-22] MEDS: Multivitamin Vitamin B Complex (Nephro-Vite) Tab PO SCH (09:12)
--- NOTE | 2018-07-22 14:31 | CP.PCM.PN ---
Subjective - Date & Time of Evaluation Date of Evaluation: 07/22/18 Time of Evaluation: 11:40 - Subjective Subjective: F/U PNA/ Pleural effusion. Objective - Vital Signs/Intake and Output Vital Signs (last 24 hours): Temp Pulse Resp BP Pulse Ox 97.9 F 85 18 166/83 H 93 L 07/22/18 08:00 07/22/18 09:13 07/22/18 08:00 07/22/18 09:13 07/22/18 08:00 - Medications Medications: Current Medications Amlodipine Besylate (Norvasc) 10 mg PO DAILY [facility] Last Admin: 07/22/18 09:13 Dose: 10 mg Atorvastatin Calcium (Lipitor) 10 mg PO HS [facility] Last Admin: 07/21/18 21:11 Dose: 10 mg Benztropine Mesylate (Cogentin) 1 mg PO Q12 [facility] Last Admin: 07/22/18 09:13 Dose: 1 mg Carvedilol (Coreg) 12.5 mg PO Q12 [facility] Last Admin: 07/22/18 09:11 Dose: 12.5 mg Ergocalciferol (Drisdol 50,000 Intl Units Cap) 1 cap PO Q7D [facility] Last Admin: 07/21/18 16:40 Dose: 1 cap Escitalopram Oxalate (Lexapro) 5 mg PO DAILY [facility] Last Admin: 07/22/18 09:12 Dose: 5 mg Glipizide (Glucotrol Xl) 10 mg PO BID [facility] Guaifenesin (Robitussin) 100 mg PO Q6 PRN PRN Reason: Cough Last Admin: 07/22/18 09:12 Dose: 100 mg Home Med (Sucroferric Oxyhydroxide [Velphoro]) 1 tab PO [facility] Insulin Detemir (Levemir) 10 units SC HS [facility] Insulin Lispro Protam/Lispro Human (Humalog Mix 75/25) 10 units SC BID [facility] Meclizine HCl (Antivert) 12.5 mg PO TID [facility] Last Admin: 07/22/18 12:09 Dose: 12.5 mg Ondansetron HCl (Zofran Inj) 4 mg IVP Q4 PRN PRN Reason: Nausea/Vomiting Last Admin: 07/17/18 00:15 Dose: 4 mg Risperidone (Risperdal Tab) 2 mg PO Q12 [facility] Last Admin: 07/22/18 09:13 Dose: 2 mg Sevelamer Carbonate (Renvela) 800 mg PO TID [facility] Last Admin: 07/22/18 12:09 Dose: 800 mg Vitamin B Complex/Vit C/Folic Acid (Nephro-Nelson) 1 tab PO DAILY [facility] Last Admin: 07/22/18 09:12 Dose: 1 tab - Labs Labs: 07/19/18 04:55 07/19/18 04:55 - Constitutional Appears: No Acute Distress - Head Exam Head Exam: NORMAL INSPECTION - Eye Exam Eye Exam: PERRL - ENT Exam ENT Exam: Normal Exam - Neck Exam Neck Exam: Normal Inspection - Respiratory Exam Respiratory Exam: Decreased Breath Sounds (at bases) Additional comments: R chest Perma Cath - Cardiovascular Exam Cardiovascular Exam: REGULAR RHYTHM - GI/Abdominal Exam GI & Abdominal Exam: Soft, Normal Bowel Sounds - Extremities Exam Additional comments: Old AV fistula L arm. R arm with AV fistula with bruit and thrill - Back Exam Back Exam: NORMAL INSPECTION - Neurological Exam Neurological Exam: Alert, CN II-XII Intact, Oriented x3 Additional comments: No focal motor/sensory deficit - Psychiatric Exam Psychiatric exam: Anxious, Depressed - Skin Skin Exam: Warm Assessment and Plan (1) Pleural effusion, bilateral Status: Acute (2) RLL pneumonia Status: Resolved (3) ESRD on hemodialysis Status: Chronic (4) Anemia in CKD (chronic kidney disease) Status: Acute (5) Diabetes mellitus Status: Acute (6) Hypoglycemia Status: Acute (7) Kidney transplant failure Status: Chronic (8) Anxiety and depression Status: Chronic - Assessment and Plan (Free Text) Plan: Continue Robitussin, Norvasc, Coreg, Lipitor, congentin and rest of Tx.
[2018-07-23] MEDS ORDERED: Azithromycin 500 MG in Sodium Chloride 0.9% 250 ML IVPB SCH (09:00)
[2018-07-23] MEDS: Cefepime 1 GM in Sodium Chloride 0.9% 100 ML IVPB SCH (09:29)
[2018-07-23] MEDS: Multivitamin Vitamin B Complex (Nephro-Vite) Tab PO SCH (09:29)
[2018-07-23] MEDS: guaiFENesin 100 mg/5 ml Syrup UD PO PRN ×2 (09:38→18:18)
--- NOTE | 2018-07-23 12:27 | CP.PCM.PN ---
Subjective - Date & Time of Evaluation Date of Evaluation: 07/23/18 Time of Evaluation: 12:27 - Subjective Subjective: ID Note- Pt. seen and examined today . pt. denies any cough or nay feve ror sny sob. her oxygen sat is 91 % on RA. as per nurse pt's cefepime had fallen off the [facility] [employer] orders and was only resumed today ( day #2). pt. also has pleural effusion on CXR report. Objective - Vital Signs/Intake and Output Vital Signs (last 24 hours): Temp Pulse Resp BP Pulse Ox 98 F 80 20 175/91 H 92 L 07/23/18 08:24 07/23/18 09:29 07/23/18 08:24 07/23/18 09:29 07/23/18 08:24 - Medications Medications: Current Medications Amlodipine Besylate (Norvasc) 10 mg PO DAILY [facility] Last Admin: 07/23/18 09:29 Dose: 10 mg Atorvastatin Calcium (Lipitor) 10 mg PO HS [facility] Last Admin: 07/22/18 21:52 Dose: 10 mg Benztropine Mesylate (Cogentin) 1 mg PO Q12 [facility] Last Admin: 07/23/18 09:25 Dose: 1 mg Carvedilol (Coreg) 12.5 mg PO Q12 [facility] Last Admin: 07/23/18 09:26 Dose: 12.5 mg Ergocalciferol (Drisdol 50,000 Intl Units Cap) 1 cap PO Q7D [facility] Last Admin: 07/21/18 16:40 Dose: 1 cap Escitalopram Oxalate (Lexapro) 5 mg PO DAILY [facility] Last Admin: 07/23/18 09:26 Dose: 5 mg Glipizide (Glucotrol Xl) 10 mg PO BID [facility] Guaifenesin (Robitussin) 100 mg PO Q6 PRN PRN Reason: Cough Last Admin: 07/23/18 09:38 Dose: 100 mg Home Med (Sucroferric Oxyhydroxide [Velphoro]) 1 tab PO [facility] Cefepime HCl 1 gm/ Sodium (Chloride) 100 mls @ 100 mls/hr IVPB DAILY [facility]; Protocol Last Admin: 07/23/18 09:29 Dose: 100 mls/hr Azithromycin 500 mg/ Sodium (Chloride) 250 mls @ 250 mls/hr IVPB DAILY [facility]; Protocol Insulin Detemir (Levemir) 10 units SC HS [facility] Insulin Lispro Protam/Lispro Human (Humalog Mix 75/25) 10 units SC BID [facility] Meclizine HCl (Antivert) 12.5 mg PO TID [facility] Last Admin: 07/23/18 09:25 Dose: 12.5 mg Ondansetron HCl (Zofran Inj) 4 mg IVP Q4 PRN PRN Reason: Nausea/Vomiting Last Admin: 07/17/18 00:15 Dose: 4 mg Risperidone (Risperdal Tab) 2 mg PO Q12 [facility] Last Admin: 07/23/18 09:30 Dose: 2 mg Sevelamer Carbonate (Renvela) 800 mg PO TID [facility] Last Admin: 07/23/18 09:30 Dose: 800 mg Vitamin B Complex/Vit C/Folic Acid (Nephro-Nelson) 1 tab PO DAILY [facility] Last Admin: 07/23/18 09:29 Dose: 1 tab - Labs Labs: - Additional Findings Additional findings: - Constitutional Appears: Non-toxic, No Acute Distress - Head Exam Head Exam: ATRAUMATIC - Eye Exam Eye Exam: EOMI, PERRL - ENT Exam ENT Exam: Normal Oropharynx - Neck Exam Neck exam: Positive for: Full Rom - Respiratory Exam Respiratory Exam: NORMAL BREATHING PATTERN Additional comments: no wheezing no crackles slightly reduced breath sounds at bases - Cardiovascular Exam Cardiovascular Exam: RRR, +S1, +S2 - GI/Abdominal Exam GI & Abdominal Exam: Normal Bowel Sounds, Soft Additional comments: NT, ND - Extremities Exam Extremities exam: Positive for: normal inspection - Neurological Exam Neurological exam: Alert, Oriented x 3 Laboratory Results - last 72 hr 07/18/18 07/20/18 07/21/18 12:17 21:03 05:24 POC Glucose (mg/dL) 148 H 104 Influenza Typ A,B (EIA) Influenza Type A Ab 1:64 H Influenza Type B Ab 1:64 H M.pneumoniae IgG Titer <=0.90 07/21/18 07/21/18 07/21/18 11:24 16:26 21:41 POC Glucose (mg/dL) 152 H 96 202 H Influenza Typ A,B (EIA) Influenza Type A Ab Influenza Type B Ab M.pneumoniae IgG Titer 07/22/18 07/22/18 07/22/18 05:12 11:00 12:15 POC Glucose (mg/dL) 144 H 161 H Influenza Typ A,B (EIA) Negative for flu a/b Influenza Type A Ab Influenza Type B Ab M.pneumoniae IgG Titer 07/22/18 07/22/18 07/23/18 17:22 21:46 05:28 POC Glucose (mg/dL) 129 H 150 H 101 Influenza Typ A,B (EIA) Influenza Type A Ab Influenza Type B Ab M.pneumoniae IgG Titer 07/23/18 11:56 POC Glucose (mg/dL) 176 H Influenza Typ A,B (EIA) Influenza Type A Ab Influenza Type B Ab M.pneumoniae IgG Titer Microbiology 07/18/18 12:17 Blood Blood Culture - Final NO GROWTH AFTER 5 DAYS 07/18/18 12:17 Blood Gram Stain - Final TEST NOT PERFORMED 07/14/18 14:22 Blood Blood Culture - Final NO GROWTH AFTER 5 DAYS Accession No. : [id number] Patient Name / ID : ESTHER OCONNELL / [id number] Exam Date : 07/23/2018 10:50:33 ( Approved ) Study Comment : Sex / Age : F / 52Y Creator : damion anthony Dictator : Matt Peña MD [employer]car Whacker : Boring Inspector : Matt Peña MD Approver2 : Report Date : 07/23/2018 11:04:44 My Comment : Date of service: 07/23/2018 HISTORY: f/up pleural effusion COMPARISON: 07/16/2018. TECHNIQUE: Chest PA and lateral FINDINGS: LUNGS: Improved aeration right lower lobe. PLEURA: Decrease in right pleural effusion. CARDIOVASCULAR: No radiographic findings to suggest acute or significant cardiovascular disease. Venous access catheter in stable, satisfactory position. OSSEOUS STRUCTURES: No significant abnormalities. VISUALIZED UPPER ABDOMEN: Normal. OTHER FINDINGS: None. IMPRESSION: Decrease in right pleural effusion, commensurate re-expansion right lung, primarily right lower lobe. Assessment and Plan (1) RLL pneumonia Status: Resolved (2) Pleural effusion Status: Acute (3) ESRD on hemodialysis Status: Chronic (4) Kidney transplant failure Status: Chronic - Assessment and Plan (Free Text) Assessment: A/P- 52 year old female with failed kidney transplant on HD for ESRD admitted with sob and cough and hypoxemia found to have RLL pneumonia and b/l pleural effusions. afebrile normal wbc blood cx- neg ct and CXR reports noted still hypoxic off oxygen. urine legionella AG-Negative V/Q scan- Low probability for PE as per report Plan- advise to continue with IV cefepime day #2. advise to d/c zithromax since pt. has already been on this abx for 5 days. check sputum cx. pleural effusion management as per count room clerk. monitor aspiration precautions.
--- NOTE | 2018-07-23 15:28 | RAD ---
Date of service: 07/23/2018 HISTORY: f/up pleural effusion COMPARISON: 07/16/2018. TECHNIQUE: Chest PA and lateral FINDINGS: LUNGS: Improved aeration right lower lobe. PLEURA: Decrease in right pleural effusion. CARDIOVASCULAR: No radiographic findings to suggest acute or significant cardiovascular disease. Venous access catheter in stable, satisfactory position. OSSEOUS STRUCTURES: No significant abnormalities. VISUALIZED UPPER ABDOMEN: Normal. OTHER FINDINGS: None. IMPRESSION: Decrease in right pleural effusion, commensurate re-expansion right lung, primarily right lower lobe.
--- NOTE | 2018-07-23 16:05 | CP.PCM.PN ---
Subjective - Date & Time of Evaluation Date of Evaluation: 07/23/18 Time of Evaluation: 13:40 - Subjective Subjective: F/U PNA, Pleural effusion Occasional cough, no SOB, no chest congestion. Objective - Vital Signs/Intake and Output Vital Signs (last 24 hours): Temp Pulse Resp BP Pulse Ox 98 F 80 20 175/91 H 92 L 07/23/18 08:24 07/23/18 09:29 07/23/18 08:24 07/23/18 09:29 07/23/18 08:24 - Medications Medications: Current Medications Amlodipine Besylate (Norvasc) 10 mg PO DAILY [facility] Last Admin: 07/23/18 09:29 Dose: 10 mg Atorvastatin Calcium (Lipitor) 10 mg PO HS [facility] Last Admin: 07/22/18 21:52 Dose: 10 mg Benztropine Mesylate (Cogentin) 1 mg PO Q12 [facility] Last Admin: 07/23/18 09:25 Dose: 1 mg Carvedilol (Coreg) 12.5 mg PO Q12 [facility] Last Admin: 07/23/18 09:26 Dose: 12.5 mg Ergocalciferol (Drisdol 50,000 Intl Units Cap) 1 cap PO Q7D [facility] Last Admin: 07/21/18 16:40 Dose: 1 cap Escitalopram Oxalate (Lexapro) 5 mg PO DAILY [facility] Last Admin: 07/23/18 09:26 Dose: 5 mg Glipizide (Glucotrol Xl) 10 mg PO BID [facility] Guaifenesin (Robitussin) 100 mg PO Q6 PRN PRN Reason: Cough Last Admin: 07/23/18 09:38 Dose: 100 mg Home Med (Sucroferric Oxyhydroxide [Velphoro]) 1 tab PO [facility] Cefepime HCl 1 gm/ Sodium (Chloride) 100 mls @ 100 mls/hr IVPB DAILY [facility]; Protocol Last Admin: 07/23/18 09:29 Dose: 100 mls/hr Azithromycin 500 mg/ Sodium (Chloride) 250 mls @ 250 mls/hr IVPB DAILY [facility]; Protocol Last Admin: 07/23/18 13:21 Dose: 250 mls/hr Insulin Detemir (Levemir) 10 units SC HS [facility] Insulin Lispro Protam/Lispro Human (Humalog Mix 75/25) 10 units SC BID [facility] Meclizine HCl (Antivert) 12.5 mg PO TID [facility] Last Admin: 07/23/18 13:22 Dose: 12.5 mg Ondansetron HCl (Zofran Inj) 4 mg IVP Q4 PRN PRN Reason: Nausea/Vomiting Last Admin: 07/17/18 00:15 Dose: 4 mg Risperidone (Risperdal Tab) 2 mg PO Q12 [facility] Last Admin: 07/23/18 09:30 Dose: 2 mg Sevelamer Carbonate (Renvela) 800 mg PO TID [facility] Last Admin: 07/23/18 13:22 Dose: 800 mg Vitamin B Complex/Vit C/Folic Acid (Nephro-Nelson) 1 tab PO DAILY [facility] Last Admin: 07/23/18 09:29 Dose: 1 tab - Labs Labs: 07/19/18 04:55 07/19/18 04:55 - Constitutional Appears: No Acute Distress - Head Exam Head Exam: NORMAL INSPECTION - Eye Exam Eye Exam: PERRL - ENT Exam ENT Exam: Normal Exam - Neck Exam Neck Exam: Normal Inspection - Respiratory Exam Respiratory Exam: Decreased Breath Sounds (at bases) Additional comments: R chest Liset ath - Cardiovascular Exam Cardiovascular Exam: REGULAR RHYTHM - GI/Abdominal Exam GI & Abdominal Exam: Soft, Normal Bowel Sounds - Extremities Exam Additional comments: Old AV fistula L arm. R arm AV fistula with bruit and thrill. - Back Exam Back Exam: NORMAL INSPECTION - Neurological Exam Neurological Exam: Alert, CN II-XII Intact Additional comments: No focal motor/sensory deficit. - Psychiatric Exam Psychiatric exam: Anxious, Depressed - Skin Skin Exam: Warm Assessment and Plan (1) Pleural effusion, bilateral Status: Acute (2) RLL pneumonia Assessment & Plan: Type of pneumonia unable to determine. Status: Resolved (3) ESRD on hemodialysis Status: Chronic (4) Anemia in CKD (chronic kidney disease) Status: Acute (5) Diabetes mellitus Status: Acute (6) Hypoglycemia Status: Acute (7) Kidney transplant failure Status: Chronic (8) Anxiety and depression Status: Chronic - Assessment and Plan (Free Text) Plan: F/U CXR to assess pleural effusion, continue Cefepime, Robitussin and rest of Tx.
--- NOTE | 2018-07-23 17:53 | PN ---
DATE: 07/23/2018 SUBJECTIVE: The patient is comfortable. She denies any chest pain or shortness of breath. PHYSICAL EXAMINATION: VITAL SIGNS: Blood pressure 175/91, heart rate 80, temperature 98, and respirations 20. HEENT: Pale conjunctivae. LUNGS: Absent breath sounds over the bases. HEART: S1 and S2 are regular. EXTREMITIES: No edema. LABORATORY DATA: Today's blood sugars are 101 and 176 respectively. Today's chest x-ray revealed cardiomegaly with mild CHF, right lower lobe infiltrate, possible bilateral pleural effusion. Blood culture is negative after five days. ASSESSMENT: 1. Right lower lobe pneumonia with moderate to large pleural effusion. 2. Mild pulmonary hypertension. 3. End-stage renal disease, on hemodialysis. 4. Depression and history of schizophrenia. RECOMMENDATIONS: Continue IV Zithromax 500 mg daily and IV cefepime at 1 g daily. Continue Coreg 12.5 mg twice a day, Lipitor 10 mg once a day, Robitussin 100 mg p.o. every 6 hours. I noticed that my progress note on 07/21/2017 is missing and if it does not show up on [employer] database, I will dictate a brief note as a replacement. Chao Vela MD
--- NOTE | 2018-07-23 23:37 | CP.PCM.PN ---
Subjective - Date & Time of Evaluation Date of Evaluation: 07/23/18 Time of Evaluation: 14:00 - Subjective Subjective: SEEN ON RENAL F/U FEELS MUCH IMPROVED ALL PREVIOUS EMR REVIEWED ON HD T T S Objective - Vital Signs/Intake and Output Vital Signs (last 24 hours): Temp Pulse Resp BP Pulse Ox 97.6 F 70 18 124/71 97 07/23/18 16:05 07/23/18 16:05 07/23/18 16:05 07/23/18 16:05 07/23/18 16:05 - Medications Medications: Current Medications Amlodipine Besylate (Norvasc) 10 mg PO DAILY [facility] Last Admin: 07/23/18 09:29 Dose: 10 mg Atorvastatin Calcium (Lipitor) 10 mg PO HS [facility] Last Admin: 07/23/18 22:39 Dose: 10 mg Benztropine Mesylate (Cogentin) 1 mg PO Q12 [facility] Last Admin: 07/23/18 22:38 Dose: 1 mg Carvedilol (Coreg) 12.5 mg PO Q12 [facility] Last Admin: 07/23/18 22:39 Dose: 12.5 mg Ergocalciferol (Drisdol 50,000 Intl Units Cap) 1 cap PO Q7D [facility] Last Admin: 07/21/18 16:40 Dose: 1 cap Escitalopram Oxalate (Lexapro) 5 mg PO DAILY [facility] Last Admin: 07/23/18 09:26 Dose: 5 mg Glipizide (Glucotrol Xl) 10 mg PO BID [facility] Guaifenesin (Robitussin) 100 mg PO Q6 PRN PRN Reason: Cough Last Admin: 07/23/18 18:18 Dose: 100 mg Home Med (Sucroferric Oxyhydroxide [Velphoro]) 1 tab PO [facility] Cefepime HCl 1 gm/ Sodium (Chloride) 100 mls @ 100 mls/hr IVPB DAILY [facility]; Protocol Last Admin: 07/23/18 09:29 Dose: 100 mls/hr Insulin Detemir (Levemir) 10 units SC HS [facility] Insulin Lispro Protam/Lispro Human (Humalog Mix 75/25) 10 units SC BID [facility] Meclizine HCl (Antivert) 12.5 mg PO TID [facility] Last Admin: 07/23/18 18:18 Dose: 12.5 mg Ondansetron HCl (Zofran Inj) 4 mg IVP Q4 PRN PRN Reason: Nausea/Vomiting Last Admin: 07/17/18 00:15 Dose: 4 mg Risperidone (Risperdal Tab) 2 mg PO Q12 [facility] Last Admin: 07/23/18 22:38 Dose: 2 mg Sevelamer Carbonate (Renvela) 800 mg PO TID [facility] Last Admin: 07/23/18 18:18 Dose: 800 mg Vitamin B Complex/Vit C/Folic Acid (Nephro-Nelson) 1 tab PO DAILY [facility] Last Admin: 07/23/18 09:29 Dose: 1 tab - Labs Labs: 07/19/18 04:55 07/19/18 04:55
[2018-07-24] MEDS: Multivitamin Vitamin B Complex (Nephro-Vite) Tab PO SCH (08:52)
[2018-07-24] MEDS: Cefepime 1 GM in Sodium Chloride 0.9% 100 ML IVPB SCH (08:55)
[2018-07-24 09:30] VITALS: RESP 20
[2018-07-24 16:32] VITALS: O2SAT 95
--- NOTE | 2018-07-24 18:15 | CP.PCM.PN ---
Subjective - Date & Time of Evaluation Date of Evaluation: 07/24/18 Time of Evaluation: 11:50 - Subjective Subjective: F/U PNA/ Pleural effusion Objective - Vital Signs/Intake and Output Vital Signs (last 24 hours): Temp Pulse Resp BP Pulse Ox 98.7 F 72 20 157/82 H 95 07/24/18 16:31 07/24/18 16:31 07/24/18 16:31 07/24/18 16:31 07/24/18 16:31 - Medications Medications: Current Medications Amlodipine Besylate (Norvasc) 10 mg PO DAILY [facility] Last Admin: 07/24/18 08:55 Dose: Not Given Atorvastatin Calcium (Lipitor) 10 mg PO HS [facility] Last Admin: 07/23/18 22:39 Dose: 10 mg Benztropine Mesylate (Cogentin) 1 mg PO Q12 [facility] Last Admin: 07/24/18 08:53 Dose: 1 mg Carvedilol (Coreg) 12.5 mg PO Q12 [facility] Last Admin: 07/24/18 08:54 Dose: Not Given Ergocalciferol (Drisdol 50,000 Intl Units Cap) 1 cap PO Q7D [facility] Last Admin: 07/21/18 16:40 Dose: 1 cap Escitalopram Oxalate (Lexapro) 5 mg PO DAILY [facility] Last Admin: 07/24/18 08:52 Dose: 5 mg Glipizide (Glucotrol Xl) 10 mg PO BID [facility] Guaifenesin (Robitussin) 100 mg PO Q6 PRN PRN Reason: Cough Last Admin: 07/23/18 18:18 Dose: 100 mg Home Med (Sucroferric Oxyhydroxide [Velphoro]) 1 tab PO [facility] Cefepime HCl 1 gm/ Sodium (Chloride) 100 mls @ 100 mls/hr IVPB DAILY [facility]; Protocol Last Admin: 07/24/18 08:55 Dose: 100 mls/hr Insulin Detemir (Levemir) 10 units SC HS [facility] Insulin Lispro Protam/Lispro Human (Humalog Mix 75/25) 10 units SC BID [facility] Meclizine HCl (Antivert) 12.5 mg PO TID [facility] Last Admin: 07/24/18 16:37 Dose: 12.5 mg Ondansetron HCl (Zofran Inj) 4 mg IVP Q4 PRN PRN Reason: Nausea/Vomiting Last Admin: 07/17/18 00:15 Dose: 4 mg Risperidone (Risperdal Tab) 2 mg PO Q12 [facility] Last Admin: 07/24/18 08:53 Dose: 2 mg Sevelamer Carbonate (Renvela) 800 mg PO TID [facility] Last Admin: 07/24/18 16:37 Dose: 800 mg Vitamin B Complex/Vit C/Folic Acid (Nephro-Nelson) 1 tab PO DAILY [facility] Last Admin: 07/24/18 08:52 Dose: 1 tab - Labs Labs: 07/19/18 04:55 07/19/18 04:55 - Constitutional Appears: No Acute Distress - Head Exam Head Exam: NORMAL INSPECTION - Eye Exam Eye Exam: PERRL - ENT Exam ENT Exam: Normal Exam - Neck Exam Neck Exam: Normal Inspection - Respiratory Exam Respiratory Exam: Decreased Breath Sounds (at bases) Additional comments: R chest Perma Cath - Cardiovascular Exam Cardiovascular Exam: REGULAR RHYTHM - GI/Abdominal Exam GI & Abdominal Exam: Soft, Normal Bowel Sounds - Extremities Exam Additional comments: Old AV fistula on L arm. R arm with AV fistula with bruit and thrill. - Back Exam Back Exam: NORMAL INSPECTION - Neurological Exam Neurological Exam: Alert, CN II-XII Intact, Oriented x3 Additional comments: No focal motor/sensory deficit - Psychiatric Exam Psychiatric exam: Anxious, Depressed - Skin Skin Exam: Warm Assessment and Plan (1) Pleural effusion, bilateral Status: Acute (2) RLL pneumonia Status: Resolved (3) ESRD on hemodialysis Status: Chronic (4) Anemia in CKD (chronic kidney disease) Status: Acute (5) Diabetes mellitus Status: Acute (6) Hypoglycemia Status: Acute (7) Kidney transplant failure Status: Chronic (8) Anxiety and depression Status: Chronic
[2018-07-24 19:54] VITALS: BP 162/78; PULSE 74; TEMP 98.1
--- NOTE | 2018-07-24 20:02 | PN ---
DATE: 07/24/2018 SUBJECTIVE: The patient denies any chest pain or shortness of breath. PHYSICAL EXAMINATION: VITAL SIGNS: Blood pressure 145/71, heart rate 72, temperature 97.8, respiration 20. HEENT: Pale conjunctivae and myofascial edema. NECK: No JVD. CHEST: Clear. HEART: S1 and S2 regular. EXTREMITIES: No edema. LABORATORY DATA: Today's blood sugars are 121 and 162 respectively. Yesterday's chest x-ray revealed decreased right pleural effusion the right lung, primarily right lower lobe. ASSESSMENT: 1. Right lower lobe pneumonia with improving right pleural effusion. 2. Chest pain, myocardial infarction is ruled out. 3. Mild pulmonary hypertension. 4. End-stage renal disease, on hemodialysis. 5. History of depression. RECOMMENDATIONS: Continue current IV cefepime at 1 g daily, continue Norvasc 10 mg once a day, Lipitor 10 mg once a day, glipizide XL 10 mg twice a day, Coreg 12.5 mg twice a day, meclizine 12.5 mg t.i.d., and no further cardiac workup is indicated at this time. Chao Vela MD
--- NOTE | 2018-07-24 21:25 | CP.PCM.PN ---
Subjective - Date & Time of Evaluation Date of Evaluation: 07/24/18 Time of Evaluation: 15:00 - Subjective Subjective: SEEN ON RENAL F/U RECIEVED HER HD FOR TODAY FEELS MUCH BETTER ALL PREVIOUS EMR REVIEWED Objective - Vital Signs/Intake and Output Vital Signs (last 24 hours): Temp Pulse Resp BP Pulse Ox 98.1 F 74 20 162/78 H 95 07/24/18 19:54 07/24/18 19:54 07/24/18 19:54 07/24/18 19:54 07/24/18 19:54 - Medications Medications: Current Medications Amlodipine Besylate (Norvasc) 10 mg PO DAILY [facility] Last Admin: 07/24/18 08:55 Dose: Not Given Atorvastatin Calcium (Lipitor) 10 mg PO HS [facility] Last Admin: 07/23/18 22:39 Dose: 10 mg Benztropine Mesylate (Cogentin) 1 mg PO Q12 [facility] Last Admin: 07/24/18 08:53 Dose: 1 mg Carvedilol (Coreg) 12.5 mg PO Q12 [facility] Last Admin: 07/24/18 08:54 Dose: Not Given Ergocalciferol (Drisdol 50,000 Intl Units Cap) 1 cap PO Q7D [facility] Last Admin: 07/21/18 16:40 Dose: 1 cap Escitalopram Oxalate (Lexapro) 5 mg PO DAILY [facility] Last Admin: 07/24/18 08:52 Dose: 5 mg Glipizide (Glucotrol Xl) 10 mg PO BID [facility] Guaifenesin (Robitussin) 100 mg PO Q6 PRN PRN Reason: Cough Last Admin: 07/23/18 18:18 Dose: 100 mg Home Med (Sucroferric Oxyhydroxide [Velphoro]) 1 tab PO [facility] Cefepime HCl 1 gm/ Sodium (Chloride) 100 mls @ 100 mls/hr IVPB DAILY [facility]; Protocol Last Admin: 07/24/18 08:55 Dose: 100 mls/hr Insulin Detemir (Levemir) 10 units SC HS [facility] Insulin Lispro Protam/Lispro Human (Humalog Mix 75/25) 10 units SC BID [facility] Meclizine HCl (Antivert) 12.5 mg PO TID [facility] Last Admin: 07/24/18 16:37 Dose: 12.5 mg Ondansetron HCl (Zofran Inj) 4 mg IVP Q4 PRN PRN Reason: Nausea/Vomiting Last Admin: 07/17/18 00:15 Dose: 4 mg Risperidone (Risperdal Tab) 2 mg PO Q12 [facility] Last Admin: 07/24/18 08:53 Dose: 2 mg Sevelamer Carbonate (Renvela) 800 mg PO TID [facility] Last Admin: 07/24/18 16:37 Dose: 800 mg Vitamin B Complex/Vit C/Folic Acid (Nephro-Nelson) 1 tab PO DAILY [facility] Last Admin: 07/24/18 08:52 Dose: 1 tab - Labs Labs: 07/19/18 04:55 07/19/18 04:55 Assessment and Plan - Assessment and Plan (Free Text) Assessment: ESRD ON HD T T S .. TO BE C/O ANEMIA OF CKD .. ON EPO ELECTROLYTES ABN .. NOW OK PNA AND PLEURAL EFFUSION .. ON IVAB MMP P : C/O CURRENT CARE
--- NOTE | 2018-07-31 19:31 | CP.PCM.DIS ---
Provider - Provider Date of Admission: 07/15/18 12:53 Attending physician: Sravan Ace MD Diagnosis - Discharge Diagnosis (1) Pleural effusion, bilateral Status: Acute (2) RLL pneumonia Status: Resolved Priority: High (3) ESRD on hemodialysis Status: Chronic Priority: High (4) Anemia in CKD (chronic kidney disease) Status: Acute Priority: High (5) Diabetes mellitus Status: Acute Priority: High (6) Hypoglycemia Status: Acute Priority: High (7) Kidney transplant failure Status: Chronic Priority: High (8) Anxiety and depression Status: Chronic Priority: Medium Hospital Course - Lab Results Lab Results: Micro Results 07/18/18 12:17 Blood Blood Culture - Final NO GROWTH AFTER 5 DAYS 07/18/18 12:17 Blood Gram Stain - Final TEST NOT PERFORMED 07/14/18 14:22 Blood Blood Culture - Final NO GROWTH AFTER 5 DAYS Most Recent Lab Values WBC 6.4 K/uL (4.8-10.8) 07/19/18 04:55 RBC 3.20 Mil/uL (3.80-5.20) L 07/19/18 04:55 Hgb 9.1 g/dL (12.0-16.0) L 07/19/18 04:55 Hct 27.5 % (34.0-47.0) L 07/19/18 04:55 MCV 86.1 fl (81.0-99.0) 07/19/18 04:55 MCH 28.4 pg (27.0-31.0) 07/19/18 04:55 MCHC 33.0 g/dL (33.0-37.0) 07/19/18 04:55 RDW 17.2 % (11.5-14.5) H 07/19/18 04:55 Plt Count 167 K/uL (130-400) 07/19/18 04:55 MPV 7.2 fl (7.2-11.7) 07/14/18 02:55 Neut % (Auto) 83.1 % (50.0-75.0) H 07/14/18 02:55 Lymph % (Auto) 9.2 % (20.0-40.0) L 07/14/18 02:55 [place] % (Auto) 6.2 % (0.0-10.0) 07/14/18 02:55 Eos % (Auto) 1.2 % (0.0-4.0) 07/14/18 02:55 Baso % (Auto) 0.3 % (0.0-2.0) 07/14/18 02:55 Neut # (Auto) 6.8 K/uL (1.8-7.0) 07/14/18 02:55 Lymph # (Auto) 0.8 K/uL (1.0-4.3) L 07/14/18 02:55 [place] # (Auto) 0.5 K/uL (0.0-0.8) 07/14/18 02:55 Eos # (Auto) 0.1 K/uL (0.0-0.7) 07/14/18 02:55 Baso # (Auto) 0.0 K/uL (0.0-0.2) 07/14/18 02:55 Neutrophils % (Manual) 81 % (42-75) H 07/14/18 02:55 Lymphocytes % (Manual) 10 % (20-50) L 07/14/18 02:55 Monocytes % (Manual) 8 % (0-10) 07/14/18 02:55 Platelet Estimate Normal (NORMAL) 07/14/18 02:55 Giant Platelets Present 07/14/18 02:55 Anisocytosis (manual) Slight 07/14/18 02:55 pCO2 38 mm/Hg (35-45) 07/17/18 12:47 pO2 55 mm/Hg (80-100) L 07/17/18 12:47 HCO3 26.6 mmol/L (21-28) 07/17/18 12:47 ABG pH 7.45 (7.35-7.45) 07/17/18 12:47 ABG Total CO2 27.6 mmol/L (22-28) 07/17/18 12:47 ABG O2 Saturation 91.0 % (95-98) L 07/17/18 12:47 ABG O2 Content 12.1 ML/dL (15-23) L 07/17/18 12:47 ABG Base Excess 2.3 mmol/L (-2.0-3.0) 07/17/18 12:47 ABG Hemoglobin 9.8 g/dL (11.7-17.4) L 07/17/18 12:47 ABG Carboxyhemoglobin 2.6 % (0.5-1.5) H 07/17/18 12:47 POC ABG HHb (Measured) 8.7 % (0.0-5.0) H 07/17/18 12:47 ABG Methemoglobin 1.0 % (0.0-3.0) 07/17/18 12:47 ABG O2 Capacity 13.3 mL/dL (16-24) L 07/17/18 12:47 Pravin Test Yes 07/17/18 12:47 A-a O2 Difference 47.0 mm/Hg 07/17/18 12:47 Hgb O2 Saturation 87.7 % (95.0-98.0) L 07/17/18 12:47 Vent Mode N/c 07/15/18 11:41 Mechanical Rate 12 07/14/18 09:25 FiO2 21.0 % 07/17/18 12:47 Inspiratory BiPAP 10 07/14/18 09:25 Expiratory BiPAP 5 07/14/18 09:25 Sodium 126 mmol/l (132-148) L 07/19/18 04:55 Potassium 4.5 MMOL/L (3.6-5.0) 07/19/18 04:55 Chloride 95 mmol/L (98-107) L 07/19/18 04:55 Carbon Dioxide 20 mmol/L (22-30) L 07/19/18 04:55 Anion Gap 16 (10-20) 07/19/18 04:55 BUN 58 mg/dl (7-17) H 07/19/18 04:55 Creatinine 8.0 mg/dl (0.7-1.2) H* 07/19/18 04:55 Est GFR ( Amer) 6 07/19/18 04:55 Est GFR (Non-Af Amer) 5 07/19/18 04:55 POC Glucose (mg/dL) 153 mg/dL (65-110) H 07/24/18 16:28 Random Glucose 103 mg/dL (65-105) 07/19/18 04:55 Calcium 8.2 mg/dL (8.4-10.2) L 07/19/18 04:55 Total Bilirubin 0.6 mg/dl (0.2-1.3) 07/14/18 02:55 AST 69 U/L (14-36) H D 11/03/18 02:55 ALT 36 U/L (9-52) 07/14/18 02:55 Alkaline Phosphatase 65 U/L (38-126) 07/14/18 02:55 Troponin I 0.0270 ng/mL (0.00-0.120) 07/14/18 02:55 NT-Pro-B Natriuret Pep 626155 pg/ml (0-900) H 07/14/18 02:55 Total Protein 6.6 G/DL (6.3-8.2) 07/14/18 02:55 Albumin 3.1 g/dL (3.5-5.0) L 07/14/18 02:55 Globulin 3.5 gm/dL (2.2-3.9) 07/14/18 02:55 Albumin/Globulin Ratio 0.9 (1.0-2.1) L 07/14/18 02:55 Serum HCG, Qual Negative (NEGATIVE) 07/14/18 03:27 Random Vancomycin 16.5 ug/mL 07/15/18 06:00 Hep Bs Antigen Negative (NEGATIVE) 07/14/18 20:39 Hep Bs Antibody Positive (NEGATIVE) 07/14/18 20:39 Hep B Core IgM Ab Negative (NEGATIVE) 07/14/18 20:39 Influenza Typ A,B (EIA) Negative for flu a/b (NEGATIVE) 07/22/18 12:15 Influenza Type A Ab 1:64 titer (<1:8) H 07/18/18 12:17 Influenza Type B Ab 1:64 titer (<1:8) H 07/18/18 12:17 Ur L.pneumophila Ag Negative (NEGATIVE) 07/19/18 01:00 M.pneumoniae IgG Titer <=0.90 (<=0.90) 07/18/18 12:17 Discharge Exam - Head Exam Head Exam: NORMAL INSPECTION Discharge Plan - Discharge Medications Prescriptions: Meclizine [Antivert] 12.5 mg PO TID #22 tab Ergocalciferol [Drisdol 50,000 Intl Units Cap] 1 cap PO Q7D #6 cap Cefpodoxime [Vantin] 100 mg PO BID #8 tab - Follow Up Plan Condition: GUARDED Disposition: HOME/ ROUTINE Instructions: Low Blood Sugar, Adult (DC), Pneumonia, Adult (DC), End Stage Kidney Disease (DC) Additional Instructions: follow up visit with dr.pinal badillo 07/31/18 at 3:00pm continue dialysis t--sat Referrals: Garo Malone MD [Staff Provider] - Sravan Ace MD [Family Provider] -
== END 2018-07-24 20:20 | disposition home or self-care (01) | DRG 193 ==
LOC: H.ER 01:33 → H.ERHOLD 04:00 → H.TEL 07:04 → OBSVTOIN 07-15 12:53
PROVIDERS: ADMIT Internal Medicine Pulmonary Disease; ATTEND Internal Medicine Pulmonary Disease
PROC: 5A09457 Assistance with Respiratory Ventilation, 24-96 Consecutive Hours, Continuous Positive Airway Pressure (ICD-10-PCS; 2018-07-14)
PROC: 5A1D70Z Performance of Urinary Filtration, Intermittent, Less than 6 Hours Per Day (ICD-10-PCS; principal; 2018-07-21)
PROC: 5A1D70Z Performance of Urinary Filtration, Intermittent, Less than 6 Hours Per Day (ICD-10-PCS; 2018-07-24)
DX: J18.1 Lobar pneumonia, unspecified organism (principal); N18.6 End stage renal disease; I50.33 Acute on chronic diastolic (congestive) heart failure; T86.12 Kidney transplant failure; I13.2 Hypertensive heart and chronic kidney disease with heart failure and with stage 5 chronic kidney disease, or end stage renal disease; J98.11 Atelectasis; E11.649 Type 2 diabetes mellitus with hypoglycemia without coma; Z99.2 Dependence on renal dialysis; E11.22 Type 2 diabetes mellitus with diabetic chronic kidney disease; R09.02 Hypoxemia; F20.3 Undifferentiated schizophrenia; D63.1 Anemia in chronic kidney disease; E78.00 Pure hypercholesterolemia, unspecified; F32.9 Major depressive disorder, single episode, unspecified; F41.9 Anxiety disorder, unspecified; I27.20 Pulmonary hypertension, unspecified; J45.909 Unspecified asthma, uncomplicated; Z90.49 Acquired absence of other specified parts of digestive tract; K80.20 Calculus of gallbladder without cholecystitis without obstruction

== ENCOUNTER 2018-11-01 11:34 | Observation (INO) | payer MEDICARE, OTHER ==
[2018-11-01 11:54] VITALS: BMI 55.0
--- NOTE | 2018-11-01 12:01 | ED PDOC ---
Hyperglycemia/Hypoglycemia Time Seen by Provider: 11/01/18 11:41 Chief Complaint (Provider): Hypoglycemia History Per: Patient, EMS, Family History/Exam Limitations: no limitations Current Symptoms Are (Timing): Still Present Current Diabetic Medications: Insulin Causative (Exacerbating) Factor(s): Missed A Meal : The patient does not have any of the infectious symptoms listed except for those marked. Treatment Prior To Provider Evaluation: Accucheck, D50W Given Additional Complaint(s): 52yo female, with history of diabetes (on insulin), ESRD on hemodialysis (, , Mon), brought to ER by EMS after a syncopal episode while at home. Patient was noted to have blood sugar level of 35 at home and was given D50 by EMS. Patient states she took her insulin this morning but then missed a meal; her syncopal episode was witnessed by her sister, who called EMS. Otherwise, no complaints of fever, chills, chest pain, shortness of breath. No additional medical complaints. PMD: Dr. Ace [place] Landscape Architect: Dr. Malone Past Medical History Reviewed: Historical Data, Nursing Documentation, Vital Signs - Medical History PMH: Anemia, Anxiety, Asthma, CAD, Depression, Diabetes, Gall Bladder Disease (gallbladder stones), HTN, Hypercholesterolemia, End Stage Renal Disease (on dialysis --), Chronic Kidney Disease, Schizophrenia Denies: HIV - Surgical History Surgical History: Cholecystectomy - Family History Family History: States: No Known Family Hx - Living Arrangements Living Arrangements: With Family - Home Medications Home Medications: Ambulatory Orders Medication Instructions Recorded RX: Atorvastatin [Lipitor] 10 mg PO DAILY 12/25/17 RX: Benztropine [Cogentin] 1 mg PO Q12 12/25/17 RX: Escitalopram Oxalate [Lexapro] 5 mg PO DAILY 12/25/17 RX: Insulin Aspart Prot/Insuln Asp 26 unit SC BID 12/25/17 [Novolog Mix 70-30 Vial] RX: Insulin Glargine, Recombina 18 unit SC HS 12/25/17 [Lantus] RX: Sodium Bicarbonate Tab 3 tab PO TID 12/25/17 RX: risperiDONE [RisperDAL Tab] 2 mg PO Q12 12/25/17 RX: amLODIPine [Norvasc] 10 mg PO DAILY 04/06/18 Carvedilol [Coreg] 25 mg PO Q12 11/01/18 Melatonin 5 mg PO HS PRN 11/01/18 Pantoprazole Sodium [Protonix] 40 mg PO DAILY 11/01/18 RX: Isosorbide Dinitrate [Isordil] 5 mg PO Q12 11/01/18 RX: Losartan [Cozaar] 50 mg PO DAILY 11/01/18 RX: Sevelamer Carbonate [Renvela] 2,400 mg PO TID 11/01/18 RX: hydrALAZINE [Apresoline] 50 mg PO Q8 11/01/18 - Allergies Allergies/Adverse Reactions: Allergies Allergy/AdvReac Type Severity Reaction Status Date / Time iodine Allergy URTICARIA Verified 06/11/18 04:32 vitamin K2 Allergy ANAPHYLAXIS Verified 11/01/18 11:56 Review of Systems ROS Statement: Except As Marked, All Systems Reviewed And Found Negative Constitutional: Negative for: Fever, Chills Cardiovascular: Negative for: Chest Pain Respiratory: Negative for: Shortness of Breath Neurological: Positive for: Other (syncopal episode) Physical Exam - Reviewed Nursing Documentation Reviewed: Yes Vital Signs Reviewed: Yes (pt with accucheck of 77 at 1145) - Physical Exam Appears: Positive for: Non-toxic, No Acute Distress Head Exam: Positive for: ATRAUMATIC, NORMAL INSPECTION, NORMOCEPHALIC Skin: Positive for: Normal Color, Warm, Dry Eye Exam: Positive for: Normal appearance, EOMI, PERRL Neck: Positive for: Normal, Supple Cardiovascular/Chest: Positive for: Regular Rate, Rhythm. Negative for: Murmur Respiratory: Positive for: Normal Breath Sounds. Negative for: Wheezing Pulses-Radial (L): 2+ Pulses-Radial (R): 2+ Gastrointestinal/Abdominal: Positive for: Normal Exam, Soft Back: Positive for: Normal Inspection. Negative for: L CVA Tenderness, R CVA Tenderness Extremity: Positive for: Normal ROM, Other (patient has AV fistula to bilateral arms, right arm used for dialysis). Negative for: Pedal Edema, Deformity Neurologic/Psych: Positive for: Alert, Oriented. Negative for: Motor/Sensory Deficits - Laboratory Results Result Diagrams: 11/01/18 12:17 11/01/18 12:17 - ECG ECG: Positive for: Interpreted By Me, Viewed By Me ([id number]) ECG Rhythm: Positive for: Sinus Bradycardia. Negative for: ST/T Changes Interpretation Of Abn EKG: prolonged QT Rate: 52 Medical Decision Making Medical Decision Making: Impression: 52yo female with hypoglycemia, syncope, chronic renal failure Differntial: Insulin induced hypoglycemia Plan: -- Labs -- Serial accucheck -- EKG 1305 Labs reviewed, patient with low hemoglobin level at 7.[address] Ace, who will admit patient; patient admitted due to severe anemia and hypoglycemia Pending call back from Dr. 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 Scribe Attestation: Documented by Nichole Landrum acting as a scribe for Rickey Watt MD Provider Attestation: All medical record entries made by the Scribe were at my direction and personall y dictated by me. I have reviewed the chart and agree that the record accurately reflects my personal performance of the history, physical exam, medical decision making, and the department course for this patient. I have also personally directed, reviewed, and agree with the discharge instructions and disposition. Disposition - Clinical Impression Clinical Impression: CKD (chronic kidney disease), Hypoglycemia, Severe anemia - Patient ED Disposition Is Patient to be Admitted: Yes Discussed With : Sravan Ace Doctor Will See Patient In The: Hospital Counseled Patient/Family Regarding: Studies Performed, Diagnosis - Disposition Disposition Time: 13:00 Condition: FAIR - Pt Status Changed To: Hospital Disposition Of: Observation - POA Present On Arrival: Poor Glycemic Control
[2018-11-01 12:28] LABS: BASO % 0.8 % (0.0-2.0); EOS # 0.3 K/uL (0.0-0.7); EOS % 4.7 % (0.0-4.0); LYMPH # 0.7 K/uL (1.0-4.3); LYMPH % 11.9 % (20.0-40.0); MEAN CELL VOLUME 90.1 fl (81.0-99.0); MEAN CORPUSCULAR HGB CONC 32.2 g/dL (33.0-37.0); MEAN PLATELET VOLUME 6.8 fl (7.2-11.7); MONO # 0.4 K/uL (0.0-0.8); MONO % 7.2 % (0.0-10.0); NEUT # 4.6 K/uL (1.8-7.0); NEUT % 75.4 % (50.0-75.0); NRBC % 0.1 % (0.0-0.0); PLATELET COUNT 145 K/uL (130-400); RBC 2.46 Mil/uL (3.80-5.20); RED CELL DISTRIBUTION WIDTH 18.2 % (11.5-14.5); WHITE BLOOD COUNT 6.1 K/uL (4.8-10.8)
[2018-11-01 12:33] LABS: HEMOGLOBIN 7.1 g/dL (12.0-16.0)
[2018-11-01 13:00] LABS: ANISOCYTOSIS SLIGHT; BANDS 5 % (0-2); EOSINOPHIL 2 % (0-7); LYMPHOCYTE 14 % (20-50); MONOCYTE 10 % (0-10); NEUTROPHIL 69 % (42-75); PLATELET ESTIMATE NORMAL (NORMAL); TOTAL CELLS COUNTED 100
[2018-11-01 13:01] LABS: HYPOCHROMIC SLIGHT; OVALOCYTES SLIGHT; POIKILOCYTOSIS SLIGHT; TEARDROP CELLS SLIGHT
--- NOTE | 2018-11-01 18:03 | CP.PCM.HP ---
History of Present Illness - History of Present Illness History of Present Illness: CC: Syncope. 52 y/o F, PMHx: ESRD on HD TTS, Renal Transplant that failed, Asthma, HTN, CAD, Schizophrenia, Depression. Pt was brought to ER [facility] today via EMS from [facility] [place] after a witnesses Syncopal episode with LOC in this facility, associated to low blood sugar. Pt states that her self injected her usual Insulin dose, but did not have breakfast , Pt though She had to be NPO for the Ultrasound, as per EMS, level of BS 35 upon ambulance arrival, was given one amp D50 and there after BS increased to 152. ER [facility] Hgb 7.1 Worsening symptoms: Dizziness, anemia (Hgb 7.1) Aggravated factor: Walking/exercise. Pt denied: Fever, chills, n/v/d, abdominal pain, CP, palpitations, SOB, cough, sick contact, recent travel out of [facility] [place]. Present on Admission - Present on Admission Any Indicators Present on Admission: No Review of Systems - Constitutional Constitutional: Other (negative) - EENT Eyes: Other (negative) Ears: Other (negative) Nose/Mouth/Throat: Other (negative) - Cardiovascular Cardiovascular: Other (negative) - Respiratory Respiratory: Other (negative) - Gastrointestinal Gastrointestinal: Other (negative) - Genitourinary Genitourinary: Other (negative) - Musculoskeletal Musculoskeletal: Other (negative) - Neurological Neurological: As Per HPI, Dizziness, Syncope - Psychiatric Psychiatric: Depression - Endocrine Endocrine: As Per HPI - Hematologic/Lymphatic Hematologic: Other (negative) Past Patient History - Infectious Disease Hx of Infectious Diseases: None - Past Medical History & Family History Past Medical History?: Yes Pertinent Family History: Unknown - Past Social History Smoking Status: Never Smoked Alcohol: None Drugs: Denies Home Situation {Lives}: With Family - CARDIAC Hx Cardiac Disorders: Yes Hx Hypercholesterolemia: Yes Hx Hypertension: Yes - PULMONARY Hx Respiratory Disorders: Yes Hx Asthma: Yes - NEUROLOGICAL Hx Neurological Disorder: No - HEENT Hx HEENT Problems: No - RENAL Hx Chronic Kidney Disease: Yes Hx Dialysis: Yes - ENDOCRINE/METABOLIC Hx Endocrine Disorders: Yes Hx Diabetes Mellitus Type 2: Yes - HEMATOLOGICAL/ONCOLOGICAL Hx Blood Disorders: Yes Hx Anemia: Yes (on CKD) Hx Human Immunodeficiency Virus (HIV): No - INTEGUMENTARY Hx Dermatological Problems: No - MUSCULOSKELETAL/RHEUMATOLOGICAL Hx Musculoskeletal Disorders: Yes Hx Falls: Yes - GASTROINTESTINAL Hx Gastrointestinal Disorders: Yes Hx Gall Bladder Disease: Yes (gallbladder stones) - GENITOURINARY/GYNECOLOGICAL Hx Genitourinary Disorders: No - PSYCHIATRIC Hx Psychophysiologic Disorder: Yes Hx Anxiety: Yes Hx Depression: Yes Hx Schizophrenia: Yes Hx Substance Use: No - SURGICAL HISTORY Hx Surgeries: Yes Hx Cholecystectomy: Yes - ANESTHESIA Hx Anesthesia: Yes Hx Anesthesia Reactions: No Hx Malignant Hyperthermia: No Meds Allergies/Adverse Reactions: Allergies Allergy/AdvReac Type Severity Reaction Status Date / Time iodine Allergy URTICARIA Verified 06/11/18 04:32 vitamin K2 Allergy ANAPHYLAXIS Verified 11/01/18 11:56 Physical Exam - Constitutional Appears: No Acute Distress - Head Exam Head Exam: NORMAL INSPECTION - Eye Exam Eye Exam: PERRL - ENT Exam ENT Exam: Normal Exam - Neck Exam Neck exam: Positive for: Normal Inspection - Respiratory Exam Respiratory Exam: NORMAL BREATHING PATTERN - Cardiovascular Exam Cardiovascular Exam: REGULAR RHYTHM Additional comments: R chest Perma cath - GI/Abdominal Exam GI & Abdominal Exam: Normal Bowel Sounds, Soft - Extremities Exam Additional comments: AV fistula R arm with bruit and thrill, old fistula L arm non functioning. - Back Exam Back exam: NORMAL INSPECTION - Neurological Exam Neurological exam: Alert, Oriented x3 Additional comments: Obey commands - Psychiatric Exam Psychiatric exam: Depressed - Skin Skin Exam: Warm Results - Vital Signs Recent Vital Signs: Last Vital Signs Temp 97.1 F L 11/01/18 16:26 Pulse 65 11/01/18 16:26 Resp 17 11/01/18 16:26 BP 138/78 11/01/18 16:26 Pulse Ox 96 11/01/18 16:26 reviewed Michael - Labs Result Diagrams: 11/01/18 12:17 11/01/18 12:17 Labs: Laboratory Results - last 24 hr 11/01/18 11/01/18 11/01/18 11:45 12:17 12:17 WBC 6.1 RBC 2.46 L Hgb 7.1 L D Hct 22.2 L MCV 90.1 D MCH 29.0 MCHC 32.2 L RDW 18.2 H Plt Count 145 MPV 6.8 L Neut % (Auto) 75.4 H Lymph % (Auto) 11.9 L Wallace % (Auto) 7.2 Eos % (Auto) 4.7 H Baso % (Auto) 0.8 Neut # (Auto) 4.6 Lymph # (Auto) 0.7 L Wallace # (Auto) 0.4 Eos # (Auto) 0.3 Baso # (Auto) 0.0 Neutrophils % (Manual) 69 Band Neutrophils % 5 H Lymphocytes % (Manual) 14 L Monocytes % (Manual) 10 Eosinophils % (Manual) 2 Platelet Estimate Normal Hypochromasia (manual) Slight Poikilocytosis (manual Slight Anisocytosis (manual) Slight Tear Drop Cells Slight Ovalocytes Slight Sodium 138 Potassium 3.5 L Chloride 90 L Carbon Dioxide 36 H Anion Gap 16 BUN 39 H Creatinine 5.5 H Est GFR ( Amer) 10 Est GFR (Non-Af Amer) 8 POC Glucose (mg/dL) 77 Random Glucose 43 L Calcium 9.0 Blood Type Antibody Screen Crossmatch BBK History Checked 11/01/18 11/01/18 13:14 14:00 WBC RBC Hgb Hct MCV MCH MCHC RDW Plt Count MPV Neut % (Auto) Lymph % (Auto) Wallace % (Auto) Eos % (Auto) Baso % (Auto) Neut # (Auto) Lymph # (Auto) Wallace # (Auto) Eos # (Auto) Baso # (Auto) Neutrophils % (Manual) Band Neutrophils % Lymphocytes % (Manual) Monocytes % (Manual) Eosinophils % (Manual) Platelet Estimate Hypochromasia (manual) Poikilocytosis (manual Anisocytosis (manual) Tear Drop Cells Ovalocytes Sodium Potassium Chloride Carbon Dioxide Anion Gap BUN Creatinine Est GFR ( Amer) Est GFR (Non-Af Amer) POC Glucose (mg/dL) 76 Random Glucose Calcium Blood Type O POSITIVE Antibody Screen Negative Crossmatch See Detail BBK History Checked Patient has bt reviewed J.P. Assessment & Plan (1) Syncope Status: Acute Priority: High (2) Anemia in CKD (chronic kidney disease) Status: Acute Priority: High (3) Hypoglycemia Status: Acute Priority: High (4) Kidney transplant failure Status: Chronic Priority: High (5) ESRD (end stage renal disease) on dialysis Status: Acute (6) Hx of schizophrenia Status: Chronic (7) Anxiety and depression Status: Chronic Priority: Medium (8) Diabetes mellitus Status: Chronic - Assessment and Plan (Free Text) Plan: to have transfusion PRBC during dialysis today, monitor BS, f/u, CXR, EKG, continue Congentin, Risperdal, Coreg, Cozaar, Norvasc, Insulin, Lexapro and rest of Tx., Nephrology consult. - Date & Time Date: 11/01/18 Time: 19:00
--- NOTE | 2018-11-01 21:51 | CP.PCM.PN ---
Subjective - Date & Time of Evaluation Date of Evaluation: 11/01/18 Time of Evaluation: 15:00 - Subjective Subjective: REASONS FOR CONSULT : ESRD .. NEEDS HD NOW .. MISSED HER HD ANEMIA OF CKD .. NEEDS ONE U PRBC WHILE ON HD ELECTROLYTES ABN PT WAS SEEN ON RENAL CONSULTATION N ER ALL EMR REVIEWED .. LABS REVIEWED AND PT EXAMINED CONSENT FOR HD WAS OBTAINED FROM THE SISTER ON THE BED SIDE CASE D/W ER ATTENDING CASE D/W HD RN .. HD ORDERS GIVEN CASE D/W [employer] Time Seen by Provider: 11/01/18 15.0 Chief Complaint (Provider): Hypoglycemia History Per: Patient, EMS, Family History/Exam Limitations: no limitations Current Symptoms Are (Timing): Still Present Current Diabetic Medications: Insulin Causative (Exacerbating) Factor(s): Missed A Meal : The patient does not have any of the infectious symptoms listed except for those marked. Treatment Prior To Provider Evaluation: Accucheck, D50W Given Additional Complaint(s): 52yo female, with history of diabetes (on insulin), ESRD on hemodialysis (, , Mon), brought to ER by EMS after a syncopal episode while at home. Patient was noted to have blood sugar level of 35 at home and was given D50 by EMS. Patient states she took her insulin this morning but then missed a meal; her syncopal episode was witnessed by her sister, who called EMS. Otherwise, no complaints of fever, chills, chest pain, shortness of breath. No additional medical complaints. Objective - Vital Signs/Intake and Output Vital Signs (last 24 hours): Temp Pulse Resp BP Pulse Ox 97.6 F 67 18 131/68 94 L 11/01/18 19:40 11/01/18 21:18 11/01/18 19:40 11/01/18 21:18 11/01/18 19:40 - Medications Medications: Current Medications Amlodipine Besylate (Norvasc) 10 mg PO DAILY [facility] Atorvastatin Calcium (Lipitor) 10 mg PO DAILY [facility] Benztropine Mesylate (Cogentin) 1 mg PO Q12 [facility] Last Admin: 11/01/18 21:18 Dose: 1 mg Carvedilol (Coreg) 25 mg PO Q12 [facility] Last Admin: 11/01/18 21:18 Dose: 25 mg Escitalopram Oxalate (Lexapro) 5 mg PO DAILY [facility] Home Med (Melatonin [Melatonin]) 5 mg PO HS PRN PRN Reason: Insomnia Hydralazine HCl (Apresoline) 50 mg PO Q8 [facility] Insulin Detemir (Levemir) 18 units SC HS [facility] Last Admin: 11/01/18 21:36 Dose: 18 units Insulin Lispro Protam/Lispro Human (Humalog Mix 75/25) 26 units SC BID [facility] Isosorbide Dinitrate (Isordil) 5 mg PO Q12 [facility] Last Admin: 11/01/18 21:36 Dose: 5 mg Losartan Potassium (Cozaar) 50 mg PO DAILY [facility] Pantoprazole Sodium (Protonix Ec Tab) 40 mg PO DAILY [facility] Risperidone (Risperdal Tab) 2 mg PO Q12 [facility] Last Admin: 11/01/18 21:18 Dose: 2 mg Sevelamer Carbonate (Renvela) 2,400 mg PO TID [facility] Sodium Bicarbonate (Sodium Bicarbonate Tab) 3 mg PO TID [facility] - Labs Labs: 11/01/18 12:17 11/01/18 12:17 Assessment and Plan - Assessment and Plan (Free Text) Assessment: ESRD ON HD T T S .. PT MISSED HER HD TODAY SHE CAME IN TO THE ED ANEMIA OD CKD .. NEEDS ONE U PRBC TRANSFUSION ON HD MMP P : HD TO START SOON TRANSFUSE ONE U PRBC ON HD RENAL AND DIABETIC DIET C/O SAME PO MEDS WILL F/U CLOSELY
--- NOTE | 2018-11-01 21:51 | CARD ---
APPROVED REPORT Date of service: 11/01/2018 EKG Measurement Heart [id number] <Conclusion> Sinus bradycardia Nonspecific T wave abnormality Prolonged QT Abnormal ECG
[2018-11-01] MEDS ORDERED: Insulin Detemir 100 Units/ml Inj SC SCH (22:00)
[2018-11-02] MEDS ORDERED: Pantoprazole 40 mg EC Tab PO SCH (09:00)
[2018-11-02] MEDS: Insulin Lispro Mix 75/25 100 units/ml (HumaLog) 10ml SC SCH ×2 (09:33→16:53)
--- NOTE | 2018-11-02 14:51 | CP.PCM.DIS ---
Provider - Provider Date of Admission: 11/01/18 13:41 Attending physician: Sravan Ace MD Consults: 11/01/18 13:44 Nephrology Consult Stat Comment: Consulting Provider: Garo Malone Consulting Physician: Garo Malone Reason for Consult: ESRD Diagnosis - Discharge Diagnosis (1) Syncope Status: Acute Priority: High Comment: 2nd to hypoglycemia and anemia. (2) Anemia in CKD (chronic kidney disease) Status: Acute Priority: High (3) Hypoglycemia Status: Acute Priority: High (4) Kidney transplant failure Status: Chronic Priority: High (5) ESRD (end stage renal disease) on dialysis Status: Acute (6) Hx of schizophrenia Status: Chronic (7) Anxiety and depression Status: Chronic Priority: Medium (8) Diabetes mellitus Status: Chronic Hospital Course - Lab Results Lab Results: Most Recent Lab Values WBC 6.1 K/uL (4.8-10.8) 11/01/18 12:17 RBC 2.46 Mil/uL (3.80-5.20) L 11/01/18 12:17 Hgb 7.1 g/dL (12.0-16.0) L D 11/01/18 12:17 Hct 22.2 % (34.0-47.0) L 11/01/18 12:17 MCV 90.1 fl (81.0-99.0) D 11/01/18 12:17 MCH 29.0 pg (27.0-31.0) 11/01/18 12:17 MCHC 32.2 g/dL (33.0-37.0) L 11/01/18 12:17 RDW 18.2 % (11.5-14.5) H 11/01/18 12:17 Plt Count 145 K/uL (130-400) 11/01/18 12:17 MPV 6.8 fl (7.2-11.7) L 11/01/18 12:17 Neut % (Auto) 75.4 % (50.0-75.0) H 11/01/18 12:17 Lymph % (Auto) 11.9 % (20.0-40.0) L 11/01/18 12:17 [place] % (Auto) 7.2 % (0.0-10.0) 11/01/18 12:17 Eos % (Auto) 4.7 % (0.0-4.0) H 11/01/18 12:17 Baso % (Auto) 0.8 % (0.0-2.0) 11/01/18 12:17 Neut # (Auto) 4.6 K/uL (1.8-7.0) 11/01/18 12:17 Lymph # (Auto) 0.7 K/uL (1.0-4.3) L 11/01/18 12:17 [place] # (Auto) 0.4 K/uL (0.0-0.8) 11/01/18 12:17 Eos # (Auto) 0.3 K/uL (0.0-0.7) 11/01/18 12:17 Baso # (Auto) 0.0 K/uL (0.0-0.2) 11/01/18 12:17 Neutrophils % (Manual) 69 % (42-75) 11/01/18 12:17 Band Neutrophils % 5 % (0-2) H 11/01/18 12:17 Lymphocytes % (Manual) 14 % (20-50) L 11/01/18 12:17 Monocytes % (Manual) 10 % (0-10) 11/01/18 12:17 Eosinophils % (Manual) 2 % (0-7) 11/01/18 12:17 Platelet Estimate Normal (NORMAL) 11/01/18 12:17 Hypochromasia (manual) Slight 11/01/18 12:17 Poikilocytosis (manual Slight 11/01/18 12:17 Anisocytosis (manual) Slight 11/01/18 12:17 Tear Drop Cells Slight 11/01/18 12:17 Ovalocytes Slight 11/01/18 12:17 Sodium 138 mmol/l (132-148) 11/01/18 12:17 Potassium 3.5 MMOL/L (3.6-5.0) L 11/01/18 12:17 Chloride 90 mmol/L (98-107) L 11/01/18 12:17 Carbon Dioxide 36 mmol/L (22-30) H 11/01/18 12:17 Anion Gap 16 (10-20) 11/01/18 12:17 BUN 39 mg/dl (7-17) H 11/01/18 12:17 Creatinine 5.5 mg/dl (0.7-1.2) H 11/01/18 12:17 Est GFR ( Amer) 10 11/01/18 12:17 Est GFR (Non-Af Amer) 8 11/01/18 12:17 POC Glucose (mg/dL) 139 mg/dL (65-110) H 11/02/18 11:22 Random Glucose 43 mg/dL (65-105) L 11/01/18 12:17 Calcium 9.0 mg/dL (8.4-10.2) 11/01/18 12:17 Blood Type O POSITIVE 11/01/18 14:00 Antibody Screen Negative 11/01/18 14:00 Crossmatch See Detail 11/01/18 14:00 BBK History Checked Patient has bt 11/01/18 14:00 - Hospital Course Hospital Course: Pt developed Syncope episode while in a private X-Ray facility, Pt injected her Insulin in AM and she did not have breakfast in order to have the ultrasound. Pt was brought to ER [facility] by EMS and was found with BS 35, Hgb 7.1. Pt had transfusion of 1 U PRBC during dialysis. Post HD, Pt was in improved and stable condition and was discharged. Call for f/u appointment in my office in one week, call Nephrology for f/u appt, continue HD, see MAR instruction-medications. - Date & Time of H&P Date of H&P: 11/01/18 Time of H&P: 19:00 Discharge Exam - Head Exam Head Exam: NORMAL INSPECTION - Eye Exam Eye Exam: PERRL - ENT Exam ENT Exam: Normal Exam - Neck Exam Neck exam: Normal Inspection - Respiratory Exam Respiratory Exam: UNREMARKABLE - Cardiovascular Exam Cardiovascular Exam: REGULAR RHYTHM Additional comments: R chest Perma Cath - GI/Abdominal Exam GI & Abdominal Exam: Normal Bowel Sounds, Soft - Back Exam Back exam: NORMAL INSPECTION - Neurological Exam Neurological exam: Alert, CN II-XII Intact, Oriented x3, Reflexes Normal Additional comments: No motor sensory deficit - Psychiatric Exam Psychiatric exam: Normal Mood - Skin Skin Exam: Warm Discharge Plan - Follow Up Plan Condition: FAIR Disposition: HOME/ ROUTINE Instructions: Low Blood Sugar, Adult (DC), Anemia of Chronic Disease (DC), Chronic Kidney Disease (DC) Additional Instructions: continue dialysis [id number] follow up with in 1 week Referrals: Sravan Ace MD [Staff Provider] -
[2018-11-02 15:57] VITALS: BP 160/74; PULSE 68; RESP 16; TEMP 97.9; O2SAT 93
--- NOTE | 2018-11-03 12:14 | RAD ---
Date of service: 11/02/2018 PROCEDURE: CHEST RADIOGRAPH, 1 VIEW HISTORY: per MD COMPARISON: 07/23/2018. FINDINGS: LUNGS: Low lung volumes. Stable findings with respect to pulmonary parenchyma. PLEURA: Stable right pleural effusion inseparable from right lower lobe consolidative change. CARDIOVASCULAR: No aortic atherosclerotic calcification present. No radiographic findings to suggest acute or significant cardiovascular disease. OSSEOUS STRUCTURES: No significant abnormalities. VISUALIZED UPPER ABDOMEN: Normal. OTHER FINDINGS: Removal of support apparatus since the prior study: Dialysis catheter. IMPRESSION: No active disease.No significant interval change compared to the prior examination(s).
--- NOTE | 2018-11-05 10:03 | RAD ---
Date of service: 11/01/2018 HISTORY: COMPARISON: No prior. FINDINGS: LUNGS: Potential limited infiltrate right base. None appreciable at the left. PLEURA: Small right pleural effusion blunts the right costophrenic sulcus or possibly fibrosis. None is seen at the left. No pneumothorax bilaterally. CARDIOVASCULAR: No aortic atherosclerotic calcification present. Prominent cardiac silhouette due least in part to technical magnification. No pulmonary vascular congestion appreciable. OSSEOUS STRUCTURES: No significant abnormalities. VISUALIZED UPPER ABDOMEN: Mild right hemidiaphragm elevation is suggested. OTHER FINDINGS: None. IMPRESSION: Small right pleural effusion evident with potential limited right basilar airspace disease. Prominent cardiac silhouette.
== END 2018-11-02 20:43 | disposition home or self-care (01) ==
LOC: H.ER 11:34 → H.ERHOLD 13:41 → H.TEL 15:15
PROVIDERS: ADMIT Internal Medicine Pulmonary Disease; ATTEND Internal Medicine Pulmonary Disease
DX: E11.649 Type 2 diabetes mellitus with hypoglycemia without coma (principal); E78.00 Pure hypercholesterolemia, unspecified; F20.9 Schizophrenia, unspecified; F32.9 Major depressive disorder, single episode, unspecified; F41.9 Anxiety disorder, unspecified; E11.22 Type 2 diabetes mellitus with diabetic chronic kidney disease; I12.0 Hypertensive chronic kidney disease with stage 5 chronic kidney disease or end stage renal disease; I25.10 Atherosclerotic heart disease of native coronary artery without angina pectoris; J45.909 Unspecified asthma, uncomplicated; N18.6 End stage renal disease; T86.12 Kidney transplant failure; Y83.0 Surgical operation with transplant of whole organ as the cause of abnormal reaction of the patient, or of later complication, without mention of misadventure at the time of the procedure; Z79.4 Long term (current) use of insulin; Z90.49 Acquired absence of other specified parts of digestive tract; Z99.2 Dependence on renal dialysis; D63.1 Anemia in chronic kidney disease
CPT/HCPCS: 36430; 71045; 80048; 82948; 85025; 86850; 86900; 86920; 93005; 99285; G0378; P9051

== ENCOUNTER 2018-12-15 21:36 | Inpatient (IN) | payer MEDICARE, OTHER ==
[2018-12-15 21:45] VITALS: BMI 33.3
[2018-12-15] MEDS ORDERED: Albuterol-Ipratrop 3 mg / 0.5 (3 ml) UD IH STA (22:03)
[2018-12-15] MEDS ORDERED: Albuterol-Ipratrop 3 mg / 0.5 (3 ml) UD INH STA (22:03)
--- NOTE | 2018-12-15 22:09 | ED PDOC ---
HPI: Chest Pain Time Seen by Provider: 12/15/18 21:55 Chief Complaint (Nursing): Chest Pain Chief Complaint (Provider): Chest pain History Per: Patient, Family (family member) History/Exam Limitations: no limitations Onset/Duration Of Symptoms: Hrs (1x) Current Symptoms Are (Timing): Still Present Severity: Moderate Associated Symptoms: Dyspnea, Other (cough) Additional Complaint(s): 52 year old female with end stage renal disease (Monday, , Monday dialysis), diabetes (on novolog 70/30 26 units BID and lantis 18 units daily) presents to the ED for an evaluation of chest pain that started 1x hour prior to arrival. As per family member, patient went to her regularly scheduled dialysis appointment today, and had low blood sugar there, was given glucose and a protein bar and went home when her blood sugar was 119. Patient ate dinner, went to bed, and woke up 1x hour prior to arrival with chest pain, shortness of breath, and a cough. Patient's blood sugar was 44. Patient states that she has been experiencing blood sugar drops this past 1x week. Patient is also noted to have chronic leg swelling, and low hemoglobin levels in recent dialysis appointments. Patient denies having a history of asthma or emphysema. PMD: Sravan Ace MD Supervisor Insulation: Phillip Malone MD Past Medical History Reviewed: Historical Data, Nursing Documentation, Vital Signs Vital Signs: Last Vital Signs Temp 99.1 F 12/15/18 21:45 Pulse 82 12/15/18 21:45 Resp 22 12/15/18 21:45 BP 178/86 H 12/15/18 21:45 Pulse Ox 92 L 12/15/18 21:45 JOSSY Report Viewed: Yes - Medical History PMH: Anemia (on CKD), Anxiety, CAD, Depression, Diabetes, Gall Bladder Disease (gallbladder stones), HTN, Hypercholesterolemia, End Stage Renal Disease (on dialysis T--), Chronic Kidney Disease, Schizophrenia Denies: Asthma (denies), HIV - Surgical History Surgical History: Cholecystectomy - Family History Family History: States: No Known Family Hx - Living Arrangements Living Arrangements: With Family - Social History Current smoker - smoking cessation education provided: No Alcohol: None Drugs: Denies - Home Medications Home Medications: Ambulatory Orders Medication Instructions Recorded Atorvastatin [Lipitor] 10 mg PO DAILY 04/16/18 Benztropine [Cogentin] 1 mg PO Q12 12/25/17 Escitalopram Oxalate [Lexapro] 5 mg PO DAILY 12/25/17 Insulin Aspart Prot/Insuln Asp 26 unit SC BID 12/25/17 [Novolog Mix 70-30 Vial] Insulin Glargine, Recombina 18 unit SC HS 12/25/17 [Lantus] Sodium Bicarbonate Tab 3 tab PO TID 12/25/17 risperiDONE [RisperDAL Tab] 2 mg PO Q12 12/25/17 amLODIPine [Norvasc] 10 mg PO DAILY 04/06/18 Carvedilol [Coreg] 25 mg PO Q12 11/01/18 Isosorbide Dinitrate [Isordil] 5 mg PO Q12 11/01/18 Losartan [Cozaar] 50 mg PO DAILY 11/01/18 Melatonin 5 mg PO HS PRN 11/01/18 Pantoprazole Sodium [Protonix] 40 mg PO DAILY 11/01/18 Sevelamer Carbonate [Renvela] 2,400 mg PO TID 11/01/18 hydrALAZINE [Apresoline] 50 mg PO Q8 11/01/18 - Allergies Allergies/Adverse Reactions: Allergies Allergy/AdvReac Type Severity Reaction Status Date / Time iodine Allergy URTICARIA Verified 12/15/18 21:44 vitamin K2 Allergy ANAPHYLAXIS Verified 12/15/18 21:44 Review of Systems ROS Statement: Except As Marked, All Systems Reviewed And Found Negative Cardiovascular: Positive for: Chest Pain Respiratory: Positive for: Cough, Shortness of Breath Musculoskeletal: Positive for: Other (chronic bilateral leg swelling) Physical Exam - Reviewed Nursing Documentation Reviewed: Yes Vital Signs Reviewed: Yes - Physical Exam Appears: Positive for: Well, Non-toxic, No Acute Distress Head Exam: Positive for: ATRAUMATIC, NORMOCEPHALIC Skin: Positive for: Normal Color, Warm, Dry Eye Exam: Positive for: Normal appearance ENT: Positive for: Normal ENT Inspection Neck: Positive for: Normal, Painless ROM, Supple Cardiovascular/Chest: Positive for: Regular Rate, Rhythm Respiratory: Positive for: Decreased Breath Sounds. Negative for: Accessory Muscle Use, Wheezing Gastrointestinal/Abdominal: Positive for: Soft. Negative for: Tenderness Back: Positive for: Normal Inspection. Negative for: L CVA Tenderness, R CVA Tenderness Rectal: Positive for: Other (right upper extremity: dialysis fistula) Extremity: Positive for: Normal ROM (of all extremities), Other (some pitting edema of bilateral lower extremities (chronic)) Neurological/Psych: Positive for: Awake, Alert, Oriented (3x) - Laboratory Results Result Diagrams: 12/15/18 22:56 12/15/18 22:56 Lab Results: 7.5 hg - ECG ECG: Positive for: Interpreted By Me, Viewed By Me ECG Rhythm: Positive for: Sinus Rhythm, Nonspecific Changes O2 Sat by Pulse Oximetry: 92 (RA) Pulse Ox Interpretation: Abnormal - Radiology X-Ray: Interpreted by Me, Viewed By Me X-Ray Interpretation: No Acute Disease - Progress ED Course And Treament: [id number]: Spoke with Dr. Ace. Will admit. Pt. pain free. Glucose improved with oral intake. Will continue to monitor. Hold home insulin. Medical Decision Making Medical Decision Makin:55 Initial impression: 52 year old female with chest pain Initial plan: * XRay chest portable * EKG * VBG * b-type natriuretic peptide * CMP * troponin I * CBC with differential * PT/PTT * duoneb 3 ml INH (2x times) * solumedrol 125 mg IVP * tylenol 325 mg tab 650 mg PO * peak flow pre post treatment * reevaluation ScribeAttestation: Documented May Anand, acting as a scribe for Mika Lind MD. Provider ScribeAttestation: All medical record entries made by the Scribe were at my direction and personally dictated by me. I have reviewed the chart and agree that the record accurately reflects my personal performance of the history, physical exam, medical decision making, and the department course for this patient. I have also personally directed, reviewed, and agree with the discharge instructions and disposition. Disposition - Clinical Impression Clinical Impression: Hypoglycemia, Acute chest pain - Patient ED Disposition Is Patient to be Admitted: Yes Counseled Patient/Family Regarding: Studies Performed, Diagnosis - Disposition Disposition Time: 23:00 Condition: FAIR - Pt Status Changed To: Hospital Disposition Of: Inpatient - Admit Certification Admit to Inpatient:: After my assessment, the patient will require hospitalization for at least two midnights. This is because of the severity of symptoms shown, intensity of services needed, and/or the medical risk in this pa tient being treated as an outpatient. - POA Present On Arrival: None
[2018-12-15] MEDS ORDERED: Albuterol-Ipratrop 3 mg / 0.5 (3 ml) UD ONE (22:41)
[2018-12-15 23:06] LABS: BASO % 0.8 % (0.0-2.0); EOS # 0.2 K/uL (0.0-0.7); EOS % 4.2 % (0.0-4.0); HEMOGLOBIN 7.5 g/dL (12.0-16.0); LYMPH # 0.4 K/uL (1.0-4.3); LYMPH % 8.1 % (20.0-40.0); MEAN CORPUSCULAR HEMOGLOBIN 29.4 pg (27.0-31.0); MEAN CORPUSCULAR HGB CONC 32.7 g/dL (33.0-37.0); MONO # 0.4 K/uL (0.0-0.8); NEUT # 4.1 K/uL (1.8-7.0); NEUT % 78.9 % (50.0-75.0); NRBC % 0.1 % (0.0-0.0); PLATELET COUNT 145 K/uL (130-400); RBC 2.55 Mil/uL (3.80-5.20); RED CELL DISTRIBUTION WIDTH 17.4 % (11.5-14.5); WHITE BLOOD COUNT 5.2 K/uL (4.8-10.8)
[2018-12-15 23:12] LABS: ALB/GLOB RATIO 1.1 (1.0-2.1); ALBUMIN 3.8 g/dL (3.5-5.0); ALT/SGPT 19 U/L (9-52); AST/SGOT 25 U/L (14-36); BLOOD UREA NITROGEN 22 mg/dl (7-17); CALCIUM 8.6 mg/dL (8.4-10.2); GFR NON-AFRICAN AMERICAN 19
[2018-12-15 23:17] LABS: INR 1.3; PROTHROMBIN TIME 14.9 Seconds (9.8-13.1)
[2018-12-15 23:42] LABS: B-TYPE NATRIURETIC PEPTIDE 66900 pg/ml (0-900)
[2018-12-15] MEDS ORDERED: Dextrose 50% SYRINGE Inj (50 ml) IVP STA (23:51)
[2018-12-16 00:54] LABS: EOSINOPHIL 5 % (0-7); LYMPHOCYTE 11 % (20-50); MONOCYTE 11 % (0-10); NEUTROPHIL 73 % (42-75); TOTAL CELLS COUNTED 100
[2018-12-16 00:55] LABS: PLATELET ESTIMATE NORMAL (NORMAL)
[2018-12-16 00:56] LABS: HYPOCHROMIC MODERATE
[2018-12-16 00:57] LABS: POLYCHROMIC SLIGHT
[2018-12-16 00:58] LABS: ANISOCYTOSIS SLIGHT
[2018-12-16] MEDS ORDERED: Nitroglycerin 2% Ointment Foilpak UD TOP STA (01:55)
[2018-12-16] MEDS ORDERED: Nitroglycerin 2% Ointment Foilpak UD TOP ONE (02:04)
[2018-12-16] MEDS: Pantoprazole 40 mg EC Tab PO SCH (08:25)
[2018-12-16] MEDS: Insulin Lispro Mix 75/25 100 units/ml (HumaLog) 10ml SC SCH ×2 (08:26→17:11)
--- NOTE | 2018-12-16 08:27 | RAD ---
Date of service: 12/15/2018 HISTORY: dyspnea COMPARISON: Portable chest 11/02/2018. TECHNIQUE: 1 view obtained. FINDINGS: LUNGS: No active pulmonary disease. PLEURA: No significant pleural effusion identified, no pneumothorax apparent. Prior small right pleural effusion appears resolved. CARDIOVASCULAR: No aortic atherosclerotic calcification present. Stable cardiac silhouette. No pulmonary vascular congestion. OSSEOUS STRUCTURES: No significant abnormalities. VISUALIZED UPPER ABDOMEN: Normal. OTHER FINDINGS: None. IMPRESSION: Stable cardiac silhouette. No pulmonary vascular congestion. Resolution of prior right pleural effusion. No acute cardiopulmonary findings appreciable.
--- NOTE | 2018-12-16 10:20 | CARD ---
APPROVED REPORT Date of service: 12/15/2018 EKG Measurement Heart [id number] <Conclusion> Normal sinus rhythm Normal Electrocardiogram
[2018-12-16] MEDS ORDERED: Insulin Lispro (humaLOG) 100 Units/ml Inj SC ONE (11:45)
--- NOTE | 2018-12-16 15:29 | CP.PCM.HP ---
History of Present Illness - History of Present Illness History of Present Illness: CC: Chest pain. 52 y/o F, with multiple chronic medical conditions, including ESRD on HD TTS, Anemia on CKD, Kidney transplant, Asthma, Schizophrenia, Depression, Anxiety. 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 Pt described Chest pain as mid-sternal, intermittent, moderate intensity 5:10, non radiated, associated to SOB, cough, dry. Worsening symptoms: Hypoglycemia BS 44 while in the ER, also found with elevated BP 178/86 and went up to 200/98. Chronic swelling BLE. Aggravated factor: Walking/ Movements. Pt denied: fever, chills, n/v/d, abdominal pain, urinary symptoms, syncope, sick contact, recent travel out of [facility]. EKG: Normal sinus rhythm. CXR: No acute cardiopulmonary disease. Present on Admission - Present on Admission Any Indicators Present on Admission: No Review of Systems - Constitutional Constitutional: Other (negative) - EENT Eyes: Other (negative) Ears: Other (negative) Nose/Mouth/Throat: Other (negative) - Cardiovascular Cardiovascular: Chest Pain - Respiratory Respiratory: Cough, Dyspnea - Gastrointestinal Gastrointestinal: Other (negative) - Genitourinary Genitourinary: Other (negative) - Musculoskeletal Musculoskeletal: Other (negative) - Integumentary Integumentary: Other (negative) - Neurological Neurological: Other (negative) - Psychiatric Psychiatric: Anxiety, Depression - Endocrine Endocrine: Other (negative) - Hematologic/Lymphatic Hematologic: Other (anemia) Past Patient History - Infectious Disease Hx of Infectious Diseases: None - Past Medical History & Family History Past Medical History?: Yes Pertinent Family History: Unknown - Past Social History Smoking Status: Never Smoked Alcohol: None Drugs: Denies Home Situation {Lives}: With Family - CARDIAC Hx Cardiac Disorders: Yes Hx Hypertension: Yes - PULMONARY Hx Respiratory Disorders: Yes Hx Asthma: Yes - NEUROLOGICAL Hx Neurological Disorder: Yes - HEENT Hx HEENT Problems: No - RENAL Hx Chronic Kidney Disease: Yes Hx Dialysis: Yes Date of Last Dialysis Treatment: 12/15/18 - ENDOCRINE/METABOLIC Hx Endocrine Disorders: Yes Hx Diabetes Mellitus Type 2: Yes - HEMATOLOGICAL/ONCOLOGICAL Hx Blood Disorders: Yes Hx Anemia: Yes - INTEGUMENTARY Hx Dermatological Problems: No - MUSCULOSKELETAL/RHEUMATOLOGICAL Hx Musculoskeletal Disorders: No Hx Falls: No - GASTROINTESTINAL Hx Gastrointestinal Disorders: Yes Hx Gall Bladder Disease: Yes (gallbladder stones) - GENITOURINARY/GYNECOLOGICAL Hx Genitourinary Disorders: No - PSYCHIATRIC Hx Psychophysiologic Disorder: Yes Hx Anxiety: Yes Hx Depression: Yes Hx Substance Use: No - SURGICAL HISTORY Hx Surgeries: Yes Hx Cholecystectomy: Yes Other/Comment: Kidney trasplant 2009. Ol non functioning AV fistula L arm, Perma Cath, new AV fistula R arm. - ANESTHESIA Hx Anesthesia: Yes Hx Anesthesia Reactions: No Hx Malignant Hyperthermia: No Meds Allergies/Adverse Reactions: Allergies Allergy/AdvReac Type Severity Reaction Status Date / Time iodine Allergy URTICARIA Verified 12/15/18 21:44 vitamin K2 Allergy ANAPHYLAXIS Verified 12/15/18 21:44 Physical Exam - Constitutional Appears: No Acute Distress, Chronically Ill - Head Exam Head Exam: NORMAL INSPECTION - Eye Exam Eye Exam: PERRL - ENT Exam ENT Exam: Normal Exam - Neck Exam Neck exam: Positive for: Normal Inspection - Respiratory Exam Respiratory Exam: NORMAL BREATHING PATTERN - Cardiovascular Exam Cardiovascular Exam: REGULAR RHYTHM - GI/Abdominal Exam GI & Abdominal Exam: Normal Bowel Sounds, Soft - Extremities Exam Additional comments: RUE AV fistula with bruit and thrill, edema BLE - Back Exam Back exam: NORMAL INSPECTION - Neurological Exam Neurological exam: Alert, Oriented x3 Additional comments: No motor/sensory deficit - Psychiatric Exam Psychiatric exam: Anxious - Skin Skin Exam: Warm Results - Vital Signs Recent Vital Signs: Last Vital Signs Temp 98.9 F 12/16/18 12:18 Pulse 80 12/16/18 15:24 Resp 18 12/16/18 12:18 BP 166/63 H 12/16/18 15:24 Pulse Ox 94 L 12/16/18 12:18 reviewed Michael - Labs Result Diagrams: 12/19/18 05:15 12/19/18 05:15 Labs: Laboratory Results - last 24 hr 12/15/18 12/15/18 12/15/18 21:49 22:08 22:56 WBC RBC Hgb Hct MCV MCH MCHC RDW Plt Count MPV Neut % (Auto) Lymph % (Auto) Day % (Auto) Eos % (Auto) Baso % (Auto) Neut # (Auto) Lymph # (Auto) Day # (Auto) Eos # (Auto) Baso # (Auto) Neutrophils % (Manual) Lymphocytes % (Manual) Monocytes % (Manual) Eosinophils % (Manual) Platelet Estimate Polychromasia Hypochromasia (manual) Anisocytosis (manual) PT INR APTT Sodium 136 Potassium 3.9 Chloride 90 L Carbon Dioxide 37 H Anion Gap 13 BUN 22 H Creatinine 2.7 H Est GFR ( Amer) 23 Est GFR (Non-Af Amer) 19 POC Glucose (mg/dL) 44 L 67 Random Glucose 58 L Calcium 8.6 Total Bilirubin 0.6 AST 25 ALT 19 Alkaline Phosphatase 141 H D Troponin I < 0.0120 NT-Pro-B Natriuret Pep 19368 H Total Protein 7.1 Albumin 3.8 Globulin 3.3 Albumin/Globulin Ratio 1.1 12/15/18 12/15/18 12/15/18 22:56 22:56 23:26 WBC 5.2 RBC 2.55 L Hgb 7.5 L Hct 23.0 L MCV 90.0 MCH 29.4 MCHC 32.7 L RDW 17.4 H Plt Count 145 MPV 7.0 L Neut % (Auto) 78.9 H Lymph % (Auto) 8.1 L Day % (Auto) 8.0 Eos % (Auto) 4.2 H Baso % (Auto) 0.8 Neut # (Auto) 4.1 Lymph # (Auto) 0.4 L Day # (Auto) 0.4 Eos # (Auto) 0.2 Baso # (Auto) 0.0 Neutrophils % (Manual) 73 Lymphocytes % (Manual) 11 L Monocytes % (Manual) 11 H Eosinophils % (Manual) 5 Platelet Estimate Normal Polychromasia Slight Hypochromasia (manual) Moderate Anisocytosis (manual) Slight PT 14.9 H INR 1.3 APTT 35.0 Sodium Potassium Chloride Carbon Dioxide Anion Gap BUN Creatinine Est GFR ( Amer) Est GFR (Non-Af Amer) POC Glucose (mg/dL) 60 L Random Glucose Calcium Total Bilirubin AST ALT Alkaline Phosphatase Troponin I NT-Pro-B Natriuret Pep Total Protein Albumin Globulin Albumin/Globulin Ratio 12/16/18 12/16/18 12/16/18 02:47 06:29 11:00 WBC RBC Hgb Hct MCV MCH MCHC RDW Plt Count MPV Neut % (Auto) Lymph % (Auto) Day % (Auto) Eos % (Auto) Baso % (Auto) Neut # (Auto) Lymph # (Auto) Day # (Auto) Eos # (Auto) Baso # (Auto) Neutrophils % (Manual) Lymphocytes % (Manual) Monocytes % (Manual) Eosinophils % (Manual) Platelet Estimate Polychromasia Hypochromasia (manual) Anisocytosis (manual) PT INR APTT Sodium Potassium Chloride Carbon Dioxide Anion Gap BUN Creatinine Est GFR ( Amer) Est GFR (Non-Af Amer) POC Glucose (mg/dL) 130 H 328 H 425 H* Random Glucose Calcium Total Bilirubin AST ALT Alkaline Phosphatase Troponin I NT-Pro-B Natriuret Pep Total Protein Albumin Globulin Albumin/Globulin Ratio - Imaging and Cardiology Chest x-ray Status: Report reviewed by me ([email or web address]) Assessment & Plan (1) Chest pain Status: Acute Priority: High Comment: 2nd to uncontrolled Hypertension (2) Anemia in CKD (chronic kidney disease) Status: Acute Priority: High (3) ESRD (end stage renal disease) on dialysis Status: Chronic Priority: High (4) Status post kidney transplant Status: Chronic Priority: High (5) HTN (hypertension) Status: Chronic Priority: High (6) Hypoglycemia Status: Acute Priority: High (7) Diabetes mellitus Status: Chronic Priority: High (8) JUVENCIO (acute kidney injury) Status: Acute Priority: High - Assessment and Plan (Free Text) Plan: Pt on O2 NC, continue Coreg, Isosorbide, Cozaar, Lipitor, Lexapro, Risperdal and rest of Tx. Endocrinology and Nephrology consult. - Date & Time Date: 12/16/18 Time: 11:30
--- NOTE | 2018-12-16 20:50 | CARD ---
APPROVED REPORT Date of service: 12/16/2018 EKG Measurement Heart [id number] <Conclusion> Normal sinus rhythm Normal ECG
[2018-12-16] MEDS ORDERED: Insulin Detemir 100 Units/ml Inj SC SCH (22:00)
[2018-12-17] MEDS: Pantoprazole 40 mg EC Tab PO SCH (08:22)
[2018-12-17] MEDS: Insulin Lispro Mix 75/25 100 units/ml (HumaLog) 10ml SC SCH (08:29)
[2018-12-17 12:52] LABS: HEMOGLOBIN 7.3 g/dL (12.0-16.0); MEAN CELL VOLUME 90.7 fl (81.0-99.0); RBC 2.53 Mil/uL (3.80-5.20); RED CELL DISTRIBUTION WIDTH 17.9 % (11.5-14.5); WHITE BLOOD COUNT 5.2 K/uL (4.8-10.8)
--- NOTE | 2018-12-17 16:26 | CP.PCM.PN ---
Subjective - Date & Time of Evaluation Date of Evaluation: 12/17/18 Time of Evaluation: 10:00 - Subjective Subjective: F/U CP no AD, N/C, Patient is afraid of "low blood sugar" Objective - Vital Signs/Intake and Output Vital Signs (last 24 hours): Temp Pulse Resp BP Pulse Ox 97.5 F L 63 18 171/92 H 91 L 12/17/18 15:55 12/17/18 15:55 12/17/18 15:55 12/17/18 15:55 12/17/18 15:55 - Medications Medications: Current Medications Acetaminophen (Tylenol 325mg Tab) 650 mg PO Q4 PRN PRN Reason: Pain, Mild (1-3) Last Admin: 12/17/18 15:00 Dose: 650 mg Atorvastatin Calcium (Lipitor) 10 mg PO DAILY [facility] Last Admin: 12/17/18 08:22 Dose: 10 mg Benztropine Mesylate (Cogentin) 1 mg PO Q12 [facility] Last Admin: 12/17/18 08:22 Dose: 1 mg Carvedilol (Coreg) 25 mg PO Q12 [facility] Last Admin: 12/17/18 08:23 Dose: 25 mg Diphenhydramine HCl (Benadryl) 25 mg PO Q4 PRN PRN Reason: itchiness Last Admin: 12/17/18 15:01 Dose: 25 mg Escitalopram Oxalate (Lexapro) 5 mg PO DAILY [facility] Last Admin: 12/17/18 08:22 Dose: 5 mg Home Med (Melatonin [Melatonin]) 5 mg PO HS PRN PRN Reason: Insomnia Hydralazine HCl (Apresoline) 50 mg PO Q8H [facility] Last Admin: 12/17/18 15:00 Dose: 50 mg Insulin Detemir (Levemir) 6 units SC HS [facility] Insulin Human Lispro (Humalog) 0 units SC ACHS [facility] Insulin Lispro Protam/Lispro Human (Humalog Mix 75/25) 12 units SC ACD [facility] Insulin Lispro Protam/Lispro Human (Humalog Mix 75/25) 18 units SC ACB [facility] Isosorbide Dinitrate (Isordil) 5 mg PO Q12 [facility] Last Admin: 12/17/18 08:22 Dose: 5 mg Losartan Potassium (Cozaar) 50 mg PO DAILY [facility] Last Admin: 12/17/18 08:22 Dose: 50 mg Pantoprazole Sodium (Protonix Ec Tab) 40 mg PO DAILY [facility] Last Admin: 12/17/18 08:22 Dose: 40 mg Risperidone (Risperdal Tab) 2 mg PO Q12 [facility] Last Admin: 12/17/18 08:24 Dose: 2 mg Sevelamer Carbonate (Renvela) 2,400 mg PO TID [facility] Last Admin: 12/17/18 15:01 Dose: 2,400 mg Sodium Bicarbonate (Sodium Bicarbonate Tab) 1,950 mg PO TID [facility] Last Admin: 12/17/18 13:03 Dose: Not Given - Labs Labs: 12/17/18 12:15 12/15/18 22:56 PT 14.9 Seconds (9.8-13.1) H 12/15/18 22:56 INR 1.3 12/15/18 22:56 APTT 35.0 Seconds (25.6-37.1) 12/15/18 22:56 - Constitutional Appears: No Acute Distress, Chronically Ill - Head Exam Head Exam: NORMAL INSPECTION - Eye Exam Eye Exam: PERRL - ENT Exam ENT Exam: Normal Exam - Neck Exam Neck Exam: Normal Inspection - Respiratory Exam Respiratory Exam: NORMAL BREATHING PATTERN - Cardiovascular Exam Cardiovascular Exam: REGULAR RHYTHM - GI/Abdominal Exam GI & Abdominal Exam: Soft, Normal Bowel Sounds - Extremities Exam Additional comments: AV Fistula with bruit and thrill RUE, edema BLE - Back Exam Back Exam: NORMAL INSPECTION - Neurological Exam Neurological Exam: Alert, Oriented x3. absent: Motor Sensory Deficit - Psychiatric Exam Psychiatric exam: Anxious - Skin Skin Exam: Warm Assessment and Plan (1) Chest pain Status: Acute (2) Hypoglycemia Status: Acute (3) HTN (hypertension) Status: Chronic (4) Anemia in CKD (chronic kidney disease) Status: Acute (5) JUVENCIO (acute kidney injury) Status: Chronic (6) Diabetes mellitus Status: Chronic (7) ESRD (end stage renal disease) on dialysis Status: Chronic (8) Status post kidney transplant Status: Chronic - Assessment and Plan (Free Text) Plan: f/u Endocrine consult, Hgb 7.3 , transfuse 2 U PRBC, Renal consult, HD, conntinue rest of Tx
--- NOTE | 2018-12-17 19:17 | CP.PCM.CON ---
History of Present Illness - History of Present Illness History of Present Illness: REASONS FOR CONSULT : ESRD ON HD T T S ANEMIA OF CKD .. REQIURING TRANSFUSION AT PRESENT S/P FAILED RENAL TRANSPLANT .. BACK ON HD ALL EMR REVIEWED .. PT WAS SEEN AND EXAMINED CC: Chest pain. 52 y/o F, with multiple chronic medical conditions, including ESRD on HD TTS, Anemia on CKD, Kidney transplant, Asthma, Schizophrenia, Depression, Anxiety. 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 Pt described Chest pain as mid-sternal, intermittent, moderate intensity 5:10, non radiated, associated to SOB, cough, d ry. Worsening symptoms: Hypoglycemia BS 44 while in the ER, also found with elevated BP 178/86 and went up to 200/98. Chronic swelling BLE. Aggravated factor: Walking/ Movements. Pt denied: fever, chills, n/v/d, abdominal pain, urinary symptoms, syncope, sick contact, recent travel out of [facility]. EKG: Normal sinus rhythm. CXR: No acute cardiopulmonary disease. Past Patient History - Infectious Disease Hx of Infectious Diseases: None - Past Medical History & Family History Past Medical History?: Yes - Past Social History Smoking Status: Never Smoked Alcohol: None Drugs: Denies Home Situation {Lives}: With Family - CARDIAC Hx Cardiac Disorders: Yes Hx Hypertension: Yes - PULMONARY Hx Respiratory Disorders: Yes Hx Asthma: Yes - NEUROLOGICAL Hx Neurological Disorder: Yes - HEENT Hx HEENT Problems: No - RENAL Hx Chronic Kidney Disease: Yes Hx Dialysis: Yes Date of Last Dialysis Treatment: 12/15/18 - ENDOCRINE/METABOLIC Hx Endocrine Disorders: Yes Hx Diabetes Mellitus Type 2: Yes - HEMATOLOGICAL/ONCOLOGICAL Hx Blood Disorders: Yes Hx Anemia: Yes - INTEGUMENTARY Hx Dermatological Problems: No - MUSCULOSKELETAL/RHEUMATOLOGICAL Hx Musculoskeletal Disorders: No Hx Falls: No - GASTROINTESTINAL Hx Gastrointestinal Disorders: Yes Hx Gall Bladder Disease: Yes (gallbladder stones) - GENITOURINARY/GYNECOLOGICAL Hx Genitourinary Disorders: No - PSYCHIATRIC Hx Psychophysiologic Disorder: Yes Hx Anxiety: Yes Hx Depression: Yes Hx Substance Use: No - SURGICAL HISTORY Hx Surgeries: Yes Hx Cholecystectomy: Yes Other/Comment: Kidney trasplant 2008. Ol non functioning AV fistula L arm, Perma Cath, new AV fistula R arm. - ANESTHESIA Hx Anesthesia: Yes Hx Anesthesia Reactions: No Hx Malignant Hyperthermia: No Meds Allergies/Adverse Reactions: Allergies Allergy/AdvReac Type Severity Reaction Status Date / Time iodine Allergy URTICARIA Verified 12/15/18 21:44 vitamin K2 Allergy ANAPHYLAXIS Verified 12/15/18 21:44 - Medications Medications: Current Medications Acetaminophen (Tylenol 325mg Tab) 650 mg PO Q4 PRN PRN Reason: Pain, Mild (1-3) Last Admin: 12/17/18 15:00 Dose: 650 mg Atorvastatin Calcium (Lipitor) 10 mg PO DAILY [facility] Last Admin: 12/17/18 08:22 Dose: 10 mg Benztropine Mesylate (Cogentin) 1 mg PO Q12 [facility] Last Admin: 12/17/18 08:22 Dose: 1 mg Carvedilol (Coreg) 25 mg PO Q12 [facility] Last Admin: 12/17/18 08:23 Dose: 25 mg Diphenhydramine HCl (Benadryl) 25 mg PO Q4 PRN PRN Reason: itchiness Last Admin: 12/17/18 15:01 Dose: 25 mg Escitalopram Oxalate (Lexapro) 5 mg PO DAILY [facility] Last Admin: 12/17/18 08:22 Dose: 5 mg Home Med (Melatonin [Melatonin]) 5 mg PO HS PRN PRN Reason: Insomnia Hydralazine HCl (Apresoline) 50 mg PO Q8H [facility] Last Admin: 12/17/18 15:00 Dose: 50 mg Insulin Detemir (Levemir) 6 units SC HS [facility] Insulin Human Lispro (Humalog) 0 units SC ACHS [facility] Insulin Lispro Protam/Lispro Human (Humalog Mix 75/25) 12 units SC ACD [facility] Insulin Lispro Protam/Lispro Human (Humalog Mix 75/25) 18 units SC ACB [facility] Isosorbide Dinitrate (Isordil) 5 mg PO Q12 [facility] Last Admin: 12/17/18 08:22 Dose: 5 mg Losartan Potassium (Cozaar) 50 mg PO DAILY [facility] Last Admin: 12/17/18 08:22 Dose: 50 mg Pantoprazole Sodium (Protonix Ec Tab) 40 mg PO DAILY [facility] Last Admin: 12/17/18 08:22 Dose: 40 mg Risperidone (Risperdal Tab) 2 mg PO Q12 [facility] Last Admin: 12/17/18 08:24 Dose: 2 mg Sevelamer Carbonate (Renvela) 2,400 mg PO TID [facility] Last Admin: 12/17/18 15:01 Dose: 2,400 mg Sodium Bicarbonate (Sodium Bicarbonate Tab) 1,950 mg PO TID [facility] Last Admin: 12/17/18 13:03 Dose: Not Given Results - Vital Signs Recent Vital Signs: Last Vital Signs Temp 97.5 F L 12/17/18 15:55 Pulse 63 12/17/18 15:55 Resp 18 12/17/18 15:55 BP 171/92 H 12/17/18 15:55 Pulse Ox 91 L 12/17/18 15:55 - Labs Result Diagrams: 12/17/18 12:15 12/15/18 22:56 Labs: Laboratory Results - last 24 hr 12/16/18 12/16/18 12/17/18 21:33 22:13 05:53 WBC RBC Hgb Hct MCV MCH MCHC RDW Plt Count POC Glucose (mg/dL) 82 102 129 H Blood Type Antibody Screen Crossmatch BBK History Checked 12/17/18 12/17/18 12/17/18 10:59 12:15 17:00 WBC 5.2 RBC 2.53 L Hgb 7.3 L Hct 23.0 L MCV 90.7 MCH 29.0 MCHC 32.0 L RDW 17.9 H Plt Count 138 POC Glucose (mg/dL) 133 H 90 Blood Type Antibody Screen Crossmatch BBK History Checked 12/17/18 18:30 WBC RBC Hgb Hct MCV MCH MCHC RDW Plt Count POC Glucose (mg/dL) Blood Type O POSITIVE Antibody Screen Negative Crossmatch See Detail BBK History Checked Patient has bt Assessment & Plan - Assessment and Plan (Free Text) Assessment: ESRD ON HD T T S ANEMIA OF CKD MMP P : HD IN AM TRANSFUSE 2 U PRBC TOMORROW ON HD C/O CURRENT CARE NEEDS RE EDUCATION ABOUT HER RENAL DIET 2 G NA . 2 G K . 1800 ARGENIS ADA . F R 1000 CC / D NEEDS DIETARY CONSULT AND COUNSELLING - Date & Time Date: 12/17/18 Time: 15:00
[2018-12-17] MEDS: Insulin Lispro (humaLOG) 100 Units/ml Inj SC SCH (21:51)
[2018-12-17] MEDS ORDERED: Insulin Detemir 100 Units/ml Inj SC SCH (22:00)
--- NOTE | 2018-12-18 02:22 | CON ---
DATE: 12/17/2018 ENDOCRINOLOGY CONSULT LOCATION: Room 417. HISTORY OF PRESENT ILLNESS: This is a 52-year-old female with known history of type 2 insulin-requiring diabetes, presenting here with symptomatic hypoglycemia and glucose levels of 44 mg/dL and is now being referred for diabetic evaluation and management. PAST MEDICAL HISTORY: As mentioned above, history of type 2 insulin-requiring diabetes, on a combination of a premixed insulin regimen with Novolin 70/30 given as 26 units twice daily with Lantus given as 18 units at bedtime, history of hypertension and dyslipidemia, history of diabetic retinopathy, polyneuropathy, and nephropathy with end-stage renal disease and dialysis dependence. History of generalized anxiety and depression with psychotropic medications, history of a previous renal transplant some years ago which eventually failed, and the patient had to revert back to hemodialysis taken three times a week as noted. History of accelerated hypertension with underlying dyslipidemia. FAMILY HISTORY: Positive for diabetes and hypertension. SOCIAL HISTORY: The patient has supportive family. No known substance use. REVIEW OF SYSTEMS: As mentioned above, admits to generalized body weakness with episodic bouts of dizziness and lightheadedness, worse on the day of admission. Also admits to visual blurring and bifrontal headaches. Admits to precordial chest pain with progressive shortness of breath initially on exertion, then at rest with paroxysmal nocturnal dyspnea. Her oral intake has been variable with nausea, dyspepsia, and vague upper abdominal pains. Also admits to lower extremity painful paresthesias, especially nocturnally. PHYSICAL EXAMINATION: GENERAL: This is an average built overweight female, in no apparent distress. VITAL SIGNS: Blood pressure of 160/100, pulse of 100 beats per minute and regular, temperature 98, respirations 20. Height is 5 feet 1 inch. Weight is 176 pounds. HEENT: Head normocephalic. Eyes anicteric with pink conjunctivae. Funduscopy not possible at this time. Ears, nose, and throat, otherwise, normal. NECK: Supple. Thyroid gland is normal in size. No carotid bruits or any cervical adenopathy. CARDIOPULMONARY: Some adynamic precordium. S1, S2 rapid and regular. LUNGS: Clear to auscultation. ABDOMEN: Obese, soft with positive bowel sounds. EXTREMITIES: There is +2 bipedal edema and diminished pulses accordingly. LABORATORY DATA: Her hemoglobin is 7.3 g, hematocrit of 23, MCV 90, platelets 138, and WBC is 5.2. Her chemistry showed a BUN of 22, sodium 136, potassium 3.9, chloride 90, CO2 of 37, glucose 58, and creatinine 2.7. Her subsequent glucose have been erratic and fluctuating, ranging from 60 to 425 mg/dL. Her latest chemistry showed a BUN of 120. Her latest glucose levels have ranged from 102 to 129 and 133, and it was 425 yesterday as noted. ASSESSMENT: This is a 52-year-old female with uncontrolled and decompensated type 2 insulin-requiring diabetes presenting here with extremes of glycemic fluctuations, and actually had moderate hypoglycemia with associated neuroglycopenic and hyperadrenergic manifestations of the same. She also has diabetic microvascular complications of retinopathy, polyneuropathy, and nephropathy with end-stage renal disease and dialysis dependence. PLAN OF MANAGEMENT: We will modify once again her basal and bolus insulin regimen to optimize metabolic control. We will clearly need much lower insulin requirements, especially with underlying end-stage renal disease, and detailed orders will be given. We will lower the premixed insulin regimen with Humalog 75/25 down to 18 units before breakfast and 12 units before dinner to start today. We will modify the coverage scale to obviate hypoglycemia and detailed orders have been given. We will also lower the basal insulin with Levemir to be given as 6 units subcu at bedtime daily instead of 18 units as ordered. We will obtain serial chemistries and supplement accordingly as needed. We will follow. Chastity Mcgrath MD
[2018-12-18 05:40] LABS: ALBUMIN 3.4 g/dL (3.5-5.0)
[2018-12-18] MEDS ORDERED: Insulin Lispro Mix 75/25 100 units/ml (HumaLog) 10ml SC SCH (07:30)
[2018-12-18] MEDS: Pantoprazole 40 mg EC Tab PO SCH (08:49)
[2018-12-18] MEDS: Insulin Lispro (humaLOG) 100 Units/ml Inj SC SCH ×4 (08:54→21:28)
--- NOTE | 2018-12-18 16:20 | CP.PCM.PN ---
Subjective - Date & Time of Evaluation Date of Evaluation: 12/18/18 Time of Evaluation: 10:40 - Subjective Subjective: F/U CP Pt No A/D, N/C, having HD. Objective - Vital Signs/Intake and Output Vital Signs (last 24 hours): Temp Pulse Resp BP Pulse Ox 97.6 F 67 18 186/82 H 95 12/18/18 16:09 12/18/18 16:09 12/18/18 16:09 12/18/18 16:09 12/18/18 16:09 Intake and Output: 12/18/18 12/18/18 06:59 18:59 Intake Total 650 Balance 650 - Medications Medications: Current Medications Acetaminophen (Tylenol 325mg Tab) 650 mg PO Q4 PRN PRN Reason: Pain, Mild (1-3) Last Admin: 12/18/18 09:03 Dose: 650 mg Atorvastatin Calcium (Lipitor) 10 mg PO DAILY [facility] Last Admin: 12/18/18 08:51 Dose: 10 mg Benztropine Mesylate (Cogentin) 1 mg PO Q12 [facility] Last Admin: 12/18/18 08:52 Dose: 1 mg Carvedilol (Coreg) 25 mg PO Q12 [facility] Last Admin: 12/18/18 12:33 Dose: 25 mg Diphenhydramine HCl (Benadryl) 25 mg PO Q4 PRN PRN Reason: itchiness Last Admin: 12/17/18 22:14 Dose: 25 mg Escitalopram Oxalate (Lexapro) 5 mg PO DAILY [facility] Last Admin: 12/18/18 08:49 Dose: 5 mg Hydralazine HCl (Apresoline) 50 mg PO Q8H [facility] Last Admin: 12/18/18 12:34 Dose: 50 mg Insulin Human Lispro (Humalog) 0 units SC ACHS [facility] Last Admin: 12/18/18 11:06 Dose: Not Given Insulin Lispro Protam/Lispro Human (Humalog Mix 75/25) 12 units SC ACD [facility] Insulin Lispro Protam/Lispro Human (Humalog Mix 75/25) 18 units SC ACB [facility] Last Admin: 12/18/18 08:50 Dose: 18 units Isosorbide Dinitrate (Isordil) 5 mg PO Q12 [facility] Last Admin: 12/18/18 08:55 Dose: 5 mg Losartan Potassium (Cozaar) 50 mg PO DAILY [facility] Last Admin: 12/18/18 12:35 Dose: 50 mg Pantoprazole Sodium (Protonix Ec Tab) 40 mg PO DAILY [facility] Last Admin: 12/18/18 08:49 Dose: 40 mg Risperidone (Risperdal Tab) 2 mg PO Q12 [facility] Last Admin: 12/18/18 08:53 Dose: 2 mg Sevelamer Carbonate (Renvela) 2,400 mg PO TID [facility] Last Admin: 12/18/18 12:36 Dose: 2,400 mg Sodium Bicarbonate (Sodium Bicarbonate Tab) 1,950 mg PO TID [facility] Last Admin: 12/18/18 12:37 Dose: 1,950 mg - Labs Labs: 12/17/18 12:15 12/18/18 04:50 PT 14.9 Seconds (9.8-13.1) H 12/15/18 22:56 INR 1.3 12/15/18 22:56 APTT 35.0 Seconds (25.6-37.1) 12/15/18 22:56 - Constitutional Appears: No Acute Distress - Head Exam Head Exam: NORMAL INSPECTION - Eye Exam Eye Exam: PERRL - ENT Exam ENT Exam: Normal Exam - Neck Exam Neck Exam: Normal Inspection - Respiratory Exam Respiratory Exam: NORMAL BREATHING PATTERN - Cardiovascular Exam Cardiovascular Exam: REGULAR RHYTHM - GI/Abdominal Exam GI & Abdominal Exam: Soft, Normal Bowel Sounds - Extremities Exam Additional comments: RUE fistula with bruit and thrill, edema BLE - Back Exam Back Exam: NORMAL INSPECTION - Neurological Exam Neurological Exam: Alert, Oriented x3. absent: Motor Sensory Deficit - Psychiatric Exam Psychiatric exam: Anxious - Skin Skin Exam: Warm Assessment and Plan (1) Chest pain Status: Acute (2) Hypoglycemia Status: Acute (3) HTN (hypertension) Status: Chronic (4) Anemia in CKD (chronic kidney disease) Status: Acute (5) JUVENCIO (acute kidney injury) Status: Chronic (6) Diabetes mellitus Status: Chronic (7) ESRD (end stage renal disease) on dialysis Status: Chronic (8) Status post kidney transplant Status: Chronic - Assessment and Plan (Free Text) Plan: Endocrine seo consultant adjust the insulin regimen, f/u BS.
[2018-12-18] MEDS: Insulin Lispro Mix 75/25 100 units/ml (HumaLog) 10ml SC SCH (16:23)
--- NOTE | 2018-12-18 20:49 | CP.PCM.PN ---
Subjective - Date & Time of Evaluation Date of Evaluation: 12/18/18 Time of Evaluation: 10:00 - Subjective Subjective: SEEN ON RENAL F/U SEEN ON HD GETTING HD ALONG WITH 2 U PRBC FEELS IMPROVED .. 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 Objective - Vital Signs/Intake and Output Vital Signs (last 24 hours): Temp Pulse Resp BP Pulse Ox 98.1 F 63 18 183/81 H 94 L 12/18/18 20:06 12/18/18 20:06 12/18/18 20:06 12/18/18 20:06 12/18/18 20:06 Intake and Output: 12/18/18 12/19/18 18:59 06:59 Intake Total 650 Balance 650 - Medications Medications: Current Medications Acetaminophen (Tylenol 325mg Tab) 650 mg PO Q4 PRN PRN Reason: Pain, Mild (1-3) Last Admin: 12/18/18 16:20 Dose: 650 mg Atorvastatin Calcium (Lipitor) 10 mg PO DAILY [facility] Last Admin: 12/18/18 08:51 Dose: 10 mg Benztropine Mesylate (Cogentin) 1 mg PO Q12 [facility] Last Admin: 12/18/18 08:52 Dose: 1 mg Carvedilol (Coreg) 25 mg PO Q12 [facility] Last Admin: 12/18/18 12:33 Dose: 25 mg Clonidine HCl (Catapres) 0.2 mg PO TID [facility] Diphenhydramine HCl (Benadryl) 25 mg PO Q4 PRN PRN Reason: itchiness Last Admin: 12/18/18 16:28 Dose: 25 mg Escitalopram Oxalate (Lexapro) 5 mg PO DAILY [facility] Last Admin: 12/18/18 08:49 Dose: 5 mg Hydralazine HCl (Apresoline) 50 mg PO Q8H [facility] Last Admin: 12/18/18 12:34 Dose: 50 mg Insulin Human Lispro (Humalog) 0 units SC ACHS [facility] Last Admin: 12/18/18 16:24 Dose: Not Given Insulin Lispro Protam/Lispro Human (Humalog Mix 75/25) 12 units SC ACD [facility] Last Admin: 12/18/18 16:23 Dose: 12 units Insulin Lispro Protam/Lispro Human (Humalog Mix 75/25) 18 units SC ACB [facility] Last Admin: 12/18/18 08:50 Dose: 18 units Isosorbide Dinitrate (Isordil) 5 mg PO Q12 [facility] Last Admin: 12/18/18 08:55 Dose: 5 mg Losartan Potassium (Cozaar) 50 mg PO DAILY [facility] Last Admin: 12/18/18 12:35 Dose: 50 mg Pantoprazole Sodium (Protonix Ec Tab) 40 mg PO DAILY [facility] Last Admin: 12/18/18 08:49 Dose: 40 mg Risperidone (Risperdal Tab) 2 mg PO Q12 [facility] Last Admin: 12/18/18 08:53 Dose: 2 mg Sevelamer Carbonate (Renvela) 2,400 mg PO TID [facility] Last Admin: 12/18/18 16:21 Dose: 2,400 mg Sodium Bicarbonate (Sodium Bicarbonate Tab) 1,950 mg PO TID [facility] Last Admin: 12/18/18 16:22 Dose: 1,950 mg - Labs Labs: 12/17/18 12:15 12/18/18 04:50 PT 14.9 Seconds (9.8-13.1) H 12/15/18 22:56 INR 1.3 12/15/18 22:56 APTT 35.0 Seconds (25.6-37.1) 12/15/18 22:56 Assessment and Plan - Assessment and Plan (Free Text) Assessment: ESRD ON HD T T S ANEMIA OF CKD .. RECIEVING 2 U PRBC ON HD TODAY MMP P : C/O CURRENT CARE C/O PRESENT MANAGEMENT
--- NOTE | 2018-12-18 23:48 | PN ---
DATE: 12/18/2018 ENDOCRINOLOGY FOLLOWUP NOTE LOCATION: Room 417. SUBJECTIVE: This is a 52-year-old female with a recent admission for sudden onset of precordial chest pain, currently undergoing cardiac workup at this time and has also been referred for evaluation of symptomatic hypoglycemia as noted thereof. Her oral intake has been quite variable with supervening extremes of glycemic fluctuations as noted thereof. Her glucose levels overnight have ranged from 62 to 100 and 115 mg/dL. Her hemoglobin A1c is 4.7%. LABORATORY DATA: Her chemistry showed a BUN of 64, sodium 124, potassium 5.3, chloride 80, CO2 of 32, glucose and creatinine 5.6. Her TSH level is 4.96. Her hemoglobin A1c is 4.7% which actually is falsely low because of the persistent chronic anemia related to underlying end-stage renal disease. ASSESSMENT: This is a 52-year-old female with uncontrolled and decompensated type 2 insulin-requiring diabetes, presenting here with symptomatic hypoglycemia and supervening neuroglycopenic and hyperadrenergic manifestations of the same. She also has diabetic microvascular complications of retinopathy, polyneuropathy and nephropathy with end-stage renal disease as noted. PLAN OF MANAGEMENT: We will modify once again her basal and bolus insulin regimen and actually discontinue the overnight basal insulin given as Levemir at bedtime daily. We will modify and lower her premix insulin regimen with Humalog 75/25 given as 18 units before breakfast and 12 units before dinner to start today as ordered. We will obtain serial chemistries and supplement accordingly as needed. We will also encourage the patient to have increased frequent small feedings with bedtime snacks to obviate the extremes of glycemic fluctuations thereof. We will follow and advise accordingly. Chastity Mcgrath MD
[2018-12-19 06:23] LABS: ALB/GLOB RATIO 1.2 (1.0-2.1); ALBUMIN 3.5 g/dL (3.5-5.0); CALCIUM 8.5 mg/dL (8.4-10.2); MEAN CELL VOLUME 90.2 fl (81.0-99.0); MEAN CORPUSCULAR HEMOGLOBIN 29.9 pg (27.0-31.0); MEAN CORPUSCULAR HGB CONC 33.1 g/dL (33.0-37.0); RBC 3.01 Mil/uL (3.80-5.20); RED CELL DISTRIBUTION WIDTH 17.1 % (11.5-14.5); WHITE BLOOD COUNT 4.8 K/uL (4.8-10.8)
[2018-12-19] MEDS: Insulin Lispro Mix 75/25 100 units/ml (HumaLog) 10ml SC SCH ×2 (08:13→16:38)
[2018-12-19] MEDS: Insulin Lispro (humaLOG) 100 Units/ml Inj SC SCH ×4 (08:13→21:45)
[2018-12-19] MEDS: Pantoprazole 40 mg EC Tab PO SCH (08:15)
--- NOTE | 2018-12-19 13:58 | CP.PCM.PN ---
Subjective - Date & Time of Evaluation Date of Evaluation: 12/19/18 Time of Evaluation: 12:20 - Subjective Subjective: F/U CP No A/D. N/C, no pain. Objective - Vital Signs/Intake and Output Vital Signs (last 24 hours): Temp Pulse Resp BP Pulse Ox 97.8 F 70 18 160/77 H 94 L 12/19/18 12:06 12/19/18 13:53 12/19/18 12:06 12/19/18 13:53 12/19/18 12:06 - Medications Medications: Current Medications Acetaminophen (Tylenol 325mg Tab) 650 mg PO Q4 PRN PRN Reason: Pain, Mild (1-3) Last Admin: 12/19/18 08:10 Dose: 650 mg Atorvastatin Calcium (Lipitor) 10 mg PO DAILY [facility] Last Admin: 12/19/18 08:15 Dose: 10 mg Benztropine Mesylate (Cogentin) 1 mg PO Q12 [facility] Last Admin: 12/19/18 08:12 Dose: 1 mg Carvedilol (Coreg) 25 mg PO Q12 [facility] Last Admin: 12/19/18 08:11 Dose: 25 mg Clonidine HCl (Catapres) 0.2 mg PO TID [facility] Last Admin: 12/19/18 12:09 Dose: 0.2 mg Diphenhydramine HCl (Benadryl) 25 mg PO Q4 PRN PRN Reason: itchiness Last Admin: 12/19/18 08:10 Dose: 25 mg Escitalopram Oxalate (Lexapro) 5 mg PO DAILY [facility] Last Admin: 12/19/18 08:14 Dose: 5 mg Hydralazine HCl (Apresoline) 50 mg PO Q8H [facility] Last Admin: 12/19/18 13:53 Dose: 50 mg Insulin Human Lispro (Humalog) 0 units SC ACHS [facility] Last Admin: 12/19/18 12:10 Dose: Not Given Insulin Lispro Protam/Lispro Human (Humalog Mix 75/25) 12 units SC ACD [facility] Last Admin: 12/18/18 16:23 Dose: 12 units Insulin Lispro Protam/Lispro Human (Humalog Mix 75/25) 20 units SC ACB [facility] Last Admin: 12/19/18 08:13 Dose: 20 units Isosorbide Dinitrate (Isordil) 5 mg PO Q12 [facility] Last Admin: 12/19/18 08:14 Dose: 5 mg Losartan Potassium (Cozaar) 50 mg PO DAILY [facility] Last Admin: 12/19/18 08:13 Dose: 50 mg Pantoprazole Sodium (Protonix Ec Tab) 40 mg PO DAILY [facility] Last Admin: 12/19/18 08:15 Dose: 40 mg Risperidone (Risperdal Tab) 2 mg PO Q12 [facility] Last Admin: 12/19/18 08:12 Dose: 2 mg Sevelamer Carbonate (Renvela) 2,400 mg PO TID [facility] Last Admin: 12/19/18 12:10 Dose: 2,400 mg Sodium Bicarbonate (Sodium Bicarbonate Tab) 1,950 mg PO TID [facility] Last Admin: 12/19/18 12:10 Dose: 1,950 mg - Labs Labs: 12/19/18 05:15 12/19/18 05:15 PT 14.9 Seconds (9.8-13.1) H 12/15/18 22:56 INR 1.3 12/15/18 22:56 APTT 35.0 Seconds (25.6-37.1) 12/15/18 22:56 - Constitutional Appears: No Acute Distress, Chronically Ill - Head Exam Head Exam: NORMAL INSPECTION - Eye Exam Eye Exam: PERRL - ENT Exam ENT Exam: Normal Exam - Neck Exam Neck Exam: Normal Inspection - Respiratory Exam Respiratory Exam: Decreased Breath Sounds - Cardiovascular Exam Cardiovascular Exam: REGULAR RHYTHM - GI/Abdominal Exam GI & Abdominal Exam: Soft, Normal Bowel Sounds - Extremities Exam Additional comments: RUE AV fistula with bruit and Thrill, edema BLE - Back Exam Back Exam: NORMAL INSPECTION - Neurological Exam Neurological Exam: Alert, Oriented x3. absent: Motor Sensory Deficit - Psychiatric Exam Psychiatric exam: Anxious - Skin Skin Exam: Warm Assessment and Plan (1) Chest pain Status: Acute (2) Hypoglycemia Status: Acute (3) HTN (hypertension) Status: Chronic (4) Anemia in CKD (chronic kidney disease) Status: Acute (5) JUVENCIO (acute kidney injury) Status: Acute (6) Diabetes mellitus Status: Chronic (7) ESRD (end stage renal disease) on dialysis Status: Chronic (8) Status post kidney transplant Status: Chronic - Assessment and Plan (Free Text) Plan: Continue Apresoline, Coreg, Cozaar, Catapress, Lipitor and rest of Tx.
--- NOTE | 2018-12-19 14:45 | PQF ---
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 include: Chest Pain Plan: Pt on O2 NC, continue Coreg, Isosorbide, Cozaar, Lipitor, Lexapro, Risperdal and rest of Tx. Endocrinology and Nephrology consult. H and P includes: Plan: Pt on O2 NC, continue Coreg, Isosorbide, Cozaar, Lipitor, Lexapro, Risperdal and rest of Tx. Endocrinology and Nephrology consult. The patient's Clinical Indicators include: -- Query created by: Carol Garcia on 12/18/2018 10:56 AM Electronically signed by: Sravan Ace MD 12/19/2018 2:41 PM
--- NOTE | 2018-12-19 14:45 | PQF ---
PROVIDER RESPONSE TEXT: Acute Kidney Injury on CKD: POA REVIEWER QUERY TEXT: Clarification of Clinical Diagnostic Findings Please further clarify: JUVENCIO (acute kidney injury) Status: Chronic Priority: High as listed in the H a nd P: i.e. --Acute Kidney Injury: Acute --Other explanation of clinical finding Creatinine: 2.7->5.6 Est GFR: ( Amer): 23->10 Est GFR (Non-Af Amer):19->8 -dialysis The patient's Clinical Indicators include: -- Query created by: Carol Garcia on 12/18/2018 11:21 AM Electronically signed by: Sravan Ace MD 12/19/2018 2:41 PM
--- NOTE | 2018-12-19 14:45 | PQF ---
PROVIDER RESPONSE TEXT: Provider was unable to determine a response for this query. REVIEWER QUERY TEXT: Schizophrenia Type Schizophrenia is documented in the Medical Record. Please specify the type if known Such as: -- Simple schizophrenia -- Catatonic schizophrenia -- Paranoid schizophrenia -- Latent schizophrenia -- Residual -- Cyclic -- Acute undifferentiated -- Chronic undifferentiated -- Other, please specify H and P includes: PMH: Schizophrenia - Lexapro, Risperdal The patient's Clinical Indicators include: -- Query created by: Carol Garcia on 12/18/2018 11:35 AM Electronically signed by: Sravan Ace MD 12/19/2018 2:41 PM
--- NOTE | 2018-12-19 21:49 | PN ---
DATE: 12/19/2018 ENDOCRINOLOGY FOLLOWUP NOTE LOCATION: Room 417. SUBJECTIVE: This is a 52-year-old female with recent uncontrolled type 2 insulin-requiring diabetes, presenting here with precordial chest pain and progressive shortness of breath and is now being followed closely for metabolic management. Her glycemic levels are fluctuating but improved, and the glucose values today have ranged from 131 to 164 and 188 mg/dL. LABORATORY DATA: Her chemistry showed a BUN of 38, sodium 126, potassium 5.5, chloride 86, CO2 of 32, glucose 117 and creatinine 4.1. Her bedtime glucose was 175 mg/dL. Her TSH is 4.72 with a T4 of 10.5, indicative of early subclinical hypothyroidism as noted thereof. ASSESSMENT: This is a 52-year-old female with uncontrolled and decompensated type 2 insulin-requiring diabetes, presenting here with extremes of glycemic fluctuations and supervening hyperglycemic accelerations and is now being followed closely for metabolic management. She also has diabetic microvascular complications of retinopathy, polyneuropathy and nephropathy with end-stage renal disease as noted. Moreover, she also has subclinical hypothyroidism, most likely related to underlying autoimmune thyroiditis which is fairly common in patients with type 2 diabetes as noted. PLAN OF MANAGEMENT: We will initiate a very low-dose levothyroxine replacement therapy with levothyroxine given as 25 mcg once daily in the morning as ordered. We will titrate incrementally as indicated to optimize metabolic control. We will also modify the coverage scale to obviate hypoglycemia and detailed orders were given. Moreover, we will continue the modified premix insulin regimen with Humalog 75/25 given as 12 units before dinner and 20 units before breakfast as ordered. We will obtain serial chemistries and supplement accordingly as needed. We will follow. Chastity Mcgrath MD
[2018-12-20] MEDS: Insulin Lispro (humaLOG) 100 Units/ml Inj SC SCH ×4 (06:42→21:25)
--- NOTE | 2018-12-20 09:00 | CP.PCM.CON ---
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 She was also noticing bouts of hypoglycemia[place] [id number] and initial TnI -ve. Ms. Zaldivar is developmentally delayed and was not able to provide much useful information on obtaining of clinical history she denied having any chest pains and said that she was brought to the hospital because she was crying and her family felt that she should be evaluated. Apparently on review of records as obtained by Briana Newman NP there was a recent ischemic evaluation in anticipa tion for a possible pretransplantation for her kidneys than review of nuclear stress test showed there was some kind of breast tissue attenuation artifact but no evidence of reversible ischemia the LV was mildly dilated with ejection fraction of 64%. Review of Systems - Review of Systems Systems not reviewed;Unavailable: Acuity of Condition - Constitutional Constitutional: As Per HPI - EENT Eyes: As Per HPI Ears: As Per HPI Nose/Mouth/Throat: As Per HPI - Breasts Breasts: As Per HPI - Cardiovascular Cardiovascular: As Per HPI - Respiratory Respiratory: As Per HPI - Gastrointestinal Gastrointestinal: As Per HPI - Genitourinary Genitourinary: As Per HPI - Reproductive: Female Reproductive:Female: As Per HPI - Menstruation Menstruation: As Per HPI - Musculoskeletal Musculoskeletal: As Per HPI - Integumentary Integumentary: As Per HPI - Neurological Neurological: As Per HPI - Psychiatric Psychiatric: As Per HPI - Endocrine Endocrine: As Per HPI - Hematologic/Lymphatic Hematologic: As Per HPI Past Patient History - Infectious Disease Hx of Infectious Diseases: None - Past Medical History & Family History Past Medical History?: Yes - Past Social History Smoking Status: Never Smoked Alcohol: None Drugs: Denies Home Situation {Lives}: With Family - CARDIAC Hx Cardiac Disorders: Yes Hx Hypertension: Yes - PULMONARY Hx Respiratory Disorders: Yes Hx Asthma: Yes - NEUROLOGICAL Hx Neurological Disorder: Yes - HEENT Hx HEENT Problems: No - RENAL Hx Chronic Kidney Disease: Yes Hx Dialysis: Yes Date of Last Dialysis Treatment: 12/15/18 - ENDOCRINE/METABOLIC Hx Endocrine Disorders: Yes Hx Diabetes Mellitus Type 2: Yes - HEMATOLOGICAL/ONCOLOGICAL Hx Blood Disorders: Yes Hx Anemia: Yes - INTEGUMENTARY Hx Dermatological Problems: No - MUSCULOSKELETAL/RHEUMATOLOGICAL Hx Musculoskeletal Disorders: No Hx Falls: No - GASTROINTESTINAL Hx Gastrointestinal Disorders: Yes Hx Gall Bladder Disease: Yes (gallbladder stones) - GENITOURINARY/GYNECOLOGICAL Hx Genitourinary Disorders: No - PSYCHIATRIC Hx Psychophysiologic Disorder: Yes Hx Anxiety: Yes Hx Depression: Yes Hx Substance Use: No - SURGICAL HISTORY Hx Surgeries: Yes Hx Cholecystectomy: Yes Other/Comment: Kidney trasplant 2009. Ol non functioning AV fistula L arm, Perma Cath, new AV fistula R arm. - ANESTHESIA Hx Anesthesia: Yes Hx Anesthesia Reactions: No Hx Malignant Hyperthermia: No Meds Allergies/Adverse Reactions: Allergies Allergy/AdvReac Type Severity Reaction Status Date / Time iodine Allergy URTICARIA Verified 12/15/18 21:44 vitamin K2 Allergy ANAPHYLAXIS Verified 12/15/18 21:44 - Medications Medications: Current Medications Acetaminophen (Tylenol 325mg Tab) 650 mg PO Q4 PRN PRN Reason: Pain, Mild (1-3) Last Admin: 12/19/18 23:51 Dose: 650 mg Atorvastatin Calcium (Lipitor) 10 mg PO DAILY [facility] Last Admin: 12/19/18 08:15 Dose: 10 mg Benztropine Mesylate (Cogentin) 1 mg PO Q12 [facility] Last Admin: 12/19/18 21:42 Dose: 1 mg Carvedilol (Coreg) 25 mg PO Q12 [facility] Last Admin: 12/19/18 21:45 Dose: Not Given Clonidine HCl (Catapres) 0.2 mg PO TID [facility] Last Admin: 12/19/18 16:39 Dose: 0.2 mg Diphenhydramine HCl (Benadryl) 25 mg PO Q4 PRN PRN Reason: itchiness Last Admin: 12/19/18 23:51 Dose: 25 mg Escitalopram Oxalate (Lexapro) 5 mg PO DAILY [facility] Last Admin: 12/19/18 08:14 Dose: 5 mg Hydralazine HCl (Apresoline) 50 mg PO Q8H [facility] Last Admin: 12/20/18 04:44 Dose: 50 mg Insulin Human Lispro (Humalog) 0 units SC ACHS [facility] Last Admin: 12/20/18 06:42 Dose: Not Given Insulin Lispro Protam/Lispro Human (Humalog Mix 75/25) 12 units SC ACD [facility] Last Admin: 12/19/18 16:38 Dose: 12 units Insulin Lispro Protam/Lispro Human (Humalog Mix 75/25) 20 units SC ACB [facility] Last Admin: 12/19/18 08:13 Dose: 20 units Isosorbide Dinitrate (Isordil) 5 mg PO Q12 [facility] Last Admin: 12/19/18 21:42 Dose: 5 mg Losartan Potassium (Cozaar) 50 mg PO DAILY [facility] Last Admin: 12/19/18 08:13 Dose: 50 mg Pantoprazole Sodium (Protonix Ec Tab) 40 mg PO DAILY [facility] Last Admin: 12/19/18 08:15 Dose: 40 mg Risperidone (Risperdal Tab) 2 mg PO Q12 [facility] Last Admin: 12/19/18 21:42 Dose: 2 mg Sevelamer Carbonate (Renvela) 2,400 mg PO TID [facility] Last Admin: 12/19/18 16:37 Dose: 2,400 mg Sodium Bicarbonate (Sodium Bicarbonate Tab) 1,950 mg PO TID [facility] Last Admin: 12/19/18 16:37 Dose: Not Given Physical Exam - Constitutional Appears: Well - Head Exam Head Exam: ATRAUMATIC, NORMAL INSPECTION, NORMOCEPHALIC - Eye Exam Eye Exam: EOMI, Normal appearance, PERRL Pupil Exam: NORMAL ACCOMODATION, PERRL - ENT Exam ENT Exam: Mucous Membranes Moist, Normal Exam - Neck Exam Neck exam: Positive for: Normal Inspection - Respiratory Exam Respiratory Exam: Clear to Auscultation Bilateral, NORMAL BREATHING PATTERN - Cardiovascular Exam Cardiovascular Exam: REGULAR RHYTHM, RRR, +S1, +S2, Systolic Murmur - GI/Abdominal Exam GI & Abdominal Exam: Normal Bowel Sounds, Soft. absent: Tenderness - Extremities Exam Extremities exam: Positive for: normal inspection - Back Exam Back exam: NORMAL INSPECTION - Neurological Exam Neurological exam: Alert, CN II-XII Intact, Normal Gait, Oriented x3, Reflexes Normal - Psychiatric Exam Psychiatric exam: Normal Affect, Normal Mood - Skin Skin Exam: Dry, Intact, Normal Color, Warm Results - Vital Signs Recent Vital Signs: Last Vital Signs Temp 97.9 F 12/20/18 08:00 Pulse 60 12/20/18 08:00 Resp 18 12/20/18 08:00 BP 178/87 H 12/20/18 08:00 Pulse Ox 94 L 12/20/18 08:00 - Labs Result Diagrams: 12/19/18 05:15 12/19/18 05:15 Labs: Laboratory Results - last 24 hr 12/19/18 12/19/18 12/19/18 11:12 15:48 21:14 POC Glucose (mg/dL) 188 H 164 H 238 H 12/20/18 05:20 POC Glucose (mg/dL) 137 H Assessment & Plan (1) Chest pain Assessment and Plan: hx unclear as patient not stating that she had chest pain but developmentally delayed recent ischemic evaluation at [facility] for pretransplant showed no evidence of ischemia and EF of 64% from cardiac standpoint she can be discharged with outpt f/u for further titration of therapy Status: Acute Priority: High (2) Hypoglycemia Status: Acute Priority: High (3) HTN (hypertension) Assessment and Plan: on cloniding,coreg,losartan,hydralazine meds to be titrated as outpt Status: Chronic Priority: High (4) Anemia Status: Acute Priority: High (5) Anemia in CKD (chronic kidney disease) Status: Acute Priority: High
[2018-12-20] MEDS: Pantoprazole 40 mg EC Tab PO SCH (09:47)
[2018-12-20] MEDS: Insulin Lispro Mix 75/25 100 units/ml (HumaLog) 10ml SC SCH ×2 (10:08→17:32)
--- NOTE | 2018-12-20 13:41 | CP.PCM.PN ---
Subjective - Date & Time of Evaluation Date of Evaluation: 12/20/18 - Subjective Subjective: no AD, no Chest pain, Pt is having dialysis Objective - Vital Signs/Intake and Output Vital Signs (last 24 hours): Temp Pulse Resp BP Pulse Ox 97.6 F 56 L 18 170/92 H 95 12/20/18 11:44 12/20/18 11:44 12/20/18 11:44 12/20/18 11:44 12/20/18 11:44 - Medications Medications: Current Medications Acetaminophen (Tylenol 325mg Tab) 650 mg PO Q4 PRN PRN Reason: Pain, Mild (1-3) Last Admin: 12/20/18 09:23 Dose: 650 mg Atorvastatin Calcium (Lipitor) 10 mg PO DAILY [facility] Last Admin: 12/20/18 09:38 Dose: 10 mg Benztropine Mesylate (Cogentin) 1 mg PO Q12 [facility] Last Admin: 12/20/18 09:32 Dose: 1 mg Carvedilol (Coreg) 25 mg PO Q12 [facility] Last Admin: 12/20/18 10:51 Dose: 25 mg Clonidine HCl (Catapres) 0.2 mg PO TID [facility] Last Admin: 12/20/18 09:44 Dose: 0.2 mg Diphenhydramine HCl (Benadryl) 25 mg PO Q4 PRN PRN Reason: itchiness Last Admin: 12/20/18 09:38 Dose: 25 mg Escitalopram Oxalate (Lexapro) 5 mg PO DAILY [facility] Last Admin: 12/20/18 09:40 Dose: 5 mg Hydralazine HCl (Apresoline) 50 mg PO Q8H [facility] Last Admin: 12/20/18 04:44 Dose: 50 mg Insulin Human Lispro (Humalog) 0 units SC ACHS [facility] Last Admin: 12/20/18 06:42 Dose: Not Given Insulin Lispro Protam/Lispro Human (Humalog Mix 75/25) 12 units SC ACD [facility] Last Admin: 12/19/18 16:38 Dose: 12 units Insulin Lispro Protam/Lispro Human (Humalog Mix 75/25) 20 units SC ACB [facility] Last Admin: 12/20/18 10:08 Dose: 20 units Isosorbide Dinitrate (Isordil) 5 mg PO Q12 [facility] Last Admin: 12/20/18 09:41 Dose: 5 mg Losartan Potassium (Cozaar) 50 mg PO DAILY [facility] Last Admin: 12/20/18 09:42 Dose: 50 mg Pantoprazole Sodium (Protonix Ec Tab) 40 mg PO DAILY [facility] Last Admin: 12/20/18 09:47 Dose: 40 mg Risperidone (Risperdal Tab) 2 mg PO Q12 [facility] Last Admin: 12/20/18 09:41 Dose: 2 mg Sevelamer Carbonate (Renvela) 2,400 mg PO TID [facility] Last Admin: 12/20/18 09:48 Dose: 2,400 mg Sodium Bicarbonate (Sodium Bicarbonate Tab) 1,950 mg PO TID [facility] Last Admin: 12/20/18 09:31 Dose: 1,950 mg - Labs Labs: 12/19/18 05:15 12/19/18 05:15 PT 14.9 Seconds (9.8-13.1) H 12/15/18 22:56 INR 1.3 12/15/18 22:56 APTT 35.0 Seconds (25.6-37.1) 12/15/18 22:56 - Constitutional Appears: No Acute Distress - Head Exam Head Exam: NORMAL INSPECTION - Eye Exam Eye Exam: PERRL - ENT Exam ENT Exam: Normal Exam - Neck Exam Neck Exam: Normal Inspection - Respiratory Exam Respiratory Exam: Clear to Ausculation Bilateral - Cardiovascular Exam Cardiovascular Exam: REGULAR RHYTHM - GI/Abdominal Exam GI & Abdominal Exam: Soft, Normal Bowel Sounds - Extremities Exam Additional comments: R AV fistula - Back Exam Back Exam: NORMAL INSPECTION - Neurological Exam Neurological Exam: Alert, CN II-XII Intact Additional comments: no focal motor/sensory deficit - Psychiatric Exam Psychiatric exam: Anxious - Skin Skin Exam: Warm Assessment and Plan (1) Chest pain Status: Acute (2) Hypoglycemia Status: Acute (3) HTN (hypertension) Status: Chronic (4) Anemia in CKD (chronic kidney disease) Status: Acute (5) JUVENCIO (acute kidney injury) Status: Acute (6) Diabetes mellitus Status: Chronic (7) ESRD (end stage renal disease) on dialysis Status: Chronic (8) Status post kidney transplant Status: Chronic (9) Hyponatremia Status: Acute - Assessment and Plan (Free Text) Plan: database reporting consultant to review STT last week NYP ,BP increased, Clonidine dosis increased, continue rest of BP meds., f/u Endocrine consult, frequent episodes of hypoglicemia, f/u Na
--- NOTE | 2018-12-20 15:19 | CP.PCM.PCO ---
Assessment/Plan - Assessment/Plan Assessment: Had a discussion with patient and her sister, patient had a stress test last week at [facility] which showed normal myocardial perfusion. Report left in the chart for Cardiology - Dr Barrera to review.
--- NOTE | 2018-12-20 23:12 | PN ---
DATE: 12/20/2018 ENDOCRINOLOGY FOLLOWUP NOTE LOCATION: Room 404. SUBJECTIVE: This is a 52-year-old female with recent uncontrolled type 2 insulin-requiring diabetes, now being followed closely for metabolic management. Her glycemic levels are fluctuating also with the variability of her oral intake as noted. LABORATORY DATA: Her glucose levels have ranged now from 137 to 164 and 238 mg/dL. Her chemistry showed a BUN of 38, sodium 126, potassium 5.5, chloride 86, CO2 of 32, glucose 117 and creatinine 4.1. PLAN OF MANAGEMENT: So, at this time we will continue the premixed insulin regimen as given and modified Humalog 75/25 given as 20 units before breakfast and 14 units before dinner as ordered. We will continue also the low-dose correction scale using Humalog insulin as given. We will hold off any more basal insulin at this time to obviate further fasting hypoglycemia thereof. We will follow and advise accordingly. Chastity Mcgrath MD
[2018-12-21] MEDS: Insulin Lispro (humaLOG) 100 Units/ml Inj SC SCH ×4 (09:08→21:48)
[2018-12-21] MEDS: Insulin Lispro Mix 75/25 100 units/ml (HumaLog) 10ml SC SCH ×2 (09:09→18:39)
[2018-12-21] MEDS: Pantoprazole 40 mg EC Tab PO SCH (09:10)
--- NOTE | 2018-12-21 13:29 | CP.PCM.DIS ---
Provider - Provider Date of Admission: 12/15/18 23:45 Attending physician: Sravan Ace MD Consults: 12/17/18 14:53 Nephrology Consult Routine Comment: Consulting Provider: Garo Malone Consulting Physician: Garo Malone Reason for Consult: esrd anemia 12/17/18 14:55 Endocrinology Consult Routine Comment: Consulting Provider: Chastity Mcgrath Consulting Physician: Chastity Mcgrath Reason for Consult: hypoglycemia 12/19/18 15:02 Cardiology Consult Routine Comment: Consulting Provider: Thor Barrera Consulting Physician: Thor Barrera Reason for Consult: chest pain Diagnosis - Discharge Diagnosis (1) Chest pain Status: Acute Priority: High (2) Hypoglycemia Status: Acute Priority: High (3) HTN (hypertension) Status: Chronic Priority: High (4) Anemia in CKD (chronic kidney disease) Status: Acute Priority: High (5) JUVENCIO (acute kidney injury) Status: Acute Priority: High (6) Diabetes mellitus Status: Chronic Priority: High (7) ESRD (end stage renal disease) on dialysis Status: Chronic Priority: High (8) Status post kidney transplant Status: Chronic Priority: High Hospital Course - Lab Results Lab Results: Most Recent Lab Values WBC 4.8 K/uL (4.8-10.8) 12/19/18 05:15 RBC 3.01 Mil/uL (3.80-5.20) L 12/19/18 05:15 Hgb 9.0 g/dL (12.0-16.0) L 12/19/18 05:15 Hct 27.1 % (34.0-47.0) L 12/19/18 05:15 MCV 90.2 fl (81.0-99.0) 12/19/18 05:15 MCH 29.9 pg (27.0-31.0) 12/19/18 05:15 MCHC 33.1 g/dL (33.0-37.0) 12/19/18 05:15 RDW 17.1 % (11.5-14.5) H 12/19/18 05:15 Plt Count 133 K/uL (130-400) 12/19/18 05:15 MPV 7.0 fl (7.2-11.7) L 12/15/18 22:56 Neut % (Auto) 78.9 % (50.0-75.0) H 12/15/18 22:56 Lymph % (Auto) 8.1 % (20.0-40.0) L 12/15/18 22:56 [place] % (Auto) 8.0 % (0.0-10.0) 12/15/18 22:56 Eos % (Auto) 4.2 % (0.0-4.0) H 12/15/18 22:56 Baso % (Auto) 0.8 % (0.0-2.0) 12/15/18 22:56 Neut # (Auto) 4.1 K/uL (1.8-7.0) 12/15/18 22:56 Lymph # (Auto) 0.4 K/uL (1.0-4.3) L 12/15/18 22:56 [place] # (Auto) 0.4 K/uL (0.0-0.8) 12/15/18 22:56 Eos # (Auto) 0.2 K/uL (0.0-0.7) 12/15/18 22:56 Baso # (Auto) 0.0 K/uL (0.0-0.2) 12/15/18 22:56 Neutrophils % (Manual) 73 % (42-75) 12/15/18 22:56 Lymphocytes % (Manual) 11 % (20-50) L 12/15/18 22:56 Monocytes % (Manual) 11 % (0-10) H 12/15/18 22:56 Eosinophils % (Manual) 5 % (0-7) 12/15/18 22:56 Platelet Estimate Normal (NORMAL) 12/15/18 22:56 Polychromasia Slight 12/15/18 22:56 Hypochromasia (manual) Moderate 12/15/18 22:56 Anisocytosis (manual) Slight 12/15/18 22:56 PT 14.9 Seconds (9.8-13.1) H 12/15/18 22:56 INR 1.3 12/15/18 22:56 APTT 35.0 Seconds (25.6-37.1) 12/15/18 22:56 Sodium 126 mmol/l (132-148) L 12/19/18 05:15 Potassium 5.5 MMOL/L (3.6-5.0) H 12/19/18 05:15 Chloride 86 mmol/L (98-107) L 12/19/18 05:15 Carbon Dioxide 32 mmol/L (22-30) H 12/19/18 05:15 Anion Gap 14 (10-20) 12/19/18 05:15 BUN 38 mg/dl (7-17) H 12/19/18 05:15 Creatinine 4.1 mg/dl (0.7-1.2) H 12/19/18 05:15 Est GFR ( Amer) 14 12/19/18 05:15 Est GFR (Non-Af Amer) 12 12/19/18 05:15 POC Glucose (mg/dL) 77 mg/dL (65-110) 12/21/18 11:16 Random Glucose 117 mg/dL (65-105) H 12/19/18 05:15 Hemoglobin A1c 4.7 % (4.2-6.5) 12/18/18 04:50 Calcium 8.5 mg/dL (8.4-10.2) 12/19/18 05:15 Phosphorus 2.9 mg/dl (2.5-4.5) 12/18/18 04:50 Magnesium 2.1 MG/DL (1.6-2.3) 12/19/18 05:15 Total Bilirubin 0.5 mg/dl (0.2-1.3) 12/19/18 05:15 AST 23 U/L (14-36) 12/19/18 05:15 ALT 25 U/L (9-52) 12/19/18 05:15 Alkaline Phosphatase 131 U/L (38-126) H 12/19/18 05:15 Troponin I < 0.0120 ng/mL (0.00-0.120) 12/15/18 22:56 NT-Pro-B Natriuret Pep 43808 pg/ml (0-900) H 12/15/18 22:56 Total Protein 6.4 G/DL (6.3-8.2) 12/19/18 05:15 Albumin 3.5 g/dL (3.5-5.0) 12/19/18 05:15 Globulin 2.9 gm/dL (2.2-3.9) 12/19/18 05:15 Albumin/Globulin Ratio 1.2 (1.0-2.1) 12/19/18 05:15 Thyroxine (T4) 10.5 ug/dl (5.5-11.0) 12/19/18 05:15 TSH 3rd Generation 4.72 mIU/ML (0.46-4.68) H 12/19/18 05:15 Thyroperoxidase Ab <1 IU/mL (<9) 12/19/18 05:15 Blood Type O POSITIVE 12/17/18 18:30 Antibody Screen Negative 12/17/18 18:30 Crossmatch See Detail 12/17/18 18:30 BBK History Checked Patient has bt 12/17/18 18:30 Discharge Exam - Head Exam Head Exam: ATRAUMATIC, NORMAL INSPECTION, NORMOCEPHALIC Discharge Plan - Follow Up Plan Condition: STABLE Disposition: HOME/ ROUTINE Instructions: Low Blood Sugar, Adult (DC), Kidney Failure (DC), Chest Pain (DC) Additional Instructions: continue dialysis [id number] follow up with in 1 week Referrals: Garo Malone MD [Staff Provider] - Sravan Ace MD [Family Provider] -
[2018-12-21 14:49] LABS: CALCIUM 8.9 mg/dL (8.4-10.2)
[2018-12-21] MEDS ORDERED: Sodium Chloride 0.9% 1,000 ML IV SCH (17:45)
--- NOTE | 2018-12-21 19:07 | CP.PCM.PN ---
Subjective - Date & Time of Evaluation Date of Evaluation: 12/21/18 Time of Evaluation: 14:00 - Subjective Subjective: no AD, N/C, no C/P Objective - Vital Signs/Intake and Output Vital Signs (last 24 hours): Temp Pulse Resp BP Pulse Ox 97.3 F L 56 L 18 153/76 H 96 12/21/18 16:26 12/21/18 16:26 12/21/18 16:26 12/21/18 16:26 12/21/18 16:26 - Medications Medications: Current Medications Acetaminophen (Tylenol 325mg Tab) 650 mg PO Q4 PRN PRN Reason: Pain, Mild (1-3) Last Admin: 12/21/18 16:35 Dose: 650 mg Atorvastatin Calcium (Lipitor) 10 mg PO DAILY [facility] Last Admin: 12/21/18 09:10 Dose: 10 mg Benztropine Mesylate (Cogentin) 1 mg PO Q12 [facility] Last Admin: 12/21/18 09:07 Dose: 1 mg Carvedilol (Coreg) 25 mg PO Q12 [facility] Last Admin: 12/21/18 09:07 Dose: Not Given Clonidine HCl (Catapres) 0.2 mg PO TID [facility] Last Admin: 12/21/18 18:39 Dose: 0.2 mg Diphenhydramine HCl (Benadryl) 25 mg PO Q4 PRN PRN Reason: itchiness Last Admin: 12/21/18 09:05 Dose: 25 mg Escitalopram Oxalate (Lexapro) 5 mg PO DAILY [facility] Last Admin: 12/21/18 09:10 Dose: 5 mg Hydralazine HCl (Apresoline) 50 mg PO Q8H [facility] Last Admin: 12/21/18 16:38 Dose: 50 mg Sodium Chloride (Sodium Chloride 0.9%) 1,000 mls @ 30 mls/hr IV .Q24H [facility] Stop: 12/22/18 17:39 Insulin Human Lispro (Humalog) 0 units SC ACHS [facility] Last Admin: 12/21/18 16:39 Dose: Not Given Insulin Lispro Protam/Lispro Human (Humalog Mix 75/25) 20 units SC ACB [facility] Last Admin: 12/21/18 09:09 Dose: 20 units Insulin Lispro Protam/Lispro Human (Humalog Mix 75/25) 14 units SC ACD [facility] Last Admin: 12/21/18 18:39 Dose: Not Given Isosorbide Dinitrate (Isordil) 5 mg PO Q12 [facility] Last Admin: 12/21/18 09:09 Dose: 5 mg Losartan Potassium (Cozaar) 50 mg PO DAILY [facility] Last Admin: 12/21/18 09:08 Dose: 50 mg Pantoprazole Sodium (Protonix Ec Tab) 40 mg PO DAILY [facility] Last Admin: 12/21/18 09:10 Dose: 40 mg Risperidone (Risperdal Tab) 2 mg PO Q12 [facility] Last Admin: 12/21/18 09:11 Dose: 2 mg Sevelamer Carbonate (Renvela) 2,400 mg PO TID [facility] Last Admin: 12/21/18 16:40 Dose: 2,400 mg Sodium Bicarbonate (Sodium Bicarbonate Tab) 1,950 mg PO TID [facility] Last Admin: 12/21/18 16:41 Dose: 1,950 mg - Labs Labs: 12/19/18 05:15 12/21/18 13:35 PT 14.9 Seconds (9.8-13.1) H 12/15/18 22:56 INR 1.3 12/15/18 22:56 APTT 35.0 Seconds (25.6-37.1) 12/15/18 22:56 - Constitutional Appears: No Acute Distress - Head Exam Head Exam: NORMOCEPHALIC - Eye Exam Eye Exam: PERRL - ENT Exam ENT Exam: Normal Exam - Neck Exam Neck Exam: Normal Inspection - Respiratory Exam Respiratory Exam: Clear to Ausculation Bilateral - Cardiovascular Exam Cardiovascular Exam: REGULAR RHYTHM - Extremities Exam Additional comments: R U/E AVF - Back Exam Back Exam: NORMAL INSPECTION - Neurological Exam Neurological Exam: Alert, CN II-XII Intact Additional comments: no focal motor/sensory deficit - Psychiatric Exam Psychiatric exam: Anxious - Skin Skin Exam: Warm Assessment and Plan (1) Chest pain Status: Acute (2) Hypoglycemia Status: Acute (3) HTN (hypertension) Status: Chronic (4) Anemia in CKD (chronic kidney disease) Status: Acute (5) JUVENCIO (acute kidney injury) Status: Acute (6) Diabetes mellitus Status: Chronic (7) ESRD (end stage renal disease) on dialysis Status: Chronic (8) Status post kidney transplant Status: Chronic (9) Hyponatremia Status: Acute - Assessment and Plan (Free Text) Plan: Na 123, IV 0.9 NS, hypoglicemia BS 45, f/u Endocrine and Renal consultants, BP stable
--- NOTE | 2018-12-21 20:15 | CP.PCM.PN ---
Subjective - Date & Time of Evaluation Date of Evaluation: 12/21/18 Time of Evaluation: 15:00 - Subjective Subjective: seen on renal f/u feels improved all previouw emr reviewed labs reviewed Objective - Vital Signs/Intake and Output Vital Signs (last 24 hours): Temp Pulse Resp BP Pulse Ox 97.3 F L 56 L 18 153/76 H 96 12/21/18 16:26 12/21/18 16:26 12/21/18 16:26 12/21/18 16:26 12/21/18 16:26 - Medications Medications: Current Medications Acetaminophen (Tylenol 325mg Tab) 650 mg PO Q4 PRN PRN Reason: Pain, Mild (1-3) Last Admin: 12/21/18 16:35 Dose: 650 mg Atorvastatin Calcium (Lipitor) 10 mg PO DAILY [facility] Last Admin: 12/21/18 09:10 Dose: 10 mg Benztropine Mesylate (Cogentin) 1 mg PO Q12 [facility] Last Admin: 12/21/18 09:07 Dose: 1 mg Carvedilol (Coreg) 25 mg PO Q12 [facility] Last Admin: 12/21/18 09:07 Dose: Not Given Clonidine HCl (Catapres) 0.2 mg PO TID [facility] Last Admin: 12/21/18 18:39 Dose: 0.2 mg Diphenhydramine HCl (Benadryl) 25 mg PO Q4 PRN PRN Reason: itchiness Last Admin: 12/21/18 09:05 Dose: 25 mg Escitalopram Oxalate (Lexapro) 5 mg PO DAILY [facility] Last Admin: 12/21/18 09:10 Dose: 5 mg Hydralazine HCl (Apresoline) 50 mg PO Q8H [facility] Last Admin: 12/21/18 16:38 Dose: 50 mg Insulin Human Lispro (Humalog) 0 units SC ACHS [facility] Last Admin: 12/21/18 16:39 Dose: Not Given Insulin Lispro Protam/Lispro Human (Humalog Mix 75/25) 14 units SC ACB [facility] Insulin Lispro Protam/Lispro Human (Humalog Mix 75/25) 10 units SC ACD [facility] Isosorbide Dinitrate (Isordil) 5 mg PO Q12 [facility] Last Admin: 12/21/18 09:09 Dose: 5 mg Losartan Potassium (Cozaar) 50 mg PO DAILY [facility] Last Admin: 12/21/18 09:08 Dose: 50 mg Pantoprazole Sodium (Protonix Ec Tab) 40 mg PO DAILY [facility] Last Admin: 12/21/18 09:10 Dose: 40 mg Risperidone (Risperdal Tab) 2 mg PO Q12 [facility] Last Admin: 12/21/18 09:11 Dose: 2 mg Sevelamer Carbonate (Renvela) 2,400 mg PO TID [facility] Last Admin: 12/21/18 16:40 Dose: 2,400 mg - Labs Labs: 12/19/18 05:15 12/21/18 13:35 PT 14.9 Seconds (9.8-13.1) H 12/15/18 22:56 INR 1.3 12/15/18 22:56 APTT 35.0 Seconds (25.6-37.1) 12/15/18 22:56 Assessment and Plan - Assessment and Plan (Free Text) Assessment: esrd on hd t t s .. to be c/o anemia of ckd .. h/h stable mmp p : c/o present care c/o current management d/c NA tabs d/c na bicarb tabs
--- NOTE | 2018-12-22 01:08 | PN ---
DATE: 12/21/2018 ENDOCRINOLOGY FOLLOWUP NOTE LOCATION: Room 404. SUBJECTIVE: This is a 52-year-old female with recent uncontrolled type 2 insulin-requiring diabetes, now being followed closely for metabolic management. Her glycemic levels are fluctuating but improved and the glucose values have ranged from 77 to 81 and 103 mg/dL. Her bedtime to glucose was 146 as noted. LABORATORY DATA: Her chemistry showed a BUN of 48, sodium 123, potassium 4.8, chloride 84, CO2 of 30, glucose 45 and creatinine 4.6. PLAN OF MANAGEMENT: So, at this time we will modify once again her premixed insulin regimen and lower the Humalog 70/30 to 14 units before breakfast and lower also the Humulin 70/30 to 10 units before dinner to start tomorrow morning as ordered. We will obtain serial chemistries and supplement accordingly as needed. We will follow. Chastity Mcgrath MD
[2018-12-22] MEDS: Insulin Lispro (humaLOG) 100 Units/ml Inj SC SCH ×4 (08:25→21:26)
[2018-12-22] MEDS: Insulin Lispro Mix 75/25 100 units/ml (HumaLog) 10ml SC SCH ×2 (10:15→17:44)
--- NOTE | 2018-12-22 12:17 | CP.PCM.PN ---
Subjective - Date & Time of Evaluation Date of Evaluation: 12/21/18 Time of Evaluation: 12:00 - Subjective Subjective: pt stable no cp or sob Objective - Vital Signs/Intake and Output Vital Signs (last 24 hours): Temp Pulse Resp BP Pulse Ox 97.5 F L 60 18 154/72 H 96 12/22/18 11:51 12/22/18 11:51 12/22/18 11:51 12/22/18 11:51 12/22/18 11:51 - Medications Medications: Current Medications Acetaminophen (Tylenol 325mg Tab) 650 mg PO Q4 PRN PRN Reason: Pain, Mild (1-3) Last Admin: 12/22/18 00:12 Dose: 650 mg Atorvastatin Calcium (Lipitor) 10 mg PO DAILY [facility] Last Admin: 12/21/18 09:10 Dose: 10 mg Benztropine Mesylate (Cogentin) 1 mg PO Q12 [facility] Last Admin: 12/22/18 10:13 Dose: Not Given Carvedilol (Coreg) 25 mg PO Q12 [facility] Last Admin: 12/22/18 10:13 Dose: Not Given Clonidine HCl (Catapres) 0.2 mg PO TID [facility] Last Admin: 12/22/18 10:13 Dose: Not Given Diphenhydramine HCl (Benadryl) 25 mg PO Q4 PRN PRN Reason: itchiness Last Admin: 12/21/18 09:05 Dose: 25 mg Escitalopram Oxalate (Lexapro) 5 mg PO DAILY [facility] Last Admin: 12/21/18 09:10 Dose: 5 mg Hydralazine HCl (Apresoline) 50 mg PO Q8H [facility] Last Admin: 12/22/18 05:20 Dose: 50 mg Insulin Human Lispro (Humalog) 0 units SC ACHS [facility] Last Admin: 12/22/18 08:25 Dose: Not Given Insulin Lispro Protam/Lispro Human (Humalog Mix 75/25) 14 units SC ACB [facility] Last Admin: 12/22/18 10:15 Dose: Not Given Insulin Lispro Protam/Lispro Human (Humalog Mix 75/25) 10 units SC ACD [facility] Isosorbide Dinitrate (Isordil) 5 mg PO Q12 [facility] Last Admin: 12/22/18 10:14 Dose: Not Given Losartan Potassium (Cozaar) 50 mg PO DAILY [facility] Last Admin: 12/22/18 10:14 Dose: Not Given Pantoprazole Sodium (Protonix Ec Tab) 40 mg PO DAILY [facility] Last Admin: 12/21/18 09:10 Dose: 40 mg Risperidone (Risperdal Tab) 2 mg PO Q12 [facility] Last Admin: 12/21/18 21:52 Dose: 2 mg Sevelamer Carbonate (Renvela) 2,400 mg PO TID [facility] Last Admin: 12/22/18 10:14 Dose: Not Given - Labs Labs: 12/19/18 05:15 12/21/18 13:35 PT 14.9 Seconds (9.8-13.1) H 12/15/18 22:56 INR 1.3 12/15/18 22:56 APTT 35.0 Seconds (25.6-37.1) 12/15/18 22:56 - Constitutional Appears: Well - Head Exam Head Exam: ATRAUMATIC, NORMAL INSPECTION, NORMOCEPHALIC - Eye Exam Eye Exam: EOMI, Normal appearance, PERRL Pupil Exam: NORMAL ACCOMODATION, PERRL - ENT Exam ENT Exam: Mucous Membranes Moist, Normal Exam - Neck Exam Neck Exam: Full ROM, Normal Inspection. absent: Lymphadenopathy - Respiratory Exam Respiratory Exam: Clear to Ausculation Bilateral, NORMAL BREATHING PATTERN - Cardiovascular Exam Cardiovascular Exam: REGULAR RHYTHM, +S1, +S2. absent: Murmur - GI/Abdominal Exam GI & Abdominal Exam: Soft, Normal Bowel Sounds. absent: Tenderness - Extremities Exam Extremities Exam: Full ROM, Normal Capillary Refill, Normal Inspection. absent: Joint Swelling, Pedal Edema - Back Exam Back Exam: NORMAL INSPECTION - Neurological Exam Neurological Exam: Alert, Awake, CN II-XII Intact, Normal Gait, Oriented x3 - Psychiatric Exam Psychiatric exam: Normal Affect, Normal Mood - Skin Skin Exam: Dry, Intact, Normal Color, Warm Assessment and Plan (1) Chest pain Assessment & Plan: stable recent ischemic w/u -ve Status: Acute (2) Hypoglycemia Status: Acute (3) HTN (hypertension) Assessment & Plan: cont coreg,losartan,hydralazinen taper off clonidine dc nitrate Status: Chronic (4) Anemia Status: Acute (5) Anemia in CKD (chronic kidney disease) Status: Acute
[2018-12-22] MEDS: Pantoprazole 40 mg EC Tab PO SCH (14:05)
--- NOTE | 2018-12-22 16:42 | CP.PCM.PN ---
Subjective - Date & Time of Evaluation Date of Evaluation: 12/22/18 Time of Evaluation: 13:00 - Subjective Subjective: F/U CP Pt awake, no c/o, no A/D, no CP Objective - Vital Signs/Intake and Output Vital Signs (last 24 hours): Temp Pulse Resp BP Pulse Ox 97.4 F L 65 19 183/79 H 94 L 12/22/18 16:03 12/22/18 16:03 12/22/18 16:03 12/22/18 16:03 12/22/18 16:03 - Medications Medications: Current Medications Acetaminophen (Tylenol 325mg Tab) 650 mg PO Q4 PRN PRN Reason: Pain, Mild (1-3) Last Admin: 12/22/18 00:12 Dose: 650 mg Atorvastatin Calcium (Lipitor) 10 mg PO DAILY [facility] Last Admin: 12/22/18 14:11 Dose: 10 mg Benztropine Mesylate (Cogentin) 1 mg PO Q12 [facility] Last Admin: 12/22/18 10:13 Dose: Not Given Carvedilol (Coreg) 25 mg PO Q12 [facility] Last Admin: 12/22/18 10:13 Dose: Not Given Clonidine HCl (Catapres) 0.2 mg PO TID [facility] Last Admin: 12/22/18 14:10 Dose: Not Given Diphenhydramine HCl (Benadryl) 25 mg PO Q4 PRN PRN Reason: itchiness Last Admin: 12/21/18 09:05 Dose: 25 mg Escitalopram Oxalate (Lexapro) 5 mg PO DAILY [facility] Last Admin: 12/22/18 14:06 Dose: 5 mg Hydralazine HCl (Apresoline) 50 mg PO Q8H [facility] Last Admin: 12/22/18 14:08 Dose: Not Given Insulin Human Lispro (Humalog) 0 units SC ACHS [facility] Last Admin: 12/22/18 14:10 Dose: Not Given Insulin Lispro Protam/Lispro Human (Humalog Mix 75/25) 14 units SC ACB [facility] Last Admin: 12/22/18 10:15 Dose: Not Given Insulin Lispro Protam/Lispro Human (Humalog Mix 75/25) 10 units SC ACD [facility] Isosorbide Dinitrate (Isordil) 5 mg PO Q12 [facility] Last Admin: 12/22/18 10:14 Dose: Not Given Losartan Potassium (Cozaar) 50 mg PO DAILY [facility] Last Admin: 12/22/18 10:14 Dose: Not Given Pantoprazole Sodium (Protonix Ec Tab) 40 mg PO DAILY [facility] Last Admin: 12/22/18 14:05 Dose: 40 mg Risperidone (Risperdal Tab) 2 mg PO Q12 [facility] Last Admin: 12/22/18 14:12 Dose: 2 mg Sevelamer Carbonate (Renvela) 2,400 mg PO TID [facility] Last Admin: 12/22/18 14:12 Dose: 2,400 mg - Labs Labs: 12/19/18 05:15 12/21/18 13:35 PT 14.9 Seconds (9.8-13.1) H 12/15/18 22:56 INR 1.3 12/15/18 22:56 APTT 35.0 Seconds (25.6-37.1) 12/15/18 22:56 - Constitutional Appears: No Acute Distress - Head Exam Head Exam: NORMAL INSPECTION - Eye Exam Eye Exam: PERRL - ENT Exam ENT Exam: Normal Exam - Neck Exam Neck Exam: Normal Inspection - Respiratory Exam Respiratory Exam: Decreased Breath Sounds - Cardiovascular Exam Cardiovascular Exam: REGULAR RHYTHM - GI/Abdominal Exam GI & Abdominal Exam: Soft, Normal Bowel Sounds - Extremities Exam Additional comments: RUE AV fistula with bruit and thrill - Back Exam Back Exam: NORMAL INSPECTION - Neurological Exam Neurological Exam: Alert, Oriented x3. absent: Motor Sensory Deficit - Psychiatric Exam Psychiatric exam: Anxious - Skin Skin Exam: Warm Assessment and Plan (1) Chest pain Status: Acute (2) Hypoglycemia Status: Acute (3) HTN (hypertension) Status: Chronic (4) Anemia in CKD (chronic kidney disease) Status: Acute (5) JUVENCIO (acute kidney injury) Status: Acute (6) Diabetes mellitus Status: Chronic (7) ESRD (end stage renal disease) on dialysis Status: Chronic (8) Status post kidney transplant Status: Chronic (9) Hyponatremia Status: Acute - Assessment and Plan (Free Text) Plan: Continue BP medications, Lipitor, Lexapro and rest of Tx.
--- NOTE | 2018-12-23 02:38 | PN ---
DATE: 12/22/2018 ENDO FOLLOWUP NOTE LOCATION: In room 404. This is a 52-year-old female with recent uncontrolled type 2 insulin-requiring diabetes, now being followed closely for metabolic management. 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 Her glycemic levels today have improved and have ranged from 108 to 145 and 147 mg/dL. Her latest chemistries showed a BUN of 48, sodium 123, potassium 4.8, chloride 84, CO2 of 30, glucose 45 and creatinine 4.6. So at this time, we will continue the same low-dose and modified premixed insulin regimen as given with Humalog 75/25 given as 14 units before breakfast and 10 units before dinner as ordered. We will obtain serial chemistries and supplement accordingly as needed. We will also continue the low-dose correction scale using Humalog insulin as ordered. We will obtain serial chemistries and supplement accordingly as needed. We will follow. Chastity Mcgrath MD
[2018-12-23] MEDS: Insulin Lispro (humaLOG) 100 Units/ml Inj SC SCH ×4 (07:04→22:25)
[2018-12-23] MEDS: Insulin Lispro Mix 75/25 100 units/ml (HumaLog) 10ml SC SCH ×2 (09:50→17:17)
[2018-12-23] MEDS: Pantoprazole 40 mg EC Tab PO SCH (09:52)
--- NOTE | 2018-12-23 19:53 | CP.PCM.PN ---
Subjective - Date & Time of Evaluation Date of Evaluation: 12/23/18 - Subjective Subjective: F/U CP Alert, No C/O, no A/D. Objective - Vital Signs/Intake and Output Vital Signs (last 24 hours): Temp Pulse Resp BP Pulse Ox 98.1 F 65 18 170/79 H 94 L 12/23/18 16:17 12/23/18 17:17 12/23/18 16:17 12/23/18 17:17 12/23/18 16:17 - Medications Medications: Current Medications Acetaminophen (Tylenol 325mg Tab) 650 mg PO Q4 PRN PRN Reason: Pain, Mild (1-3) Last Admin: 12/23/18 05:31 Dose: 650 mg Atorvastatin Calcium (Lipitor) 10 mg PO DAILY [facility] Last Admin: 12/23/18 09:52 Dose: 10 mg Benztropine Mesylate (Cogentin) 1 mg PO Q12 [facility] Last Admin: 12/23/18 09:48 Dose: 1 mg Carvedilol (Coreg) 25 mg PO Q12 [facility] Last Admin: 12/23/18 09:49 Dose: 25 mg Clonidine HCl (Catapres) 0.2 mg PO TID [facility] Last Admin: 12/23/18 17:17 Dose: 0.2 mg Diphenhydramine HCl (Benadryl) 25 mg PO Q4 PRN PRN Reason: itchiness Last Admin: 12/23/18 05:30 Dose: 25 mg Escitalopram Oxalate (Lexapro) 5 mg PO DAILY [facility] Last Admin: 12/23/18 09:51 Dose: 5 mg Hydralazine HCl (Apresoline) 50 mg PO Q8H [facility] Last Admin: 12/23/18 14:13 Dose: 50 mg Insulin Human Lispro (Humalog) 0 units SC ACHS [facility] Last Admin: 12/23/18 17:14 Dose: Not Given Insulin Lispro Protam/Lispro Human (Humalog Mix 75/25) 14 units SC ACB [facility] Last Admin: 12/23/18 09:50 Dose: 14 units Insulin Lispro Protam/Lispro Human (Humalog Mix 75/25) 10 units SC ACD [facility] Last Admin: 12/23/18 17:17 Dose: 10 units Isosorbide Dinitrate (Isordil) 5 mg PO Q12 [facility] Last Admin: 12/23/18 09:51 Dose: 5 mg Losartan Potassium (Cozaar) 50 mg PO DAILY [facility] Last Admin: 12/23/18 09:49 Dose: 50 mg Pantoprazole Sodium (Protonix Ec Tab) 40 mg PO DAILY [facility] Last Admin: 12/23/18 09:52 Dose: 40 mg Risperidone (Risperdal Tab) 2 mg PO Q12 [facility] Last Admin: 12/23/18 09:53 Dose: 2 mg Sevelamer Carbonate (Renvela) 2,400 mg PO TID [facility] Last Admin: 12/23/18 17:17 Dose: 2,400 mg - Labs Labs: 12/19/18 05:15 12/21/18 13:35 PT 14.9 Seconds (9.8-13.1) H 12/15/18 22:56 INR 1.3 12/15/18 22:56 APTT 35.0 Seconds (25.6-37.1) 12/15/18 22:56 Assessment and Plan (1) Chest pain Status: Acute (2) Hypoglycemia Status: Acute (3) HTN (hypertension) Status: Chronic (4) Anemia in CKD (chronic kidney disease) Status: Acute (5) JUVENCIO (acute kidney injury) Status: Acute (6) Diabetes mellitus Status: Chronic (7) ESRD (end stage renal disease) on dialysis Status: Chronic (8) Status post kidney transplant Status: Chronic (9) Hyponatremia Status: Acute - Assessment and Plan (Free Text) Plan: Continue Catapres, Apresoline, Cozaar, Cogentin, Lexapro, Lipitor and rest of tx.
--- NOTE | 2018-12-24 02:13 | PN ---
DATE: 12/23/2018 SUBJECTIVE: This is a 17-year-old female with recent uncontrolled type 2 insulin-requiring diabetes, now being followed closely for metabolic management. Her glycemic levels are fluctuating and the glucose values today have ranged from 127-136 and 210 mg/dL. Her latest chemistry showed a BUN of 48, sodium 123, potassium 4.8, chloride 84, CO2 of 30, glucose 45 and creatinine 4.6. ASSESSMENT AND PLAN: So at this time we will continue the modified basal of premixed insulin regimen as given with Humalog 75/25 given as 14 units before breakfast and 10 units before dinner as ordered. We have actually discontinued her basal Levemir insulin as given to obviate further fasting hypoglycemia. We will obtain serial chemistries and supplement accordingly as needed. We will follow. Chastity Mcgrath MD
[2018-12-24] MEDS: Insulin Lispro (humaLOG) 100 Units/ml Inj SC SCH ×4 (09:11→21:27)
[2018-12-24] MEDS: Insulin Lispro Mix 75/25 100 units/ml (HumaLog) 10ml SC SCH ×2 (09:14→18:06)
[2018-12-24] MEDS: Pantoprazole 40 mg EC Tab PO SCH (09:17)
[2018-12-24 10:59] LABS: CALCIUM 8.9 mg/dL (8.4-10.2)
--- NOTE | 2018-12-24 15:46 | CP.PCM.PN ---
Subjective - Date & Time of Evaluation Date of Evaluation: 12/24/18 Time of Evaluation: 14:20 - Subjective Subjective: F/U CP Pt with no c/o, no SOB. Objective - Vital Signs/Intake and Output Vital Signs (last 24 hours): Temp Pulse Resp BP Pulse Ox 97.8 F 58 L 20 175/79 H 95 12/24/18 08:45 12/24/18 08:45 12/24/18 08:45 12/24/18 08:45 12/24/18 08:45 - Medications Medications: Current Medications Acetaminophen (Tylenol 325mg Tab) 650 mg PO Q4 PRN PRN Reason: Pain, Mild (1-3) Last Admin: 12/24/18 09:05 Dose: 650 mg Atorvastatin Calcium (Lipitor) 10 mg PO DAILY [facility] Last Admin: 12/24/18 09:16 Dose: 10 mg Benztropine Mesylate (Cogentin) 1 mg PO Q12 [facility] Last Admin: 12/24/18 09:09 Dose: 1 mg Carvedilol (Coreg) 25 mg PO Q12 [facility] Last Admin: 12/24/18 09:09 Dose: 25 mg Clonidine HCl (Catapres) 0.2 mg PO TID [facility] Last Admin: 12/24/18 14:27 Dose: 0.2 mg Diphenhydramine HCl (Benadryl) 25 mg PO Q4 PRN PRN Reason: itchiness Last Admin: 12/23/18 05:30 Dose: 25 mg Escitalopram Oxalate (Lexapro) 5 mg PO DAILY [facility] Last Admin: 12/24/18 09:16 Dose: 5 mg Hydralazine HCl (Apresoline) 50 mg PO Q8H [facility] Last Admin: 12/24/18 14:27 Dose: 50 mg Insulin Human Lispro (Humalog) 0 units SC ACHS [facility] Last Admin: 12/24/18 13:56 Dose: Not Given Insulin Lispro Protam/Lispro Human (Humalog Mix 75/25) 14 units SC ACB [facility] Last Admin: 12/24/18 09:14 Dose: 14 units Insulin Lispro Protam/Lispro Human (Humalog Mix 75/25) 10 units SC ACD [facility] Last Admin: 12/23/18 17:17 Dose: 10 units Isosorbide Dinitrate (Isordil) 5 mg PO Q12 [facility] Last Admin: 12/24/18 09:16 Dose: 5 mg Losartan Potassium (Cozaar) 50 mg PO DAILY [facility] Last Admin: 12/24/18 09:09 Dose: 50 mg Pantoprazole Sodium (Protonix Ec Tab) 40 mg PO DAILY [facility] Last Admin: 12/24/18 09:17 Dose: 40 mg Risperidone (Risperdal Tab) 2 mg PO Q12 [facility] Last Admin: 12/24/18 09:17 Dose: 2 mg Sevelamer Carbonate (Renvela) 2,400 mg PO TID [facility] Last Admin: 12/24/18 14:26 Dose: 2,400 mg - Labs Labs: 12/19/18 05:15 12/24/18 10:00 PT 14.9 Seconds (9.8-13.1) H 12/15/18 22:56 INR 1.3 12/15/18 22:56 APTT 35.0 Seconds (25.6-37.1) 12/15/18 22:56 - Constitutional Appears: No Acute Distress - Head Exam Head Exam: NORMAL INSPECTION - Eye Exam Eye Exam: PERRL - ENT Exam ENT Exam: Normal Exam - Neck Exam Neck Exam: Normal Inspection - Respiratory Exam Respiratory Exam: Decreased Breath Sounds - Cardiovascular Exam Cardiovascular Exam: REGULAR RHYTHM - GI/Abdominal Exam GI & Abdominal Exam: Soft, Normal Bowel Sounds - Extremities Exam Additional comments: RUE AV fistula with bruit and thrill - Back Exam Back Exam: NORMAL INSPECTION - Neurological Exam Neurological Exam: Alert, Oriented x3. absent: Motor Sensory Deficit - Psychiatric Exam Psychiatric exam: Anxious - Skin Skin Exam: Warm Assessment and Plan (1) Chest pain Status: Acute (2) Hypoglycemia Status: Acute (3) HTN (hypertension) Status: Chronic (4) Anemia in CKD (chronic kidney disease) Status: Acute (5) JUVENCIO (acute kidney injury) Status: Acute (6) Diabetes mellitus Status: Chronic (7) ESRD (end stage renal disease) on dialysis Status: Chronic (8) Status post kidney transplant Status: Chronic (9) Hyponatremia Status: Acute - Assessment and Plan (Free Text) Plan: BS more stable, Sodium Chl DC by Renal reimbursement consultant, continue rest of Tx.
--- NOTE | 2018-12-24 19:16 | CP.PCM.PN ---
Subjective - Date & Time of Evaluation Date of Evaluation: 12/24/18 Time of Evaluation: 15:00 - Subjective Subjective: SEEN ON RENAL F/U C/O FLIUD OVER LOAD .. ABDO AND LOWER EXTREMITIES D/W THE SISTER AND EMPHASIZED THE IMPORTANCE OF FLIUD RESTRICTION Objective - Vital Signs/Intake and Output Vital Signs (last 24 hours): Temp Pulse Resp BP Pulse Ox 98.4 F 54 L 18 168/85 H 96 12/24/18 16:30 12/24/18 16:30 12/24/18 16:30 12/24/18 16:30 12/24/18 16:30 - Medications Medications: Current Medications Acetaminophen (Tylenol 325mg Tab) 650 mg PO Q4 PRN PRN Reason: Pain, Mild (1-3) Last Admin: 12/24/18 09:05 Dose: 650 mg Atorvastatin Calcium (Lipitor) 10 mg PO DAILY [facility] Last Admin: 12/24/18 09:16 Dose: 10 mg Benztropine Mesylate (Cogentin) 1 mg PO Q12 [facility] Last Admin: 12/24/18 09:09 Dose: 1 mg Carvedilol (Coreg) 25 mg PO Q12 [facility] Last Admin: 12/24/18 09:09 Dose: 25 mg Clonidine HCl (Catapres) 0.2 mg PO TID [facility] Last Admin: 12/24/18 18:06 Dose: 0.2 mg Diphenhydramine HCl (Benadryl) 25 mg PO Q4 PRN PRN Reason: itchiness Last Admin: 12/23/18 05:30 Dose: 25 mg Escitalopram Oxalate (Lexapro) 5 mg PO DAILY [facility] Last Admin: 12/24/18 09:16 Dose: 5 mg Hydralazine HCl (Apresoline) 50 mg PO Q8H [facility] Last Admin: 12/24/18 14:27 Dose: 50 mg Insulin Human Lispro (Humalog) 0 units SC ACHS [facility] Last Admin: 12/24/18 18:08 Dose: Not Given Insulin Lispro Protam/Lispro Human (Humalog Mix 75/25) 14 units SC ACB [facility] Last Admin: 12/24/18 09:14 Dose: 14 units Insulin Lispro Protam/Lispro Human (Humalog Mix 75/25) 10 units SC ACD [facility] Last Admin: 12/24/18 18:06 Dose: 10 units Isosorbide Dinitrate (Isordil) 5 mg PO Q12 [facility] Last Admin: 12/24/18 09:16 Dose: 5 mg Losartan Potassium (Cozaar) 50 mg PO DAILY [facility] Last Admin: 12/24/18 09:09 Dose: 50 mg Pantoprazole Sodium (Protonix Ec Tab) 40 mg PO DAILY [facility] Last Admin: 12/24/18 09:17 Dose: 40 mg Risperidone (Risperdal Tab) 2 mg PO Q12 [facility] Last Admin: 12/24/18 09:17 Dose: 2 mg Sevelamer Carbonate (Renvela) 2,400 mg PO TID [facility] Last Admin: 12/24/18 18:05 Dose: 2,400 mg Torsemide (Demadex) 100 mg PO DAILY [facility] - Labs Labs: 12/19/18 05:15 12/24/18 10:00 PT 14.9 Seconds (9.8-13.1) H 12/15/18 22:56 INR 1.3 12/15/18 22:56 APTT 35.0 Seconds (25.6-37.1) 12/15/18 22:56 Assessment and Plan - Assessment and Plan (Free Text) Assessment: ESRD ON HD T T S .. TO BE C/O ANEMIA OF CKD .. RECIEVED 2 U PRBC ON HD DURING THIS ADMISSION ELECTROLUTES ABN .. HYPONATREMIA AND MILD HYPERKALEMIA PERSISTANT FLIUD OVRLOAD .. PT IS NON COMPLAIANT MMP P : HD IN AM FLUD RESTRICTION ALONG WITH RENAL AND DIABETIC DIET DIETARY CONSULT AND COUNSELLING ALL DEMADEX 100 MG PO DAILY PER HER SISTER
--- NOTE | 2018-12-25 03:11 | PN ---
DATE: 12/24/2018 ENDOCRINOLOGY FOLLOWUP NOTE LOCATION: Room 404. SUBJECTIVE: This is a 52-year-old female with recent uncontrolled type 2 insulin-requiring diabetes, now being followed closely for metabolic management. Her glycemic levels are fluctuating but improved and glucose levels have ranged from 104 to 113 and 127 mg/dL. LABORATORY DATA: Her chemistry showed a BUN of 57, sodium 126, potassium 5.8, chloride 88, CO2 of 27, glucose 96 and creatinine 6.1. PLAN OF MANAGEMENT: So, at this time we will continue the same premixed insulin regimen as given with Humalog 75/25 given as 14 units before breakfast and 10 units before dinner as ordered. We will hold off the resumption of her basal insulin as her fasting glucose have remained near optimal at this time. We will obtain serial chemistries and supplement accordingly as needed. We will follow. Chastity Mcgrath MD
[2018-12-25] MEDS: Insulin Lispro (humaLOG) 100 Units/ml Inj SC SCH ×3 (09:48→17:14)
[2018-12-25] MEDS: Insulin Lispro Mix 75/25 100 units/ml (HumaLog) 10ml SC SCH (09:49)
[2018-12-25] MEDS: Pantoprazole 40 mg EC Tab PO SCH (09:50)
[2018-12-25 10:50] LABS: CALCIUM 8.9 mg/dL (8.4-10.2)
--- NOTE | 2018-12-25 12:10 | CP.PCM.PN ---
Subjective - Date & Time of Evaluation Date of Evaluation: 12/25/18 Time of Evaluation: 12:00 - Subjective Subjective: SEEN ON RENAL F/U SEEN ON HD SEVERELY EDEMATOUS HD ORDERS D/W HD RN WILL REMAOVE 4 L YONY WAS INSTRUCTED ABOUT FLIUD RESTRICTION Objective - Vital Signs/Intake and Output Vital Signs (last 24 hours): Temp Pulse Resp BP Pulse Ox 97.7 F 51 L 18 160/78 H 96 12/25/18 07:53 12/25/18 09:00 12/25/18 07:53 12/25/18 07:53 12/25/18 07:53 - Medications Medications: Current Medications Acetaminophen (Tylenol 325mg Tab) 650 mg PO Q4 PRN PRN Reason: Pain, Mild (1-3) Last Admin: 12/25/18 01:25 Dose: 650 mg Atorvastatin Calcium (Lipitor) 10 mg PO DAILY [facility] Last Admin: 12/25/18 09:50 Dose: 10 mg Benztropine Mesylate (Cogentin) 1 mg PO Q12 [facility] Last Admin: 12/25/18 09:50 Dose: 1 mg Carvedilol (Coreg) 25 mg PO Q12 [facility] Last Admin: 12/25/18 09:49 Dose: Not Given Clonidine HCl (Catapres) 0.2 mg PO TID [facility] Last Admin: 12/25/18 09:50 Dose: Not Given Diphenhydramine HCl (Benadryl) 25 mg PO Q4 PRN PRN Reason: itchiness Last Admin: 12/23/18 05:30 Dose: 25 mg Escitalopram Oxalate (Lexapro) 5 mg PO DAILY [facility] Last Admin: 12/25/18 09:48 Dose: 5 mg Hydralazine HCl (Apresoline) 50 mg PO Q8H [facility] Last Admin: 12/25/18 06:30 Dose: 50 mg Insulin Human Lispro (Humalog) 0 units SC ACHS [facility] Last Admin: 12/25/18 12:01 Dose: Not Given Insulin Lispro Protam/Lispro Human (Humalog Mix 75/25) 8 units SC ACD [facility] Insulin Lispro Protam/Lispro Human (Humalog Mix 75/25) 12 units SC ACB [facility] Isosorbide Dinitrate (Isordil) 5 mg PO Q12 [facility] Last Admin: 12/25/18 09:48 Dose: 5 mg Losartan Potassium (Cozaar) 50 mg PO DAILY [facility] Last Admin: 12/25/18 09:49 Dose: Not Given Pantoprazole Sodium (Protonix Ec Tab) 40 mg PO DAILY [facility] Last Admin: 12/25/18 09:50 Dose: 40 mg Risperidone (Risperdal Tab) 2 mg PO Q12 [facility] Last Admin: 12/25/18 09:50 Dose: 2 mg Sevelamer Carbonate (Renvela) 2,400 mg PO TID [facility] Last Admin: 12/25/18 09:47 Dose: 2,400 mg Torsemide (Demadex) 100 mg PO DAILY [facility] Last Admin: 12/25/18 09:49 Dose: Not Given - Labs Labs: 12/19/18 05:15 12/25/18 09:45 PT 14.9 Seconds (9.8-13.1) H 12/15/18 22:56 INR 1.3 12/15/18 22:56 APTT 35.0 Seconds (25.6-37.1) 12/15/18 22:56 Assessment and Plan - Assessment and Plan (Free Text) Assessment: ESRD ON HD T T S ANEMIA OF CKD .. RECIEVED 2 U PRBC MMP P : C/O CURRENT CARE C/O PRESENT MANAGEMENT
--- NOTE | 2018-12-25 13:54 | CP.PCM.PN ---
Subjective - Date & Time of Evaluation Date of Evaluation: 12/25/18 Objective - Vital Signs/Intake and Output Vital Signs (last 24 hours): Temp Pulse Resp BP Pulse Ox 97.5 F L 67 18 141/69 100 12/25/18 12:00 12/25/18 13:04 12/25/18 12:00 12/25/18 13:04 12/25/18 12:00 - Medications Medications: Current Medications Acetaminophen (Tylenol 325mg Tab) 650 mg PO Q4 PRN PRN Reason: Pain, Mild (1-3) Last Admin: 12/25/18 01:25 Dose: 650 mg Atorvastatin Calcium (Lipitor) 10 mg PO DAILY [facility] Last Admin: 12/25/18 09:50 Dose: 10 mg Benztropine Mesylate (Cogentin) 1 mg PO Q12 [facility] Last Admin: 12/25/18 09:50 Dose: 1 mg Carvedilol (Coreg) 25 mg PO Q12 [facility] Last Admin: 12/25/18 09:49 Dose: Not Given Clonidine HCl (Catapres) 0.2 mg PO TID [facility] Last Admin: 12/25/18 13:04 Dose: 0.2 mg Diphenhydramine HCl (Benadryl) 25 mg PO Q4 PRN PRN Reason: itchiness Last Admin: 12/23/18 05:30 Dose: 25 mg Escitalopram Oxalate (Lexapro) 5 mg PO DAILY [facility] Last Admin: 12/25/18 09:48 Dose: 5 mg Hydralazine HCl (Apresoline) 50 mg PO Q8H [facility] Last Admin: 12/25/18 13:03 Dose: 50 mg Insulin Human Lispro (Humalog) 0 units SC ACHS [facility] Last Admin: 12/25/18 12:01 Dose: Not Given Insulin Lispro Protam/Lispro Human (Humalog Mix 75/25) 8 units SC ACD [facility] Insulin Lispro Protam/Lispro Human (Humalog Mix 75/25) 12 units SC ACB [facility] Isosorbide Dinitrate (Isordil) 5 mg PO Q12 [facility] Last Admin: 12/25/18 09:48 Dose: 5 mg Losartan Potassium (Cozaar) 50 mg PO DAILY [facility] Last Admin: 12/25/18 09:49 Dose: Not Given Pantoprazole Sodium (Protonix Ec Tab) 40 mg PO DAILY [facility] Last Admin: 12/25/18 09:50 Dose: 40 mg Risperidone (Risperdal Tab) 2 mg PO Q12 [facility] Last Admin: 12/25/18 09:50 Dose: 2 mg Sevelamer Carbonate (Renvela) 2,400 mg PO TID [facility] Last Admin: 12/25/18 13:04 Dose: 2,400 mg Torsemide (Demadex) 100 mg PO DAILY [facility] Last Admin: 12/25/18 09:49 Dose: Not Given - Labs Labs: 12/19/18 05:15 12/25/18 09:45 PT 14.9 Seconds (9.8-13.1) H 12/15/18 22:56 INR 1.3 12/15/18 22:56 APTT 35.0 Seconds (25.6-37.1) 12/15/18 22:56 Assessment and Plan (1) Chest pain Status: Acute (2) Hypoglycemia Status: Acute (3) HTN (hypertension) Status: Chronic (4) Anemia in CKD (chronic kidney disease) Status: Acute (5) JUVENCIO (acute kidney injury) Status: Acute (6) Diabetes mellitus Status: Chronic (7) ESRD (end stage renal disease) on dialysis Status: Chronic (8) Status post kidney transplant Status: Chronic (9) Hyponatremia Status: Acute
[2018-12-25 15:47] VITALS: BP 180/81; O2SAT 92
--- NOTE | 2018-12-25 16:03 | CP.PCM.DIS ---
Provider - Provider Date of Admission: 12/15/18 23:45 Attending physician: Sravan Ace MD Consults: 12/17/18 14:53 Nephrology Consult Routine Comment: Consulting Provider: Garo Malone Consulting Physician: Garo Malone Reason for Consult: esrd anemia 12/17/18 14:55 Endocrinology Consult Routine Comment: Consulting Provider: Chastity Mcgrath Consulting Physician: Chastity Mcgrath Reason for Consult: hypoglycemia 12/19/18 15:02 Cardiology Consult Routine Comment: Consulting Provider: Thor Barrera Consulting Physician: Thor Barrera Reason for Consult: chest pain Diagnosis - Discharge Diagnosis (1) Chest pain Status: Acute Priority: High (2) Hypoglycemia Status: Acute Priority: High (3) HTN (hypertension) Status: Chronic Priority: High (4) Anemia in CKD (chronic kidney disease) Status: Acute Priority: High (5) JUVENCIO (acute kidney injury) Status: Acute Priority: High (6) Diabetes mellitus Status: Chronic Priority: High (7) ESRD (end stage renal disease) on dialysis Status: Chronic Priority: High (8) Status post kidney transplant Status: Chronic Priority: High (9) Hyponatremia Status: Acute Hospital Course - Lab Results Lab Results: Most Recent Lab Values WBC 4.8 K/uL (4.8-10.8) 12/19/18 05:15 RBC 3.01 Mil/uL (3.80-5.20) L 12/19/18 05:15 Hgb 9.0 g/dL (12.0-16.0) L 12/19/18 05:15 Hct 27.1 % (34.0-47.0) L 12/19/18 05:15 MCV 90.2 fl (81.0-99.0) 12/19/18 05:15 MCH 29.9 pg (27.0-31.0) 12/19/18 05:15 MCHC 33.1 g/dL (33.0-37.0) 12/19/18 05:15 RDW 17.1 % (11.5-14.5) H 12/19/18 05:15 Plt Count 133 K/uL (130-400) 12/19/18 05:15 MPV 7.0 fl (7.2-11.7) L 12/15/18 22:56 Neut % (Auto) 78.9 % (50.0-75.0) H 12/15/18 22:56 Lymph % (Auto) 8.1 % (20.0-40.0) L 12/15/18 22:56 [place] % (Auto) 8.0 % (0.0-10.0) 12/15/18 22:56 Eos % (Auto) 4.2 % (0.0-4.0) H 12/15/18 22:56 Baso % (Auto) 0.8 % (0.0-2.0) 12/15/18 22:56 Neut # (Auto) 4.1 K/uL (1.8-7.0) 12/15/18 22:56 Lymph # (Auto) 0.4 K/uL (1.0-4.3) L 12/15/18 22:56 [place] # (Auto) 0.4 K/uL (0.0-0.8) 12/15/18 22:56 Eos # (Auto) 0.2 K/uL (0.0-0.7) 12/15/18 22:56 Baso # (Auto) 0.0 K/uL (0.0-0.2) 12/15/18 22:56 Neutrophils % (Manual) 73 % (42-75) 12/15/18 22:56 Lymphocytes % (Manual) 11 % (20-50) L 12/15/18 22:56 Monocytes % (Manual) 11 % (0-10) H 12/15/18 22:56 Eosinophils % (Manual) 5 % (0-7) 12/15/18 22:56 Platelet Estimate Normal (NORMAL) 12/15/18 22:56 Polychromasia Slight 12/15/18 22:56 Hypochromasia (manual) Moderate 12/15/18 22:56 Anisocytosis (manual) Slight 12/15/18 22:56 PT 14.9 Seconds (9.8-13.1) H 12/15/18 22:56 INR 1.3 12/15/18 22:56 APTT 35.0 Seconds (25.6-37.1) 12/15/18 22:56 Sodium 129 mmol/l (132-148) L 12/25/18 09:45 Potassium 4.1 MMOL/L (3.6-5.0) 12/25/18 09:45 Chloride 91 mmol/L (98-107) L 12/25/18 09:45 Carbon Dioxide 28 mmol/L (22-30) 12/25/18 09:45 Anion Gap 14 (10-20) 12/25/18 09:45 BUN 42 mg/dl (7-17) H 12/25/18 09:45 Creatinine 4.3 mg/dl (0.7-1.2) H 12/25/18 09:45 Est GFR ( Amer) 13 12/25/18 09:45 Est GFR (Non-Af Amer) 11 12/25/18 09:45 POC Glucose (mg/dL) 84 mg/dL (65-110) 12/25/18 10:53 Random Glucose 86 mg/dL (65-105) 12/25/18 09:45 Hemoglobin A1c 4.7 % (4.2-6.5) 12/18/18 04:50 Calcium 8.9 mg/dL (8.4-10.2) 12/25/18 09:45 Phosphorus 2.9 mg/dl (2.5-4.5) 12/18/18 04:50 Magnesium 2.1 MG/DL (1.6-2.3) 12/19/18 05:15 Total Bilirubin 0.5 mg/dl (0.2-1.3) 12/19/18 05:15 AST 23 U/L (14-36) 12/19/18 05:15 ALT 25 U/L (9-52) 12/19/18 05:15 Alkaline Phosphatase 131 U/L (38-126) H 12/19/18 05:15 Troponin I < 0.0120 ng/mL (0.00-0.120) 12/15/18 22:56 NT-Pro-B Natriuret Pep 55104 pg/ml (0-900) H 12/15/18 22:56 Total Protein 6.4 G/DL (6.3-8.2) 12/19/18 05:15 Albumin 3.5 g/dL (3.5-5.0) 12/19/18 05:15 Globulin 2.9 gm/dL (2.2-3.9) 12/19/18 05:15 Albumin/Globulin Ratio 1.2 (1.0-2.1) 12/19/18 05:15 Thyroxine (T4) 10.5 ug/dl (5.5-11.0) 12/19/18 05:15 TSH 3rd Generation 4.72 mIU/ML (0.46-4.68) H 12/19/18 05:15 Thyroperoxidase Ab <1 IU/mL (<9) 12/19/18 05:15 Blood Type O POSITIVE 12/17/18 18:30 Antibody Screen Negative 12/17/18 18:30 Crossmatch See Detail 12/17/18 18:30 BBK History Checked Patient has bt 12/17/18 18:30 Discharge Exam - Head Exam Head Exam: NORMAL INSPECTION Discharge Plan - Follow Up Plan Condition: STABLE Disposition: HOME/ ROUTINE Instructions: Low Blood Sugar, Adult (DC), Kidney Failure (DC), Chest Pain (DC) Additional Instructions: continue dialysis [id number] follow up with in 1 week Referrals: Garo Malone MD [Staff Provider] - Sravan Ace MD [Family Provider] -
[2018-12-25] MEDS ORDERED: Insulin Lispro Mix 75/25 100 units/ml (HumaLog) 10ml SC SCH (16:30)
[2018-12-25 19:34] VITALS: PULSE 55; RESP 20; TEMP 97.8
[2018-12-26] MEDS ORDERED: Insulin Lispro Mix 75/25 100 units/ml (HumaLog) 10ml SC SCH (07:30)
== END 2018-12-25 20:20 | disposition home or self-care (01) | DRG 638 ==
LOC: H.ER 21:36 → H.ERHOLD 23:45 → H.TEL 12-16 03:08
PROVIDERS: ADMIT Internal Medicine Pulmonary Disease; ATTEND Internal Medicine Pulmonary Disease
PROC: 5A1D70Z Performance of Urinary Filtration, Intermittent, Less than 6 Hours Per Day (ICD-10-PCS; principal; 2018-12-18)
PROC: 30233N1 Transfusion of Nonautologous Red Blood Cells into Peripheral Vein, Percutaneous Approach (ICD-10-PCS; 2018-12-18)
PROC: 5A1D70Z Performance of Urinary Filtration, Intermittent, Less than 6 Hours Per Day (ICD-10-PCS; 2018-12-20)
PROC: 5A1D70Z Performance of Urinary Filtration, Intermittent, Less than 6 Hours Per Day (ICD-10-PCS; 2018-12-22)
PROC: 5A1D70Z Performance of Urinary Filtration, Intermittent, Less than 6 Hours Per Day (ICD-10-PCS; 2018-12-25)
DX: E11.649 Type 2 diabetes mellitus with hypoglycemia without coma (principal); I12.0 Hypertensive chronic kidney disease with stage 5 chronic kidney disease or end stage renal disease; E87.1 Hypo-osmolality and hyponatremia; N18.6 End stage renal disease; N17.9 Acute kidney failure, unspecified; E87.5 Hyperkalemia; E11.22 Type 2 diabetes mellitus with diabetic chronic kidney disease; E11.21 Type 2 diabetes mellitus with diabetic nephropathy; D63.1 Anemia in chronic kidney disease; Z99.2 Dependence on renal dialysis; E11.42 Type 2 diabetes mellitus with diabetic polyneuropathy; E11.319 Type 2 diabetes mellitus with unspecified diabetic retinopathy without macular edema; E11.65 Type 2 diabetes mellitus with hyperglycemia; E06.3 Autoimmune thyroiditis; F20.9 Schizophrenia, unspecified; F32.9 Major depressive disorder, single episode, unspecified; F41.1 Generalized anxiety disorder; I25.10 Atherosclerotic heart disease of native coronary artery without angina pectoris; R07.9 Chest pain, unspecified; E78.5 Hyperlipidemia, unspecified; J45.909 Unspecified asthma, uncomplicated; E78.00 Pure hypercholesterolemia, unspecified; R62.50 Unspecified lack of expected normal physiological development in childhood; Z79.4 Long term (current) use of insulin; Z91.041 Radiographic dye allergy status